=== PATIENT | female | born 1995 | race Caucasian/White ===

== ENCOUNTER → 2016-05-08 | Outpatient (CLI) | payer OTHER ==
[~2016-05-08] MED LIST: IBUP80TA PO; PNV-CAP5 PO; VITA100037 PO
[2016-05-08 20:06] LABS: ALBUMIN 3.9 GM/DL (3.2-5.2); ALBUMIN/GLOBULIN RATIO 1.08 (1.00-1.93); ALKALINE PHOSPHATASE 111 U/L (45-117); ALT/SGPT 24 U/L (12-78); ANION GAP 8 MEQ/L (8-16); AST/SGOT 15 U/L (15-37); BILIRUBIN,TOTAL 0.7 MG/DL (0.2-1.0); BLOOD UREA NITROGEN 15 MG/DL (7-18); CALCIUM LEVEL 9.3 MG/DL (8.5-10.1); CARBON DIOXIDE LEVEL 27 MEQ/L (21-32); CHLORIDE LEVEL 104 MEQ/L (98-107); CHOLESTEROL LEVEL 155 MG/DL (<200); CREATININE FOR GFR 1.16 MG/DL (0.55-1.02); GLOMERULAR FILTRATION RATE > 60.0 (>60); GLUCOSE, FASTING 84 MG/DL (70-105); MAGNESIUM LEVEL 1.9 MG/DL (1.8-2.4); POTASSIUM SERUM 4.5 MEQ/L (3.5-5.1); SODIUM LEVEL 139 MEQ/L (136-145); TOTAL PROTEIN 7.5 GM/DL (6.4-8.2); TRIGLYCERIDES LEVEL 288 MG/DL (<150)
== END | disposition home or self-care (01) ==
LOC: M LRY 10:06
PROVIDERS: ATTEND Nurse Practitioner Family
DX: F39 Unspecified mood [affective] disorder (principal); E78.5 Hyperlipidemia, unspecified; R51 Headache; K21.9 Gastro-esophageal reflux disease without esophagitis

== ENCOUNTER → 2016-06-02 | Outpatient (REF) | payer OTHER | LOC: M SFHCLERA 21:02 | PROVIDERS: ATTEND Nurse Practitioner Family | DX: J02.9 Acute pharyngitis, unspecified (principal) ==

== ENCOUNTER → 2016-07-02 | Outpatient (CLI) | payer OTHER ==
[2016-07-02 13:48] LABS: ANION GAP 10 MEQ/L (8-16); BLOOD UREA NITROGEN 17 MG/DL (7-18); CALCIUM LEVEL 9.7 MG/DL (8.5-10.1); CARBON DIOXIDE LEVEL 26 MEQ/L (21-32); CHLORIDE LEVEL 105 MEQ/L (98-107); CHOLESTEROL LEVEL 128 MG/DL (<200); CREATININE FOR GFR 1.18 MG/DL (0.55-1.02); GLOMERULAR FILTRATION RATE > 60.0 (>60); GLUCOSE, FASTING 99 MG/DL (70-105); POTASSIUM SERUM 4.4 MEQ/L (3.5-5.1); SODIUM LEVEL 141 MEQ/L (136-145); TRIGLYCERIDES LEVEL 276 MG/DL (<150)
== END ==
LOC: M LAB 11:51
PROVIDERS: ATTEND Nurse Practitioner Family
DX: E78.5 Hyperlipidemia, unspecified (principal)

== ENCOUNTER → 2017-03-26 | Outpatient (REF) | payer OTHER ==
[~2017-03-26] MED LIST changes: -VITA100037 PO; +VITA100067 PO
== END ==
LOC: M SFHCLERA 14:15
PROVIDERS: ATTEND Physician Assistant Medical
DX: J20.9 Acute bronchitis, unspecified (principal)

== ENCOUNTER → 2017-04-21 | Outpatient (CLI) | payer OTHER ==
[2017-04-21 12:50] LABS: ANION GAP 6 MEQ/L (8-16); BLOOD UREA NITROGEN 15 MG/DL (7-18); CALCIUM LEVEL 8.9 MG/DL (8.5-10.1); CARBON DIOXIDE LEVEL 28 MEQ/L (21-32); CHLORIDE LEVEL 105 MEQ/L (98-107); CHOLESTEROL LEVEL 142 MG/DL (<200); CREATININE FOR GFR 1.28 MG/DL (0.55-1.02); GLOMERULAR FILTRATION RATE 55.5 (>60); GLUCOSE, FASTING 76 MG/DL (70-105); HDL CHOLESTEROL 40 MG/DL (>40); LDL CHOLESTEROL 71.8 MG/DL (<100); NON-HDL-C 102 MG/DL; SODIUM LEVEL 139 MEQ/L (136-145); TRIGLYCERIDES LEVEL 151 MG/DL (<150)
[2017-04-21 13:38] LABS: ESTIMATED AVERAGE GLUCOSE 94 MG/DL (60-110); HEMOGLOBIN A1c 4.9 %
== END ==
LOC: M LRY 09:31
DX: E88.81 Metabolic syndrome and other insulin resistance (principal)
CPT/HCPCS: 83036

== ENCOUNTER → 2017-11-18 | Outpatient (REF) | payer OTHER | LOC: M SFHCLERA 20:55 | DX: J06.9 Acute upper respiratory infection, unspecified (principal) ==

== ENCOUNTER → 2017-11-21 | Outpatient (CLI) | payer OTHER | LOC: M LRY 20:12 | DX: R05 Cough (principal) | CPT/HCPCS: 71046 ==

== ENCOUNTER → 2018-04-27 | Outpatient (CLI) | payer OTHER ==
[2018-04-27 17:51] LABS: HEMATOCRIT 47.1 % (36.0-47.0); HEMOGLOBIN 15.3 g/dl (12.0-15.5); MEAN CORPUSCULAR HEMOGLOBIN 28.4 pg (27.0-33.0); MEAN CORPUSCULAR HGB CONC 32.5 g/dl (32.0-36.5); MEAN CORPUSCULAR VOLUME 87.4 fl (80.0-96.0); PLATELET COUNT, AUTOMATED 253 10^3/uL (150-450); RED BLOOD COUNT 5.39 10^6/uL (4.00-5.40); WHITE BLOOD COUNT 7.7 10^3/uL (4.0-10.0)
[2018-04-27 18:01] LABS: FREE T4 1.05 NG/DL (0.76-1.46); THYROID STIMULATING HORMONE 1.6 uIU/ML (0.358-3.740)
== END ==
LOC: M SMT 15:09
PROVIDERS: ATTEND Specialist
DX: N93.8 Other specified abnormal uterine and vaginal bleeding (principal)

== ENCOUNTER → 2018-05-04 | Outpatient (REF) | payer OTHER, MEDICAID ==
[2018-05-04 19:24] LABS: ALBUMIN 3.9 GM/DL (3.2-5.2); ALT/SGPT 26 U/L (12-78); BILIRUBIN,TOTAL 0.4 MG/DL (0.2-1.0); BLOOD UREA NITROGEN 18 MG/DL (7-18); CALCIUM LEVEL 8.8 MG/DL (8.5-10.1); CARBON DIOXIDE LEVEL 30 MEQ/L (21-32); CHLORIDE LEVEL 102 MEQ/L (98-107); CHOLESTEROL LEVEL 162 MG/DL (<200); CHOLESTEROL RISK RATIO 5.785 (<5); CREATININE FOR GFR 1.12 MG/DL (0.55-1.30); GLOMERULAR FILTRATION RATE > 60.0 (>60); GLUCOSE, FASTING 88 MG/DL (70-100); HDL CHOLESTEROL 28 MG/DL (>40); NON-HDL-C 134 MG/DL; POTASSIUM SERUM 4.4 MEQ/L (3.5-5.1); SODIUM LEVEL 137 MEQ/L (136-145); TOTAL PROTEIN 7.3 GM/DL (6.4-8.2); TRIGLYCERIDES LEVEL 462 MG/DL (<150)
[2018-05-04 19:31] LABS: TOTAL 25(OH) VITAMIN D 14.4 NG/ML (30.0-100.0); VITAMIN B12 LEVEL 761 PG/ML
[2018-05-04 19:32] LABS: FOLATE 13.7 NG/ML
== END ==
LOC: M LAB REF 18:41
PROVIDERS: ATTEND Nurse Practitioner Family
DX: Z13.9 Encounter for screening, unspecified (principal)

== ENCOUNTER → 2018-07-11 | Outpatient (REF) | payer OTHER ==
[2018-07-11 19:09] LABS: ALBUMIN 3.8 GM/DL (3.2-5.2); ALT/SGPT 29 U/L (12-78); BILIRUBIN,TOTAL 0.4 MG/DL (0.2-1.0); BLOOD UREA NITROGEN 16 MG/DL (7-18); CALCIUM LEVEL 9.5 MG/DL (8.5-10.1); CARBON DIOXIDE LEVEL 26 MEQ/L (21-32); CHLORIDE LEVEL 105 MEQ/L (98-107); CHOLESTEROL LEVEL 182 MG/DL (<200); CREATININE FOR GFR 1.09 MG/DL (0.55-1.30); GLOMERULAR FILTRATION RATE > 60.0 (>60); GLUCOSE, FASTING 97 MG/DL (70-100); HDL CHOLESTEROL 35 MG/DL (>40); LDL CHOLESTEROL 79 MG/DL (<100); NON-HDL-C 147 MG/DL; POTASSIUM SERUM 4.5 MEQ/L (3.5-5.1); SODIUM LEVEL 138 MEQ/L (136-145); TOTAL PROTEIN 7.1 GM/DL (6.4-8.2); TRIGLYCERIDES LEVEL 340 MG/DL (<150)
[2018-07-11 19:10] LABS: FOLATE > 24.0 NG/ML; VITAMIN B12 LEVEL 478 PG/ML
[2018-07-11 19:12] LABS: BASO # 0.1 10^3/uL (0.0-0.2); BASO % 0.7 % (0.0-1.0); EOS # 0.3 10^3/uL (0.0-0.50); EOS % 4.4 % (0.0-3.0); HEMATOCRIT 46.5 % (36.0-47.0); HEMOGLOBIN 15.4 g/dl (12.0-15.5); LYMPH # 1.9 10^3/uL (1.5-6.5); MEAN CORPUSCULAR HEMOGLOBIN 28.5 pg (27.0-33.0); MEAN CORPUSCULAR HGB CONC 33.1 g/dl (32.0-36.5); MEAN CORPUSCULAR VOLUME 86.1 fl (80.0-96.0); MONO # 0.5 10^3/uL (0.0-0.8); MONO % 6.8 % (0.0-5.0); NEUTROPHILS # 4.3 10^3/uL (1.8-7.7); NEUTROPHILS % 60.4 % (36.0-66.0); PLATELET COUNT, AUTOMATED 230 10^3/uL (150-450); WHITE BLOOD COUNT 7.1 10^3/uL (4.0-10.0)
[2018-07-11 19:15] LABS: HEMOGLOBIN A1c 5.3 %
== END ==
LOC: M LAB REF 17:21
PROVIDERS: ATTEND Nurse Practitioner Family
DX: Z13.9 Encounter for screening, unspecified (principal)

== ENCOUNTER → 2018-08-12 | Outpatient (REF) | payer OTHER | LOC: M SFHCLERA 17:11 | PROVIDERS: ATTEND Nurse Practitioner Family | DX: R53.81 Other malaise (principal) ==

== ENCOUNTER → 2018-10-27 | Outpatient (REF) | payer OTHER | LOC: M SFHCLERA 17:41 | PROVIDERS: ATTEND Nurse Practitioner Family | DX: J02.9 Acute pharyngitis, unspecified (principal) ==

== ENCOUNTER 2019-01-09 20:30 | Inpatient (IN) | payer OTHER ==
[~2019-01-09] VITALS: Ht 157.5 cm; Wt 99.6 kg
[~2019-01-09 20:30] MED LIST changes: -ACET1TAB55 PO; -BUSP15TA47; -BUSP15TA47 PO; -CELE40TA PO; -CITA40TA4; -LEVA1TAB2 PO; -NEXP1IMP SC; -OMEP-218; -OMEP-218 PO
[2019-01-09] MEDS ORDERED: BUSP15TA47 (20:35)
[2019-01-09] MEDS ORDERED: CITA40TA4 (20:35)
[2019-01-09] MEDS ORDERED: OMEP-218 (20:35)
[2019-01-09] MEDS ORDERED: ACETAMINOPHEN TAB 650MG DOSE (2X325MG) PO ONE (20:45)
[2019-01-09] MEDS ORDERED: NS 1,000 ML IV ONE ×2 (21:15→23:00)
[2019-01-09 21:31] LABS: BASO # 0.1 10^3/uL (0.0-0.2); BASO % 0.4 % (0.0-1.0); EOS % 0.1 % (0.0-3.0); HEMATOCRIT 41.1 % (36.0-47.0); HEMOGLOBIN 13.7 g/dl (12.0-15.5); LYMPH # 1.1 10^3/uL (1.5-5.0); LYMPH % 5.8 % (24.0-44.0); MEAN CORPUSCULAR HEMOGLOBIN 28.7 pg (27.0-33.0); MEAN CORPUSCULAR HGB CONC 33.3 g/dl (32.0-36.5); MEAN CORPUSCULAR VOLUME 86.2 fl (80.0-96.0); MONO # 1.9 10^3/uL (0.0-0.8); MONO % 10.2 % (0.0-5.0); NEUTROPHILS # 15.3 10^3/uL (1.5-8.5); NEUTROPHILS % 82.7 % (36.0-66.0); PLATELET COUNT, AUTOMATED 187 10^3/uL (150-450); RED BLOOD COUNT 4.77 10^6/uL (4.00-5.40); WHITE BLOOD COUNT 18.6 10^3/uL (4.0-10.0)
[2019-01-09 21:59] LABS: ALBUMIN 2.9 GM/DL (3.2-5.2); ALT/SGPT 20 U/L (12-78); BILIRUBIN,DIRECT 0.6 MG/DL (0.0-0.2); BILIRUBIN,TOTAL 1.3 MG/DL (0.2-1.0); BLOOD UREA NITROGEN 22 MG/DL (7-18); CALCIUM LEVEL 8.5 MG/DL (8.5-10.1); CARBON DIOXIDE LEVEL 23 MEQ/L (21-32); CHLORIDE LEVEL 104 MEQ/L (98-107); CREATININE FOR GFR 1.78 MG/DL (0.55-1.30); GLOMERULAR FILTRATION RATE 37.3 (>60); GLUCOSE, FASTING 108 MG/DL (70-100); LIPASE 52 U/L (73-393); POTASSIUM SERUM 3.2 MEQ/L (3.5-5.1); SODIUM LEVEL 137 MEQ/L (136-145); TOTAL PROTEIN 6.2 GM/DL (6.4-8.2)
[2019-01-09 22:01] LABS: HCG, SERUM QUALITATIVE NEGATIVE (NEGATIVE)
[2019-01-09] MEDS ORDERED: cefTRIAXone SOD 1 GM in D5W MINI-BAG PLUS 50 ML IV ONE (23:00)
[2019-01-10] VITALS (7 sets, daily range): BP systolic 109–125; BP diastolic 57–82
--- NOTE | 2019-01-10 00:34 | REPVR ---
PROCEDURE INFORMATION: Exam: CT Abdomen and Pelvis Without Contrast Exam date and time: 01/09/2019 10:39 PM Clinical history: 23 years old, female; Abdominal pain; Generalized; Additional info: Pyleonephritis, renal stone possible TECHNIQUE: Imaging protocol: Computed tomography of the abdomen and pelvis without contrast. Radiation optimization: All CT scans at this facility use at least one of these dose optimization techniques: automated exposure control; mA and/or kV adjustment per patient size (includes targeted exams where dose is matched to clinical indication); or iterative reconstruction. COMPARISON: No relevant prior studies available. FINDINGS: Liver: Liver is enlarged. Gallbladder and bile ducts: Normal. No calcified stones. No ductal dilation. Pancreas: Normal. No ductal dilation. Spleen: Spleen is enlarged measuring 14.6 cm. Adrenals: Normal. No mass. Kidneys and ureters: No evidence of stones or hydronephrosis. Mild haziness surrounding the bilateral kidneys, right greater than left, likely representing pyelonephritis. Stomach and bowel: No bowel dilatation or obstruction. Appendix: Normal appendix. Intraperitoneal space: Trace free fluid in the pelvis likely physiologic. Vasculature: Unremarkable. No abdominal aortic aneurysm. Lymph nodes: Unremarkable. No enlarged lymph nodes. Bladder: Unremarkable as visualized. Reproductive: Questionable cyst versus dominant follicle in the right ovary measuring up to 13 x 18 mm. Uterus and left ovary are unremarkable. Bones/joints: Unremarkable. No acute fracture. Soft tissues: Unremarkable. IMPRESSION: No evidence of stones or hydronephrosis. Mild haziness surrounding the bilateral kidneys, right greater than left, likely representing pyelonephritis. Hepatosplenomegaly. Normal appendix. Possible dominant follicle in the right ovary with trace free fluid in the pelvis likely physiologic. Electronically signed by: Alize Masters On 01/10/2019 00:33:28 AM
[2019-01-10] MEDS ORDERED: CELE40TA PO (03:49)
[2019-01-10] MEDS ORDERED: NEXP1IMP SC (03:49)
[2019-01-10] MEDS ORDERED: OMEP-218 PO (03:49)
[2019-01-10] MEDS ORDERED: BUSP15TA47 PO (03:49)
--- NOTE | 2019-01-10 04:19 | HPEPDOC ---
[facility] Medical History & Physical Date of Admission Jan 10, 2019 Date of Service: Jan 10, 2019 Primary Care Physician: A Other Provider Carmel TINEO Attending Physician: LUZ LEVIN MD History and Physical TIME OF SERVICE: 2:35 AM CHIEF COMPLAINT: "been sick since yesterday" HISTORY OF PRESENT ILLNESS: This is a 23-year-old female who presents with complaints of feeling sick since yesterday. She reports having 5-6 episodes of non bloody emesis, is complaining that my "head is killing me", and of 5/10 in severity right-sided, nonradiating back pain. She went to an urgent care center yesterday and was told that she has a virus. Per discussion with the ED provider the patient has been taking a lot of Ibuprofen which may be the cause of MIKE; she was diagnosed w pyelonephritis based on the UA and CT scan findings & received IV fluids and ceftriaxone. REVIEW OF SYSTEMS: 12 point review of systems negative except as listed in HPI PAST MEDICAL/ SURGICAL HISTORY: Patient denies having any medical problems or any surgeries in the past Per chart review, she has anxiety and depression SOCIAL HISTORY: She denies smoking FAMILY HISTORY: She reports that she does not know her family history because she's never asked ALLERGIES: Please see below. HOME MEDICATIONS: Please see below. PHYSICAL EXAMINATION: VITAL SIGNS: Please see below. GENERAL APPEARANCE: well-nourished, well-developed, does not appear toxic HEENT: Normocephalic, atraumatic, mucous members moist and pink CARDIOVASCULAR: regular rate and rhythm. No murmurs, rubs or gallops LUNGS: Clear to auscultation bilaterally on room air ABDOMEN: soft and nontender on palpation. Bowel sounds hypoactive MUSCULOSKELETAL: range of motion intact in all 4 extremities. There is no CVA angle tenderness INTEGUMENT:She is not flushed. NEUROLOGICAL:Cranial nerves II-12 intact. Speech is not dysarthric PSYCHIATRIC: Alert and oriented to person, place and time, able to understand and follow commands LABORATORY DATA: See below. IMAGING: Chest x-ray appears unremarkable. Final read is pending. CT abdomen and pelvis shows findings consistent with bilateral pyelonephritis MICROBIOLOGY: Please see below. ASSESSMENT: Ms. Bedolla is a 23 old female with a past medical history of anxiety and depression who will be admitted for management of sepsis secondary to pyelonephritis & MIKE. PLAN: 1. Sepsis secondary to pyelonephritis SIRS criteria include temperature of 101, HR of 142, WBC # of 18.6 + Non diabetic hyperglycemia (Glucose is 108 the patient denied a history of diabetes) UA & report from CT of the abdomen reviewed News 2 score = 5 points = medium risk Plan: admit to PCU / telemetry / Sepsis protocol w lactic acid / c/w Zosyn & IVF /f/u blood cx, UCx 2. MIKE Possibly 2/2 Ibuprofen use vs prerenal azotemia (dehydration) Baseline Cr 1.09 Current Cr 1.78 UA reviewed Plan: f/u ulytes for FENa or FEUrea, renal US, IVF / avoid nephrotoxins 3. Obesity BMI 37.7 kg/m2 Complicates care Plan: can f/u w PCP for manager testing consult / recommend cardiovascular exercise for 40 min 4-5 days a week 4. Hyperglycemia Plan: f/u A1C 5. Anxiety /Depression Plan: c/w home meds DVT prophylaxis with Lovenox. Disposition pending clinical course Vital Signs Vital Signs Date Time Temp Pulse Resp B/P (MAP) Pulse Ox O2 Delivery O2 Flow Rate FiO2 01/10/19 03:55 82 14 100/55 (70) 100 01/10/19 00:54 97.8 01/09/19 20:31 Room Air Laboratory Data Labs 24H Laboratory Tests 2 01/09/19 21:16: Immature Granulocyte % (Auto) 0.8, White Blood Count 18.6H, Red Blood Count 4.77, Hemoglobin 13.7, Hematocrit 41.1, Mean Corpuscular Volume 86.2, Mean Corpuscular Hemoglobin 28.7, Mean Corpuscular Hemoglobin Concent 33.3, Red Cell Distribution Width 13.4, Platelet Count 187, Neutrophils (%) (Auto) 82.7H, Lymphocytes (%) (Auto) 5.8L, Monocytes (%) (Auto) 10.2H, Eosinophils (%) (Auto) 0.1, Basophils (%) (Auto) 0.4, Neutrophils # (Auto) 15.3H, Lymphocytes # (Auto) 1.1L, Monocytes # (Auto) 1.9H, Eosinophils # (Auto) 0.0, Basophils # (Auto) 0.1, Nucleated Red Blood Cells % (auto) 0.0, Urine Color SHERRIE, Urine Appearance CLOUDYH, Urine pH 5.0, Urine Specific Og[place]by 1.015, Urine Protein 2+H, Urine Glucose (UA) NEGATIVE, Urine Ketones NEGATIVE, Urine Blood 3+H, Urine Nitrite NEGATIVE, Urine Bilirubin NEGATIVE, Urine Urobilinogen 4.0H, Urine Leukocyte Esterase 3+H, Urine WBC (Auto) TNTCH, Urine RBC (Auto) 81H, Urine Hyaline Casts (Auto) 0, Urine Bacteria (Auto) 3+H, Urine Squamous Epithelial Cells 2, Urine Mucus (Auto) SMALL, Urine Sperm (Auto) , Anion Gap 10, Glomerular Filtration Rate 37.3L, Calcium Level 8.5, Aspartate Amino Transf (AST/SGOT) 16, Alanine Aminotransferase (ALT/SGPT) 20, Alkaline Phosphatase 101, Total Bilirubin 1.3H, Direct Bilirubin 0.6H, Total Protein 6.2L, Albumin 2.9L, Albumin/Globulin Ratio 0.88L, Lipase 52L, Human Chorionic Gonadotropin, Qual NEGATIVE CBC/BMP Laboratory Tests 01/09/19 21:16 Red Blood Count 4.77, Mean Corpuscular Volume 86.2, Mean Corpuscular Hemoglobin 28.7, Mean Corpuscular Hemoglobin Concent 33.3, Red Cell Distribution Width 13.4, Neutrophils (%) (Auto) 82.7 H, Lymphocytes (%) (Auto) 5.8 L, Monocytes (%) (Auto) 10.2 H, Eosinophils (%) (Auto) 0.1, Basophils (%) (Auto) 0.4, Neutrophils # (Auto) 15.3 H, Lymphocytes # (Auto) 1.1 L, Monocytes # (Auto) 1.9 H, Eosinophils # (Auto) 0.0, Basophils # (Auto) 0.1 Microbiology Microbiology 01/09/19 Urine Culture, Received Pending Home Medications Scheduled Buspirone HCl (Buspirone HCl) 15 Mg Tablet, 15 MG PO BID Citalopram Hydrobromide (Celexa) 40 Mg Tablet, 40 MG PO DAILY Etonogestrel (Nexplanon) 68 Mg Implant, 68 MG SC ASDIRECTED IMPLANTED IN AUGUST 2017 Omeprazole (Omeprazole) 20 Mg Capsule.dr, 20 MG PO DAILY Allergies Coded Allergies: No Known Allergies (Unverified , 06/08/14) A-FIB/CHADSVASC A-FIB History Current/History of A-Fib/PAF?: No Current PO Anticoag Therapy: No LUZ LEVIN MD Jan 10, 2019 04:19
--- NOTE | 2019-01-10 04:22 | REP ---
Clinical: Fever . Comparison: 11/21/2017 . Technique: PA and lateral. Findings: The mediastinum and cardiac silhouette are normal. The lung reardon are clear and without acute consolidation, effusion, or pneumothorax. The skeletal structures are intact and normal. Impression: 1. No acute cardiopulmonary process. Electronically Signed by Je Soriano MD 01/10/2019 04:14 A
[2019-01-10 05:31] LABS: HEMATOCRIT 43.2 % (36.0-47.0); MEAN CORPUSCULAR HEMOGLOBIN 28.5 pg (27.0-33.0); MEAN CORPUSCULAR HGB CONC 32.4 g/dl (32.0-36.5); MEAN CORPUSCULAR VOLUME 87.8 fl (80.0-96.0); PLATELET COUNT, AUTOMATED 180 10^3/uL (150-450); RED BLOOD COUNT 4.92 10^6/uL (4.00-5.40); WHITE BLOOD COUNT 15.2 10^3/uL (4.0-10.0)
[2019-01-10 05:58] LABS: ALBUMIN 2.6 GM/DL (3.2-5.2); CALCIUM LEVEL 8.4 MG/DL (8.5-10.1); CREATININE FOR GFR 1.76 MG/DL (0.55-1.30); GLOMERULAR FILTRATION RATE 37.8 (>60); POTASSIUM SERUM 3.2 MEQ/L (3.5-5.1); TOTAL PROTEIN 6.4 GM/DL (6.4-8.2)
[2019-01-10] MEDS ORDERED: PIPERACILLIN/TAZOBACTAM SOD 3.375 GM in D5W MINI-BAG PLUS 50 ML IV SCH (06:00)
[2019-01-10] MEDS ORDERED: NS 1,000 ML IV SCH (06:00)
[2019-01-10] MEDS ORDERED: PIPERACILLIN/TAZOBACTAM SOD 2.25 GM in D5W MINI-BAG PLUS 50 ML IV SCH (06:00)
[2019-01-10] MEDS ORDERED: busPIRone 5 MG TAB As Ordered ONE (08:35)
[2019-01-10] MEDS ORDERED: OMEPRAZOLE 20 MG CAP As Ordered ONE (08:35)
[2019-01-10] MEDS ORDERED: CitaloPRAM (CeleXA) 20 MG TAB As Ordered ONE (08:35)
[2019-01-10] MEDS ORDERED: ENOXAPARIN 40 MG/0.4 ML SYRINGE (J1650) As Ordered ONE (08:35)
[2019-01-10] MEDS ORDERED: cefTRIAXone SOD 2 GM VIAL (J0696) As Ordered ONE (08:37)
[2019-01-10] MEDS: cefTRIAXone SOD 2 GM in D5W MINI-BAG PLUS 50 ML IV SCH (08:40)
[2019-01-10] MEDS: busPIRone 5 MG TAB PO SCH ×2 (08:40→21:09)
[2019-01-10] MEDS: ENOXAPARIN 40 MG/0.4 ML SYRINGE (J1650) SC SCH (08:41)
[2019-01-10] MEDS: OMEPRAZOLE 20 MG CAP PO SCH (08:41)
[2019-01-10] MEDS: CitaloPRAM (CeleXA) 20 MG TAB PO SCH (08:41)
[2019-01-10] MEDS: ACETAMINOPHEN 650MG ER TAB (TYLENOL ARTHRITIS) PO PRN (09:44)
[2019-01-10] MEDS ORDERED: KCL 40MEQ in NS 1000ML 1,000 ML IV SCH (11:00)
[2019-01-10] MEDS ORDERED: traMADol 50 MG TAB PO PRN (12:00)
--- NOTE | 2019-01-10 13:45 | REP ---
RENAL ULTRASOUND: Real-time sonographic evaluation of the kidneys performed and demonstrates both kidneys to be normal in size. Right kidney measures 11.3 x 4.8 x 4.0 cm and left kidney 10.4 x 4.1 x 3.8 cm. Echotexture of the right kidney is hyperechoic suggesting medical renal disease. There is no hydronephrosis bilaterally. No renal mass is seen. With Doppler color evaluation left ureteral jet is visualized in the urinary bladder while a right ureteral jet is not visualized. IMPRESSION: Hyperechoic echotexture of the right kidney suggests medical renal disease and possibly pyelonephritis. No hydronephrosis. No right ureteral jet identified, while a left ureteral jet is seen in the urinary bladder with Doppler evaluation. Electronically Signed by Francis Magana MD 01/10/2019 03:22 P
[2019-01-10] MEDS: NS 1,000 ML IV SCH (17:56)
[2019-01-10] MEDS ORDERED: SUMAtriptan SUCCINATE 6 MG/0.5 ML VIAL SC ONE (19:00)
[2019-01-10] MEDS: MORPHINE 4 MG/ML 1ML VIAL/SYRINGE (J2270) IV PRN ×2 (19:05→22:58)
[2019-01-10] MEDS: ONDANSETRON 4MG/2ML VIAL (J2405) IV PRN ×2 (19:05→22:58)
--- NOTE | 2019-01-10 19:38 | REPVR ---
PROCEDURE INFORMATION: Exam: CT Head Without Contrast Exam date and time: 01/10/2019 7:11 PM Clinical history: 23 years old, female; Pain; Headache not specified; Additional info: Intracranial bleed TECHNIQUE: Imaging protocol: Computed tomography of the head without contrast. Radiation optimization: All CT scans at this facility use at least one of these dose optimization techniques: automated exposure control; mA and/or kV adjustment per patient size (includes targeted exams where dose is matched to clinical indication); or iterative reconstruction. COMPARISON: No relevant prior studies available. FINDINGS: Brain: Normal. No hemorrhage. Unremarkable white matter. No mass effect. Ventricles: Normal. No ventriculomegaly. Bones/joints: Unremarkable. No acute fracture. Sinuses: Visualized sinuses are unremarkable. No fluid levels. Mastoid air cells: Visualized mastoid air cells are well aerated. Soft tissues: Unremarkable. IMPRESSION: No acute intracranial abnormality. Electronically signed by: Nilay Kulkarni On 01/10/2019 19:38:23 PM
[2019-01-10 22:44] LABS: INFLUENZA A AMPLIFICATION NEGATIVE (NEGATIVE); INFLUENZA B AMPLIFICATION NEGATIVE (NEGATIVE)
[2019-01-10] MEDS ORDERED: ACETAMINOPHEN TAB 650MG DOSE (2X325MG) PO PRN (23:45)
[2019-01-11] VITALS (10 sets, daily range): BP systolic 92–134; BP diastolic 53–79; O2SAT 97–100
--- NOTE | 2019-01-11 00:05 | REPVR ---
PROCEDURE INFORMATION: Exam: XR Chest, 1 View Exam date and time: 01/10/2019 11:59 PM Clinical history: 23 years old, female; Other: "; Additional info: O2 sat 85% TECHNIQUE: Imaging protocol: XR of the chest Views: 1 view. COMPARISON: CR Chest, 2 view PA, Lat 01/09/2019 10:55 PM FINDINGS: Lungs: Unremarkable. No consolidation. Pleural space: Unremarkable. No pleural effusion. No pneumothorax. Heart/Mediastinum: Unremarkable. No cardiomegaly. Bones/joints: Unremarkable. IMPRESSION: No acute findings. Electronically signed by: Nilay Kulkarni On 01/11/2019 00:04:19 AM
[2019-01-11] MEDS: NS 1,000 ML IV SCH ×4 (00:26→21:45)
[2019-01-11] MEDS: ONDANSETRON 4MG/2ML VIAL (J2405) IV PRN (05:33)
[2019-01-11] MEDS: MORPHINE 4 MG/ML 1ML VIAL/SYRINGE (J2270) IV PRN ×2 (05:34→18:57)
[2019-01-11 06:12] LABS: HEMATOCRIT 36.3 % (36.0-47.0); MEAN CORPUSCULAR HEMOGLOBIN 28.4 pg (27.0-33.0); MEAN CORPUSCULAR HGB CONC 32.5 g/dl (32.0-36.5); MEAN CORPUSCULAR VOLUME 87.3 fl (80.0-96.0); PLATELET COUNT, AUTOMATED 197 10^3/uL (150-450); RED BLOOD COUNT 4.16 10^6/uL (4.00-5.40); WHITE BLOOD COUNT 13.9 10^3/uL (4.0-10.0)
[2019-01-11 06:20] LABS: HEMOGLOBIN 11.8 g/dl (12.0-15.5)
[2019-01-11 06:44] LABS: CALCIUM LEVEL 8.1 MG/DL (8.5-10.1); CREATININE FOR GFR 1.64 MG/DL (0.55-1.30); POTASSIUM SERUM 3.9 MEQ/L (3.5-5.1)
[2019-01-11] MEDS: ACETAMINOPHEN 650MG ER TAB (TYLENOL ARTHRITIS) PO PRN (06:57)
[2019-01-11] MEDS: busPIRone 5 MG TAB PO SCH ×2 (10:03→21:44)
[2019-01-11] MEDS: OMEPRAZOLE 20 MG CAP PO SCH (10:03)
[2019-01-11] MEDS: CitaloPRAM (CeleXA) 20 MG TAB PO SCH (10:03)
[2019-01-11] MEDS: ENOXAPARIN 40 MG/0.4 ML SYRINGE (J1650) SC SCH (10:04)
[2019-01-11] MEDS: cefTRIAXone SOD 2 GM in D5W MINI-BAG PLUS 50 ML IV SCH (10:04)
--- NOTE | 2019-01-11 10:37 | IPNPDOC ---
Text Note Date of Service The patient was seen on 01/11/19. NOTE Subjective: patient developed episodes of desaturation overnight to mid 80s, she continues to have severe headache 9 out of 10 in frontal area, pain medication mildly alleviates her pain. Also patient complains of consistent nausea. Patient denies any focal neurological deficit, double vision, tinnitus or problems with balance VITAL SIGNS: Please see below. GENERAL APPEARANCE: Obese female in severe distress HEENT: Normocephalic, atraumatic, mucous members moist and pink CARDIOVASCULAR: regular rate and rhythm. No murmurs, rubs or gallops LUNGS: Clear to auscultation bilaterally on room air ABDOMEN: soft and nontender on palpation. Bowel sounds hypoactive MUSCULOSKELETAL: range of motion intact in all 4 extremities. There is no CVA angle tenderness INTEGUMENT:She is not flushed. NEUROLOGICAL:Cranial nerves II-12 intact. Speech is not dysarthric PSYCHIATRIC: Alert and oriented to person, place and time, able to understand and follow commands PROCEDURE INFORMATION: Exam: CT Head Without Contrast Exam date and time: 01/10/2019 7:11 PM Clinical history: 23 years old, female; Pain; Headache not specified; Additional info: Intracranial bleed TECHNIQUE: Imaging protocol: Computed tomography of the head without contrast. Radiation optimization: All CT scans at this facility use at least one of these dose optimization techniques: automated exposure control; mA and/or kV adjustment per patient size (includes targeted exams where dose is matched to clinical indication); or iterative reconstruction. COMPARISON: No relevant prior studies available. FINDINGS: Brain: Normal. No hemorrhage. Unremarkable white matter. No mass effect. Ventricles: Normal. No ventriculomegaly. Bones/joints: Unremarkable. No acute fracture. Sinuses: Visualized sinuses are unremarkable. No fluid levels. Mastoid air cells: Visualized mastoid air cells are well aerated. Soft tissues: Unremarkable. IMPRESSION: No acute intracranial abnormality. Electronically signed by: Nilay Kulkarni On 01/10/2019 19:38:23 PM RENAL ULTRASOUND: Real-time sonographic evaluation of the kidneys performed and demonstrates both kidneys to be normal in size. Right kidney measures 11.3 x 4.8 x 4.0 cm and left kidney 10.4 x 4.1 x 3.8 cm. Echotexture of the right kidney is hyperechoic suggesting medical renal disease. There is no hydronephrosis bilaterally. No renal mass is seen. With Doppler color evaluation left ureteral jet is visualized in the urinary bladder while a right ureteral jet is not visualized. IMPRESSION: Hyperechoic echotexture of the right kidney suggests medical renal disease and possibly pyelonephritis. No hydronephrosis. No right ureteral jet identified, while a left ureteral jet is seen in the urinary bladder with Doppler ev aluation. Assessment and plan Patient is 23 years old female with past history of anxiety, depression presented hospital with severe headache, sepsis most likely secondary to UTI. 1. Sepsis secondary to pyelonephritis Patient had leukocytosis on admission 18.6, elevated creatinine level 1.7, urine shows pyuria She developed dyspnea and tachycardia Continue antibiotic IV fluid Urine culture pending, blood culture negative for 24 hours Shortness of breath Patient developed one episode of desaturation overnight with oxygen saturation around mid 80s, she received 2 L via nasal cannula. D-dimer was ordered by night team and return 1255. Patient has tachycardia. We will proceed with CTA to rule out PE Headache Patient continued to have severe headache, frontal. CT scan of head was negative for intracranial bleed Patient stated that her headache severity is unusual for her. Headache is resistant to pain management with morphine. Sumatriptan did not break headache. She stated that she has never had history of migraine. Patient does not have any neurological deficits. There is possibility for encephalitis, however patient does not have nuchal rigidity, or meningeal signs If headache does not improve I will proceed with LP. I'll check Lyme titer, pro-calcitonin MIKE Combined prerenal and renal acute kidney failure secondary to ibuprofen and dehydration Baseline Cr 1.09 Improving today Continue to monitor, IV hydration Obesity Nurses Supervisor consult in the outpatient settings Hyperglycemia Glucose level is under control for now Plan: f/u A1C 5. Anxiety /Depression Plan: c/w home meds DVT prophylaxis with Lovenox. Disposition pending clinical course VS,Fishbone, I+O VS, Fishbone, I+O Laboratory Tests 01/11/19 05:39 Red Blood Count 4.16, Mean Corpuscular Volume 87.3, Mean Corpuscular Hemoglobin 28.4, Mean Corpuscular Hemoglobin Concent 32.5, Red Cell Distribution Width 14.0, Calcium Level 8.1 L Vital Signs Date Time Temp Pulse Resp B/P (MAP) Pulse Ox O2 Delivery O2 Flow Rate FiO2 01/11/19 08:00 98.5 105 18 97/63 (57) 94 1.0 01/09/19 20:31 Room Air I&O- Last 24 Hours up to 6 AM 01/11/19 05:59 Intake Total 2640 ml Output Total 1700 ml Balance 940 ml ANDREZ BELLA DO Jan 11, 2019 10:37
[2019-01-11] MEDS ORDERED: ISOVUE-370 76% 100ML VIAL (Q9967) As Ordered ONE (10:49)
--- NOTE | 2019-01-11 11:58 | REP ---
CT of the chest with IV contrast, CT pulmonary angiography: There are no comparison chest CT studies. There are no emboli in the pulmonary trunk or central pulmonary arteries. There are no emboli in the pulmonary lobe or segment branches. There is a patchy right lower lobe infiltrate and a small right pleural effusion. There is a small infiltrate in the deep posterior sulcus of the left lower lobe and a small left pleural effusion. There is no mediastinal, hilar or axillary lymphadenopathy. The thoracic aorta is unremarkable. Cardiac size is normal. There is no pericardial effusion. In the upper abdomen the spleen is partially excluded at the inferior film margin, however, I suspect that there is splenomegaly. Consider splenic ultrasound for confirmation. Impression: There are no pulmonary emboli. There are bilateral lower lobe infiltrates and small bilateral pleural effusions. Question of splenomegaly. This can be confirmed by ultrasound. Electronically Signed by Francis Huerta MD 01/11/2019 11:50 A
[2019-01-12] VITALS (15 sets, daily range): BP systolic 117–146; BP diastolic 58–84; O2SAT 86–100
[2019-01-12] MEDS: MORPHINE 4 MG/ML 1ML VIAL/SYRINGE (J2270) IV PRN ×2 (00:26→08:09)
[2019-01-12] MEDS: ONDANSETRON 4MG/2ML VIAL (J2405) IV PRN (00:26)
[2019-01-12] MEDS: NS 1,000 ML IV SCH ×2 (04:47→14:31)
[2019-01-12 05:47] LABS: BASO % 0.3 % (0.0-1.0); EOS # 0.2 10^3/uL (0.0-0.5); EOS % 2.1 % (0.0-3.0); HEMATOCRIT 35.4 % (36.0-47.0); HEMOGLOBIN 11.3 g/dl (12.0-15.5); LYMPH # 1.7 10^3/uL (1.5-5.0); LYMPH % 16.9 % (24.0-44.0); MEAN CORPUSCULAR HEMOGLOBIN 28.8 pg (27.0-33.0); MEAN CORPUSCULAR HGB CONC 31.9 g/dl (32.0-36.5); MEAN CORPUSCULAR VOLUME 90.1 fl (80.0-96.0); MONO % 9.6 % (0.0-5.0); NEUTROPHILS % 70.4 % (36.0-66.0); PLATELET COUNT, AUTOMATED 181 10^3/uL (150-450); RED BLOOD COUNT 3.93 10^6/uL (4.00-5.40); WHITE BLOOD COUNT 9.9 10^3/uL (4.0-10.0)
[2019-01-12 06:15] LABS: BILIRUBIN,TOTAL 0.7 MG/DL (0.2-1.0); CALCIUM LEVEL 8.3 MG/DL (8.5-10.1); CREATININE FOR GFR 1.44 MG/DL (0.55-1.30); GLOMERULAR FILTRATION RATE 47.6 (>60); MAGNESIUM LEVEL 1.8 MG/DL (1.8-2.4); TOTAL PROTEIN 5.5 GM/DL (6.4-8.2)
[2019-01-12] MEDS: ENOXAPARIN 40 MG/0.4 ML SYRINGE (J1650) SC SCH (08:09)
[2019-01-12] MEDS: busPIRone 5 MG TAB PO SCH ×2 (08:09→20:11)
[2019-01-12] MEDS: DOXYCYCLINE HYCLATE 100 MG in D5W MINI-BAG PLUS 100 ML IV SCH ×2 (08:10→20:11)
[2019-01-12] MEDS: CitaloPRAM (CeleXA) 20 MG TAB PO SCH (08:10)
[2019-01-12] MEDS: OMEPRAZOLE 20 MG CAP PO SCH (08:10)
[2019-01-12] MEDS: cefTRIAXone SOD 2 GM in D5W MINI-BAG PLUS 50 ML IV SCH (10:16)
--- NOTE | 2019-01-12 14:16 | IPNPDOC ---
Text Note Date of Service The patient was seen on 01/12/19. NOTE Objective: Patient continues to have headache 4 out of 10, but that much impr derek. She continues to have shortness of breath on exertion. Patient stated that she had hematuria intermittently. Also she started having dry cough. VITAL SIGNS: Please see below. GENERAL APPEARANCE: Obese female in moderate distress HEENT: Normocephalic, atraumatic, mucous members moist and pink CARDIOVASCULAR: regular rate and rhythm. No murmurs, rubs or gallops LUNGS: Clear to auscultation bilaterally on room air ABDOMEN: soft and nontender on palpation. Bowel sounds hypoactive MUSCULOSKELETAL: range of motion intact in all 4 extremities. There is no CVA angle tenderness INTEGUMENT:She is not flushed. NEUROLOGICAL:Cranial nerves II-12 intact. Speech is not dysarthric PSYCHIATRIC: Alert and oriented to person, place and time, able to understand and follow commands CT of the chest with IV contrast, CT pulmonary angiography: There are no comparison chest CT studies. There are no emboli in the pulmonary trunk or central pulmonary arteries. There are no emboli in the pulmonary lobe or segment branches. There is a patchy right lower lobe infiltrate and a small right pleural effusion. There is a small infiltrate in the deep posterior sulcus of the left lower lobe and a small left pleural effusion. There is no mediastinal, hilar or axillary lymphadenopathy. The thoracic aorta is unremarkable. Cardiac size is normal. There is no pericardial effusion. In the upper abdomen the spleen is partially excluded at the inferior film margin, however, I suspect that there is splenomegaly. Consider splenic ultrasound for confirmation. Impression: There are no pulmonary emboli. There are bilateral lower lobe infiltrates and small bilateral pleural effusions. Question of splenomegaly. This can be confirmed by ultrasound. Assessment and plan Patient is 23 years old female with past history of anxiety, depression presented hospital with severe headache, sepsis most likely secondary to UTI. 1. Sepsis secondary to acute pyelonephritis Patient had leukocytosis on admission 18.6, elevated creatinine level 1.7, urine shows pyuria She developed dyspnea and tachycardia Continue antibiotic, urine culture positive for Escherichia coli blood culture negative Acute pyelonephritis See above Shortness of breath Patient developed one episode of desaturation overnight on 01/11/19 with oxygen saturation around mid 80s, she received 2 L via nasal cannula. D-dimer was orde red by night team and return 1255. Patient has tachycardia. CTA was done and showed patchy right lower lobe infiltrate and a small right pleural effusion. There is a small infiltrate in the deep posterior sulcus of the left lower lobe and a small left pleural effusion. There are bilateral lower lobe infiltrates and small bilateral pleural effusions. Most likely patient developed community acquired pneumonia. Differential diagnosis also includes vasculitis. Continue oxygen treatment I added doxycycline IV Headache Improved CT scan of head was negative for intracranial bleed She stated that she has never had history of migraine. Patient does not have any neurological deficits. There is possibility for encephalitis, however patient does not have nuchal rigidity, or meningeal signs. Lyme titer pending Community-acquired pneumonia CT shows bilateral lung infiltrates, right lung patchy infiltrate. Patient started to cough. There is also concern for vasculitis see below I added doxycycline IV Incentive spirometry Encourage to ambulate Prednisone 40 mg MIKE Combined prerenal and renal acute kidney failure secondary to ibuprofen and dehydration Baseline Cr 1.09 There is concern for vasculitis and glomerulonephritis. Patient could have developed glomerulonephritis secondary to ibuprofen. Also patient complains of hematuria for past few months. I will check ENRRIQUE, c-ANCA, p-anca, anti-GBM, C3. Patient was found to have lungs bilateral infiltrates, which is also raise concern for vasculitis. Differential diagnosis could include granulomatosis with polyangiitis, eosinophilic polyangiitis, Goodpasture glomerulonephritis, anti-GBM diseases Appreciate/agree with shoe cleaner consult Obesity Associate Theatre Professor consult in the outpatient settings Hyperglycemia Glucose level is under control for now Plan: f/u A1C 5. Anxiety /Depression Plan: c/w home meds DVT prophylaxis with Lovenox. Disposition pending clinical course VS,Katelyn, I+O VS, Katelyn, I+O Laboratory Tests 01/12/19 05:11 Red Blood Count 3.93 L, Mean Corpuscular Volume 90.1, Mean Corpuscular Hemoglobin 28.8, Mean Corpuscular Hemoglobin Concent 31.9 L, Red Cell Distribu tion Width 14.3, Neutrophils (%) (Auto) 70.4 H, Lymphocytes (%) (Auto) 16.9 L, Monocytes (%) (Auto) 9.6 H, Eosinophils (%) (Auto) 2.1, Basophils (%) (Auto) 0.3, Neutrophils # (Auto) 7.0, Lymphocytes # (Auto) 1.7, Monocytes # (Auto) 1.0 H, Eosinophils # (Auto) 0.2, Basophils # (Auto) 0.0, Calcium Level 8.3 L, Aspartate Amino Transf (AST/SGOT) 8, Alanine Aminotransferase (ALT/SGPT) 13, Alkaline Phosphatase 78, Total Bilirubin 0.7, Total Protein 5.5 L, Albumin 2.0 #L Vital Signs Date Time Temp Pulse Resp B/P (MAP) Pulse Ox O2 Delivery O2 Flow Rate FiO2 01/12/19 12:00 98.0 90 18 122/67 (85) 97 2.0 01/09/19 20:31 Room Air I&O- Last 24 Hours up to 6 AM 01/12/19 05:59 Intake Total 4745 ml Output Total 925 ml Balance 3820 ml ANDREZ BELLA DO Jan 12, 2019 14:16
[2019-01-12] MEDS: ACETAMINOPHEN 650MG ER TAB (TYLENOL ARTHRITIS) PO PRN ×2 (14:31→14:32)
--- NOTE | 2019-01-12 16:59 | REP ---
Bladder ultrasound for hematuria: The distended bladder volume is 542.4 ml. The postvoid bladder volume is 14.7 ml. The postvoid residual is 2.7%. With color Doppler assessment there are bilateral ureteral jets. The bladder wall measures 2.2 mm thickness. No bladder wall masses or nodules are identified. On the post void images there is a mucosal fold along the inferior bladder wall. This is not present on the distended bladder images. Impression: No bladder wall polyps or mass. There is a mucosal fold along the inferior bladder wall on the postvoid images. There are bilateral ureteral jets. Electronically Signed by Francis Huerta MD 01/12/2019 04:51 P
[2019-01-12 19:32] LABS: APPEARANCE, URINE CLEAR (CLEAR); BACTERIA, URINE AUTO NEGATIVE (NEGATIVE); BILIRUBIN, URINE AUTO NEGATIVE (NEGATIVE); BLOOD, URINE BLOOD 3+ (NEGATIVE); COLOR, URINE YELLOW (YELLOW); GLUCOSE, URINE (UA) AUTO NEGATIVE (NEGATIVE); KETONE, URINE AUTO NEGATIVE (NEGATIVE); LEUKOCYTE ESTERASE, URINE AUTO NEGATIVE (NEGATIVE); MUCUS, URINE SMALL (NEGATIVE); NITRITE, URINE AUTO NEGATIVE (NEGATIVE); PROTEIN, URINE AUTO NEGATIVE (NEGATIVE); RBC, URINE AUTO TNTC /HPF (0-3); SQUAMOUS EPITHELIAL CELL UR AU 0 /HPF (0-6); WBC, URINE AUTO 7 /HPF (0-3)
[2019-01-12] MEDS ORDERED: FUROSEMIDE 40 MG/4 ML VIAL (J1940) IV ONE (21:00)
--- NOTE | 2019-01-12 22:04 | CR ---
DATE OF CONSULTATION: 01/12/2019 REQUESTING PHYSICIAN: Dr. Jeffy Felder CONSULTING PHYSICIAN: Dr. Pisano REASON FOR CONSULTATION: Management of acute kidney injury and rule out pulmonary-renal syndrome. CHIEF COMPLAINT: The patient presented on January 10, 2019, feeling sick and tired. HISTORY OF PRESENT ILLNESS: Cadence Bedolla is a 23-year-old female with past medical history of depression and anxiety. She has a baseline of chronic kidney disease stage III with a creatinine of around 1.2, etiology of chronic kidney disease is not known. She presented on January 10, 2019, not feeling well with having fevers and chills, nausea, vomiting, inability to keep anything down. Initial evaluation in the emergency room showed that the patient had cloudy urine, too numerous to count WBCs. She was diagnosed with possible acute pyelonephritis. She was started on intravenous (IV) antibiotics and IV fluids, and she was admitted under the medical service. Over the course of the next 3 days, she was continued on IV fluid hydration. Her creatinine on arrival was 1.7, which has improved to 1.4 today. However, the patient started having shortness of breath today. Nephrology service was called for further help in the management of this patient with acute kidney injury and rule out pulmonary-renal syndrome. The patient needed my immediate attention. I saw and evaluated the patient in the evening at the bedside. The patient was sitting on the sofa. She had just come back after getting some imaging done. She reports mild shortness of breath. She denies any fevers or chills at this time. PAST MEDICAL HISTORY: Past medical history of depression and anxiety. The patient also reports that she was born prematurely. She denies any history of recurrent urinary tract infection (UTIs) and apparently she has chronic kidney disease stage III at baseline with a creatinine of 1.2. PAST SURGICAL HISTORY: She denies any surgical history in the past. ALLERGIES: No known drug allergies. FAMILY HISTORY: No known family history of end-stage renal disease requiring hemodialysis. SOCIAL HISTORY: The patient lives at home. She is . She has two children. She denies any illicit drug abuse, alcohol abuse. REVIEW OF SYSTEMS: Constitutional: She denies any fevers or chills. Eyes: She denies any blurry vision or double vision. Ear, Nose and Throat (ENT): She denies any dysphagia, odynophagia, ear discharge. Cardiovascular: She denies any chest pain or palpitations. Respiratory: She denies any shortness of breath at this time, but she was short of breath at night. She denies any cough or phlegm. Gastrointestinal (GI): She denies any nausea, vomiting at this time. Genitourinary: She denies any dysuria or hematuria. Musculoskeletal: She denies any muscle aches or pains. Central nervous system (TOOL AND DIE INSPECTOR): She denies any strokes or seizures. Skin: She denies any rashes or ulcers. Hematology/Oncology: She denies any easy bleeding or bruising. All other review of systems is negative. PHYSICAL EXAMINATION: General: The patient is awake, alert, oriented times three. She is obese, sitting on the sofa, wearing nasal cannula. Vital signs: Temperature is 97.6 degrees Fahrenheit, blood pressure 139/69, pulse is 94, respiratory rate of 20, saturating 93% on one liter via nasal cannula. Head and Neck Exam: Extraocular muscles intact. Pupils equally round and reactive to light. Mucous membranes are moist. Neck is supple. I could not appreciate the jugular venous distention (JVD) because of her body habitus. Cardiovascular: S1, S2, regular rate. Trace edema of the bilateral lower extremities. Respiratory: Mildly decreased breath sounds at the bases, otherwise no active rales or rhonchi. Abdomen: Soft, obese, positive bowel sounds. Nontender. Musculoskeletal: No clubbing or cyanosis. Pulses are 2+. Central nervous system (TOOL AND DIE INSPECTOR): No focal deficit. Power is 5/5 in all extremities. Psychiatric: Normal mood and affect. LAB REVIEW: CBC showed a WBC of 18.6 on arrival; however, it is 9.9 today, hemoglobin is 11.3, platelets are 181. D-dimer done last night was 1255. Urinalysis done on arrival showed 2+ protein and 3+ blood; however, repeat urinalysis done in the evening today showed 3+ blood and some urobilinogen, however, there was no protein. There were too numerous to count RBCs. BMP done on arrival showed a creatinine of 1.7. BMP done today showed sodium 141, potassium 4, chloride 112, bicarbonate 23, BUN 15, creatinine is 1.4, calcium 8.3, magnesium 1.8, albumin is 2. Immunology is already ordered, after discussion with the on-call mortgage funder, ENRRIQUE, ANCA and anti-GBM antibody is pending. Lyme IgG and influenza is pending. Microbiology: Blood cultures are negative. Urine culture on arrival showed Escherichia coli (E-coli), which is pansensitive. IMAGING: A bladder ultrasound was done in the afternoon, which showed no bladder wall polyps or mass. CT angiogram of the chest was done yesterday, which showed no pulmonary emboli. Bilateral lower lobe infiltrates and small bilateral pleural effusion. Renal imaging done on arrival showed hyperechoic echotexture of the right kidney, suggesting medical renal disease and possible pyelonephritis. No hydronephrosis. CURRENT INPATIENT MEDICATIONS: The patient's medications were all reviewed by me. She is currently on Rocephin 2 grams IV every 24 hours, doxycycline 100 mg IV every 12 hours was started today. She is on normal saline at 100 mL an hour. She has been getting IV fluids ever since she was admitted to the hospital. She is on Tylenol as needed, buspirone 15 mg by mouth twice a day, Celexa 40 mg by mouth daily, Lovenox 40 mg subcu daily, morphine as needed, omeprazole 20 mg by mouth daily, and Zofran as needed. ASSESSMENT: 23-year-old female with acute pyelonephritis secondary to Escherichia coli (E-coli) urinary tract infection, acute kidney injury superimposed on chronic kidney disease stage III and shortness of breath. PLAN: 1. Sepsis secondary to acute pyelonephritis. The patient was given IV fluid hydration on arrival. The patient has a 6 kg positive fluid balance since the time she was admitted. She does not need any fluid hydration at this time. Leukocytosis is improving. E-coli is pansensitive. She is getting appropriate antibiotics. The patient is hemodynamically stable. He is tolerating the oral liquids. I am stopping the IV fluids, and I am actually giving the patient a dose of Lasix 40 mg IV times one dose today. 2. Acute kidney injury superimposed on chronic kidney disease stage III. Patient has a baseline creatinine of 1.2. She came in with a creatinine of 1.7. Renal function is improving; it is down to 1.4 today. She is tolerating the liquids. Encourage oral hydration only. Acute kidney injury (MIKE) was secondary to pyelonephritis and dehydration. 3. Shortness of breath and pulmonary infiltrate. Rule out pulmonary renal syndrome. I personally believe that the patient is in positive fluid balance. She has pleural effusions and infiltrates, which is likely secondary to fluids. I am checking the BNP level. I have also ordered a dose of Lasix. IV fluids are being stopped. Autoimmune serology to rule out ANCA vasculitis versus anti-GBM antibody to rule out rapidly progressive GN has already been ordered. However, I do not believe the patient has a glomerular disease since a repeat urinalysis done today has no proteinuria, and there is only hematuria. No urgent need of pulse steroids at this time. I will continue to monitor the patient's renal function and clinical status. The patient has been started on doxycycline. However, the patient's leukocytosis is improving. If patient symptomatically improves with the IV diuretics, then doxycycline can be stopped. Thank you for involving me in the care of this patient. I shall be happy to follow the patient along with you tomorrow morning. JOSEFINA
[2019-01-13] VITALS (12 sets, daily range): BP systolic 123–144; BP diastolic 73–81; O2SAT 90–95
[2019-01-13 00:06] LABS: IgG P18 AB Absent (.); IgG P23 AB Absent (.); IgG P28 AB Absent (.); IgG P30 AB Absent (.); IgG P39 AB Absent (.); IgG P41 AB Absent (.); IgG P45 AB Absent (.); IgG P66 AB Absent (.); IgG P93 AB Absent (.); IgM P23 AB Absent (.); IgM P39 AB Absent (.); IgM P41 AB Absent (.); LYME IgG WB INTERPRETATION Negative (.); LYME IgM WB INTERPRETATION Negative (.)
[2019-01-13] MEDS: ACETAMINOPHEN 650MG ER TAB (TYLENOL ARTHRITIS) PO PRN ×2 (00:51→11:33)
[2019-01-13 05:52] LABS: BASO # 0.1 10^3/uL (0.0-0.2); BASO % 0.7 % (0.0-1.0); EOS # 0.3 10^3/uL (0.0-0.5); EOS % 3.7 % (0.0-3.0); HEMATOCRIT 35.4 % (36.0-47.0); HEMOGLOBIN 11.5 g/dl (12.0-15.5); LYMPH # 1.8 10^3/uL (1.5-5.0); LYMPH % 21.1 % (24.0-44.0); MEAN CORPUSCULAR HEMOGLOBIN 28.3 pg (27.0-33.0); MEAN CORPUSCULAR HGB CONC 32.5 g/dl (32.0-36.5); MONO # 0.7 10^3/uL (0.0-0.8); NEUTROPHILS # 5.6 10^3/uL (1.5-8.5); NEUTROPHILS % 64.9 % (36.0-66.0); PLATELET COUNT, AUTOMATED 232 10^3/uL (150-450); RED BLOOD COUNT 4.07 10^6/uL (4.00-5.40); WHITE BLOOD COUNT 8.6 10^3/uL (4.0-10.0)
[2019-01-13 06:23] LABS: ALBUMIN 2.2 GM/DL (3.2-5.2); BILIRUBIN,TOTAL 0.4 MG/DL (0.2-1.0); CALCIUM LEVEL 8.6 MG/DL (8.5-10.1); CREATININE FOR GFR 1.35 MG/DL (0.55-1.30); GLOMERULAR FILTRATION RATE 51.3 (>60); MAGNESIUM LEVEL 1.7 MG/DL (1.8-2.4); POTASSIUM SERUM 3.6 MEQ/L (3.5-5.1); TOTAL PROTEIN 5.3 GM/DL (6.4-8.2)
[2019-01-13] MEDS: busPIRone 5 MG TAB PO SCH (08:39)
[2019-01-13] MEDS: ENOXAPARIN 40 MG/0.4 ML SYRINGE (J1650) SC SCH (08:39)
[2019-01-13] MEDS: cefTRIAXone SOD 2 GM in D5W MINI-BAG PLUS 50 ML IV SCH (08:39)
[2019-01-13] MEDS: CitaloPRAM (CeleXA) 20 MG TAB PO SCH (08:39)
[2019-01-13] MEDS: OMEPRAZOLE 20 MG CAP PO SCH (08:39)
[2019-01-13] MEDS ORDERED: FUROSEMIDE 20 MG/2 ML VIAL (J1940) IV ONE (09:30)
[2019-01-13] MEDS ORDERED: FUROSEMIDE 40 MG/4 ML VIAL (J1940) IV ONE (14:00)
--- NOTE | 2019-01-13 15:17 | IPN ---
DATE: 01/13/2019 SUBJECTIVE: Patient was seen and examined today morning. She was sitting in the sofa. She was given a dose of Lasix yesterday. She denies any more shortness of breath overnight. She had a significant urine output. Renal function continues to improve. Creatinine is down to 1.3 today. She denies any dysuria or hematuria at this time. OBJECTIVE: VITAL SIGNS: Temperature is 97.5 degrees Fahrenheit, blood pressure 125/73, pulse is 92, respiratory rate of 18, saturating 93% on room air. INTAKE AND OUTPUT: Urine output recorded is 2 liters yesterday, 2.6 liters so far today since overnight. Weight in the bed scale is 99.6 kg, which is down from yesterday. PHYSICAL EXAMINATION: GENERAL: Patient is awake, alert, oriented times three, obese, sitting up in the sofa in no apparent distress. HEAD AND NECK EXAM: Extraocular muscles intact. Pupils equally round and reactive to light. Mucous membranes are moist. Neck is supple. There is no jugular venous distention (JVD). CARDIOVASCULAR: S1, S2. Regular rate. 1+ edema of the bilateral lower extremities. RESPIRATORY: Decreased breath sounds at the bases, otherwise no active rales or rhonchi. ABDOMEN: Soft, obese. Positive bowel sounds. MUSCULOSKELETAL: No clubbing or cyanosis. Pulses are 2+. CENTRAL NERVOUS SYSTEM (WIRE RIGGER): No focal deficit. Power is 5/5 in all extremities. LABORATORY REVIEW: Complete blood count (CBC) showed a WBC 8.6, hemoglobin 11.5, platelets are 232. Basic metabolic panel (BMP) done today morning showed sodium 142, potassium 3.6, chloride 108, bicarbonate 25, BUN 14, creatinine was 1.35, it was 1.44 yesterday, magnesium 1.7 Pro-BNP was 6757. Albumin was 2.2. CURRENT INPATIENT MEDICATIONS: Patient's medications were all reviewed by me. She was given a dose of Lasix 20 mg intravenous (IV) today morning by the primary team. I have ordered another dose of Lasix 40 mg IV for the afternoon. No other change in the medications today as compared with yesterday. ASSESSMENT AND PLAN: 1. Acute kidney injury superimposed on chronic kidney disease, stage III. Patient's renal function continues to improve. Creatinine is down to 1.3. Her baseline creatinine is around 1.2. 2. Urinary tract infection. Patient has Escherichia (E) coli urinary tract infection (UTI), which is being treated with IV ceftriaxone. Leukocytosis is improved. 3. Shortness of breath and fluid overload. Patient has significantly elevated BNP. She was given a dose of Lasix yesterday. Her symptoms are improving. Another dose of Lasix will be given in the afternoon. Continue to monitor intake and output. 4. Rule out pulmonary renal syndrome. Patient's autoimmune serology was already sent yesterday and all of the lab results are still pending. Clinically, the patient is improving. I believe the patient's respiratory symptoms were secondary to fluid overload.
[2019-01-13] MEDS ORDERED: LEVA1TAB2 PO (15:23)
[2019-01-13] MEDS ORDERED: ACET1TAB55 PO (15:23)
--- NOTE | 2019-01-13 16:25 | DS.PDOC ---
Discharge Summary General Date of Admission Jan 11, 2019 at 11:06 Date of Discharge 01/13/19 Discharge Summary PROCEDURES PERFORMED DURING STAY: None ADMITTING DIAGNOSES: Sepsis secondary to acute pyelonephritis Acute pyelonephritis Shortness of breath Headache chronic kidney disease, stage III. Community-acquired pneumonia r/o Obesity MIKE Hyperglycemia Anxiety /Depression DISCHARGE DIAGNOSES: Sepsis secondary to acute pyelonephritis Acute pyelonephritis Shortness of breath chronic kidney disease, stage III. Headache Community-acquired pneumonia r/o Obesity MIKE Hyperglycemia Anxiety /Depression COMPLICATIONS/CHIEF COMPLAINT: Acute Kidney Injury, Sepsis, Uti. HISTORY OF PRESENT ILLNESS: This is a 23-year-old female who presents with complaints of feeling sick since yesterday. She reports having 5-6 episodes of non bloody emesis, is complaining that my "head is killing me", and of 5/10 in severity right-sided, nonradiating back pain. She went to an urgent care center yesterday and was told that she has a virus. Per discussion with the ED provider the patient has been taking a lot of Ibuprofen which may be the cause of MIKE; she was diagnosed w pyelonephritis based on the UA and CT scan findings & received IV fluids and ceftriaxone. HOSPITAL COURSE: During hospital stay following issue was addressed Acute kidney injury superimposed on chronic kidney disease, stage III. Patient's renal function continues to improve. Creatinine is down to 1.3. Her baseline creatinine is around 1.2 Sepsis secondary to acute pyelonephritis Patient had leukocytosis on admission 18.6, elevated creatinine level 1.7, urine shows pyuria urine culture positive for Escherichia coli blood culture negative Urinary tract infection. Patient has Escherichia (E) coli urinary tract infection (UTI), which is being treated with IV ceftriaxone. Leukocytosis is improved. Discharged home on the levofloxacin for next 7 days Shortness of breath and fluid overload. Patient has significantly elevated BNP. She received treatment with Lasix. Her symptoms are improving. Rule out pulmonary renal syndrome. Patient's autoimmune serology was already sent yesterday and all of the lab results are still pending. Clinically, the patient is improving. I believe the patient's respiratory symptoms were secondary to fluid overload. Headache Improved CT scan of head was negative for intracranial bleed She stated that she has never had history of migraine. Patient does not have any neurological deficits. There is possibility for encephalitis, however patient does not have nuchal rigidity, or meningeal signs. Lyme titer pending Obesity Supervisor [employer] consult in the outpatient settings Hyperglycemia Glucose level is under control for now Plan: f/u A1C Anxiety /Depression Plan: c/w home meds DISCHARGE MEDICATIONS: Please see below. ALLERGIES: Please see below. VITAL SIGNS: Please see below. GENERAL APPEARANCE: Obese female in moderate distress HEENT: Normocephalic, atraumatic, mucous members moist and pink CARDIOVASCULAR: regular rate and rhythm. No murmurs, rubs or gallops LUNGS: Clear to auscultation bilaterally on room air ABDOMEN: soft and nontender on palpation. Bowel sounds hypoactive MUSCULOSKELETAL: range of motion intact in all 4 extremities. There is no CVA angle tenderness INTEGUMENT:She is not flushed. NEUROLOGICAL:Cranial nerves II-12 intact. Speech is not dysarthric PSYCHIATRIC: Alert and oriented to person, place and time, able to understand and follow commands LABORATORY DATA: Please see below. IMAGING: CT of the chest with IV contrast, CT pulmonary angiography: There are no comparison chest CT studies. There are no emboli in the pulmonary trunk or central pulmonary arteries. There are no emboli in the pulmonary lobe or segment branches. There is a patchy right lower lobe infiltrate and a small right pleural effusion. There is a small infiltrate in the deep posterior sulcus of the left lower lobe and a small left pleural effusion. There is no mediastinal, hilar or axillary lymphadenopathy. The thoracic aorta is unremarkable. Cardiac size is normal. There is no pericardial effusion. In the upper abdomen the spleen is partially excluded at the inferior film margin, however, I suspect that there is splenomegaly. Consider splenic ultrasound for confirmation. Impression: There are no pulmonary emboli. There are bilateral lower lobe infiltrates and small bilateral pleural effusions. Question of splenomegaly. This can be confirmed by ultrasound. PROGNOSIS: Favorable ACTIVITY: As tolerated DIET: Regular DISCHARGE PLAN: Home DISPOSITION: Home ITEMS TO FOLLOWUP ON ON OUTPATIENT: Follow-up with registered sales assistant, with PCP DISCHARGE CONDITION: Stable TIME SPENT ON DISCHARGE: Greater than 20minutes. Vital Signs/I&Os Vital Signs Date Time Temp Pulse Resp B/P (MAP) Pulse Ox O2 Delivery O2 Flow Rate FiO2 01/13/19 15:00 93 Room Air 01/13/19 11:44 97.5 92 18 125/73 (90) 01/13/19 08:00 1.0 I&O- Last 24 Hours up to 6 AM 01/13/19 05:59 Intake Total 2620 ml Output Total 3900 ml Balance -1280 ml Laboratory Data Labs 24H Laboratory Tests 2 01/12/19 18:30: Urine Appearance CLEAR, Urine Color YELLOW, Urine pH 6.0, Urine Specific [place] 1.010, Urine Protein NEGATIVE, Urine Glucose (UA) NEGATIVE, Urine Ketones NEGATIVE, Urine Urobilinogen 2.0H, Urine Bilirubin NEGATIVE, Urine Leukocyte Esterase NEGATIVE, Urine Blood 3+H, Urine Nitrite NEGATIVE, Urine WBC (Auto) 7H, Urine RBC (Auto) TNTCH, Urine Hyaline Casts (Auto) 0, Urine Bacteria (Auto) NEGATIVE, Urine Squamous Epithelial Cells 0, Urine Mucus (Auto) SMALL, Urine Sperm (Auto) 01/13/19 05:24: Immature Granulocyte % (Auto) 1.6, White Blood Count 8.6, Red Blood Count 4.07, Hemoglobin 11.5L, Hematocrit 35.4L, Mean Corpuscular Volume 87.0, Mean Corpuscular Hemoglobin 28.3, Mean Corpuscular Hemoglobin Concent 32.5, Red Cell Distribution Width 13.9, Platelet Count 232, Neutrophils (%) (Auto) 64.9, Lymphocytes (%) (Auto) 21.1L, Monocytes (%) (Auto) 8.0H, Eosinophils (%) (Auto) 3.7H, Basophils (%) (Auto) 0.7, Neutrophils # (Auto) 5.6, Lymphocytes # (Auto) 1.8, Monocytes # (Auto) 0.7, Eosinophils # (Auto) 0.3, Basophils # (Auto) 0.1, Nucleated Red Blood Cells % (auto) 0.0, Anion Gap 9, Glomerular Filtration Rate 51.3L, Blood Urea Nitrogen 14, Creatinine 1.35H, Sodium Level 142, Potassium Level 3.6, Chloride Level 108H, Carbon Dioxide Level 25, Calcium Level 8.6, Aspartate Amino Transf (AST/SGOT) 10, Alanine Aminotransferase (ALT/SGPT) 18, Alkaline Phosphatase 84, Total Bilirubin 0.4, Total Protein 5.3L, Albumin 2.2L, Magnesium Level 1.7L, IV-Xht-T-Type Natriuretic Peptide 6757H, Albumin/Globulin Ratio 0.71L CBC/BMP Laboratory Tests 01/13/19 05:24 Red Blood Count 4.07, Mean Corpuscular Volume 87.0, Mean Corpuscular Hemoglobin 28.3, Mean Corpuscular Hemoglobin Concent 32.5, Red Cell Distribution Width 13.9, Neutrophils (%) (Auto) 64.9, Lymphocytes (%) (Auto) 21.1 L, Monocytes (%) (Auto) 8.0 H, Eosinophils (%) (Auto) 3.7 H, Basophils (%) (Auto) 0.7, Neutrophils # (Auto) 5.6, Lymphocytes # (Auto) 1.8, Monocytes # (Auto) 0.7, Eosinophils # (Auto) 0.3, Basophils # (Auto) 0.1, Calcium Level 8.6, Aspartate Amino Transf (AST/SGOT) 10, Alanine Aminotransferase (ALT/SGPT) 18, Alkaline Phosphatase 84, Total Bilirubin 0.4, Total Protein 5.3 L, Albumin 2.2 L Microbiology Microbiology 01/10/19 Blood Culture - Preliminary, Resulted No Growth after 72 hours. All specime... 01/10/19 Blood Culture - Preliminary, Resulted No Growth after 72 hours. All specime... 01/09/19 Urine Culture - Final, Complete Escherichia Coli Discharge Medications Scheduled Buspirone HCl (Buspirone HCl) 15 Mg Tablet, 15 MG PO BID, (Reported) Citalopram Hydrobromide (Celexa) 40 Mg Tablet, 40 MG PO DAILY, (Reported) Etonogestrel (Nexplanon) 68 Mg Implant, 68 MG SC ASDIRECTED, (Reported) IMPLANTED IN AUGUST 2017 Levofloxacin (Levaquin) 500 Mg Tablet, 500 MG PO DAILY Omeprazole (Omeprazole) 20 Mg Capsule.dr, 20 MG PO DAILY, (Reported) Scheduled PRN Acetaminophen (Acetaminophen) 325 Mg Tablet, 650 MG PO Q6HP PRN for FEVER Allergies Coded Allergies: No Known Allergies (Unverified , 06/08/14) ANDREZ BELLA DO Jan 13, 2019 16:25
[2019-01-13 21:47] LABS: COMPLEMENT C3 119 MG/DL (90-180); COMPLEMENT C4 10 MG/DL (10-40)
[2019-01-15 10:39] LABS: HEPATITIS B SURFACE ANTIBODY NEGATIVE (POSITIVE)
[2019-01-15 10:50] LABS: HEPATITIS B SURFACE ANTIGEN NEGATIVE (NEGATIVE)
[2019-01-15 14:57] LABS: HEPATITIS C VIRUS ABY INDEX 0.2 INDEX (<0.8)
[2019-01-15 14:58] LABS: HEPATITIS B CORE ANTIBODY IGM NEGATIVE (NEGATIVE)
[2019-01-17 00:07] LABS: ANCA-ATYPICAL <1:20 titer (Neg:<1:20); ANTI-GLOMERULAR BASEMENT MEMB 4 units (0-20); ANTINUCLEAR ANTIBODIES DIRECT Negative (Negative); CYTOPLASMIC NEUTROP AB ANCA-C <1:20 titer (Neg:<1:20); PERINUCLEAR AB ANCA-P <1:20 titer (Neg:<1:20)
[2019-01-17 14:52] LABS: ANTI DS-DNA AB <1:10 titer (.); HEPATITIS B CORE ANTIBODY IGG Negative (Negative)
== END 2019-01-13 16:09 | disposition home or self-care (01) | DRG 720 ==
LOC: M ED 20:30 → M ED INP 01-10 02:26 → M PCU 01-10 13:36 → OBSVTOIN 01-11 11:06
PROVIDERS: ADMIT Internal Medicine; ATTEND Internal Medicine
DX: A41.9 Sepsis, unspecified organism (principal); N17.9 Acute kidney failure, unspecified; N18.3 Chronic kidney disease, stage 3 (moderate); E87.70 Fluid overload, unspecified; I12.9 Hypertensive chronic kidney disease with stage 1 through stage 4 chronic kidney disease, or unspecified chronic kidney disease; E66.9 Obesity, unspecified; Z68.37 Body mass index [BMI] 37.0-37.9, adult; N10 Acute pyelonephritis; R73.9 Hyperglycemia, unspecified; F41.9 Anxiety disorder, unspecified; F32.9 Major depressive disorder, single episode, unspecified; R06.02 Shortness of breath; R51 Headache; B96.20 Unspecified Escherichia coli [E. coli] as the cause of diseases classified elsewhere; Z79.899 Other long term (current) drug therapy

== ENCOUNTER → 2019-01-09 | Outpatient (REF) | payer OTHER ==
[~2019-01-09] MED LIST changes: +ACET1TAB55 PO; +BUSP15TA47; +BUSP15TA47 PO; +CELE40TA PO; +CITA40TA4; +LEVA1TAB2 PO; +NEXP1IMP SC; +OMEP-218; +OMEP-218 PO
== END ==
LOC: M SFHCLERA 11:02
PROVIDERS: ATTEND Physician Assistant
DX: R50.9 Fever, unspecified (principal)

== ENCOUNTER → 2019-01-24 | Outpatient (REF) | payer OTHER ==
[~2019-01-24] MED LIST changes: +ACET1TAB55 PO; +BUSP15TA47; +BUSP15TA47 PO; +CELE40TA PO; +CITA40TA4; +LEVA1TAB2 PO; +NEXP1IMP SC; +OMEP-218; +OMEP-218 PO
[2019-01-24 19:29] LABS: BASO # 0.1 10^3/uL (0.0-0.2); BASO % 1.3 % (0.0-1.0); EOS # 0.2 10^3/uL (0.0-0.5); EOS % 3.2 % (0.0-3.0); HEMATOCRIT 43.4 % (36.0-47.0); HEMOGLOBIN 14.1 g/dl (12.0-15.5); LYMPH # 2.4 10^3/uL (1.5-5.0); LYMPH % 35.4 % (24.0-44.0); MEAN CORPUSCULAR HEMOGLOBIN 28.6 pg (27.0-33.0); MEAN CORPUSCULAR HGB CONC 32.5 g/dl (32.0-36.5); MONO # 0.5 10^3/uL (0.0-0.8); NEUTROPHILS # 3.6 10^3/uL (1.5-8.5); NEUTROPHILS % 52.8 % (36.0-66.0); PLATELET COUNT, AUTOMATED 378 10^3/uL (150-450); RED BLOOD COUNT 4.93 10^6/uL (4.00-5.40); WHITE BLOOD COUNT 6.9 10^3/uL (4.0-10.0)
[2019-01-24 19:36] LABS: ALBUMIN 3.4 GM/DL (3.2-5.2); ALT/SGPT 26 U/L (12-78); BILIRUBIN,TOTAL 0.3 MG/DL (0.2-1.0); BLOOD UREA NITROGEN 16 MG/DL (7-18); CALCIUM LEVEL 8.9 MG/DL (8.5-10.1); CARBON DIOXIDE LEVEL 25 MEQ/L (21-32); CHLORIDE LEVEL 107 MEQ/L (98-107); CHOLESTEROL LEVEL 200 MG/DL (<200); CHOLESTEROL RISK RATIO 6.896 (<5); CREATININE FOR GFR 1.38 MG/DL (0.55-1.30); GLUCOSE, FASTING 106 MG/DL (70-100); HDL CHOLESTEROL 29 MG/DL (>40); NON-HDL-C 171 MG/DL; POTASSIUM SERUM 4.4 MEQ/L (3.5-5.1); SODIUM LEVEL 139 MEQ/L (136-145); TRIGLYCERIDES LEVEL 700 MG/DL (<150)
[2019-01-24 19:50] LABS: HEMOGLOBIN A1c 5.6 %
== END ==
LOC: M LAB REF 09:58
PROVIDERS: ATTEND Nurse Practitioner Family
DX: Z13.9 Encounter for screening, unspecified (principal); N17.9 Acute kidney failure, unspecified; E78.5 Hyperlipidemia, unspecified

== ENCOUNTER → 2019-02-12 | Outpatient (REF) | payer OTHER | LOC: M SFHCLERA 20:46 | PROVIDERS: ATTEND Physician Assistant | DX: J02.9 Acute pharyngitis, unspecified (principal) ==

== ENCOUNTER → 2019-02-21 | Outpatient (CLI) | payer OTHER ==
--- NOTE | 2019-02-21 20:04 | REP ---
Chest x-ray: Two views. History: Cough. Comparison chest x-ray: January 10, 2019. Findings: The lungs are symmetrically aerated and clear. Pleural angles are sharp. Heart size is normal. No significant bony abnormality is seen. Impression: No active disease. Electronically Signed by Rajendra Anthony MD 02/21/2019 07:55 P
== END ==
LOC: M LRY 19:28
PROVIDERS: ATTEND Physician Assistant
DX: R05 Cough (principal)

== ENCOUNTER → 2019-02-21 | Outpatient (REF) | payer OTHER | LOC: M SFHCLERA 19:56 | PROVIDERS: ATTEND Physician Assistant | DX: R05 Cough (principal) ==

== ENCOUNTER → 2019-03-20 | Outpatient (REF) | payer OTHER | LOC: M SFHCLERA 10:14 | PROVIDERS: ATTEND Nurse Practitioner Family | DX: J02.9 Acute pharyngitis, unspecified (principal) ==

== ENCOUNTER 2019-05-17 23:09 | Emergency (ER) | payer OTHER ==
[~2019-05-17] VITALS: Ht 157.5 cm; Wt 98.2 kg
[2019-05-18 00:57] VITALS: BP 130/75
--- NOTE | 2019-05-18 13:27 | ECGEPIP ---
[facility] - ED Test Date: 2019-05-17 Pat Name: MARVEL SANTORO Department: Room: - Gender: Female Relief Salesperson: : 1995 Requested By: Sammy Owens Order Number: [id number] Reading MD: Christine Anderson Measurements Intervals [place] Rate: 85 P: -3 AR: 140 QRS: 21 QRSD: 85 T: 21 QT: 360 QTc: 428 Interpretive Statements SINUS RHYTHM NSTTW abnormalities NO PRIOR Electronically Signed on 05-18-2019 13:26:43 EST by Christine Anderson
== END 2019-05-18 00:59 | disposition home or self-care (01) ==
LOC: M ED 23:09 → EDBD 23:09 → M ED 05-18 00:59
DX: F41.9 Anxiety disorder, unspecified (principal); F45.0 Somatization disorder; R94.31 Abnormal electrocardiogram [ECG] [EKG]; F43.10 Post-traumatic stress disorder, unspecified; Z79.3 Long term (current) use of hormonal contraceptives; Z79.899 Other long term (current) drug therapy

== ENCOUNTER 2019-06-30 19:43 | Emergency (ER) | payer OTHER ==
[2019-06-30 19:52] VITALS: BP 132/72
[2019-06-30 20:14] LABS: HEMATOCRIT 45.7 % (36.0-47.0); HEMOGLOBIN 15.1 g/dl (12.0-15.5); MEAN CORPUSCULAR HEMOGLOBIN 28.2 pg (27.0-33.0); MEAN CORPUSCULAR VOLUME 85.3 fl (80.0-96.0); PLATELET COUNT, AUTOMATED 334 10^3/uL (150-450); RED BLOOD COUNT 5.36 10^6/uL (4.00-5.40); WHITE BLOOD COUNT 9.9 10^3/uL (4.0-10.0)
[2019-06-30 20:39] LABS: AMPHETAMINES LEVEL URINE NEGATIVE (NEGATIVE); BARBITURATES URINE NEGATIVE (NEGATIVE); BENZODIAZEPINES URINE NEGATIVE (NEGATIVE); CANNABINOIDS URINE NEGATIVE (NEGATIVE); COCAINE METABOLITE URINE NEGATIVE (NEGATIVE); METHADONE URINE NEGATIVE (NEGATIVE); OPIATES URINE NEGATIVE (NEGATIVE); PHENCYCLIDINE URINE NEGATIVE (NEGATIVE)
[2019-06-30 20:49] LABS: ACETAMINOPHEN LEVEL < 2.0 UG/ML (10.0-30.0); ALBUMIN 3.8 GM/DL (3.2-5.2); ALT/SGPT 29 U/L (12-78); BILIRUBIN,DIRECT 0.1 MG/DL (0.0-0.2); BILIRUBIN,TOTAL 0.3 MG/DL (0.2-1.0); BLOOD UREA NITROGEN 20 MG/DL (7-18); CARBON DIOXIDE LEVEL 26 MEQ/L (21-32); CHLORIDE LEVEL 109 MEQ/L (98-107); CREATININE FOR GFR 1.44 MG/DL (0.55-1.30); ETHYL ALCOHOL (ETHANOL) < 0.003 % (0.000-0.010); GLOMERULAR FILTRATION RATE 47.6 (>60); GLUCOSE, FASTING 98 MG/DL (70-100); POTASSIUM SERUM 4.1 MEQ/L (3.5-5.1); SALICYLATE LEVEL < 1.7 MG/DL (5.0-30.0); SODIUM LEVEL 141 MEQ/L (136-145); TOTAL PROTEIN 7.6 GM/DL (6.4-8.2)
== END 2019-06-30 21:50 | disposition home or self-care (01) ==
LOC: M ED 19:43
DX: F32.9 Major depressive disorder, single episode, unspecified (principal); S60.812A Abrasion of left wrist, initial encounter; X78.8XXA Intentional self-harm by other sharp object, initial encounter; Y92.89 Other specified places as the place of occurrence of the external cause; F17.210 Nicotine dependence, cigarettes, uncomplicated; Z79.899 Other long term (current) drug therapy
CPT/HCPCS: 36415; 80048; 80076; 80307; 84443; 85027; 99284; G0480

== ENCOUNTER → 2019-07-18 | Outpatient (CLI) | payer OTHER ==
[2019-07-18 13:18] LABS: HCG, SERUM QUALITATIVE NEGATIVE (NEGATIVE)
[2019-07-18 13:41] LABS: HEPATITIS C VIRUS ABY INDEX 0.1 INDEX (<0.8); HIV 1&2 SCREEN CENTAUR NEGATIVE (NEGATIVE)
[2019-07-18 14:10] LABS: CHLAMYDIA DNA AMPLIFICATION NEGATIVE (NEGATIVE); GC DNA AMPLIFICATION NEGATIVE (NEGATIVE)
== END ==
LOC: M LAB 11:31
PROVIDERS: ATTEND Physician Assistant
DX: N91.2 Amenorrhea, unspecified (principal)

== ENCOUNTER → 2019-09-20 | Outpatient (REF) | payer OTHER | LOC: M SFHCLERA 15:23 | PROVIDERS: ATTEND Physician Assistant | DX: J02.9 Acute pharyngitis, unspecified (principal) ==

== ENCOUNTER 2020-03-28 18:30 | Emergency (ER) | payer OTHER ==
[~2020-03-28] VITALS: Ht 157.5 cm; Wt 112.3 kg
[2020-03-28] MEDS ORDERED: ESCI20TA (18:41)
[2020-03-28] MEDS ORDERED: NEXP1IMP SC (18:41)
[2020-03-28 19:44] VITALS: BP 131/65
== END 2020-03-28 19:46 | disposition home or self-care (01) ==
LOC: M ED 18:30
DX: N64.4 Mastodynia (principal); K21.9 Gastro-esophageal reflux disease without esophagitis; Z79.899 Other long term (current) drug therapy; Z79.3 Long term (current) use of hormonal contraceptives

== ENCOUNTER → 2020-04-03 | Outpatient (CLI) | payer OTHER ==
[~2020-04-03] MED LIST changes: +ESCI20TA
--- NOTE | 2020-04-03 14:49 | REP ---
INDICATION: RACHID BREAST MASTODYNIA/N64.4. Targeted bilateral breast sonography for pain in the superior aspect of each breast. COMPARISON: None. TECHNIQUE: Targeted bilateral breast sonography. FINDINGS: Scanning of both breasts is performed in the area of patient's symptoms. Heterogeneous fibroglandular background echotexture is seen bilaterally. No cyst, mass, or other suspicious finding. IMPRESSION: BI-RADS category 1-bilateral breast sonography. Clinical follow-up is advised. This patient's estimated Tyrer-Cuzick lifetime risk assessment for breast cancer is 12.2% <Electronically signed by Wnader Anthony > 04/03/20 [id number]
== END ==
LOC: M WHC 12:34
PROVIDERS: ATTEND Physician Assistant
DX: N64.4 Mastodynia (principal)

== ENCOUNTER → 2020-06-23 | Outpatient (REF) | payer OTHER ==
[~2020-06-23] MED LIST changes: -ESCI20TA; +ESCI20TA16
[2020-06-23 18:06] LABS: BASO # 0.1 10^3/uL (0.0-0.2); EOS # 0.4 10^3/uL (0.0-0.5); EOS % 4.6 % (0.0-3.0); HEMATOCRIT 46.3 % (36.0-47.0); HEMOGLOBIN 14.6 g/dl (12.0-15.5); LYMPH # 2.2 10^3/uL (1.5-5.0); LYMPH % 26.9 % (24.0-44.0); MEAN CORPUSCULAR HEMOGLOBIN 27.3 pg (27.0-33.0); MEAN CORPUSCULAR HGB CONC 31.5 g/dl (32.0-36.5); MEAN CORPUSCULAR VOLUME 86.5 fl (80.0-96.0); MONO # 0.6 10^3/uL (0.0-0.8); MONO % 7.5 % (2.0-8.0); NEUTROPHILS # 4.8 10^3/uL (1.5-8.5); NEUTROPHILS % 59.5 % (36.0-66.0); PLATELET COUNT, AUTOMATED 275 10^3/uL (150-450); RED BLOOD COUNT 5.35 10^6/uL (4.00-5.40); WHITE BLOOD COUNT 8.1 10^3/uL (4.0-10.0)
[2020-06-23 18:13] LABS: ALBUMIN 3.7 GM/DL (3.2-5.2); ALT/SGPT 30 U/L (12-78); BILIRUBIN,TOTAL 0.4 MG/DL (0.2-1.0); BLOOD UREA NITROGEN 17 MG/DL (7-18); CALCIUM LEVEL 9.4 MG/DL (8.5-10.1); CARBON DIOXIDE LEVEL 24 MEQ/L (21-32); CHLORIDE LEVEL 106 MEQ/L (98-107); CHOLESTEROL LEVEL 201 MG/DL (<200); CHOLESTEROL RISK RATIO 5.742 (<5); CREATININE FOR GFR 1.22 MG/DL (0.55-1.30); FERRITIN 45 NG/ML (8-252); GLOMERULAR FILTRATION RATE 57.2 (>60); GLUCOSE, FASTING 155 MG/DL (70-100); HDL CHOLESTEROL 35 MG/DL (>40); IRON (FE) 103 UG/DL (50-170); NON-HDL-C 166 MG/DL; PERCENT SATURATION 36.5 % (13.2-45.0); POTASSIUM SERUM 4.4 MEQ/L (3.5-5.1); SODIUM LEVEL 136 MEQ/L (136-145); TOTAL IRON BINDING CAPACITY 282 UG/DL (250-450); TOTAL PROTEIN 7.1 GM/DL (6.4-8.2); TRIGLYCERIDES LEVEL 516 MG/DL (<150)
[2020-06-23 18:17] LABS: TOTAL 25(OH) VITAMIN D 10.9 NG/ML (30.0-100.0)
[2020-06-23 18:22] LABS: HEMOGLOBIN A1c 6.9 %
== END ==
LOC: M LAB REF 17:11
PROVIDERS: ATTEND Pediatrics
DX: D64.9 Anemia, unspecified (principal); K21.9 Gastro-esophageal reflux disease without esophagitis; E78.5 Hyperlipidemia, unspecified; E55.9 Vitamin D deficiency, unspecified; Z68.42 Body mass index [BMI] 45.0-49.9, adult

== ENCOUNTER → 2020-09-20 | Outpatient (REF) | payer OTHER | LOC: M WUC 18:01 | PROVIDERS: ATTEND Physician Assistant | DX: J02.9 Acute pharyngitis, unspecified (principal) ==

== ENCOUNTER → 2020-11-05 | Outpatient (REF) | payer OTHER | LOC: M WUC 09:40 | PROVIDERS: ATTEND Physician Assistant | DX: R42 Dizziness and giddiness (principal) ==

== ENCOUNTER → 2021-01-07 | Outpatient (REF) | payer OTHER | LOC: M LAB REF 16:06 | PROVIDERS: ATTEND Physician Assistant | DX: J02.9 Acute pharyngitis, unspecified (principal) ==

== ENCOUNTER → 2021-01-13 | Outpatient (REF) | payer OTHER | LOC: M SFHCWAGY 12:58 | PROVIDERS: ATTEND Specialist | DX: Z01.419 Encounter for gynecological examination (general) (routine) without abnormal findings (principal) ==

== ENCOUNTER 2021-03-22 11:38 | Emergency (ER) | payer OTHER ==
[~2021-03-22] VITALS: Ht 160 cm; Wt 108.9 kg
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
--- OUTSIDE RECORDS SUMMARY | 2021-03-22 11:44 | CCD | Continuity of Care Document ---
Author Author Cadence [facility] [place] Organization Unknown Address [address] [place] [address] [place] [address] Phone [phone] Care Team Providers Care Narrative Writer Name Role Phone [facility] [phone] Problems Description No Information Available Social History Type Date Description Comments Sex Unknown ETOH Use Rarely consumes alcohol Tobacco Use Start: Unknown Patient Currently Vapes Tobacco Use Start: Unknown End: Unknown Patient is a former smoker Smoking Status Reviewed: 01/07/21 Patient is a former smoker Allergies, Adverse Reactions, Alerts Description No Known Drug Allergies Medications Active Medications SIG Qnty Indications Ordering Provide r Date Ondansetron 4mg Tablets Dispers dissolve 1 tablet in mouth every 8 hours as needed for nausea 14tabs R11.2 Kwesi Fraire JR., M.D. 10/07/2020 Omeprazole qd Unknown Buspirone HCL Unknown Escitalopram Oxalate Unknown 000 Vitamin D-3 Unknown Nexplanon 68mg Implant 17-2 1 placed Unknown Metformin HCL Unknown Immunizations Description No Information Available Vital Signs Date Vital Result Comment 01/07/2021 11:49am BP Systolic 132 mmHg BP Diastolic 98 mmHg Heart Rate 80 /min Respiratory Rate 19 /min O2 % BldC Oximetry 98 % Body Temperature 96.7 F Weight 251.00 lb Height 62 inches 5'2" BMI (Body Mass Index) 45.9 kg/m2 Pain Level 6 11/05/2020 6:10pm BP Systolic 120 mmHg BP Diastolic 92 mmHg Heart Rate 97 /min Respiratory Rate 18 /min O2 % BldC Oximetry 98 % Body Temperature 97.5 F Weight 251.00 lb Height 62 inches 5'2" BMI (Body Mass Index) 45.9 kg/m2 Pain Level 5 Results Test Acquired Date Facility Test Result H/L Range Note Laboratory test finding 01/07/[address] [id number] [phone] Throat Culture <pending> Laboratory test finding 11/05/[address] [address] [phone] Urine Culture FULL REPORT IN L <SEE NOTE> Normal 1, 2 Group A Stretp Culture 09/20/[address] [address] [phone] Group A Strep Culture FULL REPORT IN L <SEE NOTE> Nor mal 3 1 No Rx 2 FULL REPORT IN LAB NOTES ([facility]). SPECIMEN APPEARS CONTAMINATED 3 FULL REPORT IN LAB NOTES ([facility]). NEGATIVE FOR STREP PYOGENES (GROUP A) Procedures Date Code Description Status 01/07/2021 76755 Office/Outpatient Established Lo w MDM 20-29 Min Completed 11/05/2020 69868 Office/Outpatient Established Mo d MDM 30-39 Min Completed 10/14/2020 46303 Office/Outpatient Established Lo w MDM 20-29 Min Completed 10/07/2020 06605 Office/Outpatient Established Lo w MDM 20-29 Min Completed 09/20/2020 99389 Office/Outpatient New Low MDM 30 -44 Minutes Completed Medical Devices Description No Information Available Encounters Type Date Location Provider Dx Diagnosis Office Visit 01/07/2021 10:00a Main Office FARZANA Nieves J06 .9 Acute upper respiratory infection, unspecified J02.9 Acute pharyngitis, unspecifi ed Z20.828 Contact w and exposure to ot h viral communicable diseases Office Visit 11/05/2020 3:25p Main Office FARZANA Antony R42 Dizziness and giddiness E11.65 Type 2 diabetes mellitus wit h hyperglycemia Z20.828 Contact w and exposure to ot h viral communicable diseases Office Visit 10/14/2020 1:10p Main Office Aleta Uribe NP R11. 2 Nausea with vomiting, unspecified Office Visit 10/07/2020 3:05p Main Office FARZANA Nieves R11 .2 Nausea with vomiting, unspecified Z20.828 Contact w and exposure to ot h viral communicable diseases Office Visit 09/20/2020 3:15p Main Office Gay Campos J0 2.9 Acute pharyngitis, unspecified J06.9 Acute upper respiratory infe ction, unspecified Z20.828 Contact w and exposure to ot h viral communicable diseases Assessments Date Code Description Provider 01/07/2021 J06.9 Acute upper respiratory infectio n, unspecified Finesse Carmona, FARZANA 01/07/2021 J02.9 Acute pharyngitis, unspecified M FARZANA Weller 01/07/2021 Z20.828 Contact with and (stringer spected) exposure to other viral communicable diseases FARZANA Nieves 11/05/2020 R42 Dizziness and giddiness FARZANA Antony 11/05/2020 E11.65 Type 2 diabetes mellitus with hy perglycemia FARZANA Antony 11/05/2020 Z20.828 Contact with and (stringer spected) exposure to other viral communicable diseases FARZANA Antony 10/14/2020 R11.2 Nausea with vomiting, unspecifie d Aleta Uribe, PHUONG 10/07/2020 R11.2 Nausea with vomiting, unspecifie d FARZANA Nieves 10/07/2020 Z20.828 Contact with and (stringer spected) exposure to other viral communicable diseases FARZANA Nieves 09/20/2020 J02.9 Acute pharyngitis, unspecified Gay Pate 09/20/2020 J06.9 Acute upper respiratory infectio n, unspecified Gay Campos 09/20/2020 Z20.828 Contact with and (stringer spected) exposure to other viral communicable diseases Gay Campos Plan of Treatment No Information Available Functional Status Description No Information Available Mental Status Description No Information Available Referrals Description No Information Available
--- OUTSIDE RECORDS SUMMARY | 2021-03-22 11:44 | CCD | Continuity of Care Document ---
Author Author Cadence CARMONA [place] Organization Unknown Address [address] [place] [address] [place] [address] Phone [phone] Care Team Providers Care Chief Medical Technologist Name Role Phone Health Wellness [facility] [phone] Problems Description No Information Available Social History [...] H/L Range Note Laboratory test finding 01/07/[address] [id number] [phone] Throat Culture FULL REPORT IN L <SEE NOTE> Normal 1 Laboratory test finding 11/05/[address] [id number] [phone] Urine Culture FULL REPORT IN L <SEE NOTE> Normal 2, 3 Group A Stretp Culture 09/20/[address] [address] [phone] Group A Strep Culture FULL REPORT IN L <SEE NOTE> Nor mal 4 1 FULL REPORT IN LAB NOTES (eC W and [facility]). NORMAL FARAZ PRESENT 2 No Rx 3 FULL REPORT IN LAB NOTES ([facility]). SPECIMEN APPEARS CONTAMINATED 4 FULL REPORT IN LAB NOTES ([facility] and [facility]). NEGATIVE FOR STREP PYOGENES (GROUP A) Procedures Date Code Description Status 01/07/2021 66409 Office/Outpatient Established Lo w MDM 20-29 Min Completed 11/05/2020 90774 Office/Outpatient Established Mo d MDM 30-39 Min Completed 10/14/2020 87615 Office/Outpatient Established Lo w MDM 20-29 Min Completed 10/07/2020 36870 Office/Outpatient Established Lo w MDM 20-29 Min Completed 09/20/2020 95949 Office/Outpatient New Low MDM 30 -44 Minutes [...] diseases Office Visit 09/20/2020 3:15p Main Office Franky Pantoja, P.A. J0 2.9 Acute pharyngitis, unspecified J06.9 Acute [...] Nausea with vomiting, unspecifie d Aleta Uribe, CATALYTIC CONVERTER OPERATOR HELPER 10/07/2020 R11.2 Nausea with vomiting, unspecifie d Finesse Carmona, FARZANA 10/07/2020 Z20.828 Contact with and (stringer spected) exposure to other viral communicable diseases FARZANA Nieves 09/20/2020 J02.9 Acute pharyngitis, unspecified J onmary Pantoja, P.A. 09/20/2020 J06.9 Acute upper respiratory infectio n, unspecified Franky Pantoja, P.A. 09/20/2020 Z20.828 Contact with and (stringer spected) exposure to other viral communicable diseases Franky Pantoja, P.A. Plan of Treatment No Information Available Functional Status Description No Information Available Mental Status Description No Information Available Referrals Description No Information Available
--- OUTSIDE RECORDS SUMMARY | 2021-03-22 11:44 | CCD | Continuity of Care Document ---
Author Author Cadence CARMONA [place] Organization Unknown Address [address] [place] [address] [place] [address] Phone [phone] Care Team Providers Care Immunology Teacher Name Role Phone Health Wellness [facility] [phone] Problems Description No Information Available Social History [...] H/L Range Note Laboratory test finding 01/07/[address] [id number] [phone] Throat Culture <pending> Laboratory test finding 11/05/[address] [address] [phone] Urine Culture FULL REPORT IN L <SEE NOTE> Normal 1, 2 Group A Stretp Culture 09/20/[address] [address] [phone] Group A Strep Culture FULL REPORT IN L <SEE NOTE> Nor mal 3 1 No Rx 2 FULL REPORT IN LAB NOTES ([facility]C W [facility]). SPECIMEN APPEARS CONTAMINATED 3 FULL REPORT IN LAB NOTES (eC W and [facility]). NEGATIVE FOR STREP PYOGENES (GROUP A) Procedures Date Code Description Status 01/07/2021 57392 Office/Outpatient Established Lo w MDM 20-29 Min Completed 11/05/2020 35239 Office/Outpatient Established Mo d MDM 30-39 Min Completed 10/14/2020 47249 Office/Outpatient Established Lo w MDM 20-29 Min Completed 10/07/2020 75875 Office/Outpatient Established Lo w MDM 20-29 Min Completed 09/20/2020 72837 Office/Outpatient New Low MDM 30 -44 Minutes [...]
--- OUTSIDE RECORDS SUMMARY | 2021-03-22 11:44 | CCD | Continuity of Care Document ---
Author Author Cadence CARMONA [place] Organization Unknown Address [address] [place] [address] [place] [address] Phone [phone] Care Team Providers Care Fiction And Nonfiction Writer Prose Name Role Phone Health Wellness [facility] [phone] Problems Description No Information Available Social History [...] H/L Range Note Laboratory test finding 01/07/[address] [id number] [phone] Throat Culture <pending> Laboratory test finding 11/05/[address] [address] [phone] Urine Culture FULL REPORT IN L <SEE NOTE> Normal 1, 2 Group A Stretp Culture 09/20/[address] [address] [phone] Group A Strep Culture FULL REPORT IN L <SEE NOTE> Nor mal 3 1 No Rx 2 FULL REPORT IN LAB NOTES (eC W and [facility]). SPECIMEN APPEARS CONTAMINATED 3 FULL REPORT IN LAB NOTES (eC W and [facility]). NEGATIVE FOR STREP PYOGENES (GROUP A) Procedures Date Code Description Status 01/07/2021 01560 Office/Outpatient Established Lo w MDM 20-29 Min Completed 11/05/2020 18070 Office/Outpatient Established Mo d MDM 30-39 Min Completed 10/14/2020 56001 Office/Outpatient Established Lo w MDM 20-29 Min Completed 10/07/2020 65800 Office/Outpatient Established Lo w MDM 20-29 Min Completed 09/20/2020 65379 Office/Outpatient New Low MDM 30 -44 Minutes [...]
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
--- OUTSIDE RECORDS SUMMARY | 2021-03-22 11:44 | CCD | Continuity of Care Document ---
Author Author Cadence CARMONA [place] Organization Unknown Address [address] [place] [address] [place] [address] Phone [phone] Care Team Providers Care Straddle Buggy Operator Name Role Phone Health Wellness [facility]M [phone] Problems Description No Information Available Social History [...] H/L Range Note Laboratory test finding 01/07/[address] [id number] [phone] Throat Culture <pending> Laboratory test finding 11/05/[address] [address] [phone] Urine Culture FULL REPORT IN L <SEE NOTE> Normal 1, 2 Group A Stretp Culture 09/20/[address] [address] [phone] Group A Strep Culture FULL REPORT IN L <SEE NOTE> Nor mal 3 1 No Rx 2 FULL REPORT IN LAB NOTES (eC W and [facility]). SPECIMEN APPEARS CONTAMINATED 3 FULL REPORT IN LAB NOTES (eC W and [facility]). NEGATIVE FOR STREP PYOGENES (GROUP A) Procedures Date Code Description Status 01/07/2021 07195 Office/Outpatient Established Lo w MDM 20-29 Min Completed 11/05/2020 23709 Office/Outpatient Established Mo d MDM 30-39 Min Completed 10/14/2020 73568 Office/Outpatient Established Lo w MDM 20-29 Min Completed 10/07/2020 62597 Office/Outpatient Established Lo w MDM 20-29 Min Completed 09/20/2020 24979 Office/Outpatient New Low MDM 30 -44 Minutes [...]
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
--- OUTSIDE RECORDS SUMMARY | 2021-03-22 11:49 | CCD ---
Author Author [facility] Organization [facility] Address Unknown Phone Unavailable Care Team Providers Care Immigration Manager Name Role Phone Aleta Uribe APARTMENT LEASING AGENT Unavailable Unavailable Aleta Uribe NP Unavailable Unavailable Aleta Uribe NP Unavailable Unavailable Uribe, Aleta APARTMENT LEASING AGENT Unavailable Unavailable Uribe, Aleta APARTMENT LEASING AGENT Unavailable Unavailable Uribe, Aleta APARTMENT LEASING AGENT Unavailable Unavailable Uribe, Aleta APARTMENT LEASING AGENT Unavailable Unavailable Uribe, Aleta APARTMENT LEASING AGENT Unavailable Unavailable Uribe, Aleta APARTMENT LEASING AGENT Unavailable Unavailable Uribe, Aleta APARTMENT LEASING AGENT Unavailable Unavailable Uribe, Aleta APARTMENT LEASING AGENT Unavailable Unavailable Uribe, Aleta APARTMENT LEASING AGENT Unavailable Unavailable Uribe, Aleta APARTMENT LEASING AGENT Unavailable Unavailable Margarette Dill MD Unavailable Unavailable Margarette Dill MD Unavailable Unavailable Margarette Dill MD Unavailable Unavailable Margarette Dill MD Unavailable Unavailable Margarette Dill MD Unavailable Unavailable Margarette Dill MD Unavailable Unavailable Margarette Dill MD Unavailable Unavailable Margarette Dill MD Unavailable Unavailable Margarette Dill MD Unavailable Unavailable Margarette Dill MD Unavailable Unavailable Margarette Dill MD Unavailable Unavailable Margarette Dill MD Unavailable Unavailable Margarette Dill MD Unavailable Unavailable Margarette Dill MD Unavailable Unavailable Margarette Dill MD Unavailable Unavailable Margarette Dill MD Unavailable Unavailable Margarette Dill MD Unavailable Unavailable Margarette Dill MD Unavailable Unavailable Margarette Dill MD Unavailable Unavailable Margarette Dill MD Unavailable Unavailable Margarette Dill MD Unavailable Unavailable Margarette Dill MD Unavailable Unavailable Margarette Dill MD Unavailable Unavailable Margarette Dill MD Unavailable Unavailable Margarette Dill MD Unavailable Unavailable Margarette Dill MD Unavailable Unavailable Margarette Dill MD Unavailable Unavailable Margarette Dill MD Unavailable Unavailable Margarette Dill MD Unavailable Unavailable Margarette Dill MD Unavailable Unavailable Margarette Dill MD Unavailable Unavailable Margarette Dill MD Unavailable Unavailable Margarette Dill MD Unavailable Unavailable Margarette Dill MD Unavailable Unavailable Margarette Dill MD Unavailable Unavailable Margarette Dill MD Unavailable Unavailable Margarette Dill MD Unavailable Unavailable Margarette Dill MD Unavailable Unavailable Margarette Dill MD Unavailable Unavailable Margarette Dill MD Unavailable Unavailable Margarette Dill MD Unavailable Unavailable Margarette Dill MD Unavailable Unavailable Margarette Dill MD Unavailable Unavailable Margarette Dill MD Unavailable Unavailable Margarette Dill MD Unavailable Unavailable Margarette Dill MD Unavailable Unavailable Margarette Dill MD Unavailable Unavailable Margarette Dill MD Unavailable Unavailable Margarette Dill MD Unavailable Unavailable Margarette Dill MD Unavailable Unavailable Margarette Dill MD Unavailable Unavailable Margarette Dill MD Unavailable Unavailable Margarette Dill MD Unavailable Unavailable Margarette Dill MD Unavailable Unavailable Margarette Dill MD Unavailable Unavailable Margarette Dill MD Unavailable Unavailable Margarette Dill MD Unavailable Unavailable Margarette Dill MD Unavailable Unavailable Margarette Dill MD Unavailable Unavailable Dill, Margarette Monroe MD Unavailable Unavailable Dill, Margarette Monroe MD Unavailable Unavailable Dill, Margarette Monroe MD Unavailable Unavailable Dill, Margarette Monroe MD Unavailable Unavailable Dill, Margarette Monroe MD Unavailable Unavailable Dill, Margarette Monroe MD Unavailable Unavailable Dill, Margarette Monroe MD Unavailable Unavailable Dill, Margarette Monroe MD Unavailable Unavailable Dill, Margarette Monroe MD Unavailable Unavailable Dill, Margarette Monroe MD Unavailable Unavailable Dill, Margarette Monroe MD Unavailable Unavailable Dill, Margarette Monroe MD Unavailable Unavailable Dill, Margarette Monroe MD Unavailable Unavailable Dill, Margarette Monroe MD Unavailable Unavailable Dill, Margarette Monroe MD Unavailable Unavailable Dill, Margarette Monroe MD Unavailable Unavailable Dill, Margarette Monroe MD Unavailable Unavailable Dill, Margarette Monroe MD Unavailable Unavailable Dill, Margarette Monroe MD Unavailable Unavailable Dill, Margarette Monroe MD Unavailable Unavailable Dill, Margarette Monroe MD Unavailable Unavailable Dill, Margarette Monroe MD Unavailable Unavailable Dill, Margarette Monroe MD Unavailable Unavailable Dill, Margarette Monroe MD Unavailable Unavailable Dill, Margarette Monroe MD Unavailable Unavailable Dill, Margarette Monroe MD Unavailable Unavailable Fuentes, Margarette Monroe MD Unavailable Unavailable Fuentes, Margarette Monroe MD Unavailable Unavailable Dill, Margarette Monroe MD Unavailable Unavailable Dill, Margarette Monroe MD Unavailable Unavailable Dill, Margarette Monroe MD Unavailable Unavailable Dill, Margarette Monroe MD Unavailable Unavailable Dill, Margarette Monroe MD Unavailable Unavailable Dill, Margarette Monroe MD Unavailable Unavailable Dill, Margarette Monroe MD Unavailable Unavailable POE, HITESH LEONARDO RPA-C Unavailable Unavailable POE, HITESH LEONARDO RPA-C Unavailable Unavailable POE, HITESH LEONARDO RPA-C Unavailable Unavailable POE, HITESH LEONARDO RPA-C Unavailable Unavailable POE, HITESH LEONARDO RPA-C Unavailable Unavailable POE, HITESH LEONARDO RPA-C Unavailable Unavailable POE, HITESH LEONARDO RPA-C Unavailable Unavailable POE, HITESH LEONARDO RPA-C Unavailable Unavailable POE, HITESH LEONARDO RPA-C Unavailable Unavailable POE, HITESH LEONARDO RPA-C Unavailable Unavailable POE, HITESH LEONARDO RPA-C Unavailable Unavailable POE, HITESH LEONARDO RPA-C Unavailable Unavailable POE, HITESH LEONARDO RPA-C Unavailable Unavailable POE, HITESH LEONARDO RPA-C Unavailable Unavailable POE, HITESH LEONARDO RPA-C Unavailable Unavailable POE, HITESH LEONARDO RPA-C Unavailable Unavailable POE, HITESH LEONARDO RPA-C Unavailable Unavailable POE, HITESH LEONARDO RPA-C Unavailable Unavailable POE, HITESH LEONARDO RPA-C Unavailable Unavailable POE, HITESH LEONARDO RPA-C Unavailable Unavailable POE, HITESH LEONARDO RPA-C Unavailable Unavailable POE, HITESH LEONARDO RPA-C Unavailable Unavailable POE, HITESH LEONARDO RPA-C Unavailable Unavailable POE, HITESH LEONARDO RPA-C Unavailable Unavailable POE, HITESH LEONARDO RPA-C Unavailable Unavailable POE, HITESH LEONARDO RPA-C Unavailable Unavailable POE, HITESH LEONARDO RPA-C Unavailable Unavailable POE, HITESH LEONARDO RPA-C Unavailable Unavailable POE, HITESH LEONARDO RPA-C Unavailable Unavailable POE, HITESH LEONARDO RPA-C Unavailable Unavailable POE, HITESH LEONARDO RPA-C Unavailable Unavailable POE, HITESH LEONARDO RPA-C Unavailable Unavailable POE, HITESH LEONARDO RPA-C Unavailable Unavailable POE, HITESH LEONARDO RPA-C Unavailable Unavailable POE, HITESH LEONARDO RPA-C Unavailable Unavailable POE, HITESH LEONARDO RPA-C Unavailable Unavailable POE, HITESH LEONARDO RPA-C Unavailable Unavailable POE, HITESH LEONARDO RPA-C Unavailable Unavailable POE, HITESH LEONARDO RPA-C Unavailable Unavailable POE, HITESH LEONARDO RPA-C Unavailable Unavailable POE, HITESH LEONARDO RPA-C Unavailable Unavailable POE, HITESH LEONARDO RPA-C Unavailable Unavailable POE, HITESH LEONARDO RPA-C Unavailable Unavailable LETTIERE, A XAVIER PA Unavailable Unavailable LETTIERE, A XAVIER PA Unavailable Unavailable LETTIERE, A XAVIER PA Unavailable Unavailable LETTIERE, A XAVIER PA Unavailable Unavailable LETTIERE, A XAVIER PA Unavailable Unavailable LETTIERE, A XAVIER PA Unavailable Unavailable LETTIERE, A XAVIER PA Unavailable Unavailable LETTIERE, A XAVIER PA Unavailable Unavailable LETTIERE, A XAVIER PA Unavailable Unavailable LETTIERE, A XAVIER PA Unavailable Unavailable LETTIERE, A XAVIER PA Unavailable Unavailable LETTIERE, A XAVIER PA Unavailable Unavailable LETTIERE, A XAVIER PA Unavailable Unavailable LETTIERE, A XAVIER PA Unavailable Unavailable LETTIERE, A XAVIER PA Unavailable Unavailable LETTIERE, A XAVIER PA Unavailable Unavailable LETTIERE, A XAVIER PA Unavailable Unavailable LETTIERE, A XAVIER PA Unavailable Unavailable LETTIERE, A XAVIER PA Unavailable Unavailable LETTIERE, A XAVIER PA Unavailable Unavailable LETTIERE, A XAVIER PA Unavailable Unavailable LETTIERE, A XAVIER PA Unavailable Unavailable LETTIERE, A XAVIER PA Unavailable Unavailable LETTIERE, A XAVIER PA Unavailable Unavailable LETTIERE, A XAVIER PA Unavailable Unavailable LETTIERE, A XAVIER PA Unavailable Unavailable LETTIERE, A XAVIER PA Unavailable Unavailable LETTIERE, A XAVIER PA Unavailable Unavailable LETTIERE, A XAVIER PA Unavailable Unavailable LETTIERE, A XAVIER PA Unavailable Unavailable LETTIERE, A XAVIER PA Unavailable Unavailable Kathie Juan Unavailable [phone] Safia, Dori Unavailable Unavailable Safia, Dori Unavailable Unavailable Safia, Dori Unavailable Unavailable Safia, Dori Unavailable Unavailable Safia, Dori Unavailable Unavailable Safia, Dori Unavailable Unavailable Safia, Dori Unavailable Unavailable Safia, Dori Unavailable Unavailable Safia, Dori Unavailable Unavailable Safia, Dori Unavailable Unavailable Safia, Dori Unavailable Unavailable Safia, Dori Unavailable Unavailable Safia, Dori Unavailable Unavailable Safia, Dori Unavailable Unavailable Safia, Dori Unavailable Unavailable Safia, Dori Unavailable Unavailable Safia, Dori Unavailable Unavailable Safia, Dori Unavailable Unavailable Safia, Dori Unavailable Unavailable Safia, Dori Unavailable Unavailable Safia, Dori Unavailable Unavailable Safia, Dori Unavailable Unavailable Safia, Dori Unavailable Unavailable Safia, Dori Unavailable Unavailable Safia, Dori Unavailable Unavailable Safia, Dori Unavailable Unavailable Safia, Dori Unavailable Unavailable Safia, Dori Unavailable Unavailable Nataliia Putnam MD Unavailable Unavailable PutnamNataliia brown MD Unavailable Unavailable PutnamNataliia brown MD Unavailable Unavailable PutnamNataliia brown MD Unavailable Unavailable Nataliia Putnam MD Unavailable Unavailable Nataliia Putnam MD Unavailable Unavailable PutnamNataliia brown MD Unavailable Unavailable PutnamNataliia brown MD Unavailable Unavailable PutnamNataliia brown MD Unavailable Unavailable PutnamNataliia brown MD Unavailable Unavailable PutnamNataliia MD Unavailable Unavailable PutnamNataliia brown MD Unavailable Unavailable PutnamNataliia brown MD Unavailable Unavailable PutnamNataliia brown MD Unavailable Unavailable PutnamNataliia brown MD Unavailable Unavailable PutnamNataliia brown MD Unavailable Unavailable PutnamNataliia brown MD Unavailable Unavailable Nataliia Putnam MD Unavailable Unavailable Nataliia Putnam MD Unavailable Unavailable PutnamNataliia brown MD Unavailable Unavailable Nataliia Putnam MD Unavailable Unavailable Nataliia Putnam MD Unavailable Unavailable Nataliia Putnam MD Unavailable Unavailable Nataliia Putnam MD Unavailable Unavailable Nataliia Putnam MD Unavailable Unavailable PutnamNataliia brown MD Unavailable Unavailable PutnamNataliia brown MD Unavailable Unavailable Putnam, Nataliia Velasquez MD Unavailable Unavailable Putnam, Nataliia Velasquez MD Unavailable Unavailable Putnam, Nataliia Velasquez MD Unavailable Unavailable Putnam, Nataliia Velasquez MD Unavailable Unavailable Putnam, Nataliia Velasquez MD Unavailable Unavailable Putnam, Nataliia Velasquez MD Unavailable Unavailable Putnam, Nataliia Velasquez MD Unavailable Unavailable Putnam, Nataliia Velasquez MD Unavailable Unavailable Putnam, Nataliia Velasquez MD Unavailable Unavailable Putnam, Nataliia Velasquez MD Unavailable Unavailable Putnam, Nataliia Velasquez MD Unavailable Unavailable Putnam, Nataliia Velasquez MD Unavailable Unavailable Putnam, Nataliia Velasquez MD Unavailable Unavailable Putnam, L Ron DHILLON Unavailable Unavailable Putnam, L Ron DHILLON Unavailable Unavailable Putnam, Nataliia Velasquez MD Unavailable Unavailable Putnam, Nataliia Velasquez MD Unavailable Unavailable Putnam, Nataliia Velasquez MD Unavailable Unavailable Putnam, Nataliia Velasquez MD Unavailable Unavailable Putnam, L Ron DHILLON Unavailable Unavailable Putnam, Nataliia Velasquez MD Unavailable Unavailable Putnam, Nataliia Velasquez MD Unavailable Unavailable Putnam, Nataliia Velasquez MD Unavailable Unavailable Putnam, Nataliia Velasquez MD Unavailable Unavailable GARCÍA, SHAN PA Unavailable Unavailable GARCÍA, SHAN PA Unavailable Unavailable GARCÍA, SHAN PA Unavailable Unavailable GARCÍA, SHAN PA Unavailable Unavailable GARCÍA, SHAN PA Unavailable Unavailable GARCÍA, SHAN PA Unavailable Unavailable GARCÍA, SHAN PA Unavailable Unavailable GARCÍA, SHAN PA Unavailable Unavailable GARCÍA, SHAN PA Unavailable Unavailable GARCÍA, SHAN PA Unavailable Unavailable GARCÍA, SHAN PA Unavailable Unavailable GARCÍA, SHAN PA Unavailable Unavailable GARCÍA, SHAN PA Unavailable Unavailable GARCÍA, SHAN PA Unavailable Unavailable GARCÍA, SHAN PA Unavailable Unavailable GARCÍA, SHAN PA Unavailable Unavailable GARCÍA, SHAN PA Unavailable Unavailable GARCÍA, SHAN PA Unavailable Unavailable GARCÍA, SHAN PA Unavailable Unavailable GARCÍA, SHAN PA Unavailable Unavailable GARCÍA, SHAN PA Unavailable Unavailable GARÍCA, SHAN PA Unavailable Unavailable GARCÍA, SHAN PA Unavailable Unavailable GARCÍA, SHAN PA Unavailable Unavailable GARCÍA, SHAN PA Unavailable Unavailable GARCÍA, SHAN PA Unavailable Unavailable GARCÍA, SHAN PA Unavailable Unavailable GARCÍA, SHAN PA Unavailable Unavailable GARCÍA, SHAN PA Unavailable Unavailable GARCÍA, SHAN PA Unavailable Unavailable GARCÍA, SHAN PA Unavailable Unavailable GARCÍA, SHAN PA Unavailable Unavailable GARCÍA, SHAN PA Unavailable Unavailable GARCÍA, SHAN PA Unavailable Unavailable GARCÍA, SHAN PA Unavailable Unavailable GARCÍA, SHAN PA Unavailable Unavailable RING, K KEHINDE PA Unavailable Unavailable RING, K KEHINDE PA Unavailable Unavailable RING, K KEHINDE PA Unavailable Unavailable RING, K KEHINDE PA Unavailable Unavailable RING, K KEHINDE PA Unavailable Unavailable RING, K KEHINDE PA Unavailable Unavailable RING, K KEHINDE PA Unavailable Unavailable RING, K KEHINDE PA Unavailable Unavailable RING, K KEHINDE PA Unavailable Unavailable RING, K KEHINDE PA Unavailable Unavailable RING, K KEHINDE PA Unavailable Unavailable RING, K KEHINDE PA Unavailable Unavailable RING, K KEHINDE PA Unavailable Unavailable RING, K KEHINDE PA Unavailable Unavailable RING, K KEHINDE PA Unavailable Unavailable RING, K KEHINDE PA Unavailable Unavailable RING, K KEHINDE PA Unavailable Unavailable RING, K KEHINDE PA Unavailable Unavailable RING, K KEHINDE PA Unavailable Unavailable RING, K KEHINDE PA Unavailable Unavailable RING, K KEHINDE PA Unavailable Unavailable RING, K KEHINDE PA Unavailable Unavailable RING, K KEHINDE PA Unavailable Unavailable Jeremy Hudson MD Unavailable Unavailable Jeremy Hudson MD Unavailable Unavailable Jeremy Hudson MD Unavailable Unavailable Jeremy Hudson MD Unavailable Unavailable Jeremy Hudson MD Unavailable Unavailable Jeremy Hudson MD Unavailable Unavailable Jeremy Hudson MD Unavailable Unavailable Jeremy Hudson MD Unavailable Unavailable Jeremy Hudson MD Unavailable Unavailable Jeremy Hudson MD Unavailable Unavailable Jeremy Hudson MD Unavailable Unavailable Jeremy Hudson MD Unavailable Unavailable Jeremy Hudson MD Unavailable Unavailable Jeremy Hudson MD Unavailable Unavailable Jeremy Hudson MD Unavailable Unavailable Jeremy Hudson MD Unavailable Unavailable Jeremy Hudson MD Unavailable Unavailable Jeremy Hudson MD Unavailable Unavailable Jeremy Hudson MD Unavailable Unavailable Jeremy Hudson MD Unavailable Unavailable Jeremy Hudson MD Unavailable Unavailable Jeremy Hudson MD Unavailable Unavailable Jeremy Hudson MD Unavailable Unavailable Jeremy Hudson MD Unavailable Unavailable Jeremy Hudson MD Unavailable Unavailable Re-disclosure Warning The records that you are about to access may contain information from federally-assisted alcohol or drug abuse programs. If such information is present, then the following federally mandated warning applies: This information has been disclosed to you from records protected by federal confidentiality rules (42 CFR part 2). The federal rules prohibit you from making any further disclosure of this information unless further disclosure is expressly permitted by the written consent of the person to whom it pertains or as otherwise permitted by 42 CFR part 2. A general authorization for the release of medical or other information is NOT sufficient for this purpose. The Federal rules restrict any use of the information to criminally investigate or prosecute any alcohol or drug abuse patient.The records that you are about to access may contain highly sensitive health information, the redisclosure of which is protected by Article 27-F of the [facility] Public Health law. If you continue you may have access to information: Regarding HIV / AIDS; Provided by facilities licensed or operated by the [facility] Office of Mental Health; or Provided by the [facility] Office for People With Developmental Disabilities. If such information is present, then the following [facility] mandated warning applies: This information has been disclosed to you from confidential records which are protected by state law. State law prohibits you from making any further disclosure of this information without the specific written consent of the person to whom it pertains, or as otherwise permitted by law. Any unauthorized further disclosure in violation of state law may result in a fine or [place] [facility] sentence or both. A general authorization for the release of medical or other information is NOT sufficient authorization for further disc losure. Allergies and Adverse Reactions Type Description Substance Reaction Status Data Source(s ) Allergy to substance Allergy to substance Allergy to substance [facility] ([facility]) Allergy to substance Allergy to substance Allergy to substance [place] ([facility]) Allergy to substance Allergy to substance Allergy to substance [place] ([facility]) Family History Family Member Name Family Member Gender Family Member Status Date o f Status Description Data Source(s) Unknown Male Problem MEDENT ([facility]) Encounters Encounter Providers Location Date Indications Data Source(s ) Kathie Juan [facility] [address], [place] [address], Ph. Attender: Kathie Juan [place] - [facility] Medical 01/15/2021 12:00:00 AM EDT [place] ([facility]) Outpatient [id number] [facility] [facility] [address] 01/13/2021 12:00:00 AM EDT eCW1 ([facility]) Outpatient Attender: XAVIER robles 01/07/2021 10:00:00 AM EDT MEDENT ([facility]) Kahtie Juan, CRITICAL CARE UNIT MANAGER: [address], [place] [address], Ph. Attender: Kathie Juan [facility] Medical 01/06/2021 12:00:00 AM EDT [place] ([facility]) Kathie Juan, [facility]: [address], [place] [address], Ph. Attender: Kathie Juan [facility] Medical 01/06/2021 12:00:00 AM EDT [place] ([facility]) Leonardo Poe [facility]C: [address], [place] [address], Ph. Attender: LEONARDO POE RPA-C [facility] Medical 12/29/2020 12:00:00 AM EDT [place] ([facility]) Leonardo Poe RPA-C: [address], [place] [address], Ph. Attender: LEONARDO POE RPA-C [facility] Medical 12/29/2020 12:00:00 AM EDT [place] ([facility]) Leonardo Poe RPA-C: [address], [place] [address], Ph. Attender: LEONARDO POE RPA-C [facility] Medical 12/29/2020 12:00:00 AM EDT [place] ([facility]) Leonardo Poe, [facility]C: [address], [place] [address], Ph. Attender: LEONARDO POE RPA-C [facility] Medical 12/29/2020 12:00:00 AM EDT [place] ([facility]) Leonardo Poe RPA-C: [address], [place] [address], Ph. Attender: LEONARDO POE RPA-C [facility] Medical 12/24/2020 12:00:00 AM EDT [place] ([facility]) Leonardo Poe RPA-C: [address], [place] [address], Ph. Attender: LEONARDO POE RPA-C [facility] Medical 12/24/2020 12:00:00 AM EDT [place] ([facility]) Leonardo Poe RPA-C: [address], [place] [address], Ph. Attender: LEONARDO POE RPA-C [facility] Medical 12/24/2020 12:00:00 AM EDT [place] ([facility]) Leonardo Poe RPA-C: [address], [place] [address], Ph. Attender: LEONARDO POE RPA-C [facility] Medical 12/24/2020 12:00:00 AM EDT [place] ([facility]) Kathie Juan, CRITICAL CARE UNIT MANAGER: [address], [place] [address], Ph. Attender: Kathie Juan [facility] Medical 12/09/2020 12:00:00 AM EDT [place] ([facility]) Kathie Juan LMSW: [address], [place] [address], Ph. Attender: Kathie Juan [facility] Medical 12/09/2020 12:00:00 AM EDT [place] ([facility]) Kathie Juan, CRITICAL CARE UNIT MANAGER: [address], [place] [address], Ph. Attender: Kathie Juan [facility] Medical 12/09/2020 12:00:00 AM EDT [place] ([facility]) Kathie Juan [facility]: [address], [place] [address], Ph. Attender: Kathie Juan [facility] Medical 12/09/2020 12:00:00 AM EDT [place] ([facility]) Kathie Juan LMSW: [address], [place] [address], Ph. Attender: Kathie Juan [facility] Medical 12/09/2020 12:00:00 AM EDT [place] ([facility]) Kathie Juan [facility]: [address], [place] [address], Ph. Attender: Kathie Juan [facility] Medical 12/02/2020 12:00:00 AM EDT [place] ([facility]) Kathie Juan [facility]: [address], [place] [address], Ph. Attender: Kathie Juan [facility] Medical 12/02/2020 12:00:00 AM EDT [place] ([facility]) Kathie Juan LMSW: [address], [place] [address], Ph. Attender: Kathie Juan [facility] Medical 12/02/2020 12:00:00 AM EDT [place] ([facility]) Kathie Juan, CRITICAL CARE UNIT MANAGER: [address], [place] [address], Ph. Attender: Kathie Juan [facility] Medical 12/02/2020 12:00:00 AM EDT HAILEY ([facility]) Kathie Juan CRITICAL CARE UNIT MANAGER: [address], [place] [address], Ph. Attender: Kathie Juan [facility] Medical 12/02/2020 12:00:00 AM EDT [place] ([facility]) Kathie Juan LMSW: [address], [place] [address], Ph. Attender: Kathie Juan [facility] Medical 12/02/2020 12:00:00 AM EDT [place] ([facility]) Kathie Juan CRITICAL CARE UNIT MANAGER: [address], [place] [address], Ph. Attender: Kathie Juan [facility] Medical 11/11/2020 12:00:00 AM EDT [place] ([facility]) Kathie Juan, CRITICAL CARE UNIT MANAGER: [address], [place] [address], Ph. Attender: Kathie Juan [facility] Medical 11/11/2020 12:00:00 AM EDT [place] ([facility]) Kathie Juan [facility]: [address], [place] [address], Ph. Attender: Kathie Juan [facility] Medical 11/11/2020 12:00:00 AM EDT [place] ([facility]) Kathie Juan, CRITICAL CARE UNIT MANAGER: [address], [place] [address], Ph. Attender: Kathie Juan [facility] Medical 11/11/2020 12:00:00 AM EDT [place] ([facility]) Kathie Juan [facility]: [address], [place] [address], Ph. Attender: Kathie Juan [facility] Medical 11/11/2020 12:00:00 AM EDT [place] ([facility]) Kathie Juan CRITICAL CARE UNIT MANAGER: [address], [place] [address], Ph. Attender: Kathie Juan [facility] Medical 11/11/2020 12:00:00 AM EDT [place] ([facility]) Kathie Juan, [facility]: [address], [place] [address], Ph. Attender: Kathie Juan [facility] Medical 11/11/2020 12:00:00 AM EDT [place] ([facility]) Kathie Juan, [facility]: [address], [place] [address], Ph. Attender: Kathie Juan [facility] Medical 11/06/2020 12:00:00 AM EDT [place] ([facility]) Kathie Juan [facility]: [address], [place] [address], Ph. Attender: Kathie Juan [facility]TH [facility] Medical 11/06/2020 12:00:00 AM EDT [place] ([facility]) Kathie Juan, CRITICAL CARE UNIT MANAGER: [address], [place] [address], Ph. Attender: Kathie Juan [facility] Medical 11/06/2020 12:00:00 AM EDT [place] ([facility]) Kathie Juan [facility]: [address], [place] [address], Ph. Attender: Kathie Juan [facility] Medical 11/06/2020 12:00:00 AM EDT [place] ([facility]) Kathie Juan [facility]: [address], [place] [address], Ph. Attender: Kathie Juan [facility] Medical 11/06/2020 12:00:00 AM EDT [place] ([facility]) Kathie Juan, [facility]: [address], [place] [address], Ph. Attender: Kathie Juan [facility] Medical 11/06/2020 12:00:00 AM EDT [place] ([facility]) Kathie Juan, [facility]: [address], [place] [address], Ph. Attender: Kathie Juan [place] [facility] Medical 11/06/2020 12:00:00 AM EDT [place] ([facility]) Kathie Juan, CRITICAL CARE UNIT MANAGER: [address], [address], [place] [address], Ph. Attender: Kathie Juan [facility] Medical 11/06/2020 12:00:00 AM EDT [place] ([facility]) Outpatient Attender: KEHINDE Garcia Primary 11/05/2020 03:25:00 PM EDT MEDERIK ([facility]) Kathie Juan, CRITICAL CARE UNIT MANAGER: [address], [place] [address], Ph. Attender: Kathie Juan [facility] Medical 10/29/2020 12:00:00 AM EDT [place] ([facility]) Kathie Juan, CRITICAL CARE UNIT MANAGER: [address], [place] [address], Ph. Attender: Kathie Juan [facility] Medical 10/29/2020 12:00:00 AM EDT [place] ([facility]) Kathie JuanLORRIESW: [address], [address], [place] [address], Ph. Attender: Kathie Juan [facility] Medical 10/29/2020 12:00:00 AM EDT [place] ([facility]) Kathie Juan, CRITICAL CARE UNIT MANAGER: [address], [place] [address], Ph. Attender: Kathie Juan [facility] Medical 10/29/2020 12:00:00 AM EDT [place] ([facility]) Kathie Juan CRITICAL CARE UNIT MANAGER: [address], [address], [place] [address], Ph. Attender: Kathie Juan [facility] Medical 10/29/2020 12:00:00 AM EDT [place] ([facility]) Kathie Juan, CRITICAL CARE UNIT MANAGER: [address], [place] [address], Ph. Attender: Kathie Juan [facility] Medical 10/29/2020 12:00:00 AM EDT [place] ([facility]) Kathie Juan CRITICAL CARE UNIT MANAGER: [address], [place] [address], Ph. Attender: Kathie Juan [facility] Medical 10/29/2020 12:00:00 AM EDT [place] ([facility]) Kathie Juan, CRITICAL CARE UNIT MANAGER: [address], [place] [address], Ph. Attender: Kathie Juan [facility] Medical 10/29/2020 12:00:00 AM EDT [place] ([facility]) Kathie Juan, CRITICAL CARE UNIT MANAGER: [address], [place] [address], Ph. Attender: Kathie Juan [facility] Medical 10/29/2020 12:00:00 AM EDT [place] ([facility]) Outpatient Attender: Aleta haley 10/14/2020 01:10:00 PM EDT MEDERIK ([facility]) Kathie Juan, CRITICAL CARE UNIT MANAGER: [address], [address], [place] [address], Ph. Attender: Kathie Juan [facility] Medical 10/14/2020 12:00:00 AM EDT [place] ([facility]) Kathie Juan, CRITICAL CARE UNIT MANAGER: [address], [place] [address], Ph. Attender: Kathie Juan [facility] Medical 10/14/2020 12:00:00 AM EDT [place] ([facility]) Kathie Juan, CRITICAL CARE UNIT MANAGER: [address], [place] [address], Ph. Attender: Kathie Juan [facility] Medical 10/14/2020 12:00:00 AM EDT [place] ([facility]) Kathie Juan, CRITICAL CARE UNIT MANAGER: [address], [place] [address], Ph. Attender: Kathie Juan [facility] Medical 10/14/2020 12:00:00 AM EDT [place] ([facility]) Kathie Juan, CRITICAL CARE UNIT MANAGER: [address], [address], [place] [address], Ph. Attender: Kathie Juan [facility] Medical 10/14/2020 12:00:00 AM EDT [place] ([facility]) Kathie Juan, CRITICAL CARE UNIT MANAGER: [address], [place] [address], Ph. Attender: Kathie Juan [facility] Medical 10/14/2020 12:00:00 AM EDT [place] ([facility]) Kathie Juan, CRITICAL CARE UNIT MANAGER: [address], [address], [place] [address], Ph. Attender: Kathie Juan [facility] Medical 10/14/2020 12:00:00 AM EDT [place] ([facility]) Kathie Juan [facility]: [address], [address], [place] [address], Ph. Attender: Kathie Juan [facility] Medical 10/14/2020 12:00:00 AM EDT [place] ([facility]) Kathie Juan [facility]: [address], [address], [place] [address], Ph. Attender: Kathie Juan [facility] Medical 10/14/2020 12:00:00 AM EDT [place] ([facility]) Kathie Juan [facility]: [address], [address], [place] [address], Ph. 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 Attender: Kathie Juan [facility] Medical 09/30/2020 12:00:00 AM EDT [place] ([facility]) Kathie Juan, [facility]: [address], [address], [place] [address], Ph. Attender: Kathie Juan [facility] Medical 09/30/2020 12:00:00 AM EDT [place] ([facility]) Kathie Juan [facility]: [address], [place] [address], Ph. Attender: Kathie Juan [facility] Medical 09/30/2020 12:00:00 AM EDT [place] ([facility]) Kathie Juan, [facility]: [address], [place] [address], Ph. Attender: Kathie Juan [facility] Medical 09/30/2020 12:00:00 AM EDT [place] ([facility]) Kathie Juan [facility]: [address], [place] [address], Ph. Attender: Kathie Juan [facility] Medical 09/30/2020 12:00:00 AM EDT [place] ([facility]) Kathie Juan [facility]: [address], [place] [address], Ph. Attender: Kathie Juan [facility] Medical 09/30/2020 12:00:00 AM EDT [place] ([facility]) Kathie Juan, [facility]: [address], [place] [address], Ph. Attender: Kathie Juan [facility] Medical 09/30/2020 12:00:00 AM EDT [place] ([facility]) Kathie Juan, [facility]: [address], [place] [address], Ph. Attender: Kathie Juan [facility] Medical 09/30/2020 12:00:00 AM EDT [place] ([facility]) Kathie Juan LMSW: [address], [address], [place] [address], Ph. Attender: Kathie Juan [facility] Medical 09/30/2020 12:00:00 AM EDT [place] ([facility]) Kathie Juan [facility]: [address], [place] [address], Ph. Attender: Kathie Juan [facility] Medical 09/30/2020 12:00:00 AM EDT [place] ([facility]) Kathie Juan [facility]: [address], [place] [address], Ph. Attender: Kathie Juan [facility] Medical 09/30/2020 12:00:00 AM EDT [place] ([facility]) Outpatient Attender: SHAN wayne 09/20/2020 03:15:00 PM EDT JOE ([facility]) Kathie Juan [facility]: [address], [address], [place] [address], Ph. Attender: Kathie Juan [facility] Medical 09/16/2020 12:00:00 AM EDT [place] ([facility]) Kathie Juan [facility]: [address], [address], [place] [address], Ph. Attender: Kathie Juan [facility] Medical 09/16/2020 12:00:00 AM EDT [place] ([facility]) Kathie Juan, [facility]: [address], [address], [place] [address], Ph. Attender: Kathie Juan [facility] Medical 09/16/2020 12:00:00 AM EDT [place] ([facility]) Kathie Juan, [facility]: [address], [place] [address], Ph. Attender: Kathie Juan [facility] Medical 09/16/2020 12:00:00 AM EDT [place] ([facility]) Kathie Juan [facility]: [address], [place] [address], Ph. Attender: Kathie Juan [facility] Medical 09/16/2020 12:00:00 AM EDT [place] ([facility]) Kathie Juan, [facility]: [address], [place] [address], Ph. Attender: Kathie Juan [facility] Medical 09/16/2020 12:00:00 AM EDT [place] ([facility]) Kathie Juan [facility]: [address], [place] [address], Ph. Attender: Kathie Juan [facility] Medical 09/16/2020 12:00:00 AM EDT [place] ([facility]) Kathie Juan [facility]: [address], [place] [address], Ph. Attender: Kathie Juan [facility] Medical 09/16/2020 12:00:00 AM EDT [place] ([facility]) Kathie Juan, [facility]: [address], [place] [address], Ph. Attender: Kathie Juan [facility] Medical 09/16/2020 12:00:00 AM EDT [place] ([facility]) Kathie Juan, [facility]: [address], [place] [address], Ph. Attender: Kathie Juan [facility] Medical 09/16/2020 12:00:00 AM EDT [place] ([facility]) Kathie Juan [facility]: [address], [place] [address], Ph. Attender: Kathie Juan [facility] Medical 09/16/2020 12:00:00 AM EDT [place] ([facility]) Kathie Juan [facility]: [address], [place] [address], Ph. Attender: Kathie Juan [facility] Medical 09/16/2020 12:00:00 AM EDT [place] ([facility]) Kathie Juan [facility]: [address], [place] [address], Ph. Attender: Kathie Juan [facility] Medical 09/02/2020 12:00:00 AM EDT [place] ([facility]) Kathie Juan [facility]: [address], [place] [address], Ph. Attender: Kathie Juan [facility] Medical 09/02/2020 12:00:00 AM EDT [place] ([facility]) Kathie Juan CRITICAL CARE UNIT MANAGER: [address], [place] [address], Ph. Attender: Kathie Juan [facility] Medical 09/02/2020 12:00:00 AM EDT [place] ([facility]) Kathie Juan, CRITICAL CARE UNIT MANAGER: [address], [place] [address], Ph. Attender: Kathie Juan [facility] Medical 09/02/2020 12:00:00 AM EDT [place] ([facility]) Kathie Juan, [facility]: [address], [place] [address], Ph. Attender: Kathie Juan [facility] Medical 09/02/2020 12:00:00 AM EDT [place] ([facility]) Kathie Juan, [facility]: [address], [place] [address], Ph. Attender: Kathie Juan [facility] Medical 09/02/2020 12:00:00 AM EDT [place] ([facility]) Kathie Juan, [facility]: [address], [place] [address], Ph. Attender: Kathie Juan [facility] Medical 09/02/2020 12:00:00 AM EDT [place] ([facility]) Kathie Juan, CRITICAL CARE UNIT MANAGER: [address], [place] [address], Ph. Attender: Kathie Juan [facility] Medical 09/02/2020 12:00:00 AM EDT [place] ([facility]) Kathie Juan, [facility]: [address], [place] [address], Ph. Attender: Kathie Juan [facility] Medical 09/02/2020 12:00:00 AM EDT [place] ([facility]) Kathie Juan, CRITICAL CARE UNIT MANAGER: [address], [place] [address], Ph. Attender: Kathie Juan [facility] Medical 09/02/2020 12:00:00 AM EDT [place] ([facility]) Kathie Juan, CRITICAL CARE UNIT MANAGER: [address], [place] [address], Ph. Attender: Kathie Juan [facility] Medical 09/02/2020 12:00:00 AM EDT [place] ([facility]) Kathie Juan, [facility]: [address], [address], [place] [address], Ph. Attender: Kathie Juan [facility] Medical 09/02/2020 12:00:00 AM EDT [place] ([facility]) Kathie Juan, CRITICAL CARE UNIT MANAGER: [address], [place] [address], Ph. Attender: Kathie Juan [facility] Medical 09/02/2020 12:00:00 AM EDT [place] ([facility]) Kathie Juan, CRITICAL CARE UNIT MANAGER: [address], [place] [address], Ph. Attender: Kathie Juan [facility] Medical 08/26/2020 12:00:00 AM EDT [place] ([facility]) Kathie Juan, CRITICAL CARE UNIT MANAGER: [address], [address], [place] [address], Ph. Attender: Kathie Juan [facility] Medical 08/26/2020 12:00:00 AM EDT [place] ([facility]) Kathie Juan, CRITICAL CARE UNIT MANAGER: [address], [place] [address], Ph. Attender: Kathie Juan [facility] Medical 08/26/2020 12:00:00 AM EDT [place] ([facility]) Kathie Juan CRITICAL CARE UNIT MANAGER: [address], [place] [address], Ph. Attender: Kathie Juan [facility] Medical 08/26/2020 12:00:00 AM EDT [place] ([facility]) Kathie Juan, CRITICAL CARE UNIT MANAGER: [address], [place] [address], Ph. Attender: Kathie Juan [facility] Medical 08/26/2020 12:00:00 AM EDT [place] ([facility]) Kathie Juan, CRITICAL CARE UNIT MANAGER: [address], [place] [address], Ph. Attender: Kathie Juan [facility] Medical 08/26/2020 12:00:00 AM EDT [place] ([facility]) Kathie Juan, CRITICAL CARE UNIT MANAGER: [address], [place] [address], Ph. Attender: Kathie Juan [facility] Medical 08/26/2020 12:00:00 AM EDT [place] ([facility]) Kathie Juan, CRITICAL CARE UNIT MANAGER: [address], [place] [address], Ph. Attender: Kathie Juan [facility] Medical 08/26/2020 12:00:00 AM EDT [place]ILEY ([facility]) Kathie Juan, CRITICAL CARE UNIT MANAGER: [address], [place] [address], Ph. Attender: Kathie Juan [facility] 08/26/2020 12:00:00 AM EDT [place] ([facility]) Kathie Juan, CRITICAL CARE UNIT MANAGER: [address], [address], [place] [address], Ph. Attender: Kathie Juan [facility] Medical 08/26/2020 12:00:00 AM EDT [place] ([facility]) Kathie Juan, CRITICAL CARE UNIT MANAGER: [address], [address], [place] [address], Ph. Attender: Kathie Juan [facility] Medical 08/26/2020 12:00:00 AM EDT [place] ([facility]) Kathie Juan, CRITICAL CARE UNIT MANAGER: [address], [address], [place] [address], Ph. Attender: Kathie Juan [facility] Medical 08/26/2020 12:00:00 AM EDT [place] ([facility]) Kathie Juan, CRITICAL CARE UNIT MANAGER: [address], [address], [place] [address], Ph. Attender: Kathie Juan [facility] Medical 08/26/2020 12:00:00 AM EDT [place] ([facility]) Kathie Juan, CRITICAL CARE UNIT MANAGER: [address], [place] [address], Ph. Attender: Kathie Newmangraham [facility] Medical 08/26/2020 12:00:00 AM EDT [place] ([facility]) Outpatient Attender: Belen Hudson MD 0 08/12/2020 06:42:33 PM EDT - 08/12/2020 07:26:10 PM EDT [facility] ([facility]) Fer Dill MD: [address] [place] [address], Ph. Attender: Fer Dill MD [facility] Medical 08/12/2020 12:00:00 AM EDT [place] ([facility]) Fer Dill MD: [address] [place] [address], Ph. Attender: Fer Dill MD [facility] Medical 08/12/2020 12:00:00 AM EDT [place] ([facility]) Fer Dill MD: [address] [place] [address], Ph. Attender: Fer Dill MD [facility] Medical 08/12/2020 12:00:00 AM EDT [place] ([facility]) Fer Dill MD: [address] [place] [address], Ph. Attender: Fer Dill MD [facility] Medical 08/12/2020 12:00:00 AM EDT [place] ([facility]) Fer Dill MD: [address] [place] [address], Ph. Attender: Fer Dill MD [facility] Medical 08/12/2020 12:00:00 AM EDT [place] ([facility]) Fer Dill MD: [address] [place] [address], Ph. Attender: Fer Dill MD [facility] Medical 08/12/2020 12:00:00 AM EDT [place] ([facility]) Fer Dill MD: [address] [place] [address], Ph. Attender: Fer Dill MD [facility] Medical 08/12/2020 12:00:00 AM EDT [place] ([facility]) Fer Dill MD: [address] [place] [address], Ph. Attender: Fer Dill MD [facility] Medical 08/12/2020 12:00:00 AM EDT [place] ([facility]) Fer Dill MD: [address] [place] [address], Ph. Attender: Fer Dill MD [facility] Medical 08/12/2020 12:00:00 AM EDT [place] ([facility]) Fer Dill MD: [address] [place] [address], Ph. Attender: Fer Dill MD [facility] Medical 08/12/2020 12:00:00 AM EDT [place] ([facility]) Fer Dill MD: [address] [place] [address], Ph. Attender: Fer Dill MD [facility] Medical 08/12/2020 12:00:00 AM EDT [place] ([facility]) Fer Dill MD: [address] [place] [address], Ph. Attender: Fer Dill MD [facility] Medical 08/12/2020 12:00:00 AM EDT [place] ([facility]) Fer Dill MD: [address] [place] [address], Ph. Attender: Fer Dill MD [facility] Medical 08/12/2020 12:00:00 AM EDT [place] ([facility]) Fer Dill MD: [address] [place] [address], Ph. Attender: Fer Dill MD [facility] Medical 08/12/2020 12:00:00 AM EDT [place] ([facility]) Fer Dill MD: [address] [place] [address], Ph. Attender: Fer Dill MD [facility] Medical 08/12/2020 12:00:00 AM EDT [place] ([facility]) Luann Baig MD: [address], [place] [address], Ph. Attender: Luann Baig [facility] Medical 07/09/2020 12:00:00 AM EDT [place] ([facility]) Luann Baig MD: [address], [place] [address], Ph. Attender: Luann Baig [facility] Medical 07/09/2020 12:00:00 AM EDT [place] ([facility]) Luann Baig MD: [address], [place] [address], Ph. Attender: Luann Baig [facility] Medical 07/09/2020 12:00:00 AM EDT [place] ([facility]) Luann Baig MD: [address], [place] [address], Ph. Attender: Luann Baig [facility] Medical 07/09/2020 12:00:00 AM EDT [place] ([facility]) Luann Baig MD: [address], [place] [address], Ph. Attender: Luann Baig [facility] Medical 07/09/2020 12:00:00 AM EDT [place] ([facility]) Luann Baig MD: [address], [place] [address], Ph. Attender: Luann Baig [facility] Medical 07/09/2020 12:00:00 AM EDT [place] ([facility]) Luann Baig MD: [address], [place] [address], Ph. Attender: Luann Baig [facility] Medical 07/09/2020 12:00:00 AM EDT [place] ([facility]) Luann Baig MD: [address], [place] [address], Ph. Attender: Luann Baig [facility] Medical 07/09/2020 12:00:00 AM EDT [place] ([facility]) Luann Baig MD: [address], [place] [address], Ph. Attender: Luann Baig [facility] Medical 07/09/2020 12:00:00 AM EDT [place] ([facility]) Luann Baig MD: [address], [place] [address], Ph. Attender: Luann Baig [facility] Medical 07/09/2020 12:00:00 AM EDT [place] ([facility]) Luann Baig MD: [address], [place] [address], Ph. Attender: Luann Baig [facility] Medical 07/09/2020 12:00:00 AM EDT [place] ([facility]) Luann Baig MD: [address], [place] [address], Ph. Attender: Luann Baig [facility] Medical 07/09/2020 12:00:00 AM EDT [place] ([facility]) Luann Baig MD: [address], [place] [address], Ph. Attender: Luann Baig [facility] Medical 07/09/2020 12:00:00 AM EDT [place] ([facility]) Luann Baig MD: [address], [place] [address], Ph. Attender: Luann Baig [facility] Medical 07/09/2020 12:00:00 AM EDT [place] ([facility]) Luann Baig MD: [address], [place] [address], Ph. Attender: Luann Baig [facility] Medical 07/09/2020 12:00:00 AM EDT [place] ([facility]) Luann Baig MD: [address], [place] [address], Ph. Attender: Luann Baig [facility] Medical 07/09/2020 12:00:00 AM EDT [place] ([facility]) Luann Baig MD: [address], [place] [address], Ph. Attender: Luann Baig [facility] Medical 06/23/2020 12:00:00 AM EST [place] ([facility]) Luann Baig MD: [address], [place] [address], Ph. Attender: Luann Baig [facility] Medical 06/23/2020 12:00:00 AM EST [place] ([facility]) Luann Baig MD: [address], [place] [address], Ph. Attender: Luann Baig [facility] 06/23/2020 12:00:00 AM EST [place] ([facility]) Luann Baig MD: [address], [place] [address], Ph. Attender: Luann Baig [facility] Medical 06/23/2020 12:00:00 AM EST [place] ([facility]) Luann Baig MD: [address], [place] [address], Ph. Attender: Luann Baig [facility] Medical 06/23/2020 12:00:00 AM EST [place] ([facility]) Luann Baig MD: [address], [place] [address], Ph. Attender: Luann Baig [facility] Medical 06/23/2020 12:00:00 AM EST [place] ([facility]) Luann Baig MD: [address], [place] [address], Ph. Attender: Luann Baig [facility] Medical 06/23/2020 12:00:00 AM EST [place] ([facility]) Luann Baig MD: [address], [place] [address], Ph. Attender: Luann Baig [facility] Medical 06/23/2020 12:00:00 AM EST [place] ([facility]) Luann Baig MD: [address], [place] [address], Ph. Attender: Luann Baig [facility] Medical 06/23/2020 12:00:00 AM EST [place] ([facility]) Luann Baig MD: [address], [place] [address], Ph. Attender: Lunan Baig [facility] Medical 06/23/2020 12:00:00 AM EST [place] ([facility]) Luann Baig MD: [address], [place] [address], Ph. Attender: Luann Baig [facility] Medical 06/23/2020 12:00:00 AM EST [place] ([facility]) Luann Baig MD: [address], [place] [address], Ph. Attender: Luann Baig [facility] Medical 06/23/2020 12:00:00 AM EST [place] ([facility]) Luann Baig MD: [address], [place] [address], Ph. Attender: Luann Baig [facility] Medical 06/23/2020 12:00:00 AM EST [place] ([facility]) Luann Baig MD: [address], [place] [address], Ph. Attender: Luann Baig [facility] Medical 06/23/2020 12:00:00 AM EST [place] ([facility]) Luann Baig MD: [address], [place] [address], Ph. Attender: Luann Baig [facility] Medical 06/23/2020 12:00:00 AM EST [place] ([facility]) Luann Baig MD: [address], [place] [address], Ph. Attender: Luann Baig [facility] Medical 06/23/2020 12:00:00 AM EST [place] ([facility]) Luann Baig MD: [address], [place] [address], Ph. Attender: Luann Baig [facility] Medical 06/23/2020 12:00:00 AM EST [place] ([facility]) Office Visit Attender: Ron Putnam MD Physical Therapy 2020 02:30:00 PM EST [facility] ([facility]) Kathie Juan [facility]: [address], [place] [address], Ph. Attender: Kathie Juan [facility] Medical 05/27/2020 12:00:00 AM EST [place] ([facility]) Kathie Juan [facility]: [address], [address], [place] [address], Ph. Attender: Kathie Juan [facility] Medical 05/27/2020 12:00:00 AM EST [place] ([facility]) Kathie Juan CRITICAL CARE UNIT MANAGER: [address], [address], [place] [address], Ph. Attender: Kathie Juan [facility] Medical 05/27/2020 12:00:00 AM EST [place] ([facility]) Kathie Juan, CRITICAL CARE UNIT MANAGER: [address], [address], [place] [address], Ph. Attender: Kathie Juan [facility] Medical 05/27/2020 12:00:00 AM EST [place] ([facility]) Kathie Juan CRITICAL CARE UNIT MANAGER: [address], [address], [place] [address], Ph. Attender: Kathie Juan [facility] Medical 05/27/2020 12:00:00 AM EST [place] ([facility]) Kathie Juan, CRITICAL CARE UNIT MANAGER: [address], [address], [place] [address], Ph. Attender: Kathie Juan [facility] Medical 05/27/2020 12:00:00 AM EST [place] ([facility]) Kathie Juan, CRITICAL CARE UNIT MANAGER: [address], [address], [place] [address], Ph. Attender: Kathie Juan [facility] Medical 05/27/2020 12:00:00 AM EST [place] ([facility]) Kathie Juan, CRITICAL CARE UNIT MANAGER: [address], [address], [place] [address], Ph. Attender: Kathie Juan [facility] Medical 05/27/2020 12:00:00 AM EST [place] ([facility]) Kathie Juan, CRITICAL CARE UNIT MANAGER: [address], [address], [place] [address], Ph. Attender: Kathie Juan [facility] Medical 05/27/2020 12:00:00 AM EST [place] ([facility]) Kathie Juan, CRITICAL CARE UNIT MANAGER: [address], [address], [place] [address], Ph. Attender: Kathie Juan [facility] Medical 05/27/2020 12:00:00 AM EST [place] ([facility]) Kathie Juan CRITICAL CARE UNIT MANAGER: [address], [address], [place] [address], Ph. Attender: Kathie Juan [facility] Medical 05/27/2020 12:00:00 AM EST [place] ([facility]) Kathie Juan, CRITICAL CARE UNIT MANAGER: [address], [address], [place] [address], Ph. Attender: Kathie Juan [facility] Medical 05/27/2020 12:00:00 AM EST [place] ([facility]) Kathie Juan, CRITICAL CARE UNIT MANAGER: [address], [address], [place] [address], Ph. Attender: Kathie Juan [facility] Medical 05/27/2020 12:00:00 AM EST [place] ([facility]) Kathie Juan, CRITICAL CARE UNIT MANAGER: [address], [address], [place] [address], Ph. Attender: Kathie Juan [facility] Medical 05/27/2020 12:00:00 AM EST [place] ([facility]) Kathie Juan [facility]: [address], [address], [place] [address], Ph. Attender: Kathie Juan [facility] Medical 05/27/2020 12:00:00 AM EST [place] ([facility]) Kathie Juan CRITICAL CARE UNIT MANAGER: [address], [address], [place] [address], Ph. Attender: Kathie Juan [facility] Medical 05/27/2020 12:00:00 AM EST [place] ([facility]) Kathie Juan [facility]: [address], [address], [place] [address], Ph. Attender: Kathie Juan [facility] Medical 05/27/2020 12:00:00 AM EST [place] ([facility]) Kathie Juan, [facility]: [address], [address], [place] [address], Ph. Attender: Kathie Juan [facility] Medical 05/27/2020 12:00:00 AM EST [place] ([facility]) Kathie Juan [facility]: [address], [address], [place] [address], Ph. Attender: Kathie Juan [facility] Medical 05/13/2020 12:00:00 AM EST [place] ([facility]) Kathie Juan, [facility]: [address], [address], [place] [address], Ph. Attender: Kathie Juan [facility] Medical 05/13/2020 12:00:00 AM EST [place] ([facility]) Kathie Juan, CRITICAL CARE UNIT MANAGER: [address], [address], [place] [address], Ph. Attender: Kathie Juan [facility] Medical 05/13/2020 12:00:00 AM EST [place] ([facility]) Kathie Juan, CRITICAL CARE UNIT MANAGER: [address], [address], [place] [address], Ph. Attender: Kathie Juna [facility] Medical 05/13/2020 12:00:00 AM EST [place] ([facility]) Kathie Juan CRITICAL CARE UNIT MANAGER: [address], [address], [place] [address], Ph. Attender: Kathie Juan [facility] Medical 05/13/2020 12:00:00 AM EST [place] ([facility]) Kathie Juan, CRITICAL CARE UNIT MANAGER: [address], [address], [place] [address], Ph. Attender: Kathie Juan [facility] Medical 05/13/2020 12:00:00 AM EST [place] ([facility]) Kathie Juan [facility]: [address], [address], [place] [address], Ph. Attender: Kathie Juan [facility] Medical 05/13/2020 12:00:00 AM EST [place] ([facility]) Kathie Juan, CRITICAL CARE UNIT MANAGER: [address], [address], [place] [address], Ph. Attender: Kathie Juan [facility] Medical 05/13/2020 12:00:00 AM EST [place] ([facility]) Kathie Juan, [facility]: [address], [address], [place] [address], Ph. Attender: Kathie Juan [facility] Medical 05/13/2020 12:00:00 AM EST [place] ([facility]) Kathie Juan, CRITICAL CARE UNIT MANAGER: [address], [place] [address], Ph. Attender: Kathie Juan [facility] Medical 05/13/2020 12:00:00 AM EST [place] ([facility]) Kathie Juan [facility]: [address], [place] [address], Ph. Attender: Kathie Juan [facility] Medical 05/13/2020 12:00:00 AM EST [place] ([facility]) Kathie Juan, [facility]: [address], [address], [place] [address], Ph. Attender: Kathie Juan [facility] Medical 05/13/2020 12:00:00 AM EST [place] ([facility]) Kathie Juan [facility]: [address], [place] [address], Ph. Attender: Kathie Juan [facility] Medical 05/13/2020 12:00:00 AM EST [place] ([facility]) Kathie Juan, CRITICAL CARE UNIT MANAGER: [address], [address], [place] [address], Ph. Attender: Kathie Juan [facility] Medical 05/13/2020 12:00:00 AM EST [place] ([facility]) Kathie Juan, CRITICAL CARE UNIT MANAGER: [address], [place] [address], Ph. Attender: Kathie Juan [facility] Medical 05/13/2020 12:00:00 AM EST [place] ([facility]) Kathie Juan, CRITICAL CARE UNIT MANAGER: [address], [place] [address], Ph. Attender: Kathie Juan [facility] Medical 05/13/2020 12:00:00 AM EST [place] ([facility]) Kathie Juan, CRITICAL CARE UNIT MANAGER: [address], [address], [place] [address], Ph. Attender: Kathie Juan [facility] Medical 05/13/2020 12:00:00 AM EST [place] ([facility]) Kathie Juan, CRITICAL CARE UNIT MANAGER: [address], [address], [place] [address], Ph. Attender: Kathie Juan [facility] Medical 05/13/2020 12:00:00 AM EST [place] ([facility]) Kathie Juan, CRITICAL CARE UNIT MANAGER: [address], [address], [place] [address], Ph. Attender: Kathie Juan [facility] Medical 05/13/2020 12:00:00 AM EST [place] ([facility]) Kathie Juan, CRITICAL CARE UNIT MANAGER: [address], [address], [place] [address], Ph. Attender: Kathie Juan [facility] Medical 04/29/2020 12:00:00 AM EST [place] ([facility]) Kathie Juan, CRITICAL CARE UNIT MANAGER: [address], [address], [place] [address], Ph. Attender: Kathie Juan [facility] Medical 04/29/2020 12:00:00 AM EST [place] ([facility]) Kathie Juan, CRITICAL CARE UNIT MANAGER: [address], [address], [place] [address], Ph. Attender: Kathie Juan [facility] Medical 04/29/2020 12:00:00 AM EST [place] ([facility]) Kathie Juan, CRITICAL CARE UNIT MANAGER: [address], [place] [address], Ph. Attender: Kathie Juan [facility] Medical 04/29/2020 12:00:00 AM EST [place] ([facility]) Kathie Juan, CRITICAL CARE UNIT MANAGER: [address], [place] [address], Ph. Attender: Kathie Juan [facility] Medical 04/29/2020 12:00:00 AM EST [place] ([facility]) Kathie Juan, CRITICAL CARE UNIT MANAGER: [address], [place] [address], Ph. Attender: Kathie Juan [facility] Medical 04/29/2020 12:00:00 AM EST [place] ([facility]) Kathie Juan, CRITICAL CARE UNIT MANAGER: [address], [place] [address], Ph. Attender: Kathie Juan [facility] Medical 04/29/2020 12:00:00 AM EST [place] ([facility]) Kathie Juan, CRITICAL CARE UNIT MANAGER: [address], [place] [address], Ph. Attender: Kathie Juan [facility] Medical 04/29/2020 12:00:00 AM EST [place] ([facility]) Kathie Juan, CRITICAL CARE UNIT MANAGER: [address], [place] [address], Ph. Attender: Kathie Juan [facility] Medical 04/29/2020 12:00:00 AM EST [place] ([facility]) Kathie Juan, CRITICAL CARE UNIT MANAGER: [address], [address], [place] [address], Ph. Attender: Kathie Juan [facility] Medical 04/29/2020 12:00:00 AM EST [place] ([facility]) Kathie Juan, CRITICAL CARE UNIT MANAGER: [address], [address], [place] [address], Ph. Attender: Kathie Juan [facility] Medical 04/29/2020 12:00:00 AM EST [place] ([facility]) Kathie Juan, CRITICAL CARE UNIT MANAGER: [address], [address], [place] [address], Ph. Attender: Kathie Juan [facility] Medical 04/29/2020 12:00:00 AM EST [place] ([facility]) Kathie Juan, CRITICAL CARE UNIT MANAGER: [address], [place] [address], Ph. Attender: Kathie Juan [facility] Medical 04/29/2020 12:00:00 AM EST [place] ([facility]) Kathie Juan, CRITICAL CARE UNIT MANAGER: [address], [place] [address], Ph. Attender: Kathie Juan [facility] Medical 04/29/2020 12:00:00 AM EST [place] ([facility]) Kathie Juan, CRITICAL CARE UNIT MANAGER: [address], [place] [address], Ph. Attender: Kathie Juan [facility] Medical 04/29/2020 12:00:00 AM EST [place] ([facility]) Kathie Juan, CRITICAL CARE UNIT MANAGER: [address], [place] [address], Ph. Attender: Kathie Juan [facility] Medical 04/29/2020 12:00:00 AM EST [place] ([facility]) Kathie Juan, CRITICAL CARE UNIT MANAGER: [address], [place] [address], Ph. Attender: Kathie Juan [facility] Medical 04/29/2020 12:00:00 AM EST [place] ([facility]) Kathie Juan, CRITICAL CARE UNIT MANAGER: [address], [address], [place] [address], Ph. Attender: Kathie Juan [facility] Medical 04/29/2020 12:00:00 AM EST [place] ([facility]) Kathie Juan, CRITICAL CARE UNIT MANAGER: [address], [place] [address], Ph. Attender: Kathie Juan [facility] Medical 04/29/2020 12:00:00 AM EST [place] ([facility]) Kathie Juan, CRITICAL CARE UNIT MANAGER: [address], [place] [address], Ph. Attender: Kathie Juan [facility] Medical 04/29/2020 12:00:00 AM EST [place] ([facility]) Kathie Juan, CRITICAL CARE UNIT MANAGER: [address], [place] [address], Ph. Attender: Kathie Juan [facility] Medical 04/22/2020 12:00:00 AM EST [place] ([facility]) Kathie Juan, CRITICAL CARE UNIT MANAGER: [address], [place] [address], Ph. Attender: Kathie Juan [facility] Medical 04/22/2020 12:00:00 AM EST [place] ([facility]) Kathie Juan, [facility]: [address], [address], [place] [address], Ph. Attender: Kathie Juan [facility] Medical 04/22/2020 12:00:00 AM EST [place] ([facility]) Kathie Juan, CRITICAL CARE UNIT MANAGER: [address], [address], [place] [address], Ph. Attender: Kathie Juan [facility] Medical 04/22/2020 12:00:00 AM EST [place] ([facility]) Kathie Juan, CRITICAL CARE UNIT MANAGER: [address], [address], [place] [address], Ph. Attender: Kathie Juan [facility] Medical 04/22/2020 12:00:00 AM EST [place] ([facility]) Kathie Juan, CRITICAL CARE UNIT MANAGER: [address], [address], [place] [address], Ph. Attender: Kathie Juan [facility] Medical 04/22/2020 12:00:00 AM EST [place] ([facility]) Kathie Juan CRITICAL CARE UNIT MANAGER: [address], [address], [place] [address], Ph. Attender: Kathie Juan [facility] Medical 04/22/2020 12:00:00 AM EST [place] ([facility]) Kathie Juan, CRITICAL CARE UNIT MANAGER: [address], [address], [place] [address], Ph. Attender: Kathie Juan [facility] Medical 04/22/2020 12:00:00 AM EST [place] ([facility]) Kathie Juan, [facility]: [address], [address], [place] [address], Ph. Attender: Kathie Juan [facility] Medical 04/22/2020 12:00:00 AM EST [place] ([facility]) Kathie Juan, CRITICAL CARE UNIT MANAGER: [address], [address], [place] [address], Ph. Attender: Kathie Juan [facility] Medical 04/22/2020 12:00:00 AM EST [place] ([facility]) Kathie Juan, CRITICAL CARE UNIT MANAGER: [address], [address], [place] [address], Ph. Attender: Kathie Juan [facility] Medical 04/22/2020 12:00:00 AM EST [place] ([facility]) Kathie Juan, CRITICAL CARE UNIT MANAGER: [address], [address], [place] [address], Ph. Attender: Kathie Juan [facility] Medical 04/22/2020 12:00:00 AM EST [place] ([facility]) Kathie Juan, CRITICAL CARE UNIT MANAGER: [address], [place] [address], Ph. Attender: Kathie Juan [facility] Medical 04/22/2020 12:00:00 AM EST [place] ([facility]) Kathie Juan, CRITICAL CARE UNIT MANAGER: [address], [address], [place] [address], Ph. Attender: Kathie Juan [facility] Medical 04/22/2020 12:00:00 AM EST [place] ([facility]) Kathie Juan, CRITICAL CARE UNIT MANAGER: [address], [address], [place] [address], Ph. Attender: Kathie Juan [facility] Medical 04/22/2020 12:00:00 AM EST [place] ([facility]) Kathie Juan, CRITICAL CARE UNIT MANAGER: [address], [place] [address], Ph. Attender: Kathie Juan [facility] Medical 04/22/2020 12:00:00 AM EST [place] ([facility]) Kathie Juan, CRITICAL CARE UNIT MANAGER: [address], [address], [place] [address], Ph. Attender: Kathie Juan [facility] Medical 04/22/2020 12:00:00 AM EST [place] ([facility]) Kathie Juan, CRITICAL CARE UNIT MANAGER: [address], [address], [place] [address], Ph. Attender: Kathie Juan [facility] Medical 04/22/2020 12:00:00 AM EST [place] ([facility]) Kathie Juan [facility]: [address], [address], [place] [address], Ph. Attender: Kathie Juan [facility] Medical 04/22/2020 12:00:00 AM EST [place] ([facility]) Kathie Juan CRITICAL CARE UNIT MANAGER: [address], [address], [place] [address], Ph. Attender: Kathie Juan [facility] Medical 04/22/2020 12:00:00 AM EST [place] ([facility]) Kathie Juan, CRITICAL CARE UNIT MANAGER: [address], [address], [place] [address], Ph. Attender: Kathie Juan [facility] Medical 04/22/2020 12:00:00 AM EST [place] ([facility]) Kathie Juan, [facility]: [address], [place] [address], Ph. Attender: Kathie Juan [facility] Medical 04/08/2020 12:00:00 AM EST [place] ([facility]) Kathie Juan [facility]: [address], [address], [place] [address], Ph. Attender: Kathie Juan [facility] Medical 04/08/2020 12:00:00 AM EST [place] ([facility]) Kathie Juan, [facility]: [address], [address], [place] [address], Ph. Attender: Kathie Juan [facility] Medical 04/08/2020 12:00:00 AM EST [place] ([facility]) Kathie Juan, CRITICAL CARE UNIT MANAGER: [address], [address], [place] [address], Ph. Attender: Kathie Juan [facility] Medical 04/08/2020 12:00:00 AM EST [place] ([facility]) Kathie Juan, CRITICAL CARE UNIT MANAGER: [address], [address], [place] [address], Ph. Attender: Kathie Juan [facility] Medical 04/08/2020 12:00:00 AM EST [place] ([facility]) Kathie Juan, CRITICAL CARE UNIT MANAGER: [address], [address], [place] [address], Ph. Attender: Kathie Juan [facility] Medical 04/08/2020 12:00:00 AM EST [place] ([facility]) Kathie Juan, CRITICAL CARE UNIT MANAGER: [address], [address], [place] [address], Ph. Attender: Kathie Juan [facility] Medical 04/08/2020 12:00:00 AM EST [place] ([facility]) Kathie Juan, CRITICAL CARE UNIT MANAGER: [address], [address], [place] [address], Ph. Attender: Kathie Juan [facility] Medical 04/08/2020 12:00:00 AM EST [place] ([facility]) Kathie Juan, CRITICAL CARE UNIT MANAGER: [address], [address], [place] [address], Ph. Attender: Kathie Juan [facility] Medical 04/08/2020 12:00:00 AM EST [place] ([facility]) Kathie Juan, CRITICAL CARE UNIT MANAGER: [address], [address], [place] [address], Ph. Attender: Kathie Juan [facility] Medical 04/08/2020 12:00:00 AM EST [place] ([facility]) Kathie Juan, CRITICAL CARE UNIT MANAGER: [address], [address], [place] [address], Ph. Attender: Kathie Juan [facility] Medical 04/08/2020 12:00:00 AM EST [place] ([facility]) Kathie Juan CRITICAL CARE UNIT MANAGER: [address], [address], [place] [address], Ph. Attender: Kathie Juan [facility] Medical 04/08/2020 12:00:00 AM EST [place] ([facility]) Kathie Juan, CRITICAL CARE UNIT MANAGER: [address], [address], [place] [address], Ph. Attender: Kathie Juan [facility] Medical 04/08/2020 12:00:00 AM EST [place] ([facility]) Kathie Juan, CRITICAL CARE UNIT MANAGER: [address], [place] [address], Ph. Attender: Kathie Juan [facility] Medical 04/08/2020 12:00:00 AM EST [place] ([facility]) Kathie Juan, CRITICAL CARE UNIT MANAGER: [address], [address], [place] [address], Ph. Attender: Kathie Juan [facility] Medical 04/08/2020 12:00:00 AM EST [place] ([facility]) Kathie Juan, CRITICAL CARE UNIT MANAGER: [address], [address], [place] [address], Ph. Attender: Kathie Juan [facility] Medical 04/08/2020 12:00:00 AM EST [place] ([facility]) Kathie Juan, CRITICAL CARE UNIT MANAGER: [address], [address], [place] [address], Ph. Attender: Kathie Juan [facility] Medical 04/08/2020 12:00:00 AM EST [place] ([facility]) Kathie Juan, CRITICAL CARE UNIT MANAGER: [address], [address], [place] [address], Ph. Attender: Kathie Juan [facility] Medical 04/08/2020 12:00:00 AM EST [place] ([facility]) Kathie Juan, CRITICAL CARE UNIT MANAGER: [address], [address], [place] [address], Ph. Attender: Kathie Juan [facility] Medical 04/08/2020 12:00:00 AM EST [place] ([facility]) Kathie Juan, CRITICAL CARE UNIT MANAGER: [address], [address], [place] [address], Ph. Attender: Kathie Juan [facility] Medical 04/08/2020 12:00:00 AM EST [place] ([facility]) Kathie Juan, CRITICAL CARE UNIT MANAGER: [address], [address], [place] [address], Ph. Attender: Kathie Juan [facility] Medical 04/08/2020 12:00:00 AM EST [place] ([facility]) Kathie Juan, CRITICAL CARE UNIT MANAGER: [address], [address], [place] [address], Ph. Attender: Kathie Juan [facility] Medical 04/08/2020 12:00:00 AM EST [place] ([facility]) Kathie Juan, CRITICAL CARE UNIT MANAGER: [address], [address], [place] [address], Ph. Attender: Kathie Juan [facility] Medical 04/01/2020 12:00:00 AM EST [place] ([facility]) Leonardo Poe RPA-C: [address], [place] [address], Ph. Attender: LEONARDO POE RPA-C [facility] Medical 04/01/2020 12:00:00 AM EST [place] ([facility]) Kathie Juan, [facility]: [address], [address], [place] [address], Ph. Attender: Kathie Juan [facility] Medical 04/01/2020 12:00:00 AM EST [place] ([facility]) Leonardo Poe RPA-C: [address], [place] [address], Ph. Attender: LEONARDO POE RPA-C [facility] Medical 04/01/2020 12:00:00 AM EST [place] ([facility]) Kathie Juan, CRITICAL CARE UNIT MANAGER: [address], [address], [place] [address], Ph. Attender: Kathie Juan [facility] Medical 04/01/2020 12:00:00 AM EST [place] ([facility]) Leonardo Poe RPA-C: [address], [address], [place] [address], Ph. Attender: LEONARDO POE RPA-C [facility] Medical 04/01/2020 12:00:00 AM EST [place] ([facility]) Kathie Juan, CRITICAL CARE UNIT MANAGER: [address], [address], [place] [address], Ph. Attender: Kathie Juan [facility] Medical 04/01/2020 12:00:00 AM EST [place] ([facility]) Leonardo Poe RPA-C: [address], [address], [place] [address], Ph. Attender: LEONARDO POE RPA-C [facility] Medical 04/01/2020 12:00:00 AM EST [place] ([facility]) Kathie Juan [facility]: [address], [address], [place] [address], Ph. Attender: Kathie Juan [facility] Medical 04/01/2020 12:00:00 AM EST [place] ([facility]) Leonardo Poe RPA-C: [address], [address], [place] [address], Ph. Attender: LEONARDO POE RPA-C [facility] Medical 04/01/2020 12:00:00 AM EST [place] ([facility]) Kathie Juan, CRITICAL CARE UNIT MANAGER: [address], [address], [place] [address], Ph. Attender: Kathie Juan [facility] Medical 04/01/2020 12:00:00 AM EST [place] ([facility]) Leonardo Poe RPA-C: [address], [address], [place] [address], Ph. Attender: LEONARDO POE RPA-C [facility] Medical 04/01/2020 12:00:00 AM EST [place] ([facility]) Kathie Juan, CRITICAL CARE UNIT MANAGER: [address], [address], [place] [address], Ph. Attender: Kathie Juan [facility] Medical 04/01/2020 12:00:00 AM EST [place] ([facility]) Leonardo Poe RPA-C: [address], [address], [place] [address], Ph. Attender: LEONARDO POE RPA-C [facility] Medical 04/01/2020 12:00:00 AM EST [place] ([facility]) Kathie Juan, [facility]: [address], [place] [address], Ph. Attender: Kathie Juan [facility] Medical 04/01/2020 12:00:00 AM EST [place] ([facility]) Leonardo Poe RPA-C: [address], [address], [place] [address], Ph. Attender: LEONARDO POE RPA-C [facility] Medical 04/01/2020 12:00:00 AM EST [place] ([facility]) Kathie Juan, CRITICAL CARE UNIT MANAGER: [address], [address], [place] [address], Ph. Attender: Kathie Juan [facility] Medical 04/01/2020 12:00:00 AM EST [place] ([facility]) Leonardo Poe RPA-C: [address], [address], [place] [address], Ph. Attender: LEONARDO POE RPA-C [facility] Medical 04/01/2020 12:00:00 AM EST [place] ([facility]) Kathie Juan, CRITICAL CARE UNIT MANAGER: [address], [address], [place] [address], Ph. Attender: Kathie Juan [facility] Medical 04/01/2020 12:00:00 AM EST [place] ([facility]) Leonardo Poe RPA-C: [address], [address], [place] [address], Ph. Attender: LEONARDO POE RPA-C [facility] Medical 04/01/2020 12:00:00 AM EST [place] ([facility]) Kathie Juan [facility]: [address], [place] [address], Ph. Attender: Kathie Juan [facility] Medical 04/01/2020 12:00:00 AM EST [place] ([facility]) Leonardo Poe RPA-C: [address], [address], [place] [address], Ph. Attender: LEONARDO POE RPA-C [facility] Medical 04/01/2020 12:00:00 AM EST [place] ([facility]) Kathie Juan, CRITICAL CARE UNIT MANAGER: [address], [address], [place] [address], Ph. Attender: Kathie Juan [facility] Medical 04/01/2020 12:00:00 AM EST [place] ([facility]) Leonardo Poe RPA-C: [address], [address], [place] [address], Ph. Attender: LEONARDO POE RPA-C [facility] Medical 04/01/2020 12:00:00 AM EST [place] ([facility]) Kathie Juan, CRITICAL CARE UNIT MANAGER: [address], [address], [place] [address], Ph. Attender: Kathie Juan [facility] Medical 04/01/2020 12:00:00 AM EST [place] ([facility]) Leonardo Poe RPA-C: [address], [address], [place] [address], Ph. Attender: LEONARDO POE RPA-C [facility] Medical 04/01/2020 12:00:00 AM EST [place] ([facility]) Kathie Juan, CRITICAL CARE UNIT MANAGER: [address], [address], [place] [address], Ph. Attender: Kathie Juan [facility] Medical 04/01/2020 12:00:00 AM EST [place] ([facility]) Leonardo Poe RPA-C: [address], [address], [place] [address], Ph. Attender: LEONARDO POE RPA-C [facility] Medical 04/01/2020 12:00:00 AM EST [place] ([facility]) Kathie Juan, CRITICAL CARE UNIT MANAGER: [address], [place] [address], Ph. Attender: Kathie Juan [facility] Medical 04/01/2020 12:00:00 AM EST [place] ([facility]) Leonardo Poe RPA-C: [address], [address], [place] [address], Ph. Attender: LEONARDO POE RPA-C [facility] Medical 04/01/2020 12:00:00 AM EST [place] ([facility]) Kathie Juan, CRITICAL CARE UNIT MANAGER: [address], [place] [address], Ph. Attender: Kathie Juan [facility] Medical 04/01/2020 12:00:00 AM EST [place] ([facility]) Leonardo Poe RPA-C: [address], [address], [place] [address], Ph. Attender: LEONARDO POE RPA-C [facility] Medical 04/01/2020 12:00:00 AM EST [place] ([facility]) Kathie Juan, CRITICAL CARE UNIT MANAGER: [address], [place] [address], Ph. Attender: Kathie Juan [facility] Medical 04/01/2020 12:00:00 AM EST [place] ([facility]) Leonardo Poe RPA-C: [address], [place] [address], Ph. Attender: LEONARDO POE RPA-C [facility] Medical 04/01/2020 12:00:00 AM EST [place] ([facility]) Kathie Juan, CRITICAL CARE UNIT MANAGER: [address], [place] [address], Ph. Attender: Kathie Juan [facility] Medical 04/01/2020 12:00:00 AM EST [place] ([facility]) Leonardo Poe RPA-C: [address], [place] [address], Ph. Attender: LEONARDO POE RPA-C [facility] 04/01/2020 12:00:00 AM EST [place] ([facility]) Kathie Juan, CRITICAL CARE UNIT MANAGER: [address], [address], [place] [address], Ph. Attender: Kathie Juan [facility] 04/01/2020 12:00:00 AM EST [place] ([facility]) Leonardo Poe RPA-C: [address], [address], [place] [address], Ph. Attender: LEONARDO KELLYC [facility] 04/01/2020 12:00:00 AM EST [place] ([facility]) Kathie Juan, CRITICAL CARE UNIT MANAGER: [address], [place] [address], Ph. Attender: Kathie Juan [facility] [facility] 04/01/2020 12:00:00 AM EST [place] ([facility]) Leonardo Poe RPA-C: [address], [place] [address], Ph. Attender: LEONARDO POE RPA-C [facility] Medical 04/01/2020 12:00:00 AM EST [place] ([facility]) Kathie Juan, CRITICAL CARE UNIT MANAGER: [address], [place] [address], Ph. Attender: Kathie Juan [facility] 04/01/2020 12:00:00 AM EST [place] ([facility]) Leonardo Poe RPA-C: [address], [place] [address], Ph. Attender: LEONARDO POE RPA-C [facility] Medical 04/01/2020 12:00:00 AM EST [place] ([facility]) Kathie Newmangraham, CRITICAL CARE UNIT MANAGER: [address], [place] [address], Ph. Attender: Kathie Newmangraham [facility] 04/01/2020 12:00:00 AM EST [place] ([facility]) Leonardo Poe RPA-C: [address], [address], [place] [address], Ph. Attender: LEONARDO SALMON [facility] Medical 04/01/2020 12:00:00 AM EST [place] ([facility]) Leonardo Poe RPA-C: [address], [address], [place] [address], Ph. Attender: LEONARDO KELLYC [facility] Medical 04/01/2020 12:00:00 AM EST [place] ([facility]) Kathie Newmangraham, CRITICAL CARE UNIT MANAGER: [address], [address], [place] [address], Ph. Attender: Kathie Newmangraham [facility] 04/01/2020 12:00:00 AM EST [place] ([facility]) Leonardo Poe RPA-C: [address], [address], [place] [address], Ph. Attender: LEONARDO POE RPA-C [facility] Medical 04/01/2020 12:00:00 AM EST [place] ([facility]) Kathie Juan, CRITICAL CARE UNIT MANAGER: [address], [address], [place] [address], Ph. Attender: Kathie Juan [facility] Medical 04/01/2020 12:00:00 AM EST [place] ([facility]) Leonardo Poe, RPA-C: [address], [address], [place] [address], Ph. Attender: LEONARDO POE RPA-C [facility] Medical 04/01/2020 12:00:00 AM EST [place] ([facility]) Kathie Juan, [facility]: [address], [address], [place] [address], Ph. Attender: Kathie Juan [facility] 04/01/2020 12:00:00 AM EST [place] ([facility]) Kathie Juan, [facility]: [address], [place] [address], Ph. Attender: Kathie Juan [facility] 03/25/2020 12:00:00 AM EST [place] ([facility]) Kathie Juan, [facility]: [address], [address], [place] [address], Ph. Attender: Kathie Juan [facility] 03/25/2020 12:00:00 AM EST [place] ([facility]) Kathie Juan, [facility]: [address], [address], [place] [address], Ph. Attender: Kathie Juan [facility] Medical 03/25/2020 12:00:00 AM EST [place] ([facility]) Kathie Juan, [facility]: [address], [place] [address], Ph. Attender: Kathie Juan [facility] Medical 03/25/2020 12:00:00 AM EST [place] ([facility]) Kathie Juan, CRITICAL CARE UNIT MANAGER: [address], [address], [place] [address], Ph. Attender: Kathie Juan [facility] 03/25/2020 12:00:00 AM EST [place] ([facility]) Kathie Juan, CRITICAL CARE UNIT MANAGER: [address], [address], [place] [address], Ph. Attender: Kathie Juan [facility] 03/25/2020 12:00:00 AM EST [place] ([facility]) Kathie Juan, CRITICAL CARE UNIT MANAGER: [address], [address], [place] [address], Ph. Attender: Kathie Juan [facility] 03/25/2020 12:00:00 AM EST [place] ([facility]) Kathie Juan, CRITICAL CARE UNIT MANAGER: [address], [address], [place] [address], Ph. Attender: Kathie Juan [facility] 03/25/2020 12:00:00 AM EST [place] ([facility]) Kathie Juan, CRITICAL CARE UNIT MANAGER: [address], [address], [place] [address], Ph. Attender: Kathie Juan [facility] 03/25/2020 12:00:00 AM EST [place] ([facility]) Kathie Juan, CRITICAL CARE UNIT MANAGER: [address], [address], [place] [address], Ph. Attender: Kathie Juan [facility] Medical 03/25/2020 12:00:00 AM EST [place] ([facility]) Kathie Juan, CRITICAL CARE UNIT MANAGER: [address], [address], [place] [address], Ph. Attender: Kathie Juan [facility] Medical 03/25/2020 12:00:00 AM EST [place] ([facility]) Kathie Juan, CRITICAL CARE UNIT MANAGER: [address], [address], [place] [address], Ph. Attender: Kathie Juan [facility] Medical 03/25/2020 12:00:00 AM EST [place] ([facility]) Kathie Juan [facility]: [address], [address], [place] [address], Ph. Attender: Kathie Juan [facility] Medical 03/25/2020 12:00:00 AM EST [place] ([facility]) Kathie Juan, CRITICAL CARE UNIT MANAGER: [address], [place] [address], Ph. Attender: Kathie Juan [facility] Medical 03/25/2020 12:00:00 AM EST [place] ([facility]) Kathie Juan, CRITICAL CARE UNIT MANAGER: [address], [address], [place] [address], Ph. Attender: Kathie Juan [facility] Medical 03/25/2020 12:00:00 AM EST [place] ([facility]) Kathie Juan, CRITICAL CARE UNIT MANAGER: [address], [address], [place] [address], Ph. Attender: Kathie Juan [facility] Medical 03/25/2020 12:00:00 AM EST [place] ([facility]) Kathie Juan, [facility]: [address], [address], [place] [address], Ph. Attender: Kathie Juan [facility] Medical 03/25/2020 12:00:00 AM EST [place] ([facility]) Kathie Juan, [facility]: [address], [place] [address], Ph. Attender: Kathie Juan [facility] Medical 03/25/2020 12:00:00 AM EST [place] ([facility]) Kathie Juan, [facility]: [address], [place] [address], Ph. Attender: Kathie Juan [facility] Medical 03/25/2020 12:00:00 AM EST [place] ([facility]) Kathie Juan, [facility]: [address], [address], [place] [address], Ph. Attender: Kathie Juan [facility] Medical 03/25/2020 12:00:00 AM EST [place] ([facility]) Kathie Juan, [facility]: [address], [place] [address], Ph. Attender: Kathie Jaun [facility] Medical 03/25/2020 12:00:00 AM EST [place] ([facility]) Kathie Juan, [facility]: [address], [address], [place] [address], Ph. Attender: Kathie Juan [place] [facility] Medical 03/25/2020 12:00:00 AM EST [place] ([facility]) Kathie Juan, CRITICAL CARE UNIT MANAGER: [address], [address], [place] [address], Ph. Attender: Kathie Juan [facility] 03/25/2020 12:00:00 AM EST [place] ([facility]) Kathie Juan, CRITICAL CARE UNIT MANAGER: [address], [address], [place] [address], Ph. Attender: Kathie Juan [facility] 03/25/2020 12:00:00 AM EST [place] ([facility]) Kathie Juan, CRITICAL CARE UNIT MANAGER: [address], [address], [place] [address], Ph. Attender: Kathie Juan [facility] 03/25/2020 12:00:00 AM EST [place] ([facility]) Kathie Juan, CRITICAL CARE UNIT MANAGER: [address], [address], [place] [address], Ph. Attender: Kathie Juan [facility] 03/25/2020 12:00:00 AM EST [place] ([facility]) Leonardo Poe RPA-C: [address], [address], [place] [address], Ph. Attender: LEONARDO POE RPA-C [facility] Medical 03/20/2020 12:00:00 AM EST [place] ([facility]) Leonardo Poe RPA-C: [address], [address], [place] [address], Ph. Attender: LEONARDO POE RPA-C [facility] Medical 03/20/2020 12:00:00 AM EST [place] ([facility]) Leonardo Poe RPA-C: [address], [address], [place] [address], Ph. Attender: LEONARDO POE RPA-C [facility] Medical 03/20/2020 12:00:00 AM EST [place] ([facility]) Leonardo Poe RPA-C: [address], [address], [place] [address], Ph. Attender: LEONARDO POE RPA-C [facility] Medical 03/20/2020 12:00:00 AM EST [place] ([facility]) Leonardo Poe RPA-C: [address], [address], [place] [address], Ph. Attender: LEONARDO POE RPA-C [facility] Medical 03/20/2020 12:00:00 AM EST [place] ([facility]) Leonardo Poe RPA-C: [address], [address], [place] [address], Ph. Attender: LEONARDO POE RPA-C [facility] Medical 03/20/2020 12:00:00 AM EST [place] ([facility]) Leonardo Poe RPA-C: [address], [address], [place] [address], Ph. Attender: LEONARDO POE RPA-C [facility] Medical 03/20/2020 12:00:00 AM EST [place] ([facility]) Leonardo Poe, RPA-C: [address], [address], [place] [address], Ph. Attender: LEONARDO POE RPA-C [facility] Medical 03/20/2020 12:00:00 AM EST [place] ([facility]) Leonardo Poe, RPA-C: [address], [address], [place] [address], Ph. Attender: LEONARDO POE RPA-C [facility] Medical 03/20/2020 12:00:00 AM EST [place] ([facility]) Leonardo Poe, RPA-C: [address], [address], [place] [address], Ph. Attender: LEONARDO POE RPA-C [facility] Medical 03/20/2020 12:00:00 AM EST [place] ([facility]) Leonardo Poe, RPA-C: [address], [address], [place] [address], Ph. Attender: LEONARDO POE RPA-C [facility] Medical 03/20/2020 12:00:00 AM EST [place] ([facility]) Leonardo Poe, RPA-C: [address], [address], [place] [address], Ph. Attender: LEONARDO POE RPA-C [facility] Medical 03/20/2020 12:00:00 AM EST [place] ([facility]) Leonardo Poe, RPA-C: [address], [address], [place] [address], Ph. Attender: LEONARDO POE RPA-C [facility] Medical 03/20/2020 12:00:00 AM EST [place] ([facility]) Leonardo Poe, RPA-C: [address], [address], [place] [address], Ph. Attender: LEONARDO POE RPA-C [facility] Medical 03/20/2020 12:00:00 AM EST [place] ([facility]) Leonardo Poe RPA-C: [address], [address], [place] [address], Ph. Attender: LEONARDO POE RPA-C [facility] Medical 03/20/2020 12:00:00 AM EST [place] ([facility]) Leonardo Poe RPA-C: [address], [address], [place] [address], Ph. Attender: LEONARDO POE RPA-C [facility] Medical 03/20/2020 12:00:00 AM EST [place] ([facility]) Leonardo Poe RPA-C: [address], [address], [place] [address], Ph. Attender: LEONARDO POE RPA-C [facility] Medical 03/20/2020 12:00:00 AM EST [place] ([facility]) Leonardo Poe RPA-C: [address], [address], [place] [address], Ph. Attender: LEONARDO POE RPA-C [facility] Medical 03/20/2020 12:00:00 AM EST [place] ([facility]) Leonardo Poe RPA-C: [address], [address], [place] [address], Ph. Attender: LEONARDO POE RPA-C [facility] Medical 03/20/2020 12:00:00 AM EST [place] ([facility]) Leonardo Poe RPA-C: [address], [address], [place] [address], Ph. Attender: LEONARDO POE RPA-C [facility] Medical 03/20/2020 12:00:00 AM EST [place] ([facility]) Leonardo Poe RPA-C: [address], [address], [place] [address], Ph. Attender: LEONARDO POE RPA-C [facility] Medical 03/20/2020 12:00:00 AM EST [place] ([facility]) Leonardo Poe, RPA-C: [address], [address], [place] [address], Ph. Attender: LEONARDO POE RPA-C [facility] Medical 03/20/2020 12:00:00 AM EST [place] ([facility]) Leonardo Poe, RPA-C: [address], [address], [place] [address], Ph. Attender: LEONARDO POE RPA-C [facility] Medical 03/20/2020 12:00:00 AM EST [place] ([facility]) Leonardo Poe, RPA-C: [address], [address], [place] [address], Ph. Attender: LEONARDO POE RPA-C [facility] Medical 03/20/2020 12:00:00 AM EST [place] ([facility]) Leonardo Poe, RPA-C: [address], [address], [place] [address], Ph. Attender: LEONARDO POE RPA-C [facility] Medical 03/20/2020 12:00:00 AM EST [place] ([facility]) Leonardo Poe, DENISE-C: [address], [address], [place] [address], Ph. Attender: LEONARDO POE RPA-C [facility] Medical 03/20/2020 12:00:00 AM EST [place] ([facility]) Kathie Juan, CRITICAL CARE UNIT MANAGER: [address], [address], [place] [address], Ph. Attender: Kathie Juan [facility] 03/18/2020 12:00:00 AM EST [place] ([facility]) Kathie Juan, CRITICAL CARE UNIT MANAGER: [address], [address], [place] [address], Ph. Attender: Kathie Juan [facility] 03/18/2020 12:00:00 AM EST [place] ([facility]) Kathie Juan, CRITICAL CARE UNIT MANAGER: [address], [address], [place] [address], Ph. Attender: Kathie Juan [facility] 03/18/2020 12:00:00 AM EST [place] ([facility]) Kathie Juan, CRITICAL CARE UNIT MANAGER: [address], [address], [place] [address], Ph. Attender: Kathie Juan [facility] 03/18/2020 12:00:00 AM EST [place] ([facility]) Kathie Juan, CRITICAL CARE UNIT MANAGER: [address], [address], [place] [address], Ph. Attender: Kathie Juan [facility] 03/18/2020 12:00:00 AM EST [place] ([facility]) Kathie Juan, [facility]: [address], [address], [place] [address], Ph. Attender: Kathie Juan [facility] Medical 03/18/2020 12:00:00 AM EST [place] ([facility]) Kathie Juan, CRITICAL CARE UNIT MANAGER: [address], [address], [place] [address], Ph. Attender: Kathie Juan [facility] Medical 03/18/2020 12:00:00 AM EST [place] ([facility]) Kathie Juan, CRITICAL CARE UNIT MANAGER: [address], [place] [address], Ph. Attender: Kathie Juan [facility] Medical 03/18/2020 12:00:00 AM EST [place] ([facility]) Kathie Juan, CRITICAL CARE UNIT MANAGER: [address], [address], [place] [address], Ph. Attender: Kathie Juan [facility] Medical 03/18/2020 12:00:00 AM EST [place] ([facility]) Kathie Juan [facility]: [address], [address], [place] [address], Ph. Attender: Kathie Juan [facility] Medical 03/18/2020 12:00:00 AM EST [place] ([facility]) Kathie Juan, CRITICAL CARE UNIT MANAGER: [address], [place] [address], Ph. Attender: Kathie Juan [facility] Medical 03/18/2020 12:00:00 AM EST [place] ([facility]) Kathie Juan, [facility]: [address], [place] [address], Ph. Attender: Kathie Juan [facility] Medical 03/18/2020 12:00:00 AM EST [place] ([facility]) Kathie Juan, CRITICAL CARE UNIT MANAGER: [address], [place] [address], Ph. Attender: Kathie Juan [facility] Medical 03/18/2020 12:00:00 AM EST [place] ([facility]) Kathie Juan, CRITICAL CARE UNIT MANAGER: [address], [place] [address], Ph. Attender: Kathie Juan [facility] Medical 03/18/2020 12:00:00 AM EST [place] ([facility]) Kathie Juan, CRITICAL CARE UNIT MANAGER: [address], [place] [address], Ph. Attender: Kathie Juna [facility] Medical 03/18/2020 12:00:00 AM EST [place] ([facility]) Kathie Juan, CRITICAL CARE UNIT MANAGER: [address], [address], [place] [address], Ph. Attender: Kathie Juan [facility] Medical 03/18/2020 12:00:00 AM EST [place] ([facility]) Kathie Juan, CRITICAL CARE UNIT MANAGER: [address], [place] [address], Ph. Attender: Kathie Juan [facility] Medical 03/18/2020 12:00:00 AM EST [place] ([facility]) Kathie Juan, CRITICAL CARE UNIT MANAGER: [address], [place] [address], Ph. Attender: Kathie Juan [facility] Medical 03/18/2020 12:00:00 AM EST [place] ([facility]) Kathie Juan, CRITICAL CARE UNIT MANAGER: [address], [place] [address], Ph. Attender: Kathie Juan [facility] 03/18/2020 12:00:00 AM EST [place] ([facility]) Kathie Juan, CRITICAL CARE UNIT MANAGER: [address], [place] [address], Ph. Attender: Kathie Juan [facility] 03/18/2020 12:00:00 AM EST [place] ([facility]) Kathie Juan, CRITICAL CARE UNIT MANAGER: [address], [place] [address], Ph. Attender: Kathie Juan [facility] Medical 03/18/2020 12:00:00 AM EST [place] ([facility]) Kathie Juan, CRITICAL CARE UNIT MANAGER: [address], [place] [address], Ph. Attender: aKthie Juan [facility] 03/18/2020 12:00:00 AM EST [place] ([facility]) Kathie Juan, CRITICAL CARE UNIT MANAGER: [address], [place] [address], Ph. Attender: Kathie Juan [facility] 03/18/2020 12:00:00 AM EST [place] ([facility]) Kathie Juan, CRITICAL CARE UNIT MANAGER: [address], [place] [address], Ph. Attender: Kathie Juan [facility] Medical 03/18/2020 12:00:00 AM EST [place] ([facility]) Kathie Juan, CRITICAL CARE UNIT MANAGER: [address], [place] [address], Ph. Attender: Kathie Juan [facility] Medical 03/18/2020 12:00:00 AM EST [place] ([facility]) Kathie Juan, CRITICAL CARE UNIT MANAGER: [address], [place] [address], Ph. Attender: Kathie Juan [facility] Medical 03/18/2020 12:00:00 AM EST [place] ([facility]) Kathie Juan CRITICAL CARE UNIT MANAGER: [address], [place] [address], Ph. Attender: Kathie Juan [facility] Medical 03/18/2020 12:00:00 AM EST [place] ([facility]) Kathie Juan, CRITICAL CARE UNIT MANAGER: [address], [address], [place] [address], Ph. Attender: Kathie Juan [facility] Medical 03/05/2020 12:00:00 AM EST [place] ([facility]) Kathie Juan, CRITICAL CARE UNIT MANAGER: [address], [address], [place] [address], Ph. Attender: Kathie Juan [facility] Medical 03/05/2020 12:00:00 AM EST [place] ([facility]) Kathie Juan, CRITICAL CARE UNIT MANAGER: [address], [place] [address], Ph. Attender: Kathie Juan [facility] Medical 03/05/2020 12:00:00 AM EST [place] ([facility]) Kathie Juan, [facility]: [address], [place] [address], Ph. Attender: Kathie Juan [facility] [place] [facility] Medical 03/05/2020 12:00:00 AM EST HAILEY ([facility]) Kathie Juan, [facility]: [address], [place] [address], Ph. Attender: Kathie Juan [facility] Medical 03/05/2020 12:00:00 AM EST [place] ([facility]) Kathie Juan, [facility]: [address], [address], [place] [address], Ph. Attender: Kathie Juan [facility] Medical 03/05/2020 12:00:00 AM EST HIALEY ([facility]) Kathie Juan, [facility]: [address], [place] [address], Ph. Attender: Kathie Juan [facility] Medical 03/05/2020 12:00:00 AM EST HAILEY ([facility]) Kathie Juan, [facility]: [address], [place] [address], Ph. Attender: Kathie Juan [facility] Medical 03/05/2020 12:00:00 AM EST HAILEY ([facility]) Kathie Juan, [facility]: [address], [place] [address], Ph. Attender: Kathie Juan [facility] Medical 03/05/2020 12:00:00 AM EST HAILEY ([facility]) Kathie Juan, CRITICAL CARE UNIT MANAGER: [address], [place] [address], Ph. Attender: Kathie Juan [facility] Medical 03/05/2020 12:00:00 AM EST HAILEY ([facility]) Kathie Juan, CRITICAL CARE UNIT MANAGER: [address], [place] [address], Ph. Attender: Kathie Juan [facility] Medical 03/05/2020 12:00:00 AM EST [place] ([facility]) Kahtie Juan, CRITICAL CARE UNIT MANAGER: [address], [place] [address], Ph. Attender: Kathie Juan [facility] Medical 03/05/2020 12:00:00 AM EST HAI[place] ([facility]) Kathie Juan, CRITICAL CARE UNIT MANAGER: [address], [place] [address], Ph. Attender: Kathie Juan [facility] Medical 03/05/2020 12:00:00 AM EST [place] ([facility]) Kathie Juan, CRITICAL CARE UNIT MANAGER: [address], [address], [place] [address], Ph. Attender: Kathie Juan [facility] Medical 03/05/2020 12:00:00 AM EST [place] ([facility]) Kathie Juan, CRITICAL CARE UNIT MANAGER: [address], [place] [address], Ph. Attender: Kathie Juan [facility] Medical 03/05/2020 12:00:00 AM EST HAILEY ([facility]) Kathie Juan, [facility]: [address], [address], [place] [address], Ph. Attender: Kathie Juan [facility] Medical 03/05/2020 12:00:00 AM EST [place] ([facility]) Kathie Juan, CRITICAL CARE UNIT MANAGER: [address], [place] [address], Ph. Attender: Kathie Juan [facility] Medical 03/05/2020 12:00:00 AM EST [place] ([facility]) Kathie Juan, CRITICAL CARE UNIT MANAGER: [address], [place] [address], Ph. Attender: Kathie Juan [facility] Medical 03/05/2020 12:00:00 AM EST [place] ([facility]) Kathie Juan, [facility]: [address], [address], [place] [address], Ph. Attender: Kathie Juan [facility] Medical 03/05/2020 12:00:00 AM EST [place] ([facility]) Kathie Juan, [facility]: [address], [address], [place] [address], Ph. Attender: Kathie Juan [facility] Medical 03/05/2020 12:00:00 AM EST HALIEY ([facility]) Kathie Juan, [facility]: [address], [address], [place] [address], Ph. Attender: Kathie Juan [facility] Medical 03/05/2020 12:00:00 AM EST [place] ([facility]) Kathie Juan, [facility]: [address], [address], [place] [address], Ph. Attender: Kathie Juan [facility] Medical 03/05/2020 12:00:00 AM EST [place] ([facility]) Kathie Juan, [facility]: [address], [address], [place] [address], Ph. Attender: Kathie Juan [facility] Medical 03/05/2020 12:00:00 AM EST [place] ([facility]) Kathie Juan, [facility]: [address], [address], [place] [address], Ph. Attender: Kathie Juan [facility] Medical 03/05/2020 12:00:00 AM EST [place] ([facility]) Kathie Juan, [facility]: [address], [address], [place] [address], Ph. Attender: Kathie Juan [facility] Medical 03/05/2020 12:00:00 AM EST [place] ([facility]) Kathie Juan, [facility]: [address], [address], [place] [address], Ph. Attender: Kathie Juan [facility] Medical 03/05/2020 12:00:00 AM EST [place] ([facility]) Kathie Juan, [facility]: [address], [address], [place] [address], Ph. Attender: Kathie Juan [facility] Medical 03/05/2020 12:00:00 AM EST [place] ([facility]) Kathie Juan, [facility]: [address], [address], [place] [address], Ph. Attender: Kathie Juan [facility] Medical 03/05/2020 12:00:00 AM EST [place] ([facility]) Outpatient Attender: Ron Putnam MD Physical Therapy 03/04/2020 0 9:30:00 AM EST MEDENT ([facility]) Kathie Juan, CRITICAL CARE UNIT MANAGER: [address], [address], [place] [address], Ph. Attender: Kathie Juan [facility] Medical 02/26/2020 12:00:00 AM EST HAILEY ([facility]) Kathie Juan, CRITICAL CARE UNIT MANAGER: [address], [address], [place] [address], Ph. Attender: Kathie Juan [facility] Medical 02/26/2020 12:00:00 AM EST HAILEY ([facility]) Kathie Juan, [facility]: [address], [address], [place] [address], Ph. Attender: Kathie Juan [facility] Medical 02/26/2020 12:00:00 AM EST HAILEY ([facility]) Kathie Juan [facility]: [address], [address], [place] [address], Ph. Attender: Kathie Juan [facility] Medical 02/26/2020 12:00:00 AM EST HAILEY ([facility]) Kathie uJan [facility]: [address], [address], [place] [address], Ph. Attender: Kathie Juan [facility] Medical 02/26/2020 12:00:00 AM EST HAI[place] ([facility]) Kathie Juan, [facility]: [address], [address], [place] [address], Ph. Attender: Kathie Juan [facility] Medical 02/26/2020 12:00:00 AM EST HAILEY ([facility]) Kathie Juan, CRITICAL CARE UNIT MANAGER: [address], [address], [place] [address], Ph. Attender: Kathie Juan [facility] Medical 02/26/2020 12:00:00 AM EST [place] ([facility]) Kathie Juan, CRITICAL CARE UNIT MANAGER: [address], [address], [place] [address], Ph. Attender: Kathie Juan [facility] Medical 02/26/2020 12:00:00 AM EST [place] ([facility]) Kathie Juan, CRITICAL CARE UNIT MANAGER: [address], [address], [place] [address], Ph. Attender: Kathie Juan [facility] Medical 02/26/2020 12:00:00 AM EST HAI[place] ([facility]) Kathie Juan, CRITICAL CARE UNIT MANAGER: [address], [address], [place] [address], Ph. Attender: Kathie Juan [facility] Medical 02/26/2020 12:00:00 AM EST HAILEY ([facility]) Kathie Juan, CRITICAL CARE UNIT MANAGER: [address], [address], [place] [address], Ph. Attender: Kathie Juan [facility] Medical 02/26/2020 12:00:00 AM EST HAILEY ([facility]) Kathie Juan, CRITICAL CARE UNIT MANAGER: [address], [address], [place] [address], Ph. Attender: Kathie Juan [facility] Medical 02/26/2020 12:00:00 AM EST HAILEY ([facility]) Kathie Juan, CRITICAL CARE UNIT MANAGER: [address], [address], [place] [address], Ph. Attender: Kathie Juan [facility] Medical 02/26/2020 12:00:00 AM EST HAILEY ([facility]) Kathie Juan, CRITICAL CARE UNIT MANAGER: [address], [address], [place] [address], Ph. Attender: Kathie Juan [facility] Medical 02/26/2020 12:00:00 AM EST HAILEY ([facility]) Kathie Juan, CRITICAL CARE UNIT MANAGER: [address], [address], [place] [address], Ph. Attender: Kathie Juan [facility] Medical 02/26/2020 12:00:00 AM EST HAILEY ([facility]) Kathie Juan, CRITICAL CARE UNIT MANAGER: [address], [address], [place] [address], Ph. Attender: Kathie Juan [facility] Medical 02/26/2020 12:00:00 AM EST HAI[place] ([facility]) Kathie Juan, CRITICAL CARE UNIT MANAGER: [address], [address], [place] [address], Ph. Attender: Kathie Juan [facility] Medical 02/26/2020 12:00:00 AM EST Noncompliance with Treatment ATHE NA ([facility]) Noncompliance with Treatment Kathie Juan CRITICAL CARE UNIT MANAGER: [address], [place] [address], Ph. Attender: Kathie Juan [facility] Medical 02/26/2020 12:00:00 AM EST HAILEY ([facility]) Kathie Juan, CRITICAL CARE UNIT MANAGER: [address], [address], [place] [address], Ph. Attender: Kathie Juan [facility] Medical 02/26/2020 12:00:00 AM EST HAILEY ([facility]) Kathie Juan, CRITICAL CARE UNIT MANAGER: [address], [address], [place] [address], Ph. Attender: Kathie Juan [facility] Medical 02/26/2020 12:00:00 AM EST HAILEY ([facility]) Kathie Juan, CRITICAL CARE UNIT MANAGER: [address], [address], [place] [address], Ph. Attender: Kathie Juan [facility] Medical 02/26/2020 12:00:00 AM EST HAILEY ([facility]) Kathie Juan, CRITICAL CARE UNIT MANAGER: [address], [address], [place] [address], Ph. Attender: Kathie Juan [facility] Medical 02/26/2020 12:00:00 AM EST HAILEY ([facility]) Kathie Juan, CRITICAL CARE UNIT MANAGER: [address], [address], [place] [address], Ph. Attender: Kathie Juan [facility] Medical 02/26/2020 12:00:00 AM EST [place] ([facility]) Kathie Juan, CRITICAL CARE UNIT MANAGER: [address], [address], [place] [address], Ph. Attender: Kathie Juan [facility] Medical 02/26/2020 12:00:00 AM EST [place]ILEY ([facility]) Kathie Juan, CRITICAL CARE UNIT MANAGER: [address], [address], [place] [address], Ph. Attender: Kathie Juan [facility] Medical 02/26/2020 12:00:00 AM EST [place] ([facility]) Kathie Juan CRITICAL CARE UNIT MANAGER: [address], [address], [place] [address], Ph. Attender: Kathie Juan [facility] Medical 02/26/2020 12:00:00 AM EST [place] ([facility]) Kathie Juan CRITICAL CARE UNIT MANAGER: [address], [address], [place] [address], Ph. Attender: Kathie Juan [facility] Medical 02/26/2020 12:00:00 AM EST [place] ([facility]) Kathie Juan, CRITICAL CARE UNIT MANAGER: [address], [address], [place] [address], Ph. Attender: Kathie Juan [facility] Medical 02/26/2020 12:00:00 AM EST [place] ([facility]) Kathie Juan CRITICAL CARE UNIT MANAGER: [address], [address], [place] [address], Ph. Attender: Kathie Juan [facility] 02/26/2020 12:00:00 AM EST HAILEY ([facility]) Immunizations Vaccine Date Status Description Data Source(s) COVID-19, mRNA, LNP-S, PF, 100 mcg/0.5 mL dose 09/20/2020 12 :00:00 AM EDT completed 09/20/2020 [place] ([facility]) COVID-19, mRNA, LNP-S, PF, 100 mcg/0.5 mL dose 09/20/2020 12 :00:00 AM EDT completed 09/20/2020 [place] ([facility]) COVID-19, mRNA, LNP-S, PF, 100 mcg/0.5 mL dose 09/20/2020 12 :00:00 AM EDT completed 09/20/2020 [place] ([facility]) COVID-19, mRNA, LNP-S, PF, 100 mcg/0.5 mL dose 09/20/2020 12 :00:00 AM EDT completed 09/20/2020 [place] ([facility]) COVID-19 VACCINE Moderna 09/20/2020 12:00:00 AM EDT completed [place] Vaccine Series Complete: YESThis Data wa s Submitted to [facility] Via [employer]. COVID-19, mRNA, LNP-S, PF, 100 mcg/0.5 mL dose 08/23/2020 12 :00:00 AM EDT completed 08/23/2020 [place] ([facility]) COVID-19, mRNA, LNP-S, PF, 100 mcg/0.5 mL dose 08/23/2020 12 :00:00 AM EDT completed 08/23/2020 [place] ([facility]) COVID-19, mRNA, LNP-S, PF, 100 mcg/0.5 mL dose 08/23/2020 12 :00:00 AM EDT completed 08/23/2020 [place] ([facility]) COVID-19, mRNA, LNP-S, PF, 100 mcg/0.5 mL dose 08/23/2020 12 :00:00 AM EDT completed 08/23/2020 [place] ([facility]) COVID-19 VACCINE Moderna 08/23/2020 12:00:00 AM EDT completed [facility] Vaccine Series Complete: NOThis Data was Submitted to [facility] Via [employer]. HPV9 06/23/2020 01:25:00 PM EST completed 06/23/2020 0.5 mL [place]ILEY ([facility]) HPV9 06/23/2020 01:25:00 PM EST completed 06/23/2020 0.5 mL HAIELY ([facility]) HPV9 06/23/2020 01:25:00 PM EST completed 06/23/2020 0.5 mL [place] ([facility]) HPV9 06/23/2020 01:25:00 PM EST completed 06/23/2020 0.5 mL [place] ([facility]) HPV9 06/23/2020 01:25:00 PM EST completed 06/23/2020 0.5 mL [place] ([facility]) HPV9 06/23/2020 01:25:00 PM EST completed 06/23/2020 0.5 mL [place] ([facility]) HPV9 06/23/2020 01:25:00 PM EST completed 06/23/2020 0.5 mL [place] ([facility]) HPV9 06/23/2020 01:25:00 PM EST completed 06/23/2020 0.5 mL [place] ([facility]) HPV9 06/23/2020 01:25:00 PM EST completed 06/23/2020 0.5 mL [place] ([facility]) HPV9 06/23/2020 01:25:00 PM EST completed 06/23/2020 0.5 mL [place] ([facility]) HPV9 06/23/2020 01:25:00 PM EST completed 06/23/2020 0.5 mL [place] ([facility]) HPV9 06/23/2020 01:25:00 PM EST completed 06/23/2020 0.5 mL [place] ([facility]) HPV9 06/23/2020 01:25:00 PM EST completed 06/23/2020 0.5 mL [place] ([facility]) HPV9 06/23/2020 01:25:00 PM EST completed 06/23/2020 0.5 mL [place] ([facility]) HPV9 06/23/2020 01:25:00 PM EST completed 06/23/2020 0.5 mL [place] ([facility]) HPV9 06/23/2020 01:25:00 PM EST completed 06/23/2020 0.5 mL [place] ([facility]) Tdap 06/23/2020 01:24:00 PM EST completed 06/23/2020 0.5 mL [place] ([facility]) Tdap 06/23/2020 01:24:00 PM EST completed 06/23/2020 0.5 mL [place] ([facility]) Tdap 06/23/2020 01:24:00 PM EST completed 06/23/2020 0.5 mL [place] ([facility]) Tdap 06/23/2020 01:24:00 PM EST completed 06/23/2020 0.5 mL [place] ([facility]) Tdap 06/23/2020 01:24:00 PM EST completed 06/23/2020 0.5 mL [place] ([facility]) Tdap 06/23/2020 01:24:00 PM EST completed 06/23/2020 0.5 mL [place] ([facility]) Tdap 06/23/2020 01:24:00 PM EST completed 06/23/2020 0.5 mL [place] ([facility]) Tdap 06/23/2020 01:24:00 PM EST completed 06/23/2020 0.5 mL [place] ([facility]) Tdap 06/23/2020 01:24:00 PM EST completed 06/23/2020 0.5 mL [place] ([facility]) Tdap 06/23/2020 01:24:00 PM EST completed 06/23/2020 0.5 mL [place] ([facility]) Tdap 06/23/2020 01:24:00 PM EST completed 06/23/2020 0.5 mL [place] ([facility]) Tdap 06/23/2020 01:24:00 PM EST completed 06/23/2020 0.5 mL [place] ([facility]) Tdap 06/23/2020 01:24:00 PM EST completed 06/23/2020 0.5 mL [place] ([facility]) Tdap 06/23/2020 01:24:00 PM EST completed 06/23/2020 0.5 mL [place] ([facility]) Tdap 06/23/2020 01:24:00 PM EST completed 06/23/2020 0.5 mL [place] ([facility]) Tdap 06/23/2020 01:24:00 PM EST completed 06/23/2020 0.5 mL [place] ([facility]) New in 2011. IIV4 03/20/2020 12:17:21 PM EST completed 0.5 mL [place] ([facility]) New in 2011. IIV4 03/20/2020 12:17:21 PM EST completed 0.5 mL [place] ([facility]) New in 2011. IIV4 03/20/2020 12:17:21 PM EST completed .5 mL [place] ([facility]) New in 2011. IIV4 03/20/2020 12:17:21 PM EST completed .5 mL [place] ([facility]) New in 2011. IIV4 03/20/2020 12:17:21 PM EST completed .5 mL [place] ([facility]) New in 2011. IIV4 03/20/2020 12:17:21 PM EST completed .5 mL [place] ([facility]) New in 2011. IIV4 03/20/2020 12:17:21 PM EST completed .5 mL [place] ([facility]) New in 2011. IIV4 03/20/2020 12:17:21 PM EST completed .5 mL [place] ([facility]) New in 2011. IIV4 03/20/2020 12:17:21 PM EST completed .5 mL [place] ([facility]) New in 2011. IIV4 03/20/2020 12:17:21 PM EST completed 0.5 mL [place] ([facility]) New in 2011. IIV4 03/20/2020 12:17:21 PM EST completed .5 mL [place] ([facility]) New in 2011. IIV4 03/20/2020 12:17:21 PM EST completed .5 mL [place] ([facility]) New in 2011. IIV4 03/20/2020 12:17:21 PM EST completed 0.5 mL [place] ([facility]) New in 2011. IIV4 03/20/2020 12:17:21 PM EST completed 0.5 mL [place] ([facility]) New in 2011. IIV4 03/20/2020 12:17:21 PM EST completed .5 mL [place] ([facility]) New in 2011. IIV4 03/20/2020 12:17:21 PM EST completed .5 mL [place] ([facility]) New in 2011. IIV4 03/20/2020 12:17:21 PM EST completed 0.5 mL [place] ([facility]) New in 2011. IIV4 03/20/2020 12:17:21 PM EST completed .5 mL [place] ([facility]) New in 2011. IIV4 03/20/2020 12:17:21 PM EST completed .5 mL [place] ([facility]) New in 2011. IIV4 03/20/2020 12:17:21 PM EST completed .5 mL [place] ([facility]) New in 2011. IIV4 03/20/2020 12:17:21 PM EST completed .5 mL [place] ([facility]) New in 2011. IIV4 03/20/2020 12:17:21 PM EST completed 0.5 mL [place] ([facility]) New in 2011. IIV4 03/20/2020 12:17:21 PM EST completed .5 mL [place] ([facility]) New in 2011. IIV4 03/20/2020 12:17:21 PM EST completed .5 mL [place] ([facility]) New in 2011. IIV4 03/20/2020 12:17:21 PM EST completed .5 mL [place] ([facility]) New in 2011. IIV4 03/20/2020 12:17:21 PM EST completed .5 mL [place] ([facility]) Medications Medication Brand Name Start Date Product Form Dose Route Admi nistrative Instructions Pharmacy Instructions Status Indications Reaction Description Data Source(s) Ondansetron 4 MG Disintegrating Oral Tablet Ondansetron 10/07/2020 12:00:00 AM EDT active MEDENT ([facility], [facility]) Acetaminophen 325 MG / Hydrocodone Bitartrate 5 MG Ora l Tablet Hydrocodone-Acetaminophen 05/15/2020 12:00:00 AM EST ORAL active MEDENT ([facility]) benzonatate 100 MG Oral Capsule benzonat ate 100 mg capsule TAKE 1 CAPSULE BY MOUTH THREE TIMES DAILY NEEDED FOR 10 DAYS benzonatate 100 mg capsule TAKE 1 CAPSULE BY MOUTH THREE TIMES DAILY NEEDED FOR 10 DAYS completed benzonatate 100 MG Oral Capsule HAILEY ( [facility]) Citalopram 40 MG Oral Tablet citalopram 40 mg tablet TAKE 1 TABLET BY MOUTH ONCE DAILY citalopram 40 mg tablet TAKE 1 TABLET BY MOUTH ONCE DAILY completed citalopram 40 MG Oral Tablet ATH GREGORIO ([facility]) Citalopram 40 MG Oral Tablet citalopram 40 mg tablet TAKE 1 TABLET BY MOUTH ONCE DAILY citalopram 40 mg tablet TAKE 1 TABLET BY MOUTH ONCE DAILY completed citalopram 40 MG Oral Tablet ATH GREGORIO ([facility]) Amoxicillin 875 MG / Clavulanate 125 MG Oral Tablet amoxicillin 875 mg-potassium clavulanate 125 mg tablet amoxicillin 875 mg-potassium clavulanate 125 mg tablet completed amoxicillin 875 MG / clavulanate 125 MG Oral Tablet HAILEY ([facility]) Amoxicillin 875 MG / Clavulanate 125 MG Oral Tablet amoxicillin 875 mg-potassium clavulanate 125 mg tablet amoxicillin 875 mg-potassium clavulanate 125 mg tablet completed amoxicillin 875 MG / clavulanate 125 MG Oral Tablet HAILEY ([facility]) Amoxicillin 875 MG / Clavulanate 125 MG Oral Tablet amoxicillin 875 mg-potassium clavulanate 125 mg tablet amoxicillin 875 mg-potassium clavulanate 125 mg tablet completed amoxicillin 875 MG / clavulanate 125 MG Oral Tablet HAILEY ([facility]) Amoxicillin 875 MG / Clavulanate 125 MG Oral Tablet amoxicillin 875 mg-potassium clavulanate 125 mg tablet amoxicillin 875 mg-potassium clavulanate 125 mg tablet completed amoxicillin 875 MG / clavulanate 125 MG Oral Tablet HAILEY ([facility]) Acetaminophen 325 MG / Hydrocodone Melani trate 5 MG Oral Tablet hydrocodone 5 mg- acetaminophen 325 mg tablet hydrocodone 5 mg-acetaminophen 325 mg tablet completed acetaminophen 325 MG / hydrocodone bitartrate 5 MG Oral Tablet HAILEY ([facility]) Citalopram 40 MG Oral Tablet citalopram 40 mg tablet TAKE 1 TABLET BY MOUTH ONCE DAILY citalopram 40 mg tablet TAKE 1 TABLET BY MOUTH ONCE DAILY completed citalopram 40 MG Oral Tablet ATH GREGORIO ([facility]) Acetaminophen 325 MG / Hydrocodone Melani trate 5 MG Oral Tablet hydrocodone 5 mg- acetaminophen 325 mg tablet hydrocodone 5 mg-acetaminophen 325 mg tablet completed acetaminophen 325 MG / hydrocodone bitartrate 5 MG Oral Tablet HAILEY ([facility]) Acetaminophen 325 MG / Hydrocodone Melani trate 5 MG Oral Tablet hydrocodone 5 mg- acetaminophen 325 mg tablet hydrocodone 5 mg-acetaminophen 325 mg tablet completed acetaminophen 325 MG / hydrocodone bitartrate 5 MG Oral Tablet HAILEY ([facility]) benzonatate 100 MG Oral Capsule benzonat ate 100 mg capsule TAKE 1 CAPSULE BY MOUTH THREE TIMES DAILY NEEDED FOR 10 DAYS benzonatate 100 mg capsule TAKE 1 CAPSULE BY MOUTH THREE TIMES DAILY NEEDED FOR 10 DAYS completed benzonatate 100 MG Oral Capsule HAILEY ( [facility]) Trazodone Hydrochloride 50 MG Oral Tablet trazodone 50 mg tablet trazodone 50 mg tablet completed trazodone hydro chloride 50 MG Oral Tablet HAILEY ([facility]) Citalopram 40 MG Oral Tablet citalopram 40 mg tablet TAKE 1 TABLET BY MOUTH ONCE DAILY citalopram 40 mg tablet TAKE 1 TABLET BY MOUTH ONCE DAILY completed citalopram 40 MG Oral Tablet ATH GREGORIO ([facility]) Citalopram 40 MG Oral Tablet citalopram 40 mg tablet TAKE 1 TABLET BY MOUTH ONCE DAILY citalopram 40 mg tablet TAKE 1 TABLET BY MOUTH ONCE DAILY completed citalopram 40 MG Oral Tablet ATH GREGORIO ([facility]) Trazodone Hydrochloride 50 MG Oral Tablet trazodone 50 mg tablet trazodone 50 mg tablet completed trazodone hydro chloride 50 MG Oral Tablet HAILEY ([facility]) benzonatate 100 MG Oral Capsule benzonat ate 100 mg capsule TAKE 1 CAPSULE BY MOUTH THREE TIMES DAILY NEEDED FOR 10 DAYS benzonatate 100 mg capsule TAKE 1 CAPSULE BY MOUTH THREE TIMES DAILY NEEDED FOR 10 DAYS completed benzonatate 100 MG Oral Capsule HAILEY ( [facility]) benzonatate 100 MG Oral Capsule benzonat ate 100 mg capsule TAKE 1 CAPSULE BY MOUTH THREE TIMES DAILY NEEDED FOR 10 DAYS benzonatate 100 mg capsule TAKE 1 CAPSULE BY MOUTH THREE TIMES DAILY NEEDED FOR 10 DAYS completed benzonatate 100 MG Oral Capsule HAILEY ( [facility]) Pseudoephedrine Hydrochloride 30 MG Oral Tablet [Sudogest] Sudogest 30 mg tablet TAKE 1 TABLET BY MOUTH 4 TIMES DAILY NEEDED FOR 10 DAYS Sudogest 30 mg tablet TAKE 1 TABLET BY MOUTH 4 TIMES DAILY NEEDED FOR 10 DAYS completed pseudoephedrine hydrochloride 30 MG Oral Tablet [Sudogest] HAILEY ([facility]) benzonatate 100 MG Oral Capsule benzonat ate 100 mg capsule TAKE 1 CAPSULE BY MOUTH THREE TIMES DAILY NEEDED FOR 10 DAYS benzonatate 100 mg capsule TAKE 1 CAPSULE BY MOUTH THREE TIMES DAILY NEEDED FOR 10 DAYS completed benzonatate 100 MG Oral Capsule HAILEY ( [facility]) Citalopram 40 MG Oral Tablet citalopram 40 mg tablet TAKE 1 TABLET BY MOUTH ONCE DAILY citalopram 40 mg tablet TAKE 1 TABLET BY MOUTH ONCE DAILY completed citalopram 40 MG Oral Tablet ATH GREGORIO ([facility]) benzonatate 100 MG Oral Capsule benzonat ate 100 mg capsule TAKE 1 CAPSULE BY MOUTH THREE TIMES DAILY NEEDED FOR 10 DAYS benzonatate 100 mg capsule TAKE 1 CAPSULE BY MOUTH THREE TIMES DAILY NEEDED FOR 10 DAYS completed benzonatate 100 MG Oral Capsule HAILEY ( [facility]) benzonatate 100 MG Oral Capsule benzonat ate 100 mg capsule TAKE 1 CAPSULE BY MOUTH THREE TIMES DAILY NEEDED FOR 10 DAYS benzonatate 100 mg capsule TAKE 1 CAPSULE BY MOUTH THREE TIMES DAILY NEEDED FOR 10 DAYS completed benzonatate 100 MG Oral Capsule HAILEY ( [facility]) Amoxicillin 875 MG / Clavulanate 125 MG Oral Tablet amoxicillin 875 mg-potassium clavulanate 125 mg tablet amoxicillin 875 mg-potassium clavulanate 125 mg tablet completed amoxici llin 875 MG / clavulanate 125 MG Oral Tablet HAILEY ([facility]) Citalopram 40 MG Oral Tablet citalopram 40 mg tablet TAKE 1 TABLET BY MOUTH ONCE DAILY citalopram 40 mg tablet TAKE 1 TABLET BY MOUTH ONCE DAILY completed citalopram 40 MG Oral Tablet ATH GREGORIO ([facility]) Amoxicillin 875 MG / Clavulanate 125 MG Oral Tablet amoxicillin 875 mg-potassium clavulanate 125 mg tablet amoxicillin 875 mg-potassium clavulanate 125 mg tablet completed amoxici llin 875 MG / clavulanate 125 MG Oral Tablet HAILEY ([facility]) Amoxicillin 875 MG / Clavulanate 125 MG Oral Tablet amoxicillin 875 mg-potassium clavulanate 125 mg tablet amoxicillin 875 mg-potassium clavulanate 125 mg tablet completed amoxici llin 875 MG / clavulanate 125 MG Oral Tablet HAILEY ([facility]) Amoxicillin 875 MG / Clavulanate 125 MG Oral Tablet amoxicillin 875 mg-potassium clavulanate 125 mg tablet amoxicillin 875 mg-potassium clavulanate 125 mg tablet completed amoxici llin 875 MG / clavulanate 125 MG Oral Tablet HAILEY ([facility]) Citalopram 40 MG Oral Tablet citalopram 40 mg tablet TAKE 1 TABLET BY MOUTH ONCE DAILY citalopram 40 mg tablet TAKE 1 TABLET BY MOUTH ONCE DAILY completed citalopram 40 MG Oral Tablet ATH GREGORIO ([facility]) Citalopram 40 MG Oral Tablet citalopram 40 mg tablet TAKE 1 TABLET BY MOUTH ONCE DAILY citalopram 40 mg tablet TAKE 1 TABLET BY MOUTH ONCE DAILY completed citalopram 40 MG Oral Tablet ATH GREGORIO ([facility]) Amoxicillin 875 MG / Clavulanate 125 MG Oral Tablet amoxicillin 875 mg-potassium clavulanate 125 mg tablet amoxicillin 875 mg-potassium clavulanate 125 mg tablet completed amoxici llin 875 MG / clavulanate 125 MG Oral Tablet HAILEY ([facility]) Amoxicillin 875 MG / Clavulanate 125 MG Oral Tablet amoxicillin 875 mg-potassium clavulanate 125 mg tablet amoxicillin 875 mg-potassium clavulanate 125 mg tablet completed amoxici llin 875 MG / clavulanate 125 MG Oral Tablet HAILEY ([facility]) Citalopram 40 MG Oral Tablet citalopram 40 mg tablet TAKE 1 TABLET BY MOUTH ONCE DAILY citalopram 40 mg tablet TAKE 1 TABLET BY MOUTH ONCE DAILY completed citalopram 40 MG Oral Tablet ATH GREGORIO ([facility]) Amoxicillin 875 MG / Clavulanate 125 MG Oral Tablet amoxicillin 875 mg-potassium clavulanate 125 mg tablet amoxicillin 875 mg-potassium clavulanate 125 mg tablet completed amoxici llin 875 MG / clavulanate 125 MG Oral Tablet HAILEY ([facility]) Acetaminophen 325 MG / Hydrocodone Melani trate 5 MG Oral Tablet hydrocodone 5 mg- acetaminophen 325 mg tablet hydrocodone 5 mg-acetaminophen 325 mg tablet completed acetaminophen 325 MG / hydrocodone bitartrate 5 MG Oral Tablet HAILEY ([facility]) Amoxicillin 875 MG / Clavulanate 125 MG Oral Tablet amoxicillin 875 mg-potassium clavulanate 125 mg tablet amoxicillin 875 mg-potassium clavulanate 125 mg tablet completed amoxici llin 875 MG / clavulanate 125 MG Oral Tablet HAILEY ([facility]) Acetaminophen 325 MG / Hydrocodone Melani trate 5 MG Oral Tablet hydrocodone 5 mg- acetaminophen 325 mg tablet hydrocodone 5 mg-acetaminophen 325 mg tablet completed acetaminophen 325 MG / hydrocodone bitartrate 5 MG Oral Tablet HAILEY ([facility]) Trazodone Hydrochloride 50 MG Oral Tablet trazodone 50 mg tablet trazodone 50 mg tablet completed trazodone hydr ochloride 50 MG Oral Tablet OCILLA ([facility]) Pseudoephedrine Hydrochloride 30 MG Oral Tablet [Sudogest] Sudogest 30 mg tablet TAKE 1 TABLET BY MOUTH 4 TIMES DAILY NEEDED FOR 10 DAYS Sudogest 30 mg tablet TAKE 1 TABLET BY MOUTH 4 TIMES DAILY NEEDED FOR 10 DAYS completed pseudoephedrine hydrochloride 30 MG Oral Tablet [Sudogest] HAILEY ([facility]) benzonatate 100 MG Oral Capsule benzonat ate 100 mg capsule TAKE 1 CAPSULE BY MOUTH THREE TIMES DAILY NEEDED FOR 10 DAYS benzonatate 100 mg capsule TAKE 1 CAPSULE BY MOUTH THREE TIMES DAILY NEEDED FOR 10 DAYS completed benzonatate 100 MG Oral Capsule HAILEY ( [facility]) Citalopram 40 MG Oral Tablet citalopram 40 mg tablet TAKE 1 TABLET BY MOUTH ONCE DAILY citalopram 40 mg tablet TAKE 1 TABLET BY MOUTH ONCE DAILY completed citalopram 40 MG Oral Tablet ATH GREGORIO ([facility]) Amoxicillin 875 MG / Clavulanate 125 MG Oral Tablet amoxicillin 875 mg-potassium clavulanate 125 mg tablet amoxicillin 875 mg-potassium clavulanate 125 mg tablet completed amoxici llin 875 MG / clavulanate 125 MG Oral Tablet HAILEY ([facility]) Trazodone Hydrochloride 50 MG Oral Tablet trazodone 50 mg tablet trazodone 50 mg tablet completed trazodone hydr ochloride 50 MG Oral Tablet HAILEY ([facility]) benzonatate 100 MG Oral Capsule benzonat ate 100 mg capsule TAKE 1 CAPSULE BY MOUTH THREE TIMES DAILY NEEDED FOR 10 DAYS benzonatate 100 mg capsule TAKE 1 CAPSULE BY MOUTH THREE TIMES DAILY NEEDED FOR 10 DAYS completed benzonatate 100 MG Oral Capsule HAILEY ( [facility]) Amoxicillin 875 MG / Clavulanate 125 MG Oral Tablet amoxicillin 875 mg-potassium clavulanate 125 mg tablet amoxicillin 875 mg-potassium clavulanate 125 mg tablet completed amoxici llin 875 MG / clavulanate 125 MG Oral Tablet HAILEY ([facility]) Citalopram 40 MG Oral Tablet citalopram 40 mg tablet TAKE 1 TABLET BY MOUTH ONCE DAILY citalopram 40 mg tablet TAKE 1 TABLET BY MOUTH ONCE DAILY completed citalopram 40 MG Oral Tablet ATH GREGORIO ([facility]) benzonatate 100 MG Oral Capsule benzonat ate 100 mg capsule TAKE 1 CAPSULE BY MOUTH THREE TIMES DAILY NEEDED FOR 10 DAYS benzonatate 100 mg capsule TAKE 1 CAPSULE BY MOUTH THREE TIMES DAILY NEEDED FOR 10 DAYS completed benzonatate 100 MG Oral Capsule HAILEY ( [facility]) Amoxicillin 875 MG / Clavulanate 125 MG Oral Tablet amoxicillin 875 mg-potassium clavulanate 125 mg tablet amoxicillin 875 mg-potassium clavulanate 125 mg tablet completed amoxici llin 875 MG / clavulanate 125 MG Oral Tablet HAILEY ([facility]) Amoxicillin 875 MG / Clavulanate 125 MG Oral Tablet amoxicillin 875 mg-potassium clavulanate 125 mg tablet amoxicillin 875 mg-potassium clavulanate 125 mg tablet completed amoxici llin 875 MG / clavulanate 125 MG Oral Tablet HAILEY ([facility]) Amoxicillin 875 MG / Clavulanate 125 MG Oral Tablet amoxicillin 875 mg-potassium clavulanate 125 mg tablet amoxicillin 875 mg-potassium clavulanate 125 mg tablet completed amoxici llin 875 MG / clavulanate 125 MG Oral Tablet HAILEY ([facility]) Acetaminophen 325 MG / Hydrocodone Melani trate 5 MG Oral Tablet hydrocodone 5 mg- acetaminophen 325 mg tablet hydrocodone 5 mg-acetaminophen 325 mg tablet completed acetaminophen 325 MG / hydrocodone bitartrate 5 MG Oral Tablet HAILEY ([facility]) Trazodone Hydrochloride 50 MG Oral Tablet trazodone 50 mg tablet trazodone 50 mg tablet completed trazodone hydr ochloride 50 MG Oral Tablet HAILEY ([facility]) Trazodone Hydrochloride 50 MG Oral Tablet trazodone 50 mg tablet trazodone 50 mg tablet completed trazodone hydr ochloride 50 MG Oral Tablet HAILEY ([facility]) Citalopram 40 MG Oral Tablet citalopram 40 mg tablet TAKE 1 TABLET BY MOUTH ONCE DAILY citalopram 40 mg tablet TAKE 1 TABLET BY MOUTH ONCE DAILY completed citalopram 40 MG Oral Tablet ATH GREGORIO ([facility]) Amoxicillin 875 MG / Clavulanate 125 MG Oral Tablet amoxicillin 875 mg-potassium clavulanate 125 mg tablet amoxicillin 875 mg-potassium clavulanate 125 mg tablet completed amoxici llin 875 MG / clavulanate 125 MG Oral Tablet HAILEY ([facility]) Citalopram 40 MG Oral Tablet citalopram 40 mg tablet TAKE 1 TABLET BY MOUTH ONCE DAILY citalopram 40 mg tablet TAKE 1 TABLET BY MOUTH ONCE DAILY completed citalopram 40 MG Oral Tablet ATH GREGORIO ([facility]) benzonatate 100 MG Oral Capsule benzonat ate 100 mg capsule TAKE 1 CAPSULE BY MOUTH THREE TIMES DAILY NEEDED FOR 10 DAYS benzonatate 100 mg capsule TAKE 1 CAPSULE BY MOUTH THREE TIMES DAILY NEEDED FOR 10 DAYS completed benzonatate 100 MG Oral Capsule HAILEY ( [facility]) Acetaminophen 325 MG / Hydrocodone Melani trate 5 MG Oral Tablet hydrocodone 5 mg- acetaminophen 325 mg tablet hydrocodone 5 mg-acetaminophen 325 mg tablet completed acetaminophen 325 MG / hydrocodone bitartrate 5 MG Oral Tablet HAILEY ([facility]) Pseudoephedrine Hydrochloride 30 MG Oral Tablet [Sudogest] Sudogest 30 mg tablet TAKE 1 TABLET BY MOUTH 4 TIMES DAILY NEEDED FOR 10 DAYS Sudogest 30 mg tablet TAKE 1 TABLET BY MOUTH 4 TIMES DAILY NEEDED FOR 10 DAYS completed pseudoephedrine hydrochloride 30 MG Oral Tablet [Sudogest] HAILEY ([facility]) benzonatate 100 MG Oral Capsule benzonat ate 100 mg capsule TAKE 1 CAPSULE BY MOUTH THREE TIMES DAILY NEEDED FOR 10 DAYS benzonatate 100 mg capsule TAKE 1 CAPSULE BY MOUTH THREE TIMES DAILY NEEDED FOR 10 DAYS completed benzonatate 100 MG Oral Capsule HAILEY ( [facility]) benzonatate 100 MG Oral Capsule benzonat ate 100 mg capsule TAKE 1 CAPSULE BY MOUTH THREE TIMES DAILY NEEDED FOR 10 DAYS benzonatate 100 mg capsule TAKE 1 CAPSULE BY MOUTH THREE TIMES DAILY NEEDED FOR 10 DAYS completed benzonatate 100 MG Oral Capsule HAILEY ( [facility]) Acetaminophen 325 MG / Hydrocodone Melani trate 5 MG Oral Tablet hydrocodone 5 mg- acetaminophen 325 mg tablet hydrocodone 5 mg-acetaminophen 325 mg tablet completed acetaminophen 325 MG / hydrocodone bitartrate 5 MG Oral Tablet HAILEY ([facility]) benzonatate 100 MG Oral Capsule benzonat ate 100 mg capsule TAKE 1 CAPSULE BY MOUTH THREE TIMES DAILY NEEDED FOR 10 DAYS benzonatate 100 mg capsule TAKE 1 CAPSULE BY MOUTH THREE TIMES DAILY NEEDED FOR 10 DAYS completed benzonatate 100 MG Oral Capsule HAILEY ( [facility]) Amoxicillin 875 MG / Clavulanate 125 MG Oral Tablet amoxicillin 875 mg-potassium clavulanate 125 mg tablet amoxicillin 875 mg-potassium clavulanate 125 mg tablet completed amoxici llin 875 MG / clavulanate 125 MG Oral Tablet HAILEY ([facility]) Acetaminophen 325 MG / Hydrocodone Melani trate 5 MG Oral Tablet hydrocodone 5 mg- acetaminophen 325 mg tablet hydrocodone 5 mg-acetaminophen 325 mg tablet completed acetaminophen 325 MG / hydrocodone bitartrate 5 MG Oral Tablet HAILEY ([facility]) Citalopram 40 MG Oral Tablet citalopram 40 mg tablet TAKE 1 TABLET BY MOUTH ONCE DAILY citalopram 40 mg tablet TAKE 1 TABLET BY MOUTH ONCE DAILY completed citalopram 40 MG Oral Tablet ATH GREGORIO ([facility]) Citalopram 40 MG Oral Tablet citalopram 40 mg tablet TAKE 1 TABLET BY MOUTH ONCE DAILY citalopram 40 mg tablet TAKE 1 TABLET BY MOUTH ONCE DAILY completed citalopram 40 MG Oral Tablet ATH GREGORIO ([facility]) Acetaminophen 325 MG / Hydrocodone Melani trate 5 MG Oral Tablet hydrocodone 5 mg- acetaminophen 325 mg tablet hydrocodone 5 mg-acetaminophen 325 mg tablet completed acetaminophen 325 MG / hydrocodone bitartrate 5 MG Oral Tablet HAILEY ([facility]) Citalopram 40 MG Oral Tablet citalopram 40 mg tablet TAKE 1 TABLET BY MOUTH ONCE DAILY citalopram 40 mg tablet TAKE 1 TABLET BY MOUTH ONCE DAILY completed citalopram 40 MG Oral Tablet ATH GREGORIO ([facility]) Citalopram 40 MG Oral Tablet citalopram 40 mg tablet TAKE 1 TABLET BY MOUTH ONCE DAILY citalopram 40 mg tablet TAKE 1 TABLET BY MOUTH ONCE DAILY completed citalopram 40 MG Oral Tablet ATH GREGORIO ([facility]) benzonatate 100 MG Oral Capsule benzonat ate 100 mg capsule TAKE 1 CAPSULE BY MOUTH THREE TIMES DAILY NEEDED FOR 10 DAYS benzonatate 100 mg capsule TAKE 1 CAPSULE BY MOUTH THREE TIMES DAILY NEEDED FOR 10 DAYS completed benzonatate 100 MG Oral Capsule HAILEY ( [facility]) benzonatate 100 MG Oral Capsule benzonat ate 100 mg capsule TAKE 1 CAPSULE BY MOUTH THREE TIMES DAILY NEEDED FOR 10 DAYS benzonatate 100 mg capsule TAKE 1 CAPSULE BY MOUTH THREE TIMES DAILY NEEDED FOR 10 DAYS completed benzonatate 100 MG Oral Capsule HAILEY ( [facility]) benzonatate 100 MG Oral Capsule benzonat ate 100 mg capsule TAKE 1 CAPSULE BY MOUTH THREE TIMES DAILY NEEDED FOR 10 DAYS benzonatate 100 mg capsule TAKE 1 CAPSULE BY MOUTH THREE TIMES DAILY NEEDED FOR 10 DAYS completed benzonatate 100 MG Oral Capsule HAILEY ( [facility]) Citalopram 40 MG Oral Tablet citalopram 40 mg tablet TAKE 1 TABLET BY MOUTH ONCE DAILY citalopram 40 mg tablet TAKE 1 TABLET BY MOUTH ONCE DAILY completed citalopram 40 MG Oral Tablet ATH GREGORIO ([facility]) Amoxicillin 875 MG / Clavulanate 125 MG Oral Tablet amoxicillin 875 mg-potassium clavulanate 125 mg tablet amoxicillin 875 mg-potassium clavulanate 125 mg tablet completed amoxici llin 875 MG / clavulanate 125 MG Oral Tablet HAILEY ([facility]) benzonatate 100 MG Oral Capsule benzonat ate 100 mg capsule TAKE 1 CAPSULE BY MOUTH THREE TIMES DAILY NEEDED FOR 10 DAYS benzonatate 100 mg capsule TAKE 1 CAPSULE BY MOUTH THREE TIMES DAILY NEEDED FOR 10 DAYS completed benzonatate 100 MG Oral Capsule HAILEY ( [facility]) Trazodone Hydrochloride 50 MG Oral Tablet trazodone 50 mg tablet trazodone 50 mg tablet completed trazodone hydr ochloride 50 MG Oral Tablet HAILEY ([facility]) Trazodone Hydrochloride 50 MG Oral Tablet trazodone 50 mg tablet trazodone 50 mg tablet completed trazodone hydr ochloride 50 MG Oral Tablet HAILEY ([facility]) Amoxicillin 875 MG / Clavulanate 125 MG Oral Tablet amoxicillin 875 mg-potassium clavulanate 125 mg tablet amoxicillin 875 mg-potassium clavulanate 125 mg tablet completed amoxici llin 875 MG / clavulanate 125 MG Oral Tablet HAILEY ([facility]) Trazodone Hydrochloride 50 MG Oral Tablet trazodone 50 mg tablet trazodone 50 mg tablet completed trazodone hydr ochloride 50 MG Oral Tablet HAILEY ([facility]) Acetaminophen 325 MG / Hydrocodone Melani trate 5 MG Oral Tablet hydrocodone 5 mg- acetaminophen 325 mg tablet hydrocodone 5 mg-acetaminophen 325 mg tablet completed acetaminophen 325 MG / hydrocodone bitartrate 5 MG Oral Tablet HAILEY ([facility]) Citalopram 40 MG Oral Tablet citalopram 40 mg tablet TAKE 1 TABLET BY MOUTH ONCE DAILY citalopram 40 mg tablet TAKE 1 TABLET BY MOUTH ONCE DAILY completed citalopram 40 MG Oral Tablet ATH GREGORIO ([facility]) Amoxicillin 875 MG / Clavulanate 125 MG Oral Tablet amoxicillin 875 mg-potassium clavulanate 125 mg tablet amoxicillin 875 mg-potassium clavulanate 125 mg tablet completed amoxici llin 875 MG / clavulanate 125 MG Oral Tablet HAILEY ([facility]) Trazodone Hydrochloride 50 MG Oral Tablet trazodone 50 mg tablet trazodone 50 mg tablet completed trazodone hydr ochloride 50 MG Oral Tablet HAILEY ([facility]) Acetaminophen 325 MG / Hydrocodone Melani trate 5 MG Oral Tablet hydrocodone 5 mg- acetaminophen 325 mg tablet hydrocodone 5 mg-acetaminophen 325 mg tablet completed acetaminophen 325 MG / hydrocodone bitartrate 5 MG Oral Tablet HAILEY ([facility]) Citalopram 40 MG Oral Tablet citalopram 40 mg tablet TAKE 1 TABLET BY MOUTH ONCE DAILY citalopram 40 mg tablet TAKE 1 TABLET BY MOUTH ONCE DAILY completed citalopram 40 MG Oral Tablet ATH GREGORIO ([facility]) Trazodone Hydrochloride 50 MG Oral Tablet trazodone 50 mg tablet trazodone 50 mg tablet completed trazodone hydr ochloride 50 MG Oral Tablet HAILEY ([facility]) Acetaminophen 325 MG / Hydrocodone Melani trate 5 MG Oral Tablet hydrocodone 5 mg- acetaminophen 325 mg tablet hydrocodone 5 mg-acetaminophen 325 mg tablet completed acetaminophen 325 MG / hydrocodone bitartrate 5 MG Oral Tablet [facility] ([facility]) Citalopram 40 MG Oral Tablet citalopram 40 mg tablet TAKE 1 TABLET BY MOUTH ONCE DAILY citalopram 40 mg tablet TAKE 1 TABLET BY MOUTH ONCE DAILY completed citalopram 40 MG Oral Tablet ATH GREG[facility] ([facility]) Citalopram 40 MG Oral Tablet citalopram 40 mg tablet TAKE 1 TABLET BY MOUTH ONCE DAILY citalopram 40 mg tablet TAKE 1 TABLET BY MOUTH ONCE DAILY completed citalopram 40 MG Oral Tablet ATH GREGOR[facility] ([facility]) benzonatate 100 MG Oral Capsule benzonat ate 100 mg capsule TAKE 1 CAPSULE BY MOUTH THREE TIMES DAILY NEEDED FOR 10 DAYS benzonatate 100 mg capsule TAKE 1 CAPSULE BY MOUTH THREE TIMES DAILY NEEDED FOR 10 DAYS completed benzonatate 100 MG Oral Capsule [place] ( [facility]) Acetaminophen 325 MG / Hydrocodone Melani trate 5 MG Oral Tablet hydrocodone 5 mg- acetaminophen 325 mg tablet hydrocodone 5 mg-acetaminophen 325 mg tablet completed acetaminophen 325 MG / hydrocodone bitartrate 5 MG Oral Tablet [place] ([facility]) Amoxicillin 875 MG / Clavulanate 125 MG Oral Tablet amoxicillin 875 mg-potassium clavulanate 125 mg tablet amoxicillin 875 mg-potassium clavulanate 125 mg tablet completed amoxici llin 875 MG / clavulanate 125 MG Oral Tablet [place] ([facility]) Citalopram 40 MG Oral Tablet citalopram 40 mg tablet TAKE 1 TABLET BY MOUTH ONCE DAILY citalopram 40 mg tablet TAKE 1 TABLET BY MOUTH ONCE DAILY completed citalopram 40 MG Oral Tablet ATH GREGOR[facility] ([facility]) Citalopram 40 MG Oral Tablet citalopram 40 mg tablet TAKE 1 TABLET BY MOUTH ONCE DAILY citalopram 40 mg tablet TAKE 1 TABLET BY MOUTH ONCE DAILY completed citalopram 40 MG Oral Tablet ATH GREG[facility] ([facility]) Trazodone Hydrochloride 50 MG Oral Tablet trazodone 50 mg tablet trazodone 50 mg tablet completed trazodone hydr ochloride 50 MG Oral Tablet [place] ([facility]) Trazodone Hydrochloride 50 MG Oral Tablet trazodone 50 mg tablet trazodone 50 mg tablet completed trazodone hydr ochloride 50 MG Oral Tablet [place] ([facility]) Amoxicillin 875 MG / Clavulanate 125 MG Oral Tablet amoxicillin 875 mg-potassium clavulanate 125 mg tablet amoxicillin 875 mg-potassium clavulanate 125 mg tablet completed amoxici llin 875 MG / clavulanate 125 MG Oral Tablet [place] ([facility]) Acetaminophen 325 MG / Hydrocodone Melani trate 5 MG Oral Tablet hydrocodone 5 mg- acetaminophen 325 mg tablet hydrocodone 5 mg-acetaminophen 325 mg tablet completed acetaminophen 325 MG / hydrocodone bitartrate 5 MG Oral Tablet [place] ([facility]) Amoxicillin 875 MG / Clavulanate 125 MG Oral Tablet amoxicillin 875 mg-potassium clavulanate 125 mg tablet amoxicillin 875 mg-potassium clavulanate 125 mg tablet completed amoxici llin 875 MG / clavulanate 125 MG Oral Tablet [place] ([facility]) Pseudoephedrine Hydrochloride 30 MG Oral Tablet [Sudogest] Sudogest 30 mg tablet TAKE 1 TABLET BY MOUTH 4 TIMES DAILY NEEDED FOR 10 DAYS Sudogest 30 mg tablet TAKE 1 TABLET BY MOUTH 4 TIMES DAILY NEEDED FOR 10 DAYS completed pseudoephedrine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 [id number] Verruca vulgaris Verruca Vulgaris Problem 017 12:00:00 AM EST - 06/23/2020 12:00:00 AM EST [place] ([facility]) [id number] Verruca vulgaris Verruca Vulgaris Problem 017 12:00:00 AM EST - 06/23/2020 12:00:00 AM EST [place] ([facility]) [id number] Verruca vulgaris Verruca Vulgaris Problem 017 12:00:00 AM EST - 06/23/2020 12:00:00 AM EST [place] ([facility]) [id number] Verruca vulgaris Verruca Vulgaris Problem 017 12:00:00 AM EST - 06/23/2020 12:00:00 AM EST [place] ([facility]) [id number] Verruca vulgaris Verruca Vulgaris Problem 017 12:00:00 AM EST - 06/23/2020 12:00:00 AM EST [place] ([facility]) [id number] Emotional state finding Emotional State Finding Proble m 05/13/2016 12:00:00 AM EST - 06/23/2020 12:00:00 AM EST [place] ([facility]) [id number] Mixed anxiety and depressive disorder Mi xed Anxiety and Depressive Disorder Problem 05/13/2016 12:00:00 AM EST - 03/26/2020 12:00:00 AM EST [place] ([facility]) [id number] Emotional state finding Emotional State Finding Proble m 05/13/2016 12:00:00 AM EST - 06/23/2020 12:00:00 AM EST [place] ([facility]) [id number] Mixed anxiety and depressive disorder Mi xed Anxiety and Depressive Disorder Problem 05/13/2016 12:00:00 AM EST - 03/26/2020 12:00:00 AM EST [place] ([facility]) [id number] Emotional state finding Emotional State Finding Proble m 05/13/2016 12:00:00 AM EST - 06/23/2020 12:00:00 AM EST OCILLA ([facility]) [id number] Mixed anxiety and depressive disorder Mi xed Anxiety and Depressive Disorder Problem 05/13/2016 12:00:00 AM EST - 03/26/2020 12:00:00 AM EST [place] ([facility]) [id number] Emotional state finding Emotional State Finding Proble 05/13/2016 12:00:00 AM EST - 06/23/2020 12:00:00 AM EST [place] ([facility]) [id number] Mixed anxiety and depressive disorder Mi xed Anxiety and Depressive Disorder Problem 05/13/2016 12:00:00 AM EST - 03/26/2020 12:00:00 AM EST [place] ([facility]) [id number] Emotional state finding Emotional State Finding Proble m 05/13/2016 12:00:00 AM EST - 06/23/2020 12:00:00 AM EST [place] ([facility]) [id number] Mixed anxiety and depressive disorder Mi xed Anxiety and Depressive Disorder Problem 05/13/2016 12:00:00 AM EST - 03/26/2020 12:00:00 AM EST [place] ([facility]) [id number] Emotional state finding Emotional State Finding Proble m 05/13/2016 12:00:00 AM EST - 06/23/2020 12:00:00 AM EST [place] ([facility]) [id number] Mixed anxiety and depressive disorder Mi xed Anxiety and Depressive Disorder Problem 05/13/2016 12:00:00 AM EST - 03/26/2020 12:00:00 AM EST [place] ([facility]) [id number] Mixed anxiety and depressive disorder Mi xed Anxiety and Depressive Disorder Problem 05/13/2016 12:00:00 AM EST - 03/26/2020 12:00:00 AM EST [place] ([facility]) [id number] Emotional state finding Emotional State Finding Proble m 05/13/2016 12:00:00 AM EST - 06/23/2020 12:00:00 AM EST [place] ([facility]) [id number] Mixed anxiety and depressive disorder Mi xed Anxiety and Depressive Disorder Problem 05/13/2016 12:00:00 AM EST - 03/26/2020 12:00:00 AM EST OCILLA ([facility]) [id number] Emotional state finding Emotional State Finding Proble m 05/13/2016 12:00:00 AM EST - 06/23/2020 12:00:00 AM EST [place] ([facility]) [id number] Mixed anxiety and depressive disorder Mi xed Anxiety and Depressive Disorder Problem 05/13/2016 12:00:00 AM EST - 03/26/2020 12:00:00 AM EST [place] ([facility]) [id number] Emotional state finding Emotional State Finding Proble m 05/13/2016 12:00:00 AM EST - 06/23/2020 12:00:00 AM EST [place] ([facility]) [id number] Emotional state finding Emotional State Finding Proble m 05/13/2016 12:00:00 AM EST - 06/23/2020 12:00:00 AM EST [place] ([facility]) [id number] Mixed anxiety and depressive disorder Mi xed Anxiety and Depressive Disorder Problem 05/13/2016 12:00:00 AM EST - 03/26/2020 12:00:00 AM EST [place] ([facility]) [id number] Emotional state finding Emotional State Finding Proble m 05/13/2016 12:00:00 AM EST - 06/23/2020 12:00:00 AM EST [place] ([facility]) [id number] Mixed anxiety and depressive disorder Mi xed Anxiety and Depressive Disorder Problem 05/13/2016 12:00:00 AM EST - 03/26/2020 12:00:00 AM EST [place] ([facility]) [id number] Emotional state finding Emotional State Finding Proble m 05/13/2016 12:00:00 AM EST - 06/23/2020 12:00:00 AM EST [place] ([facility]) [id number] Mixed anxiety and depressive disorder Mi xed Anxiety and Depressive Disorder Problem 05/13/2016 12:00:00 AM EST - 03/26/2020 12:00:00 AM EST [place] ([facility]) [id number] Emotional state finding Emotional State Finding Proble m 05/13/2016 12:00:00 AM EST - 06/23/2020 12:00:00 AM EST [place] ([facility]) [id number] Mixed anxiety and depressive disorder Mi xed Anxiety and Depressive Disorder Problem 05/13/2016 12:00:00 AM EST - 03/26/2020 12:00:00 AM EST [place] ([facility]) [id number] Emotional state finding Emotional State Finding Proble 05/13/2016 12:00:00 AM EST - 06/23/2020 12:00:00 AM EST [place] ([facility]) [id number] Mixed anxiety and depressive disorder Mi xed Anxiety and Depressive Disorder Problem 05/13/2016 12:00:00 AM EST - 03/26/2020 12:00:00 AM EST [place] ([facility]) [id number] Emotional state finding Emotional State Finding Proble 05/13/2016 12:00:00 AM EST - 06/23/2020 12:00:00 AM EST [place] ([facility]) [id number] Mixed anxiety and depressive disorder Mi xed Anxiety and Depressive Disorder Problem 05/13/2016 12:00:00 AM EST - 03/26/2020 12:00:00 AM EST [place] ([facility]) [id number] Emotional state finding Emotional State Finding Proble m 05/13/2016 12:00:00 AM EST - 06/23/2020 12:00:00 AM EST [place] ([facility]) [id number] Mixed anxiety and depressive disorder Mi xed Anxiety and Depressive Disorder Problem 05/13/2016 12:00:00 AM EST - 03/26/2020 12:00:00 AM EST [place] ([facility]) [id number] Emotional state finding Emotional State Finding Proble m 05/13/2016 12:00:00 AM EST - 06/23/2020 12:00:00 AM EST [place] ([facility]) [id number] Mixed anxiety and depressive disorder Mi xed Anxiety and Depressive Disorder Problem 05/13/2016 12:00:00 AM EST - 03/26/2020 12:00:00 AM EST [place] ([facility]) [id number] Mixed anxiety and depressive disorder Mi xed Anxiety and Depressive Disorder Problem 05/13/2016 12:00:00 AM EST - 03/26/2020 12:00:00 AM EST [place] ([facility]) [id number] Mixed anxiety and depressive disorder Mi xed Anxiety and Depressive Disorder Problem 05/13/2016 12:00:00 AM EST - 03/26/2020 12:00:00 AM EST [place] ([facility]) [id number] Mixed anxiety and depressive disorder Mi xed Anxiety and Depressive Disorder Problem 05/13/2016 12:00:00 AM EST - 03/26/2020 12:00:00 AM EST [place] ([facility]) [id number] Mixed anxiety and depressive disorder Mi xed Anxiety and Depressive Disorder Problem 05/13/2016 12:00:00 AM EST - 03/26/2020 12:00:00 AM EST [place] ([facility]) [id number] Mixed anxiety and depressive disorder Mi xed Anxiety and Depressive Disorder Problem 05/13/2016 12:00:00 AM EST - 03/26/2020 12:00:00 AM EST [place] ([facility]) [id number] Mixed anxiety and depressive disorder Mi xed Anxiety and Depressive Disorder Problem 05/13/2016 12:00:00 AM EST - 03/26/2020 12:00:00 AM EST [place] ([facility]) [id number] Mixed anxiety and depressive disorder Mi xed Anxiety and Depressive Disorder Problem 05/13/2016 12:00:00 AM EST - 03/26/2020 12:00:00 AM EST HAILEY ([facility]) [id number] Mixed anxiety and depressive disorder Mi xed Anxiety and Depressive Disorder Problem 05/13/2016 12:00:00 AM EST - 03/26/2020 12:00:00 AM EST [place] ([facility]) [id number] Mixed anxiety and depressive disorder Mi xed Anxiety and Depressive Disorder Problem 05/13/2016 12:00:00 AM EST - 03/26/2020 12:00:00 AM EST [place] ([facility]) [id number] Mental disorder Mental Disorder Problem 6 12:00:00 AM EST - 06/23/2020 12:00:00 AM EST [place] ([facility]) [id number] Mental disorder Mental Disorder Problem 6 12:00:00 AM EST - 06/23/2020 12:00:00 AM EST [place] ([facility]) [id number] Mental disorder Mental Disorder Problem 6 12:00:00 AM EST - 06/23/2020 12:00:00 AM EST [place] ([facility]) [id number] Mental disorder Mental Disorder Problem 6 12:00:00 AM EST - 06/23/2020 12:00:00 AM EST [place] ([facility]) [id number] Mental disorder Mental Disorder Problem 6 12:00:00 AM EST - 06/23/2020 12:00:00 AM EST [place] ([facility]) [id number] Mental disorder Mental Disorder Problem 6 12:00:00 AM EST - 06/23/2020 12:00:00 AM EST [place] ([facility]) [id number] Mental disorder Mental Disorder Problem 6 12:00:00 AM EST - 06/23/2020 12:00:00 AM EST [place] ([facility]) [id number] Mental disorder Mental Disorder Problem 6 12:00:00 AM EST - 06/23/2020 12:00:00 AM EST [place] ([facility]) [id number] Mental disorder Mental Disorder Problem 6 12:00:00 AM EST - 06/23/2020 12:00:00 AM EST [place] ([facility]) [id number] Mental disorder Mental Disorder Problem 6 12:00:00 AM EST - 06/23/2020 12:00:00 AM EST [place] ([facility]) [id number] Mental disorder Mental Disorder Problem 6 12:00:00 AM EST - 06/23/2020 12:00:00 AM EST [place] ([facility]) [id number] Mental disorder Mental Disorder Problem 6 12:00:00 AM EST - 06/23/2020 12:00:00 AM EST [place] ([facility]) [id number] Mental disorder Mental Disorder Problem 6 12:00:00 AM EST - 06/23/2020 12:00:00 AM EST [place] ([facility]) [id number] Mental disorder Mental Disorder Problem 6 12:00:00 AM EST - 06/23/2020 12:00:00 AM EST [place] ([facility]) [id number] Mental disorder Mental Disorder Problem 6 12:00:00 AM EST - 06/23/2020 12:00:00 AM EST [place] ([facility]) [id number] Mental disorder Mental Disorder Problem 6 12:00:00 AM EST - 06/23/2020 12:00:00 AM EST [place] ([facility]) [id number] Mental disorder Mental Disorder Problem 6 12:00:00 AM EST - 06/23/2020 12:00:00 AM EST [place] ([facility]) [id number] Clinical finding Clinical Finding Problem 016 12:00:00 AM EDT - 06/23/2020 12:00:00 AM EST [place] ([facility]) [id number] Clinical finding Clinical Finding Problem 016 12:00:00 AM EDT - 06/23/2020 12:00:00 AM EST [place] ([facility]) [id number] Clinical finding Clinical Finding Problem 016 12:00:00 AM EDT - 06/23/2020 12:00:00 AM EST [place] ([facility]) [id number] Clinical finding Clinical Finding Problem 016 12:00:00 AM EDT - 06/23/2020 12:00:00 AM EST [place] ([facility]) [id number] Clinical finding Clinical Finding Problem 016 12:00:00 AM EDT - 06/23/2020 12:00:00 AM EST [place] ([facility]) [id number] Clinical finding Clinical Finding Problem 016 12:00:00 AM EDT - 06/23/2020 12:00:00 AM EST [place] ([facility]) [id number] Clinical finding Clinical Finding Problem 016 12:00:00 AM EDT - 06/23/2020 12:00:00 AM EST [place] ([facility]) [id number] Clinical finding Clinical Finding Problem 016 12:00:00 AM EDT - 06/23/2020 12:00:00 AM EST [place] ([facility]) [id number] Clinical finding Clinical Finding Problem 016 12:00:00 AM EDT - 06/23/2020 12:00:00 AM EST [place] ([facility]) [id number] Clinical finding Clinical Finding Problem 016 12:00:00 AM EDT - 06/23/2020 12:00:00 AM EST [place] ([facility]) [id number] Clinical finding Clinical Finding Problem 016 12:00:00 AM EDT - 06/23/2020 12:00:00 AM EST [place] ([facility]) [id number] Clinical finding Clinical Finding Problem 016 12:00:00 AM EDT - 06/23/2020 12:00:00 AM EST [place] ([facility]) [id number] Clinical finding Clinical Finding Problem 016 12:00:00 AM EDT - 06/23/2020 12:00:00 AM EST [place] ([facility]) [id number] Clinical finding Clinical Finding Problem 016 12:00:00 AM EDT - 06/23/2020 12:00:00 AM EST [place] ([facility]) [id number] Clinical finding Clinical Finding Problem 016 12:00:00 AM EDT - 06/23/2020 12:00:00 AM EST [place] ([facility]) [id number] Clinical finding Clinical Finding Problem 016 12:00:00 AM EDT - 06/23/2020 12:00:00 AM EST [place] ([facility]) [id number] Clinical finding Clinical Finding Problem 016 12:00:00 AM EDT - 06/23/2020 12:00:00 AM EST [place] ([facility]) [id number] Influenza vaccine needed Influenza Vaccine Needed Pro blem 01/27/2015 12:00:00 AM EDT - 06/23/2020 12:00:00 AM EST [place] ([facility]) [id number] Influenza vaccine needed Influenza Vaccine Needed Pro blem 01/27/2015 12:00:00 AM EDT - 06/23/2020 12:00:00 AM EST [place] ([facility]) [id number] Influenza vaccine needed Influenza Vaccine Needed Pro blem 01/27/2015 12:00:00 AM EDT - 06/23/2020 12:00:00 AM EST [place] ([facility]) [id number] Influenza vaccine needed Influenza Vaccine Needed Pro blem 01/27/2015 12:00:00 AM EDT - 06/23/2020 12:00:00 AM EST [place] ([facility]) [id number] Influenza vaccine needed Influenza Vaccine Needed Pro blem 01/27/2015 12:00:00 AM EDT - 06/23/2020 12:00:00 AM EST [place] ([facility]) [id number] Influenza vaccine needed Influenza Vaccine Needed Pro blem 01/27/2015 12:00:00 AM EDT - 06/23/2020 12:00:00 AM EST [place] ([facility]) [id number] Influenza vaccine needed Influenza Vaccine Needed Pro blem 01/27/2015 12:00:00 AM EDT - 06/23/2020 12:00:00 AM EST [place] ([facility]) [id number] Influenza vaccine needed Influenza Vaccine Needed Pro blem 01/27/2015 12:00:00 AM EDT - 06/23/2020 12:00:00 AM EST [place] ([facility]) [id number] Influenza vaccine needed Influenza Vaccine Needed Pro blem 01/27/2015 12:00:00 AM EDT - 06/23/2020 12:00:00 AM EST [place] ([facility]) [id number] Influenza vaccine needed Influenza Vaccine Needed Pro blem 01/27/2015 12:00:00 AM EDT - 06/23/2020 12:00:00 AM EST [place] ([facility]) [id number] Influenza vaccine needed Influenza Vaccine Needed Pro blem 01/27/2015 12:00:00 AM EDT - 06/23/2020 12:00:00 AM EST [place] ([facility]) [id number] Influenza vaccine needed Influenza Vaccine Needed Pro blem 01/27/2015 12:00:00 AM EDT - 06/23/2020 12:00:00 AM EST [place] ([facility]) [id number] Influenza vaccine needed Influenza Vaccine Needed Pro blem 01/27/2015 12:00:00 AM EDT - 06/23/2020 12:00:00 AM EST [place] ([facility]) [id number] Influenza vaccine needed Influenza Vaccine Needed Pro blem 01/27/2015 12:00:00 AM EDT - 06/23/2020 12:00:00 AM EST [place] ([facility]) [id number] Influenza vaccine needed Influenza Vaccine Needed Pro blem 01/27/2015 12:00:00 AM EDT - 06/23/2020 12:00:00 AM EST [place] ([facility]) [id number] Influenza vaccine needed Influenza Vaccine Needed Pro blem 01/27/2015 12:00:00 AM EDT - 06/23/2020 12:00:00 AM EST [place] ([facility]) [id number] Influenza vaccine needed Influenza Vaccine Needed Pro blem 01/27/2015 12:00:00 AM EDT - 06/23/2020 12:00:00 AM EST [place] ([facility]) Surgeries/Procedures Procedure Description Date Indications Data Source(s) OFFICE OUTPATIENT VISIT 15 MINUTES 01/07/2021 12:00:00 AM EDT MED[facility] ([facility]) OFFICE OUTPATIENT VISIT 25 MINUTES 11/05/2020 12:00:00 AM EDT MEDENT ([facility]) OFFICE OUTPATIENT VISIT 15 MINUTES 10/14/2020 12:00:00 AM EDT MED[facility] ([facility]) OFFICE OUTPATIENT VISIT 15 MINUTES 10/07/2020 12:00:00 AM EDT MEDENT ([facility]) Etonogestrel (contraceptive) implant system, including impla nt and supplies 10/02/2020 12:00:00 AM EDT eCW1 ([facility]) Medication: 2% Lidocaine intradermal 10/02/2020 12:00: 00 AM EDT eCW1 ([facility]) OFFICE OUTPATIENT NEW 30 MINUTES 09/20/2020 12:00:00 A M EDT MEDENT ([facility]) Endoscopy Wrist W/Release Transverse Carpal Ligament 05/15/2020 12:00:00 AM EST MEDENT ([facility]) Endoscopy Wrist W/Release Transverse Carpal Ligament 04/22/2020 12:00:00 AM EST MEDENT ([facility]) RADEX WRIST 2 VIEWS 03/04/2020 12:00:00 AM EST MED[facility] ([facility]) Results ID Date Data Source [id number] 01/07/2021 12:26:00 PM EDT MED[facility] ([facility]) Name Value Range Interpretation Code Description Data Munira rce(s) Supporting Document(s) Bacteria identified in Throat by Culture Laboratory test result MEDENT ([facility]) FULL REPORT IN LAB NOTES (eCW and [facility] ). NORMAL FARAZ PRESENT ID Date Data Source [id number] 01/07/2021 12:00:00 AM EDT [facility] Name Value Range Interpretation Code Description Data Munira rce(s) Supporting Document(s) SARS-CoV2 Rapid [facility]igen [facility] This lab was reported by [facility]. ID Date Data Source [id number] 11/05/2020 06:57:00 PM EDT MEDENT ([facility]) Name Value Range Interpretation Code Description Data Munira rce(s) Supporting Document(s) Bacteria identified in Urine by Culture Laboratory test result MEDENT ([facility]) No Rx ID Date Data Source [id number] 09/20/2020 03:59:00 PM EDT MED[facility] ([facility]) Name Value Range Interpretation Code Description Data Munira rce(s) Supporting Document(s) Group A Strep Culture Laboratory test result MEDENT ([facility]) FULL REPORT IN LAB NOTES (e[facility] and [facility] ). NEGATIVE FOR STREP PYOGENES (GROUP A) ID Date Data Source [id number] 09/20/2020 12:00:00 AM EDT [facility] Name Value Range Interpretation Code Description Data Munira rce(s) Supporting Document(s) SARS-CoV2 Rapid Antigen Negative [facility] This lab was ordered by [facility] and reported by [facility]. ID Date Data Source [id number] 08/14/2020 10:55:00 AM EDT [facility] Name Value Range Interpretation Code Description Data Munira rce(s) Supporting Document(s) COVID-19 RT-PCR NASAL SWAB Not Detected Not Detected [facility] A not detected (negative) test result fo r this test means that SARS-CoV-2 RNA was not present in the specimen above the limit ofdetection. Laboratory test results should always be considered in thecontext of clinical observations and epidemiological data in making afinal diagnosis and patient management decisions. Results will bereported to government agencies as required.This test has received Emergency Use Authorization (EUA). We will continue to follow federal and state requirements for COVID-19 reporting. This test has been authorized only for the detection of RNAfrom SARS-CoV-2 virus and diagnosis of SARS-CoV-2 virus infection, notfor any other viruses or pathogens. This test is only authorized for the duration of the declaration that circumstances exist justifying the authorization of the emergency use of in vitro diagnostic tests for detection of SARS-CoV-2 virus and/or diagnosis of SARS-CoV-2 virusinfection under section 564(b)(1) of the Act, 21 U.S.C. section 360bbb-3(b)(1), unless the authorization is terminated or revoked sooner. We will continue to follow federal and state requirements for both notification of results and any confirmatory testing that is required by another agency. This test was developed and its performance characteristics determined by [facility] and verified at [facility]. It has not been cleared or approved by the U.S. Food and Drug Administration for diagnostic use. This test has been authorized by FDA under an EUA for use by authorized laboratories. Results should be used in conjunction with clinical findings, and should not form the sole basis for a diagnosis or treatment decision. Methods: SARS-CoV-2 Multiplex RT-PCR Assay ID Date Data Source [id number] 08/12/2020 07:00:00 PM EDT [facility] Name Value Range Interpretation Code Description Data Munira rce(s) Supporting Document(s) SARS-CoV-2 (COVID-19) N gene [Presence] in Respiratory specimen by GREGORY with probe detection NEGATIVE [facility] This lab was ordered by Larisa Moraes and reported by [facility]. ID Date Data Source [id number] 08/12/2020 02:45:00 PM EDT [facility]) Name Value Range Interpretation Code Description Data Munira rce(s) Supporting Document(s) sars-cov-2 negative negative Sars-cov-2 [facility]) ID Date Data Source [id number] 08/12/2020 02:45:00 PM EDT [facility]) Name Value Range Interpretation Code Description Data Munira rce(s) Supporting Document(s) sars-cov-2 negative negative Sars-cov-2 [facility]) ID Date Data Source [id number] 08/12/2020 02:45:00 PM EDT [facility]) Name Value Range Interpretation Code Description Data Munira rce(s) Supporting Document(s) sars-cov-2 negative negative Sars-cov-2 [facility]) ID Date Data Source [id number] 08/12/2020 02:45:00 PM EDT [facility]) Name Value Range Interpretation Code Description Data Munira rce(s) Supporting Document(s) sars-cov-2 negative negative Sars-cov-2 [facility]) ID Date Data Source [id number] 08/12/2020 02:45:00 PM EDT [facility]) Name Value Range Interpretation Code Description Data Munira rce(s) Supporting Document(s) sars-cov-2 negative negative Sars-cov-2 [facility]) ID Date Data Source [id number] 08/12/2020 02:45:00 PM EDT [facility]) Name Value Range Interpretation Code Description Data Munira rce(s) Supporting Document(s) sars-cov-2 negative negative Sars-cov-2 [facility] ([facility]) ID Date Data Source [id number] 08/12/2020 02:45:00 PM EDT [facility]) Name Value Range Interpretation Code Description Data Munira rce(s) Supporting Document(s) sars-cov-2 negative negative Sars-cov-2 [facility]) ID Date Data Source [id number] 08/12/2020 02:45:00 PM EDT [facility]) Name Value Range Interpretation Code Description Data Munira rce(s) Supporting Document(s) sars-cov-2 negative negative Sars-cov-2 [facility]) ID Date Data Source [id number] 08/12/2020 02:45:00 PM EDT [facility]) Name Value Range Interpretation Code Description Data Munira rce(s) Supporting Document(s) sars-cov-2 negative negative Sars-cov-2 [facility] ([facility]) ID Date Data Source [id number] 08/12/2020 02:45:00 PM EDT [facility]) Name Value Range Interpretation Code Description Data Munira rce(s) Supporting Document(s) sars-cov-2 negative negative Sars-cov-2 [facility] ([facility]) ID Date Data Source [id number] 08/12/2020 02:45:00 PM EDT [facility]) Name Value Range Interpretation Code Description Data Munira rce(s) Supporting Document(s) sars-cov-2 negative negative Sars-cov-2 [facility]) ID Date Data Source [id number] 08/12/2020 02:45:00 PM EDT [facility]) Name Value Range Interpretation Code Description Data Munira rce(s) Supporting Document(s) sars-cov-2 negative negative Sars-cov-2 [facility] ([facility]) ID Date Data Source [id number] 08/12/2020 02:45:00 PM EDT [facility]) Name Value Range Interpretation Code Description Data Munira rce(s) Supporting Document(s) sars-cov-2 negative negative Sars-cov-2 [facility]) ID Date Data Source [id number] 08/12/2020 02:45:00 PM EDT [facility]) Name Value Range Interpretation Code Description Data Munira rce(s) Supporting Document(s) sars-cov-2 negative negative Sars-cov-2 [facility]) ID Date Data Source [id number] 08/12/2020 02:45:00 PM EDT [place] ([facility]) Name Value Range Interpretation Code Description Data Munira rce(s) Supporting Document(s) sars-cov-2 negative negative Sars-cov-2 [facility] ([facility]) ID Date Data Source [id number] 08/12/2020 02:40:00 PM EDT [facility] Name Value Range Interpretation Code Description Data Munira rce(s) Supporting Document(s) SARS coronavirus 2 RdRp gene [Presence] in Respiratory specimen by GREGORY with probe detection Not detected [facility] This lab was ordered by [facility] and reported by [facility]. ID Date Data Source [id number] 06/23/2020 12:00:00 PM EST [place] ([facility]) Name Value Range Interpretation Code Description Data Munira rce(s) Supporting Document(s) ID Date Data Source [id number] 06/23/2020 12:00:00 PM EST [place] ([facility]) Name Value Range Interpretation Code Description Data Munira rce(s) Supporting Document(s) ID Date Data Source [id number] 06/23/2020 12:00:00 PM EST [place] ([facility]) Name Value Range Interpretation Code Description Data Munira rce(s) Supporting Document(s) estimated average glucose 151 mg/dL 60-110 Above high norm al Estimated Average Glucose HAI[place] ([facility]) Hemoglobin A1c/Hemoglobin.total in Blood 6.9 % Hemoglobin a1C [facility] ([facility]) ID Date Data Source [id number] 06/23/2020 12:00:00 PM EST [place] ([facility]) Name Value Range Interpretation Code Description Data Munira rce(s) Supporting Document(s) ferritin 45 NG/mL 8-252 Ferritin [facility] ([facility]) ID Date Data Source [id number] 06/23/2020 12:00:00 PM EST [place] ([facility]) Name Value Range Interpretation Code Description Data Munira rce(s) Supporting Document(s) total 25(oh) vitamin D 10.9 NG/mL 30.0-100.0 Below low normal T otal 25(Oh) Vitamin D [place] ([facility]) ID Date Data Source [id number] 06/23/2020 12:00:00 PM EST [place] ([facility]) Name Value Range Interpretation Code Description Data Munira rce(s) Supporting Document(s) thyroid stimulating hormone 1.610 uIU/mL 0.358-3.740 Thyroid Stimulating Hormone [facility] ([facility]) ID Date Data Source [id number] 06/23/2020 12:00:00 PM EST [place] ([facility]) Name Value Range Interpretation Code Description Data Munira rce(s) Supporting Document(s) percent saturation 36.5 % 13.2-45.0 Percent Saturatio n [place] ([facility]) total iron binding capacity 282 ug/dL 250-450 Total Ir on Binding Capacity [facility] ([facility]) iron (fe) 103 ug/dL 50-170 Iron (Fe) [facility] ([facility]) ID Date Data Source [id number] 06/23/2020 12:00:00 PM EST [place] ([facility]) Name Value Range Interpretation Code Description Data Munira rce(s) Supporting Document(s) cholesterol level 201 mg/dL <200 Above high normal Cholesterol Level [facility] ([facility]) triglycerides level 516 mg/dL <150 Above high normal Triglycer ides Level [facility] ([facility]) cholesterol risk ratio <5 Above high normal Choles terol Risk Ratio [facility] ([facility]) HDL cholesterol 35 mg/dL >40 Below low normal HDL Cholestero l [facility] ([facility]) non-HDL-C 166 mg/dL Non-hdl-c [facility] ([facility]) ID Date Data Source [id number] 06/23/2020 12:00:00 PM EST [place] ([facility]) Name Value Range Interpretation Code Description Data Munira rce(s) Supporting Document(s) glucose, fasting 155 mg/dL 70-100 Above high normal Glucose, Fas ting [facility] ([facility]) sodium level 136 mEq/L 136-145 Sodium Level HAI[facility] (No [facility]) creatinine for GFR 1.22 mg/dL 0.55-1.30 Creatinine for GF R [place] ([facility]) blood urea nitrogen 17 mg/dL 7-18 Blood Urea Nitro gen [facility] ([facility]) glomerular filtration rate >60 Below low normal Lesly merular Filtration Rate HAILEY ([facility]) carbon dioxide level 24 mEq/L 21-32 Carbon Dioxide Level HA[facility] ([facility]) chloride level 106 mEq/L 98-107 Chloride Level [facility] ([facility]) potassium serum 4.4 mEq/L 3.5-5.1 Potassium Serum ATHE NA ([facility]) anion gap 6 mEq/L 8-16 Below low normal Anion Gap HAILEY ( [facility]) ALT/SGPT 30 U/L 12-78 ALT/SGPT [facility] ([facility]) alkaline phosphatase 130 U/L 45-117 Above high normal Alkaline Phosphatase [facility] ([facility]) AST/SGOT 11 U/L 7-37 AST/SGOT [facility] ([facility]) calcium level 9.4 mg/dL 8.5-10.1 Calcium Level HAI[facility] ( [facility]) total protein 7.1 gm/dL 6.4-8.2 Total Protein [facility] ( [facility]) albumin 3.7 gm/dL 3.2-5.2 Albumin [facility] ([facility]) bilirubin,total 0.4 mg/dL 0.2-1.0 Bilirubin,total [facility] [facility] albumin/globulin ratio 1.2-2.2 Below low normal Albumin /globulin Ratio HAILEY ([facility]) ID Date Data Source [id number] 06/23/2020 12:00:00 PM EST HAILEY ([facility]) Name Value Range Interpretation Code Description Data Munira rce(s) Supporting Document(s) red blood count 5.35 10 4.00-5.40 Red Blood Count ATHE NA ([facility]) white blood count 8.1 10 4.0-10.0 White Blood Count HAILEY ([facility]) hemoglobin 14.6 g/dL 12.0-15.5 Hemoglobin HAILEY ([facility]) hematocrit 46.3 % 36.0-47.0 Hematocrit HAILEY ([facility]) mean corpuscular volume 86.5 fL 80.0-96.0 Mean Corpusc ular Volume HAILEY ([facility]) mean corpuscular hemoglobin 27.3 pg 27.0-33.0 Mean Cor puscular Hemoglobin HAILEY ([facility]) platelet count, automated 275 10 150-450 Platelet C ount, Automated HAILEY ([facility]) red cell distribution width 13.6 % 11.5-14.5 Red Cell Distribution Width HAILEY ([facility]) mean corpuscular HGB conc 31.5 g/dL 32.0-36.5 Below low sidney l Mean Corpuscular HGB Conc HAILEY ([facility]) mono % 7.5 % 2.0-8.0 [place] % HAILEY ([facility]) lymph % 26.9 % 24.0-44.0 Lymph % HAILEY ([facility]) neutrophils % 59.5 % 36.0-66.0 Neutrophils % HAILEY ( [facility]) eos % 4.6 % 0.0-3.0 Above high normal Eos % HAILEY ([facility]) baso % 1.0 % 0.0-1.0 Baso % OCILLA ([facility]) immature granulocyte % 0.5 % 0-3.0 Immature Gran ulocyte % HAILEY ([facility]) neutrophils # 4.8 10 1.5-8.5 Neutrophils # OCILLA ( [facility]) mono # 0.6 10 0.0-0.8 [place] # HAILEY ([facility]) nucleated red blood cell % 0.0 % 0-0 Nucleated Red Blood Cell % HAILEY ([facility]) lymph # 2.2 10 1.5-5.0 Lymph # HAILEY ([facility]) eos # 0.4 10 0.0-0.5 Eos # HAILEY ([facility]) baso # 0.1 10 0.0-0.2 Baso # HAILEY ([facility]) ID Date Data Source [id number] 06/23/2020 12:00:00 PM EST HAILEY ([facility]) Name Value Range Interpretation Code Description Data Munira rce(s) Supporting Document(s) ID Date Data Source [id number] 06/23/2020 12:00:00 PM EST HAILEY ([facility]) Name Value Range Interpretation Code Description Data Munira rce(s) Supporting Document(s) ID Date Data Source [id number] 06/23/2020 12:00:00 PM EST HAILEY ([facility]) Name Value Range Interpretation Code Description Data Munira rce(s) Supporting Document(s) Hemoglobin A1c/Hemoglobin.total in Blood 6.9 % Hemoglobin a1C HAILEY ([facility]) estimated average glucose 151 mg/dL 60-110 Above high norm al Estimated Average Glucose OCILLA ([facility]) ID Date Data Source [id number] 06/23/2020 12:00:00 PM EST HAILEY ([facility]) Name Value Range Interpretation Code Description Data Munira rce(s) Supporting Document(s) ferritin 45 NG/mL 8-252 Ferritin OCILLA ([facility]) ID Date Data Source [id number] 06/23/2020 12:00:00 PM EST HAILEY ([facility]) Name Value Range Interpretation Code Description Data Munira rce(s) Supporting Document(s) total 25(oh) vitamin D 10.9 NG/mL 30.0-100.0 Below low normal T otal 25(Oh) Vitamin D HAILEY ([facility]) ID Date Data Source [id number] 06/23/2020 12:00:00 PM EST HAILEY ([facility]) Name Value Range Interpretation Code Description Data Munira rce(s) Supporting Document(s) thyroid stimulating hormone 1.610 uIU/mL 0.358-3.740 Thyroid Stimulating Hormone HAILEY ([facility]) ID Date Data Source [id number] 06/23/2020 12:00:00 PM EST HAILEY ([facility]) Name Value Range Interpretation Code Description Data Munira rce(s) Supporting Document(s) iron (fe) 103 ug/dL 50-170 Iron (Fe) HAILEY ([facility]) total iron binding capacity 282 ug/dL 250-450 Total Ir on Binding Capacity HIALEY ([facility]) percent saturation 36.5 % 13.2-45.0 Percent Saturatio n HAILEY ([facility]) ID Date Data Source [id number] 06/23/2020 12:00:00 PM EST HAILEY ([facility]) Name Value Range Interpretation Code Description Data Munira rce(s) Supporting Document(s) cholesterol level 201 mg/dL <200 Above high normal Cholesterol Level HAILEY ([facility]) HDL cholesterol 35 mg/dL >40 Below low normal HDL Cholestero l HAILEY ([facility]) triglycerides level 516 mg/dL <150 Above high normal Triglycer ides Level HAILEY ([facility]) non-HDL-C 166 mg/dL Non-hdl-c HAILEY ([facility]) cholesterol risk ratio <5 Above high normal Choles terol Risk Ratio HAILEY ([facility]) ID Date Data Source [id number] 06/23/2020 12:00:00 PM EST HAILEY ([facility]) Name Value Range Interpretation Code Description Data Munira rce(s) Supporting Document(s) creatinine for GFR 1.22 mg/dL 0.55-1.30 Creatinine for GF R HAILEY ([facility]) glucose, fasting 155 mg/dL 70-100 Above high normal Glucose, Fas ting HAILEY ([facility]) blood urea nitrogen 17 mg/dL 7-18 Blood Urea Nitro gen HAILEY ([facility]) chloride level 106 mEq/L 98-107 Chloride Level HAILEY ([facility]) sodium level 136 mEq/L 136-145 Sodium Level HAILEY ([facility]) potassium serum 4.4 mEq/L 3.5-5.1 Potassium Serum ATHE ([facility]) glomerular filtration rate >60 Below low normal Lesly merular Filtration Rate HAILEY ([facility]) anion gap 6 mEq/L 8-16 Below low normal Anion Gap HAIELY ( [facility]) calcium level 9.4 mg/dL 8.5-10.1 Calcium Level HAILEY ( [facility]) carbon dioxide level 24 mEq/L 21-32 Carbon Dioxide Level HAILEY ([facility]) AST/SGOT 11 U/L 7-37 AST/SGOT HAILEY ([facility]) alkaline phosphatase 130 U/L 45-117 Above high normal Alkaline Phosphatase HAILEY ([facility]) ALT/SGPT 30 U/L 12-78 ALT/SGPT [place] ([facility]) bilirubin,total 0.4 mg/dL 0.2-1.0 Bilirubin,total ATHE ([facility]) albumin/globulin ratio 1.2-2.2 Below low normal Albumin /globulin Ratio HAILEY ([facility]) total protein 7.1 gm/dL 6.4-8.2 Total Protein HAILEY ( [facility]) albumin 3.7 gm/dL 3.2-5.2 Albumin HAILEY ([facility]) ID Date Data Source [id number] 06/23/2020 12:00:00 PM EST HAILEY ([facility]) Name Value Range Interpretation Code Description Data Munira rce(s) Supporting Document(s) white blood count 8.1 10 4.0-10.0 White Blood Count HAILEY ([facility]) red blood count 5.35 10 4.00-5.40 Red Blood Count ATHE NA ([facility]) hemoglobin 14.6 g/dL 12.0-15.5 Hemoglobin HAILEY ([facility]) hematocrit 46.3 % 36.0-47.0 Hematocrit HAILEY ([facility]) mean corpuscular hemoglobin 27.3 pg 27.0-33.0 Mean Cor puscular Hemoglobin HAILEY ([facility]) mean corpuscular HGB conc 31.5 g/dL 32.0-36.5 Below low sidney l Mean Corpuscular HGB Conc HAILEY ([facility]) mean corpuscular volume 86.5 fL 80.0-96.0 Mean Corpusc ular Volume HAILEY ([facility]) neutrophils % 59.5 % 36.0-66.0 Neutrophils % HAILEY ( [facility]) red cell distribution width 13.6 % 11.5-14.5 Red Cell Distribution Width HAILEY ([facility]) platelet count, automated 275 10 150-450 Platelet C ount, Automated HAILEY ([facility]) lymph % 26.9 % 24.0-44.0 Lymph % HAILEY ([facility]) mono % 7.5 % 2.0-8.0 [place] % HAILEY ([facility]) immature granulocyte % 0.5 % 0-3.0 Immature Gran ulocyte % HAILEY ([facility]) eos % 4.6 % 0.0-3.0 Above high normal Eos % HAILEY ([facility]) baso % 1.0 % 0.0-1.0 Baso % HAILEY ([facility]) mono # 0.6 10 0.0-0.8 [place] # HAILEY ([facility]) nucleated red blood cell % 0.0 % 0-0 Nucleated Red Blood Cell % HAILEY ([facility]) lymph # 2.2 10 1.5-5.0 Lymph # HAILEY ([facility]) neutrophils # 4.8 10 1.5-8.5 Neutrophils # HAILEY ( [facility]) eos # 0.4 10 0.0-0.5 Eos # HAILEY ([facility]) baso # 0.1 10 0.0-0.2 Baso # HAILEY ([facility]) ID Date Data Source [id number] 06/23/2020 12:00:00 PM EST HAILEY ([facility]) Name Value Range Interpretation Code Description Data Munira rce(s) Supporting Document(s) ID Date Data Source [id number] 06/23/2020 12:00:00 PM EST HAILEY ([facility]) Name Value Range Interpretation Code Description Data Munira rce(s) Supporting Document(s) ID Date Data Source [id number] 06/23/2020 12:00:00 PM EST HAILEY ([facility]) Name Value Range Interpretation Code Description Data Munira rce(s) Supporting Document(s) estimated average glucose 151 mg/dL 60-110 Above high norm al Estimated Average Glucose HAILEY ([facility]) Hemoglobin A1c/Hemoglobin.total in Blood 6.9 % Hemoglobin a1C OCILLA ([facility]) ID Date Data Source [id number] 06/23/2020 12:00:00 PM EST HAILEY ([facility]) Name Value Range Interpretation Code Description Data Munira rce(s) Supporting Document(s) ferritin 45 NG/mL 8-252 Ferritin [facility]ILEY ([facility]) ID Date Data Source [id number] 06/23/2020 12:00:00 PM EST HAILEY ([facility]) Name Value Range Interpretation Code Description Data Munira rce(s) Supporting Document(s) total 25(oh) vitamin D 10.9 NG/mL 30.0-100.0 Below low normal T otal 25(Oh) Vitamin D HAILEY ([facility]) ID Date Data Source [id number] 06/23/2020 12:00:00 PM EST HAILEY ([facility]) Name Value Range Interpretation Code Description Data Munira rce(s) Supporting Document(s) thyroid stimulating hormone 1.610 uIU/mL 0.358-3.740 Thyroid Stimulating Hormone HAILEY ([facility]) ID Date Data Source [id number] 06/23/2020 12:00:00 PM EST HAILEY ([facility]) Name Value Range Interpretation Code Description Data Munira rce(s) Supporting Document(s) total iron binding capacity 282 ug/dL 250-450 Total Ir on Binding Capacity HAILEY ([facility]) iron (fe) 103 ug/dL 50-170 Iron (Fe) HAILEY ([facility]) percent saturation 36.5 % 13.2-45.0 Percent Saturatio n HAILEY ([facility]) ID Date Data Source [id number] 06/23/2020 12:00:00 PM EST HAILEY ([facility]) Name Value Range Interpretation Code Description Data Munira rce(s) Supporting Document(s) cholesterol level 201 mg/dL <200 Above high normal Cholesterol Level HAILEY ([facility]) triglycerides level 516 mg/dL <150 Above high normal Triglycer ides Level HAILEY ([facility]) HDL cholesterol 35 mg/dL >40 Below low normal HDL Cholestero l HAILEY ([facility]) non-HDL-C 166 mg/dL Non-hdl-c HAILEY ([facility]) cholesterol risk ratio <5 Above high normal Choles terol Risk Ratio HAILEY ([facility]) ID Date Data Source [id number] 06/23/2020 12:00:00 PM EST HAILEY ([facility]) Name Value Range Interpretation Code Description Data Munira rce(s) Supporting Document(s) glomerular filtration rate >60 Below low normal Lesly merular Filtration Rate HAILEY ([facility]) glucose, fasting 155 mg/dL 70-100 Above high normal Glucose, Fas ting HAILEY ([facility]) creatinine for GFR 1.22 mg/dL 0.55-1.30 Creatinine for GF R HAILEY ([facility]) blood urea nitrogen 17 mg/dL 7-18 Blood Urea Nitro gen HAILEY ([facility]) chloride level 106 mEq/L 98-107 Chloride Level HAILEY ([facility]) sodium level 136 mEq/L 136-145 Sodium Level HAILEY ([facility]) carbon dioxide level 24 mEq/L 21-32 Carbon Dioxide Level HAILEY ([facility]) potassium serum 4.4 mEq/L 3.5-5.1 Potassium Serum ATHE ([facility]) AST/SGOT 11 U/L 7-37 AST/SGOT [place] ([facility]) calcium level 9.4 mg/dL 8.5-10.1 Calcium Level HAILEY ( [facility]) anion gap 6 mEq/L 8-16 Below low normal Anion Gap HAILEY ( [facility]) ALT/SGPT 30 U/L 12-78 ALT/SGPT [place] ([facility]) albumin/globulin ratio 1.2-2.2 Below low normal Albumin /globulin Ratio HAILEY ([facility]) albumin 3.7 gm/dL 3.2-5.2 Albumin [place] ([facility]) bilirubin,total 0.4 mg/dL 0.2-1.0 Bilirubin,total ATHE NA ([facility]) total protein 7.1 gm/dL 6.4-8.2 Total Protein HAILEY ( [facility]) alkaline phosphatase 130 U/L 45-117 Above high normal Alkaline Phosphatase HAILEY ([facility]) ID Date Data Source [id number] 06/23/2020 12:00:00 PM EST HAILEY ([facility]) Name Value Range Interpretation Code Description Data Munira rce(s) Supporting Document(s) red blood count 5.35 10 4.00-5.40 Red Blood Count ATHE NA ([facility]) white blood count 8.1 10 4.0-10.0 White Blood Count HAILEY ([facility]) hematocrit 46.3 % 36.0-47.0 Hematocrit HAILEY ([facility]) hemoglobin 14.6 g/dL 12.0-15.5 Hemoglobin HAILEY ([facility]) mean corpuscular volume 86.5 fL 80.0-96.0 Mean Corpusc ular Volume HAILEY ([facility]) mean corpuscular hemoglobin 27.3 pg 27.0-33.0 Mean Cor puscular Hemoglobin HAILEY ([facility]) red cell distribution width 13.6 % 11.5-14.5 Red Cell Distribution Width HAILEY ([facility]) platelet count, automated 275 10 150-450 Platelet C ount, Automated HAILEY ([facility]) mean corpuscular HGB conc 31.5 g/dL 32.0-36.5 Below low sidney l Mean Corpuscular HGB Conc OCILLA ([facility]) eos % 4.6 % 0.0-3.0 Above high normal Eos % HAILEY ([facility]) lymph % 26.9 % 24.0-44.0 Lymph % HAILEY ([facility]) neutrophils % 59.5 % 36.0-66.0 Neutrophils % HAILEY ( [facility]) mono % 7.5 % 2.0-8.0 [place] % OCILLA ([facility]) immature granulocyte % 0.5 % 0-3.0 Immature Gran ulocyte % HAILEY ([facility]) nucleated red blood cell % 0.0 % 0-0 Nucleated Red Blood Cell % HAILEY ([facility]) baso % 1.0 % 0.0-1.0 Baso % HAILEY ([facility]) lymph # 2.2 10 1.5-5.0 Lymph # HAILEY ([facility]) neutrophils # 4.8 10 1.5-8.5 Neutrophils # HAILEY ( [facility]) baso # 0.1 10 0.0-0.2 Baso # HAILEY ([facility]) mono # 0.6 10 0.0-0.8 [place] # HAILEY ([facility]) eos # 0.4 10 0.0-0.5 Eos # HAILEY ([facility]) ID Date Data Source [id number] 06/23/2020 12:00:00 PM EST HAILEY ([facility]) Name Value Range Interpretation Code Description Data Munira rce(s) Supporting Document(s) ID Date Data Source [id number] 06/23/2020 12:00:00 PM EST HAILEY ([facility]) Name Value Range Interpretation Code Description Data Munira rce(s) Supporting Document(s) ID Date Data Source [id number] 06/23/2020 12:00:00 PM EST HAILEY ([facility]) Name Value Range Interpretation Code Description Data Munira rce(s) Supporting Document(s) Hemoglobin A1c/Hemoglobin.total in Blood 6.9 % Hemoglobin a1C OCILLA ([facility]) estimated average glucose 151 mg/dL 60-110 Above high norm al Estimated Average Glucose OCILLA ([facility]) ID Date Data Source [id number] 06/23/2020 12:00:00 PM EST HAILEY ([facility]) Name Value Range Interpretation Code Description Data Munira rce(s) Supporting Document(s) ferritin 45 NG/mL 8-252 Ferritin OCILLA ([facility]) ID Date Data Source [id number] 06/23/2020 12:00:00 PM EST HAILEY ([facility]) Name Value Range Interpretation Code Description Data Munira rce(s) Supporting Document(s) total 25(oh) vitamin D 10.9 NG/mL 30.0-100.0 Below low normal T otal 25(Oh) Vitamin D HAILEY ([facility]) ID Date Data Source [id number] 06/23/2020 12:00:00 PM EST HAILEY ([facility]) Name Value Range Interpretation Code Description Data Munira rce(s) Supporting Document(s) thyroid stimulating hormone 1.610 uIU/mL 0.358-3.740 Thyroid Stimulating Hormone HAILEY ([facility]) ID Date Data Source [id number] 06/23/2020 12:00:00 PM EST HAILEY ([facility]) Name Value Range Interpretation Code Description Data Munira rce(s) Supporting Document(s) iron (fe) 103 ug/dL 50-170 Iron (Fe) HAILEY ([facility]) percent saturation 36.5 % 13.2-45.0 Percent Saturatio n HAILEY ([facility]) total iron binding capacity 282 ug/dL 250-450 Total Ir on Binding Capacity HAILEY ([facility]) ID Date Data Source [id number] 06/23/2020 12:00:00 PM EST HAILEY ([facility]) Name Value Range Interpretation Code Description Data Munira rce(s) Supporting Document(s) cholesterol level 201 mg/dL <200 Above high normal Cholesterol Level HAILEY ([facility]) triglycerides level 516 mg/dL <150 Above high normal Triglycer ides Level HAILEY ([facility]) non-HDL-C 166 mg/dL Non-hdl-c [facility] ([facility]) HDL cholesterol 35 mg/dL >40 Below low normal HDL Cholestero l HAILEY ([facility]) cholesterol risk ratio <5 Above high normal Choles terol Risk Ratio HAILEY ([facility]) ID Date Data Source [id number] 06/23/2020 12:00:00 PM EST HAILEY ([facility]) Name Value Range Interpretation Code Description Data Munira rce(s) Supporting Document(s) glucose, fasting 155 mg/dL 70-100 Above high normal Glucose, Fas ting HAILEY ([facility]) glomerular filtration rate >60 Below low normal Lesly merular Filtration Rate HAILEY ([facility]) blood urea nitrogen 17 mg/dL 7-18 Blood Urea Nitro gen HAILEY ([facility]) sodium level 136 mEq/L 136-145 Sodium Level HAILEY ([facility]) creatinine for GFR 1.22 mg/dL 0.55-1.30 Creatinine for GF R [place]ILEY ([facility]) potassium serum 4.4 mEq/L 3.5-5.1 Potassium Serum ATHE ([facility]) carbon dioxide level 24 mEq/L 21-32 Carbon Dioxide Level HAILEY ([facility]) anion gap 6 mEq/L 8-16 Below low normal Anion Gap HAILEY ( [facility]) chloride level 106 mEq/L 98-107 Chloride Level HAILEY ([facility]) calcium level 9.4 mg/dL 8.5-10.1 Calcium Level HAILEY ( [facility]) alkaline phosphatase 130 U/L 45-117 Above high normal Alkaline Phosphatase HAILEY ([facility]) AST/SGOT 11 U/L 7-37 AST/SGOT [place] ([facility]) bilirubin,total 0.4 mg/dL 0.2-1.0 Bilirubin,total ATHE ([facility]) total protein 7.1 gm/dL 6.4-8.2 Total Protein HAILEY ( [facility]) ALT/SGPT 30 U/L 12-78 ALT/SGPT [place] ([facility]) albumin 3.7 gm/dL 3.2-5.2 Albumin [facility]I[place] ([facility]) albumin/globulin ratio 1.2-2.2 Below low normal Albumin /globulin Ratio [facility]ILEY ([facility]) ID Date Data Source [id number] 06/23/2020 12:00:00 PM EST [place] ([facility]) Name Value Range Interpretation Code Description Data Munira rce(s) Supporting Document(s) white blood count 8.1 10 4.0-10.0 White Blood Count [place] ([facility]) red blood count 5.35 10 4.00-5.40 Red Blood Count ATHE NA ([facility]) mean corpuscular volume 86.5 fL 80.0-96.0 Mean Corpusc ular Volume [place] ([facility]) hemoglobin 14.6 g/dL 12.0-15.5 Hemoglobin [place] ([facility]) hematocrit 46.3 % 36.0-47.0 Hematocrit [place] ([facility]) mean corpuscular hemoglobin 27.3 pg 27.0-33.0 Mean Cor puscular Hemoglobin [place] ([facility]) neutrophils % 59.5 % 36.0-66.0 Neutrophils % HAILEY ( [facility]) mean corpuscular HGB conc 31.5 g/dL 32.0-36.5 Below low sidney l Mean Corpuscular HGB Conc [place]ILEY ([facility]) platelet count, automated 275 10 150-450 Platelet C ount, Automated [place] ([facility]) red cell distribution width 13.6 % 11.5-14.5 Red Cell Distribution Width [place] ([facility]) mono % 7.5 % 2.0-8.0 [place] % [place]ILEY ([facility]) eos % 4.6 % 0.0-3.0 Above high normal Eos % [place] ([facility]) lymph % 26.9 % 24.0-44.0 Lymph % [place] ([facility]) baso % 1.0 % 0.0-1.0 Baso % [place] ([facility]) nucleated red blood cell % 0.0 % 0-0 Nucleated Red Blood Cell % [place] ([facility]) immature granulocyte % 0.5 % 0-3.0 Immature Gran ulocyte % [place] ([facility]) lymph # 2.2 10 1.5-5.0 Lymph # [place] ([facility]) neutrophils # 4.8 10 1.5-8.5 Neutrophils # [place] ( [facility]) baso # 0.1 10 0.0-0.2 Baso # [place] ([facility]) mono # 0.6 10 0.0-0.8 [place] # [place]ILEY ([facility]) eos # 0.4 10 0.0-0.5 Eos # [place] ([facility]) ID Date Data Source [id number] 06/23/2020 12:00:00 PM EST [place] ([facility]) Name Value Range Interpretation Code Description Data Munira rce(s) Supporting Document(s) ID Date Data Source [id number] 06/23/2020 12:00:00 PM EST [place] ([facility]) Name Value Range Interpretation Code Description Data Munira rce(s) Supporting Document(s) ID Date Data Source [id number] 06/23/2020 12:00:00 PM EST [place] ([facility]) Name Value Range Interpretation Code Description Data Munira rce(s) Supporting Document(s) Hemoglobin A1c/Hemoglobin.total in Blood 6.9 % Hemoglobin a1C OCILLA ([facility]) estimated average glucose 151 mg/dL 60-110 Above high norm al Estimated Average Glucose OCILLA ([facility]) ID Date Data Source [id number] 06/23/2020 12:00:00 PM EST HAI[place] ([facility]) Name Value Range Interpretation Code Description Data Munira rce(s) Supporting Document(s) ferritin 45 NG/mL 8-252 Ferritin OCILLA ([facility]) ID Date Data Source [id number] 06/23/2020 12:00:00 PM EST [place] ([facility]) Name Value Range Interpretation Code Description Data Munira rce(s) Supporting Document(s) total 25(oh) vitamin D 10.9 NG/mL 30.0-100.0 Below low normal T otal 25(Oh) Vitamin D [place] ([facility]) ID Date Data Source [id number] 06/23/2020 12:00:00 PM EST [place] ([facility]) Name Value Range Interpretation Code Description Data Munira rce(s) Supporting Document(s) thyroid stimulating hormone 1.610 uIU/mL 0.358-3.740 Thyroid Stimulating Hormone [place] ([facility]) ID Date Data Source [id number] 06/23/2020 12:00:00 PM EST [place] ([facility]) Name Value Range Interpretation Code Description Data Munira rce(s) Supporting Document(s) iron (fe) 103 ug/dL 50-170 Iron (Fe) [place] ([facility]) total iron binding capacity 282 ug/dL 250-450 Total Ir on Binding Capacity [place] ([facility]) percent saturation 36.5 % 13.2-45.0 Percent Saturatio n [place] ([facility]) ID Date Data Source [id number] 06/23/2020 12:00:00 PM EST [place] ([facility]) Name Value Range Interpretation Code Description Data Munira rce(s) Supporting Document(s) triglycerides level 516 mg/dL <150 Above high normal Triglycer ides Level [place] ([facility]) cholesterol level 201 mg/dL <200 Above high normal Cholesterol Level [place] ([facility]) non-HDL-C 166 mg/dL Non-hdl-c [place] ([facility]) HDL cholesterol 35 mg/dL >40 Below low normal HDL Cholestero l [place] ([facility]) cholesterol risk ratio <5 Above high normal Choles terol Risk Ratio [place] ([facility]) ID Date Data Source [id number] 06/23/2020 12:00:00 PM EST [place] ([facility]) Name Value Range Interpretation Code Description Data Munira rce(s) Supporting Document(s) glucose, fasting 155 mg/dL 70-100 Above high normal Glucose, Fas ting [place] ([facility]) creatinine for GFR 1.22 mg/dL 0.55-1.30 Creatinine for GF R HIALEY ([facility]) blood urea nitrogen 17 mg/dL 7-18 Blood Urea Nitro gen HAILEY ([facility]) glomerular filtration rate >60 Below low normal Lesly merular Filtration Rate HAILEY ([facility]) potassium serum 4.4 mEq/L 3.5-5.1 Potassium Serum ATHE NA ([facility]) sodium level 136 mEq/L 136-145 Sodium Level [place] ([facility]) carbon dioxide level 24 mEq/L 21-32 Carbon Dioxide Level [place] ([facility]) chloride level 106 mEq/L 98-107 Chloride Level [place] ([facility]) calcium level 9.4 mg/dL 8.5-10.1 Calcium Level [place] ( [facility]) anion gap 6 mEq/L 8-16 Below low normal Anion Gap [place] ( [facility]) bilirubin,total 0.4 mg/dL 0.2-1.0 Bilirubin,total ATHE ([facility]) AST/SGOT 11 U/L 7-37 AST/SGOT [place] ([facility]) ALT/SGPT 30 U/L 12-78 ALT/SGPT [place] ([facility]) alkaline phosphatase 130 U/L 45-117 Above high normal Alkaline Phosphatase [place] ([facility]) albumin 3.7 gm/dL 3.2-5.2 Albumin [place] ([facility]) albumin/globulin ratio 1.2-2.2 Below low normal Albumin /globulin Ratio [place] ([facility]) total protein 7.1 gm/dL 6.4-8.2 Total Protein [place] ( [facility]) ID Date Data Source [id number] 06/23/2020 12:00:00 PM EST [place] ([facility]) Name Value Range Interpretation Code Description Data Munira rce(s) Supporting Document(s) white blood count 8.1 10 4.0-10.0 White Blood Count [place] ([facility]) red blood count 5.35 10 4.00-5.40 Red Blood Count ATHE NA ([facility]) hemoglobin 14.6 g/dL 12.0-15.5 Hemoglobin [place] ([facility]) hematocrit 46.3 % 36.0-47.0 Hematocrit [place] ([facility]) mean corpuscular volume 86.5 fL 80.0-96.0 Mean Corpusc ular Volume [place] ([facility]) red cell distribution width 13.6 % 11.5-14.5 Red Cell Distribution Width [place] ([facility]) mean corpuscular HGB conc 31.5 g/dL 32.0-36.5 Below low sidney l Mean Corpuscular HGB Conc [place] ([facility]) mean corpuscular hemoglobin 27.3 pg 27.0-33.0 Mean Cor puscular Hemoglobin [place] ([facility]) platelet count, automated 275 10 150-450 Platelet C ount, Automated [place] ([facility]) lymph % 26.9 % 24.0-44.0 Lymph % [place] ([facility]) neutrophils % 59.5 % 36.0-66.0 Neutrophils % HAILEY ( [facility]) mono % 7.5 % 2.0-8.0 [place] % OCILLA ([facility]) eos % 4.6 % 0.0-3.0 Above high normal Eos % [place] ([facility]) baso % 1.0 % 0.0-1.0 Baso % [place] ([facility]) immature granulocyte % 0.5 % 0-3.0 Immature Gran ulocyte % [place] ([facility]) nucleated red blood cell % 0.0 % 0-0 Nucleated Red Blood Cell % [place] ([facility]) neutrophils # 4.8 10 1.5-8.5 Neutrophils # [place] ( [facility]) mono # 0.6 10 0.0-0.8 [place] # [place]ILEY ([facility]) lymph # 2.2 10 1.5-5.0 Lymph # [place] ([facility]) eos # 0.4 10 0.0-0.5 Eos # [place] ([facility]) baso # 0.1 10 0.0-0.2 Baso # [place] ([facility]) ID Date Data Source [id number] 06/23/2020 12:00:00 PM EST [place] ([facility]) Name Value Range Interpretation Code Description Data Munira rce(s) Supporting Document(s) ID Date Data Source [id number] 06/23/2020 12:00:00 PM EST [place] ([facility]) Name Value Range Interpretation Code Description Data Munira rce(s) Supporting Document(s) ID Date Data Source [id number] 06/23/2020 12:00:00 PM EST [place] ([facility]) Name Value Range Interpretation Code Description Data Munira rce(s) Supporting Document(s) estimated average glucose 151 mg/dL 60-110 Above high norm al Estimated Average Glucose OCILLA ([facility]) Hemoglobin A1c/Hemoglobin.total in Blood 6.9 % Hemoglobin a1C O[place]A ([facility]) ID Date Data Source [id number] 06/23/2020 12:00:00 PM EST [place] ([facility]) Name Value Range Interpretation Code Description Data Munira rce(s) Supporting Document(s) ferritin 45 NG/mL 8-252 Ferritin [place] ([facility]) ID Date Data Source [id number] 06/23/2020 12:00:00 PM EST [place] ([facility]) Name Value Range Interpretation Code Description Data Munira rce(s) Supporting Document(s) total 25(oh) vitamin D 10.9 NG/mL 30.0-100.0 Below low normal T otal 25(Oh) Vitamin D [facility]) ID Date Data Source [id number] 06/23/2020 12:00:00 PM EST HAILEY ([facility]) Name Value Range Interpretation Code Description Data Munira rce(s) Supporting Document(s) thyroid stimulating hormone 1.610 uIU/mL 0.358-3.740 Thyroid Stimulating Hormone [place] ([facility]) ID Date Data Source [id number] 06/23/2020 12:00:00 PM EST [place] ([facility]) Name Value Range Interpretation Code Description Data Munira rce(s) Supporting Document(s) percent saturation 36.5 % 13.2-45.0 Percent Saturatio n [place]LEY ([facility]) total iron binding capacity 282 ug/dL 250-450 Total Ir on Binding Capacity [place] ([facility]) iron (fe) 103 ug/dL 50-170 Iron (Fe) OCILLA ([facility]) ID Date Data Source [id number] 06/23/2020 12:00:00 PM EST [place] ([facility]) Name Value Range Interpretation Code Description Data Munira rce(s) Supporting Document(s) triglycerides level 516 mg/dL <150 Above high normal Triglycer ides Level [place] ([facility]) cholesterol risk ratio <5 Above high normal Choles terol Risk Ratio [place] ([facility]) HDL cholesterol 35 mg/dL >40 Below low normal HDL Cholestero l [place] ([facility]) cholesterol level 201 mg/dL <200 Above high normal Cholesterol Level [place] ([facility]) non-HDL-C 166 mg/dL Non-hdl-c [place] ([facility]) ID Date Data Source [id number] 06/23/2020 12:00:00 PM EST [place] ([facility]) Name Value Range Interpretation Code Description Data Munira rce(s) Supporting Document(s) glucose, fasting 155 mg/dL 70-100 Above high normal Glucose, Fas ting [place] ([facility]) blood urea nitrogen 17 mg/dL 7-18 Blood Urea Nitro gen [place] ([facility]) creatinine for GFR 1.22 mg/dL 0.55-1.30 Creatinine for GF R [place] ([facility]) sodium level 136 mEq/L 136-145 Sodium Level [place] ([facility]) potassium serum 4.4 mEq/L 3.5-5.1 Potassium Serum ATHE NA ([facility]) glomerular filtration rate >60 Below low normal Lesly merular Filtration Rate [place] ([facility]) anion gap 6 mEq/L 8-16 Below low normal Anion Gap [place] ( [facility]) carbon dioxide level 24 mEq/L 21-32 Carbon Dioxide Level [place] ([facility]) chloride level 106 mEq/L 98-107 Chloride Level [place] ([facility]) AST/SGOT 11 U/L 7-37 AST/SGOT [place] ([facility]) calcium level 9.4 mg/dL 8.5-10.1 Calcium Level [place] ( [facility]) ALT/SGPT 30 U/L 12-78 ALT/SGPT [place] ([facility]) alkaline phosphatase 130 U/L 45-117 Above high normal Alkaline Phosphatase [place] ([facility]) bilirubin,total 0.4 mg/dL 0.2-1.0 Bilirubin,total ATHE ([facility]) albumin 3.7 gm/dL 3.2-5.2 Albumin [place] ([facility]) total protein 7.1 gm/dL 6.4-8.2 Total Protein [place] ( [facility]) albumin/globulin ratio 1.2-2.2 Below low normal Albumin /globulin Ratio [place] ([facility]) ID Date Data Source [id number] 06/23/2020 12:00:00 PM EST [place] ([facility]) Name Value Range Interpretation Code Description Data Munira rce(s) Supporting Document(s) white blood count 8.1 10 4.0-10.0 White Blood Count [place] ([facility]) red blood count 5.35 10 4.00-5.40 Red Blood Count ATHE NA ([facility]) hemoglobin 14.6 g/dL 12.0-15.5 Hemoglobin [place] ([facility]) hematocrit 46.3 % 36.0-47.0 Hematocrit [place] ([facility]) mean corpuscular hemoglobin 27.3 pg 27.0-33.0 Mean Cor puscular Hemoglobin [place] ([facility]) mean corpuscular volume 86.5 fL 80.0-96.0 Mean Corpusc ular Volume [place] ([facility]) mean corpuscular HGB conc 31.5 g/dL 32.0-36.5 Below low sidney l Mean Corpuscular HGB Conc [place] ([facility]) neutrophils % 59.5 % 36.0-66.0 Neutrophils % [place] ( [facility]) red cell distribution width 13.6 % 11.5-14.5 Red Cell Distribution Width [place] ([facility]) platelet count, automated 275 10 150-450 Platelet C ount, Automated [place] ([facility]) lymph % 26.9 % 24.0-44.0 Lymph % [place] ([facility]) eos % 4.6 % 0.0-3.0 Above high normal Eos % [place] ([facility]) mono % 7.5 % 2.0-8.0 [place] % [place] ([facility]) nucleated red blood cell % 0.0 % 0-0 Nucleated Red Blood Cell % [place] ([facility]) baso % 1.0 % 0.0-1.0 Baso % [place] ([facility]) immature granulocyte % 0.5 % 0-3.0 Immature Gran ulocyte % [place] ([facility]) lymph # 2.2 10 1.5-5.0 Lymph # [place] ([facility]) neutrophils # 4.8 10 1.5-8.5 Neutrophils # [place] ( [facility]) mono # 0.6 10 0.0-0.8 [place] # [place]ILEY ([facility]) baso # 0.1 10 0.0-0.2 Baso # [place] ([facility]) eos # 0.4 10 0.0-0.5 Eos # [place] ([facility]) ID Date Data Source [id number] 06/23/2020 12:00:00 PM EST [place] ([facility]) Name Value Range Interpretation Code Description Data Munira rce(s) Supporting Document(s) ID Date Data Source [id number] 06/23/2020 12:00:00 PM EST [place] ([facility]) Name Value Range Interpretation Code Description Data Munira rce(s) Supporting Document(s) ID Date Data Source [id number] 06/23/2020 12:00:00 PM EST [place] ([facility]) Name Value Range Interpretation Code Description Data Mnuira rce(s) Supporting Document(s) Hemoglobin A1c/Hemoglobin.total in Blood 6.9 % Hemoglobin a1C [place] ([facility]) estimated average glucose 151 mg/dL 60-110 Above high norm al Estimated Average Glucose [place] ([facility]) ID Date Data Source [id number] 06/23/2020 12:00:00 PM EST [place] ([facility]) Name Value Range Interpretation Code Description Data Munira rce(s) Supporting Document(s) ferritin 45 NG/mL 8-252 Ferritin [place] ([facility]) ID Date Data Source [id number] 06/23/2020 12:00:00 PM EST [place] ([facility]) Name Value Range Interpretation Code Description Data Munira rce(s) Supporting Document(s) total 25(oh) vitamin D 10.9 NG/mL 30.0-100.0 Below low normal T otal 25(Oh) Vitamin D [place] ([facility]) ID Date Data Source [id number] 06/23/2020 12:00:00 PM EST [place]ILEY ([facility]) Name Value Range Interpretation Code Description Data Munira rce(s) Supporting Document(s) thyroid stimulating hormone 1.610 uIU/mL 0.358-3.740 Thyroid Stimulating Hormone [place] ([facility]) ID Date Data Source [id number] 06/23/2020 12:00:00 PM EST [place] ([facility]) Name Value Range Interpretation Code Description Data Munira rce(s) Supporting Document(s) iron (fe) 103 ug/dL 50-170 Iron (Fe) [place] ([facility]) percent saturation 36.5 % 13.2-45.0 Percent Saturatio n [place]LEY ([facility]) total iron binding capacity 282 ug/dL 250-450 Total Ir on Binding Capacity OCILLA ([facility]) ID Date Data Source [id number] 06/23/2020 12:00:00 PM EST [place] ([facility]) Name Value Range Interpretation Code Description Data Munira rce(s) Supporting Document(s) cholesterol risk ratio <5 Above high normal Choles terol Risk Ratio [place] ([facility]) non-HDL-C 166 mg/dL Non-hdl-c [place] ([facility]) HDL cholesterol 35 mg/dL >40 Below low normal HDL Cholestero l [place] ([facility]) cholesterol level 201 mg/dL <200 Above high normal Cholesterol Level [place] ([facility]) triglycerides level 516 mg/dL <150 Above high normal Triglycer ides Level [place] ([facility]) ID Date Data Source [id number] 06/23/2020 12:00:00 PM EST [place] ([facility]) Name Value Range Interpretation Code Description Data Munira rce(s) Supporting Document(s) blood urea nitrogen 17 mg/dL 7-18 Blood Urea Nitro gen [place] ([facility]) glucose, fasting 155 mg/dL 70-100 Above high normal Glucose, Fas ting [place] ([facility]) glomerular filtration rate >60 Below low normal Lesly merular Filtration Rate [place] ([facility]) creatinine for GFR 1.22 mg/dL 0.55-1.30 Creatinine for GF R [place] ([facility]) chloride level 106 mEq/L 98-107 Chloride Level [place] ([facility]) potassium serum 4.4 mEq/L 3.5-5.1 Potassium Serum ATHE NA ([facility]) sodium level 136 mEq/L 136-145 Sodium Level [place] ([facility]) carbon dioxide level 24 mEq/L 21-32 Carbon Dioxide Level [place] ([facility]) calcium level 9.4 mg/dL 8.5-10.1 Calcium Level [place] ( [facility]) anion gap 6 mEq/L 8-16 Below low normal Anion Gap [place] ( [facility]) AST/SGOT 11 U/L 7-37 AST/SGOT [place] ([facility]) ALT/SGPT 30 U/L 12-78 ALT/SGPT [place] ([facility]) alkaline phosphatase 130 U/L 45-117 Above high normal Alkaline Phosphatase [place] ([facility]) bilirubin,total 0.4 mg/dL 0.2-1.0 Bilirubin,total ATHE ([facility]) total protein 7.1 gm/dL 6.4-8.2 Total Protein [place] ( [facility]) albumin 3.7 gm/dL 3.2-5.2 Albumin [place] ([facility]) albumin/globulin ratio 1.2-2.2 Below low normal Albumin /globulin Ratio [place] ([facility]) ID Date Data Source [id number] 06/23/2020 12:00:00 PM EST [place] ([facility]) Name Value Range Interpretation Code Description Data Munira rce(s) Supporting Document(s) white blood count 8.1 10 4.0-10.0 White Blood Count HAILEY ([facility]) red blood count 5.35 10 4.00-5.40 Red Blood Count ATHE NA ([facility]) hemoglobin 14.6 g/dL 12.0-15.5 Hemoglobin HAILEY ([facility]) hematocrit 46.3 % 36.0-47.0 Hematocrit HAILEY ([facility]) mean corpuscular volume 86.5 fL 80.0-96.0 Mean Corpusc ular Volume HAILEY ([facility]) red cell distribution width 13.6 % 11.5-14.5 Red Cell Distribution Width HAILEY ([facility]) mean corpuscular HGB conc 31.5 g/dL 32.0-36.5 Below low sidney l Mean Corpuscular HGB Conc HAILEY ([facility]) mean corpuscular hemoglobin 27.3 pg 27.0-33.0 Mean Cor puscular Hemoglobin HAILEY ([facility]) neutrophils % 59.5 % 36.0-66.0 Neutrophils % HAILEY ( [facility]) platelet count, automated 275 10 150-450 Platelet C ount, Automated HAILEY ([facility]) lymph % 26.9 % 24.0-44.0 Lymph % HAILEY ([facility]) eos % 4.6 % 0.0-3.0 Above high normal Eos % HAILEY ([facility]) baso % 1.0 % 0.0-1.0 Baso % HAILEY ([facility]) mono % 7.5 % 2.0-8.0 [place] % HAILEY ([facility]) immature granulocyte % 0.5 % 0-3.0 Immature Gran ulocyte % HAILEY ([facility]) mono # 0.6 10 0.0-0.8 [place] # HAILEY ([facility]) lymph # 2.2 10 1.5-5.0 Lymph # HAILEY ([facility]) nucleated red blood cell % 0.0 % 0-0 Nucleated Red Blood Cell % HAILEY ([facility]) neutrophils # 4.8 10 1.5-8.5 Neutrophils # HAILEY ( [facility]) baso # 0.1 10 0.0-0.2 Baso # HAILEY ([facility]) eos # 0.4 10 0.0-0.5 Eos # HAILEY ([facility]) ID Date Data Source [id number] 06/23/2020 12:00:00 PM EST HAILEY ([facility]) Name Value Range Interpretation Code Description Data Munira rce(s) Supporting Document(s) ID Date Data Source [id number] 06/23/2020 12:00:00 PM EST HAILEY ([facility]) Name Value Range Interpretation Code Description Data Munira rce(s) Supporting Document(s) ID Date Data Source [id number] 06/23/2020 12:00:00 PM EST HAILEY ([facility]) Name Value Range Interpretation Code Description Data Munira rce(s) Supporting Document(s) estimated average glucose 151 mg/dL 60-110 Above high norm al Estimated Average Glucose HAILEY ([facility]) Hemoglobin A1c/Hemoglobin.total in Blood 6.9 % Hemoglobin a1C OCILLA ([facility]) ID Date Data Source [id number] 06/23/2020 12:00:00 PM EST HAILEY ([facility]) Name Value Range Interpretation Code Description Data Munira rce(s) Supporting Document(s) ferritin 45 NG/mL 8-252 Ferritin [place]ILEY ([facility]) ID Date Data Source [id number] 06/23/2020 12:00:00 PM EST HAILEY ([facility]) Name Value Range Interpretation Code Description Data Munira rce(s) Supporting Document(s) total 25(oh) vitamin D 10.9 NG/mL 30.0-100.0 Below low normal T otal 25(Oh) Vitamin D HAILEY ([facility]) ID Date Data Source [id number] 06/23/2020 12:00:00 PM EST HAILEY ([facility]) Name Value Range Interpretation Code Description Data Munira rce(s) Supporting Document(s) thyroid stimulating hormone 1.610 uIU/mL 0.358-3.740 Thyroid Stimulating Hormone HAILEY ([facility]) ID Date Data Source [id number] 06/23/2020 12:00:00 PM EST HAILEY ([facility]) Name Value Range Interpretation Code Description Data Munira rce(s) Supporting Document(s) iron (fe) 103 ug/dL 50-170 Iron (Fe) HAILEY ([facility]) percent saturation 36.5 % 13.2-45.0 Percent Saturatio n OCILLA ([facility]) total iron binding capacity 282 ug/dL 250-450 Total Ir on Binding Capacity OCILLA ([facility]) ID Date Data Source [id number] 06/23/2020 12:00:00 PM EST HAIELY ([facility]) Name Value Range Interpretation Code Description Data Munira rce(s) Supporting Document(s) triglycerides level 516 mg/dL <150 Above high normal Triglycer ides Level HAILEY ([facility]) cholesterol risk ratio <5 Above high normal Choles terol Risk Ratio OCILLA ([facility]) cholesterol level 201 mg/dL <200 Above high normal Cholesterol Level OCILLA ([facility]) non-HDL-C 166 mg/dL Non-hdl-c HAILEY ([facility]) HDL cholesterol 35 mg/dL >40 Below low normal HDL Cholestero l HAILEY ([facility]) ID Date Data Source [id number] 06/23/2020 12:00:00 PM EST HAILEY ([facility]) Name Value Range Interpretation Code Description Data Munira rce(s) Supporting Document(s) blood urea nitrogen 17 mg/dL 7-18 Blood Urea Nitro gen OCILLA ([facility]) creatinine for GFR 1.22 mg/dL 0.55-1.30 Creatinine for GF R OCILLA ([facility]) glucose, fasting 155 mg/dL 70-100 Above high normal Glucose, Fas ting HAILEY ([facility]) sodium level 136 mEq/L 136-145 Sodium Level HAILEY ([facility]) glomerular filtration rate >60 Below low normal Lesly merular Filtration Rate HAILEY ([facility]) chloride level 106 mEq/L 98-107 Chloride Level HAILEY ([facility]) potassium serum 4.4 mEq/L 3.5-5.1 Potassium Serum ATHE NA ([facility]) carbon dioxide level 24 mEq/L 21-32 Carbon Dioxide Level HAILEY ([facility]) anion gap 6 mEq/L 8-16 Below low normal Anion Gap HAILEY ( [facility]) AST/SGOT 11 U/L 7-37 AST/SGOT [place] ([facility]) calcium level 9.4 mg/dL 8.5-10.1 Calcium Level HAILEY ( [facility]) ALT/SGPT 30 U/L 12-78 ALT/SGPT [place] ([facility]) bilirubin,total 0.4 mg/dL 0.2-1.0 Bilirubin,total ATHE ([facility]) alkaline phosphatase 130 U/L 45-117 Above high normal Alkaline Phosphatase HAILEY ([facility]) albumin 3.7 gm/dL 3.2-5.2 Albumin HAI[place] ([facility]) albumin/globulin ratio 1.2-2.2 Below low normal Albumin /globulin Ratio HAILEY ([facility]) total protein 7.1 gm/dL 6.4-8.2 Total Protein HAILEY ( [facility]) ID Date Data Source [id number] 06/23/2020 12:00:00 PM EST HAILEY ([facility]) Name Value Range Interpretation Code Description Data Munira rce(s) Supporting Document(s) white blood count 8.1 10 4.0-10.0 White Blood Count HAILEY ([facility]) red blood count 5.35 10 4.00-5.40 Red Blood Count ATHE ([facility]) hemoglobin 14.6 g/dL 12.0-15.5 Hemoglobin HAILEY ([facility]) hematocrit 46.3 % 36.0-47.0 Hematocrit HAILEY ([facility]) mean corpuscular volume 86.5 fL 80.0-96.0 Mean Corpusc ular Volume HAILEY ([facility]) mean corpuscular hemoglobin 27.3 pg 27.0-33.0 Mean Cor puscular Hemoglobin HAILEY ([facility]) mean corpuscular HGB conc 31.5 g/dL 32.0-36.5 Below low sidney l Mean Corpuscular HGB Conc HAILEY ([facility]) platelet count, automated 275 10 150-450 Platelet C ount, Automated HAILEY ([facility]) neutrophils % 59.5 % 36.0-66.0 Neutrophils % OCILLA ( [facility]) red cell distribution width 13.6 % 11.5-14.5 Red Cell Distribution Width HAILEY ([facility]) mono % 7.5 % 2.0-8.0 [place] % HAILEY ([facility]) lymph % 26.9 % 24.0-44.0 Lymph % HAILEY ([facility]) eos % 4.6 % 0.0-3.0 Above high normal Eos % HAILEY ([facility]) immature granulocyte % 0.5 % 0-3.0 Immature Gran ulocyte % HAILEY ([facility]) baso % 1.0 % 0.0-1.0 Baso % HAILEY ([facility]) nucleated red blood cell % 0.0 % 0-0 Nucleated Red Blood Cell % HAILEY ([facility]) mono # 0.6 10 0.0-0.8 [place] # HAILEY ([facility]) lymph # 2.2 10 1.5-5.0 Lymph # HAILEY ([facility]) neutrophils # 4.8 10 1.5-8.5 Neutrophils # HAILEY ( [facility]) eos # 0.4 10 0.0-0.5 Eos # HAILEY ([facility]) baso # 0.1 10 0.0-0.2 Baso # HAILEY ([facility]) ID Date Data Source [id number] 06/23/2020 12:00:00 PM EST HAILEY ([facility]) Name Value Range Interpretation Code Description Data Munira rce(s) Supporting Document(s) iron (fe) 103 ug/dL 50-170 Iron (Fe) HAILEY ([facility]) total iron binding capacity 282 ug/dL 250-450 Total Ir on Binding Capacity OCILLA ([facility]) percent saturation 36.5 % 13.2-45.0 Percent Saturatio n OCILLA ([facility]) ID Date Data Source [id number] 06/23/2020 12:00:00 PM EST HAILEY ([facility]) Name Value Range Interpretation Code Description Data Munira rce(s) Supporting Document(s) triglycerides level 516 mg/dL <150 Above high normal Triglycer ides Level HAILEY ([facility]) cholesterol level 201 mg/dL <200 Above high normal Cholesterol Level HAILEY ([facility]) non-HDL-C 166 mg/dL Non-hdl-c HAILEY ([facility]) cholesterol risk ratio <5 Above high normal Choles terol Risk Ratio HAILEY ([facility]) HDL cholesterol 35 mg/dL >40 Below low normal HDL Cholestero l OCILLA ([facility]) ID Date Data Source [id number] 06/23/2020 12:00:00 PM EST HAILEY ([facility]) Name Value Range Interpretation Code Description Data Munira rce(s) Supporting Document(s) creatinine for GFR 1.22 mg/dL 0.55-1.30 Creatinine for GF R HAILEY ([facility]) blood urea nitrogen 17 mg/dL 7-18 Blood Urea Nitro gen HAILEY ([facility]) glucose, fasting 155 mg/dL 70-100 Above high normal Glucose, Fas ting HAILEY ([facility]) glomerular filtration rate >60 Below low normal Lesly merular Filtration Rate OCILLA ([facility]) potassium serum 4.4 mEq/L 3.5-5.1 Potassium Serum ATHE NA ([facility]) sodium level 136 mEq/L 136-145 Sodium Level HAILEY ([facility]) anion gap 6 mEq/L 8-16 Below low normal Anion Gap HAILEY ( [facility]) chloride level 106 mEq/L 98-107 Chloride Level HAILEY ([facility]) calcium level 9.4 mg/dL 8.5-10.1 Calcium Level HAILEY ( [facility]) carbon dioxide level 24 mEq/L 21-32 Carbon Dioxide Level HAILEY ([facility]) AST/SGOT 11 U/L 7-37 AST/SGOT [place] ([facility]) ALT/SGPT 30 U/L 12-78 ALT/SGPT [place]ILEY ([facility]) alkaline phosphatase 130 U/L 45-117 Above high normal Alkaline Phosphatase HAILEY ([facility]) total protein 7.1 gm/dL 6.4-8.2 Total Protein HAILEY ( [facility]) bilirubin,total 0.4 mg/dL 0.2-1.0 Bilirubin,total ATHE ([facility]) albumin 3.7 gm/dL 3.2-5.2 Albumin HAILEY ([facility]) albumin/globulin ratio 1.2-2.2 Below low normal Albumin /globulin Ratio HAILEY ([facility]) ID Date Data Source [id number] 06/23/2020 12:00:00 PM EST HAILEY ([facility]) Name Value Range Interpretation Code Description Data Munira rce(s) Supporting Document(s) white blood count 8.1 10 4.0-10.0 White Blood Count HAILEY ([facility]) red blood count 5.35 10 4.00-5.40 Red Blood Count ATHE ([facility]) hemoglobin 14.6 g/dL 12.0-15.5 Hemoglobin HAILEY ([facility]) hematocrit 46.3 % 36.0-47.0 Hematocrit [place]ILEY ([facility]) mean corpuscular hemoglobin 27.3 pg 27.0-33.0 Mean Cor puscular Hemoglobin HAILEY ([facility]) mean corpuscular volume 86.5 fL 80.0-96.0 Mean Corpusc ular Volume HAILEY ([facility]) mean corpuscular HGB conc 31.5 g/dL 32.0-36.5 Below low sidney l Mean Corpuscular HGB Conc HAILEY ([facility]) red cell distribution width 13.6 % 11.5-14.5 Red Cell Distribution Width HAILEY ([facility]) platelet count, automated 275 10 150-450 Platelet C ount, Automated [place] ([facility]) neutrophils % 59.5 % 36.0-66.0 Neutrophils % HAILEY ( [facility]) lymph % 26.9 % 24.0-44.0 Lymph % OCILLA ([facility]) mono % 7.5 % 2.0-8.0 [place] % OCILLA ([facility]) eos % 4.6 % 0.0-3.0 Above high normal Eos % OCILLA ([facility]) immature granulocyte % 0.5 % 0-3.0 Immature Gran ulocyte % HAILEY ([facility]) baso % 1.0 % 0.0-1.0 Baso % HAILEY ([facility]) neutrophils # 4.8 10 1.5-8.5 Neutrophils # HAILEY ( [facility]) lymph # 2.2 10 1.5-5.0 Lymph # OCILLA ([facility]) nucleated red blood cell % 0.0 % 0-0 Nucleated Red Blood Cell % HAILEY ([facility]) mono # 0.6 10 0.0-0.8 [place] # HAILEY ([facility]) eos # 0.4 10 0.0-0.5 Eos # OCILLA ([facility]) baso # 0.1 10 0.0-0.2 Baso # [place]LEY ([facility]) ID Date Data Source [id number] 06/23/2020 12:00:00 PM EST HAILEY ([facility]) Name Value Range Interpretation Code Description Data Munira rce(s) Supporting Document(s) ID Date Data Source [id number] 06/23/2020 12:00:00 PM EST HAILEY ([facility]) Name Value Range Interpretation Code Description Data Munira rce(s) Supporting Document(s) ID Date Data Source [id number] 06/23/2020 12:00:00 PM EST HAILEY ([facility]) Name Value Range Interpretation Code Description Data Munira rce(s) Supporting Document(s) Hemoglobin A1c/Hemoglobin.total in Blood 6.9 % Hemoglobin a1C [place] ([facility]) estimated average glucose 151 mg/dL 60-110 Above high norm al Estimated Average Glucose [place]ILEY ([facility]) ID Date Data Source [id number] 06/23/2020 12:00:00 PM EST HAILEY ([facility]) Name Value Range Interpretation Code Description Data Munira rce(s) Supporting Document(s) ferritin 45 NG/mL 8-252 Ferritin [place] ([facility]) ID Date Data Source [id number] 06/23/2020 12:00:00 PM EST HAILEY ([facility]) Name Value Range Interpretation Code Description Data Munira rce(s) Supporting Document(s) total 25(oh) vitamin D 10.9 NG/mL 30.0-100.0 Below low normal T otal 25(Oh) Vitamin D [place]ILEY ([facility]) ID Date Data Source [id number] 06/23/2020 12:00:00 PM EST HAILEY ([facility]) Name Value Range Interpretation Code Description Data Munira rce(s) Supporting Document(s) thyroid stimulating hormone 1.610 uIU/mL 0.358-3.740 Thyroid Stimulating Hormone [place]ILEY ([facility]) ID Date Data Source [id number] 06/23/2020 12:00:00 PM EST HAILEY ([facility]) Name Value Range Interpretation Code Description Data Munira rce(s) Supporting Document(s) percent saturation 36.5 % 13.2-45.0 Percent Saturatio n HAILEY ([facility]) total iron binding capacity 282 ug/dL 250-450 Total Ir on Binding Capacity HAILEY ([facility]) iron (fe) 103 ug/dL 50-170 Iron (Fe) [place]ILEY ([facility]) ID Date Data Source [id number] 06/23/2020 12:00:00 PM EST [place]ILEY ([facility]) Name Value Range Interpretation Code Description Data Munira rce(s) Supporting Document(s) triglycerides level 516 mg/dL <150 Above high normal Triglycer ides Level HAILEY ([facility]) cholesterol level 201 mg/dL <200 Above high normal Cholesterol Level [place] ([facility]) non-HDL-C 166 mg/dL Non-hdl-c [place] ([facility]) HDL cholesterol 35 mg/dL >40 Below low normal HDL Cholestero l HAILEY ([facility]) cholesterol risk ratio <5 Above high normal Choles terol Risk Ratio HAILEY ([facility]) ID Date Data Source [id number] 06/23/2020 12:00:00 PM EST HAILEY ([facility]) Name Value Range Interpretation Code Description Data Munira rce(s) Supporting Document(s) glucose, fasting 155 mg/dL 70-100 Above high normal Glucose, Fas ting HAILEY ([facility]) blood urea nitrogen 17 mg/dL 7-18 Blood Urea Nitro gen HAILEY ([facility]) sodium level 136 mEq/L 136-145 Sodium Level [place]ILEY ([facility]) glomerular filtration rate >60 Below low normal Lesly merular Filtration Rate HAILEY ([facility]) creatinine for GFR 1.22 mg/dL 0.55-1.30 Creatinine for GF R [place] ([facility]) potassium serum 4.4 mEq/L 3.5-5.1 Potassium Serum ATHE ([facility]) carbon dioxide level 24 mEq/L 21-32 Carbon Dioxide Level HAILEY ([facility]) chloride level 106 mEq/L 98-107 Chloride Level HA[place]LEY ([facility]) AST/SGOT 11 U/L 7-37 AST/SGOT [place] ([facility]) anion gap 6 mEq/L 8-16 Below low normal Anion Gap HAILEY ( [facility]) calcium level 9.4 mg/dL 8.5-10.1 Calcium Level HAILEY ( [facility]) ALT/SGPT 30 U/L 12-78 ALT/SGPT [place] ([facility]) alkaline phosphatase 130 U/L 45-117 Above high normal Alkaline Phosphatase HAILEY ([facility]) bilirubin,total 0.4 mg/dL 0.2-1.0 Bilirubin,total ATHE ([facility]) albumin 3.7 gm/dL 3.2-5.2 Albumin [place] ([facility]) total protein 7.1 gm/dL 6.4-8.2 Total Protein [place]ILEY ( [facility]) albumin/globulin ratio 1.2-2.2 Below low normal Albumin /globulin Ratio [place]ILEY ([facility]) ID Date Data Source [id number] 06/23/2020 12:00:00 PM EST [place]ILEY ([facility]) Name Value Range Interpretation Code Description Data Munira rce(s) Supporting Document(s) white blood count 8.1 10 4.0-10.0 White Blood Count [place] ([facility]) hemoglobin 14.6 g/dL 12.0-15.5 Hemoglobin [place] ([facility]) red blood count 5.35 10 4.00-5.40 Red Blood Count ATHE ([facility]) hematocrit 46.3 % 36.0-47.0 Hematocrit [place] ([facility]) mean corpuscular volume 86.5 fL 80.0-96.0 Mean Corpusc ular Volume [place]ILEY ([facility]) mean corpuscular hemoglobin 27.3 pg 27.0-33.0 Mean Cor puscular Hemoglobin [place]ILEY ([facility]) mean corpuscular HGB conc 31.5 g/dL 32.0-36.5 Below low sidney l Mean Corpuscular HGB Conc [place] ([facility]) red cell distribution width 13.6 % 11.5-14.5 Red Cell Distribution Width [place] ([facility]) platelet count, automated 275 10 150-450 Platelet C ount, Automated [place] ([facility]) neutrophils % 59.5 % 36.0-66.0 Neutrophils % HAILEY ( [facility]) lymph % 26.9 % 24.0-44.0 Lymph % OCILLA ([facility]) mono % 7.5 % 2.0-8.0 [place] % OCILLA ([facility]) baso % 1.0 % 0.0-1.0 Baso % OCILLA ([facility]) eos % 4.6 % 0.0-3.0 Above high normal Eos % OCILLA ([facility]) immature granulocyte % 0.5 % 0-3.0 Immature Gran ulocyte % OCILLA ([facility]) nucleated red blood cell % 0.0 % 0-0 Nucleated Red Blood Cell % OCILLA ([facility]) lymph # 2.2 10 1.5-5.0 Lymph # OCILLA ([facility]) neutrophils # 4.8 10 1.5-8.5 Neutrophils # HAILEY ( [facility]) mono # 0.6 10 0.0-0.8 [place] # HAILEY ([facility]) eos # 0.4 10 0.0-0.5 Eos # [place]ILEY ([facility]) baso # 0.1 10 0.0-0.2 Baso # HAILEY ([facility]) ID Date Data Source [id number] 06/23/2020 12:00:00 PM EST OCILLA ([facility]) Name Value Range Interpretation Code Description Data Munira rce(s) Supporting Document(s) ID Date Data Source [id number] 06/23/2020 12:00:00 PM EST HAILEY ([facility]) Name Value Range Interpretation Code Description Data Munira rce(s) Supporting Document(s) ID Date Data Source [id number] 06/23/2020 12:00:00 PM EST HAILEY ([facility]) Name Value Range Interpretation Code Description Data Munira rce(s) Supporting Document(s) Hemoglobin A1c/Hemoglobin.total in Blood 6.9 % Hemoglobin a1C OCILLA ([facility]) estimated average glucose 151 mg/dL 60-110 Above high norm al Estimated Average Glucose OCILLA ([facility]) ID Date Data Source [id number] 06/23/2020 12:00:00 PM EST HAILEY ([facility]) Name Value Range Interpretation Code Description Data Munira rce(s) Supporting Document(s) ferritin 45 NG/mL 8-252 Ferritin HAILEY ([facility]) ID Date Data Source [id number] 06/23/2020 12:00:00 PM EST HAILEY ([facility]) Name Value Range Interpretation Code Description Data Munira rce(s) Supporting Document(s) total 25(oh) vitamin D 10.9 NG/mL 30.0-100.0 Below low normal T otal 25(Oh) Vitamin D HAILEY ([facility]) ID Date Data Source [id number] 06/23/2020 12:00:00 PM EST HAILEY ([facility]) Name Value Range Interpretation Code Description Data Munira rce(s) Supporting Document(s) thyroid stimulating hormone 1.610 uIU/mL 0.358-3.740 Thyroid Stimulating Hormone HAILEY ([facility]) ID Date Data Source [id number] 06/23/2020 12:00:00 PM EST HAILEY ([facility]) Name Value Range Interpretation Code Description Data Munira rce(s) Supporting Document(s) total iron binding capacity 282 ug/dL 250-450 Total Ir on Binding Capacity HAILEY ([facility]) iron (fe) 103 ug/dL 50-170 Iron (Fe) HAILEY ([facility]) percent saturation 36.5 % 13.2-45.0 Percent Saturatio n HAILEY ([facility]) ID Date Data Source [id number] 06/23/2020 12:00:00 PM EST HAILEY ([facility]) Name Value Range Interpretation Code Description Data Munira rce(s) Supporting Document(s) cholesterol level 201 mg/dL <200 Above high normal Cholesterol Level HAILEY ([facility]) triglycerides level 516 mg/dL <150 Above high normal Triglycer ides Level HAILEY ([facility]) HDL cholesterol 35 mg/dL >40 Below low normal HDL Cholestero l OCILLA ([facility]) non-HDL-C 166 mg/dL Non-hdl-c HAILEY ([facility]) cholesterol risk ratio <5 Above high normal Choles terol Risk Ratio HAILEY ([facility]) ID Date Data Source [id number] 06/23/2020 12:00:00 PM EST HAILEY ([facility]) Name Value Range Interpretation Code Description Data Munira rce(s) Supporting Document(s) glucose, fasting 155 mg/dL 70-100 Above high normal Glucose, Fas ting HAILEY ([facility]) blood urea nitrogen 17 mg/dL 7-18 Blood Urea Nitro gen HAILEY ([facility]) creatinine for GFR 1.22 mg/dL 0.55-1.30 Creatinine for GF R HAILEY ([facility]) sodium level 136 mEq/L 136-145 Sodium Level HAILEY ([facility]) potassium serum 4.4 mEq/L 3.5-5.1 Potassium Serum ATHE NA ([facility]) glomerular filtration rate >60 Below low normal Lesly merular Filtration Rate HAILEY ([facility]) carbon dioxide level 24 mEq/L 21-32 Carbon Dioxide Level HAILEY ([facility]) chloride level 106 mEq/L 98-107 Chloride Level HAILEY ([facility]) anion gap 6 mEq/L 8-16 Below low normal Anion Gap HAILEY ( [facility]) calcium level 9.4 mg/dL 8.5-10.1 Calcium Level HAILEY ( [facility]) ALT/SGPT 30 U/L 12-78 ALT/SGPT HAILEY ([facility]) AST/SGOT 11 U/L 7-37 AST/SGOT HAILEY ([facility]) bilirubin,total 0.4 mg/dL 0.2-1.0 Bilirubin,total ATHE ([facility]) alkaline phosphatase 130 U/L 45-117 Above high normal Alkaline Phosphatase HAILEY ([facility]) albumin 3.7 gm/dL 3.2-5.2 Albumin HAILEY ([facility]) albumin/globulin ratio 1.2-2.2 Below low normal Albumin /globulin Ratio HAILEY ([facility]) total protein 7.1 gm/dL 6.4-8.2 Total Protein HAILEY ( [facility]) ID Date Data Source [id number] 06/23/2020 12:00:00 PM EST HAILEY ([facility]) Name Value Range Interpretation Code Description Data Munira rce(s) Supporting Document(s) red blood count 5.35 10 4.00-5.40 Red Blood Count ATHE ([facility]) white blood count 8.1 10 4.0-10.0 White Blood Count HAILEY ([facility]) hemoglobin 14.6 g/dL 12.0-15.5 Hemoglobin HAILEY ([facility]) hematocrit 46.3 % 36.0-47.0 Hematocrit HAILEY ([facility]) mean corpuscular HGB conc 31.5 g/dL 32.0-36.5 Below low sidney l Mean Corpuscular HGB Conc HAILEY ([facility]) mean corpuscular volume 86.5 fL 80.0-96.0 Mean Corpusc ular Volume HAILEY ([facility]) mean corpuscular hemoglobin 27.3 pg 27.0-33.0 Mean Cor puscular Hemoglobin HAILEY ([facility]) neutrophils % 59.5 % 36.0-66.0 Neutrophils % HAILEY ( [facility]) platelet count, automated 275 10 150-450 Platelet C ount, Automated HAILEY ([facility]) red cell distribution width 13.6 % 11.5-14.5 Red Cell Distribution Width HAILEY ([facility]) mono % 7.5 % 2.0-8.0 [place] % OCILLA ([facility]) eos % 4.6 % 0.0-3.0 Above high normal Eos % OCILLA ([facility]) lymph % 26.9 % 24.0-44.0 Lymph % OCILLA ([facility]) baso % 1.0 % 0.0-1.0 Baso % OCILLA ([facility]) nucleated red blood cell % 0.0 % 0-0 Nucleated Red Blood Cell % HAILEY ([facility]) immature granulocyte % 0.5 % 0-3.0 Immature Gran ulocyte % OCILLA ([facility]) lymph # 2.2 10 1.5-5.0 Lymph # HAILEY ([facility]) mono # 0.6 10 0.0-0.8 [place] # HAILEY ([facility]) neutrophils # 4.8 10 1.5-8.5 Neutrophils # HAILEY ( [facility]) eos # 0.4 10 0.0-0.5 Eos # HAILEY ([facility]) baso # 0.1 10 0.0-0.2 Baso # HAILEY ([facility]) ID Date Data Source [id number] 06/23/2020 12:00:00 PM EST HAILEY ([facility]) Name Value Range Interpretation Code Description Data Munira rce(s) Supporting Document(s) ID Date Data Source [id number] 06/23/2020 12:00:00 PM EST HAILEY ([facility]) Name Value Range Interpretation Code Description Data Munira rce(s) Supporting Document(s) ID Date Data Source [id number] 06/23/2020 12:00:00 PM EST HAILEY ([facility]) Name Value Range Interpretation Code Description Data Munira rce(s) Supporting Document(s) Hemoglobin A1c/Hemoglobin.total in Blood 6.9 % Hemoglobin a1C OCILLA ([facility]) estimated average glucose 151 mg/dL 60-110 Above high norm al Estimated Average Glucose OCILLA ([facility]) ID Date Data Source [id number] 06/23/2020 12:00:00 PM EST HAILEY ([facility]) Name Value Range Interpretation Code Description Data Munira rce(s) Supporting Document(s) ferritin 45 NG/mL 8-252 Ferritin HAILEY ([facility]) ID Date Data Source [id number] 06/23/2020 12:00:00 PM EST HAILEY ([facility]) Name Value Range Interpretation Code Description Data Munira rce(s) Supporting Document(s) total 25(oh) vitamin D 10.9 NG/mL 30.0-100.0 Below low normal T otal 25(Oh) Vitamin D [facility]) ID Date Data Source [id number] 06/23/2020 12:00:00 PM EST HAILEY ([facility]) Name Value Range Interpretation Code Description Data Munira rce(s) Supporting Document(s) thyroid stimulating hormone 1.610 uIU/mL 0.358-3.740 Thyroid Stimulating Hormone OCILLA ([facility]) ID Date Data Source [id number] 06/23/2020 12:00:00 PM EST HAILEY ([facility]) Name Value Range Interpretation Code Description Data Munira rce(s) Supporting Document(s) iron (fe) 103 ug/dL 50-170 Iron (Fe) HAILEY ([facility]) total iron binding capacity 282 ug/dL 250-450 Total Ir on Binding Capacity HAILEY ([facility]) percent saturation 36.5 % 13.2-45.0 Percent Saturatio n HAILEY ([facility]) ID Date Data Source [id number] 06/23/2020 12:00:00 PM EST HAILEY ([facility]) Name Value Range Interpretation Code Description Data Munira rce(s) Supporting Document(s) triglycerides level 516 mg/dL <150 Above high normal Triglycer ides Level OCILLA ([facility]) cholesterol level 201 mg/dL <200 Above high normal Cholesterol Level OCILLA ([facility]) HDL cholesterol 35 mg/dL >40 Below low normal HDL Cholestero l OCILLA ([facility]) non-HDL-C 166 mg/dL Non-hdl-c HAILEY ([facility]) cholesterol risk ratio <5 Above high normal Choles terol Risk Ratio OCILLA ([facility]) ID Date Data Source [id number] 06/23/2020 12:00:00 PM EST HAILEY ([facility]) Name Value Range Interpretation Code Description Data Munira rce(s) Supporting Document(s) creatinine for GFR 1.22 mg/dL 0.55-1.30 Creatinine for GF R HAILEY ([facility]) blood urea nitrogen 17 mg/dL 7-18 Blood Urea Nitro gen HAILEY ([facility]) glucose, fasting 155 mg/dL 70-100 Above high normal Glucose, Fas ting HAILEY ([facility]) potassium serum 4.4 mEq/L 3.5-5.1 Potassium Serum ATHE NA ([facility]) glomerular filtration rate >60 Below low normal Lesly merular Filtration Rate HAILEY ([facility]) sodium level 136 mEq/L 136-145 Sodium Level HAILEY ([facility]) anion gap 6 mEq/L 8-16 Below low normal Anion Gap HAILEY ( [facility]) carbon dioxide level 24 mEq/L 21-32 Carbon Dioxide Level HAILEY ([facility]) chloride level 106 mEq/L 98-107 Chloride Level HAILEY ([facility]) AST/SGOT 11 U/L 7-37 AST/SGOT HAILEY ([facility]) calcium level 9.4 mg/dL 8.5-10.1 Calcium Level HAILEY ( [facility]) alkaline phosphatase 130 U/L 45-117 Above high normal Alkaline Phosphatase HAILEY ([facility]) ALT/SGPT 30 U/L 12-78 ALT/SGPT HAILEY ([facility]) albumin/globulin ratio 1.2-2.2 Below low normal Albumin /globulin Ratio HAILEY ([facility]) total protein 7.1 gm/dL 6.4-8.2 Total Protein HAILEY ( [facility]) bilirubin,total 0.4 mg/dL 0.2-1.0 Bilirubin,total ATHE NA ([facility]) albumin 3.7 gm/dL 3.2-5.2 Albumin HAILEY ([facility]) ID Date Data Source [id number] 06/23/2020 12:00:00 PM EST HAILEY ([facility]) Name Value Range Interpretation Code Description Data Munira rce(s) Supporting Document(s) white blood count 8.1 10 4.0-10.0 White Blood Count HAILEY ([facility]) red blood count 5.35 10 4.00-5.40 Red Blood Count ATHE NA ([facility]) hemoglobin 14.6 g/dL 12.0-15.5 Hemoglobin HAILEY ([facility]) hematocrit 46.3 % 36.0-47.0 Hematocrit HAILEY ([facility]) mean corpuscular hemoglobin 27.3 pg 27.0-33.0 Mean Cor puscular Hemoglobin HAILEY ([facility]) mean corpuscular volume 86.5 fL 80.0-96.0 Mean Corpusc ular Volume HAILEY ([facility]) platelet count, automated 275 10 150-450 Platelet C ount, Automated HAILEY ([facility]) mean corpuscular HGB conc 31.5 g/dL 32.0-36.5 Below low sidney l Mean Corpuscular HGB Conc HAILEY ([facility]) red cell distribution width 13.6 % 11.5-14.5 Red Cell Distribution Width HAILEY ([facility]) mono % 7.5 % 2.0-8.0 [place] % OCILLA ([facility]) neutrophils % 59.5 % 36.0-66.0 Neutrophils % HAILEY ( [facility]) lymph % 26.9 % 24.0-44.0 Lymph % OCILLA ([facility]) baso % 1.0 % 0.0-1.0 Baso % OCILLA ([facility]) immature granulocyte % 0.5 % 0-3.0 Immature Gran ulocyte % OCILLA ([facility]) eos % 4.6 % 0.0-3.0 Above high normal Eos % OCILLA ([facility]) nucleated red blood cell % 0.0 % 0-0 Nucleated Red Blood Cell % HAILEY ([facility]) neutrophils # 4.8 10 1.5-8.5 Neutrophils # HAILEY ( [facility]) lymph # 2.2 10 1.5-5.0 Lymph # OCILLA ([facility]) mono # 0.6 10 0.0-0.8 [place] # HAILEY ([facility]) baso # 0.1 10 0.0-0.2 Baso # HAILEY ([facility]) eos # 0.4 10 0.0-0.5 Eos # OCILLA ([facility]) ID Date Data Source [id number] 06/23/2020 12:00:00 PM EST HAILEY ([facility]) Name Value Range Interpretation Code Description Data Munira rce(s) Supporting Document(s) ID Date Data Source [id number] 06/23/2020 12:00:00 PM EST HAILEY ([facility]) Name Value Range Interpretation Code Description Data Munira rce(s) Supporting Document(s) ID Date Data Source [id number] 06/23/2020 12:00:00 PM EST HAILEY ([facility]) Name Value Range Interpretation Code Description Data Munira rce(s) Supporting Document(s) estimated average glucose 151 mg/dL 60-110 Above high norm al Estimated Average Glucose HAILEY ([facility]) Hemoglobin A1c/Hemoglobin.total in Blood 6.9 % Hemoglobin a1C HAILEY ([facility]) ID Date Data Source [id number] 06/23/2020 12:00:00 PM EST HAILEY ([facility]) Name Value Range Interpretation Code Description Data Munira rce(s) Supporting Document(s) ferritin 45 NG/mL 8-252 Ferritin HAILEY ([facility]) ID Date Data Source [id number] 06/23/2020 12:00:00 PM EST HAILEY ([facility]) Name Value Range Interpretation Code Description Data Munira rce(s) Supporting Document(s) total 25(oh) vitamin D 10.9 NG/mL 30.0-100.0 Below low normal T otal 25(Oh) Vitamin D HAILEY ([facility]) ID Date Data Source [id number] 06/23/2020 12:00:00 PM EST HAILEY ([facility]) Name Value Range Interpretation Code Description Data Munira rce(s) Supporting Document(s) thyroid stimulating hormone 1.610 uIU/mL 0.358-3.740 Thyroid Stimulating Hormone HAILEY ([facility]) ID Date Data Source [id number] 06/23/2020 12:00:00 PM EST HAILEY ([facility]) Name Value Range Interpretation Code Description Data Munira rce(s) Supporting Document(s) total iron binding capacity 282 ug/dL 250-450 Total Ir on Binding Capacity HAILEY ([facility]) iron (fe) 103 ug/dL 50-170 Iron (Fe) HAILEY ([facility]) percent saturation 36.5 % 13.2-45.0 Percent Saturatio n HAILEY ([facility]) ID Date Data Source [id number] 06/23/2020 12:00:00 PM EST HAILEY ([facility]) Name Value Range Interpretation Code Description Data Munira rce(s) Supporting Document(s) HDL cholesterol 35 mg/dL >40 Below low normal HDL Cholestero l HAILEY ([facility]) triglycerides level 516 mg/dL <150 Above high normal Triglycer ides Level HAILEY ([facility]) cholesterol level 201 mg/dL <200 Above high normal Cholesterol Level OCILLA ([facility]) non-HDL-C 166 mg/dL Non-hdl-c HAILEY ([facility]) cholesterol risk ratio <5 Above high normal Choles terol Risk Ratio HAILEY ([facility]) ID Date Data Source [id number] 06/23/2020 12:00:00 PM EST HAILEY ([facility]) Name Value Range Interpretation Code Description Data Munira rce(s) Supporting Document(s) glucose, fasting 155 mg/dL 70-100 Above high normal Glucose, Fas ting HAILEY ([facility]) blood urea nitrogen 17 mg/dL 7-18 Blood Urea Nitro gen HAILEY ([facility]) glomerular filtration rate >60 Below low normal Lesly merular Filtration Rate HAILEY ([facility]) creatinine for GFR 1.22 mg/dL 0.55-1.30 Creatinine for GF R HAILEY ([facility]) sodium level 136 mEq/L 136-145 Sodium Level HAILEY (No [facility]) potassium serum 4.4 mEq/L 3.5-5.1 Potassium Serum ATH NA ([facility]) anion gap 6 mEq/L 8-16 Below low normal Anion Gap OCILLA ( [facility]) carbon dioxide level 24 mEq/L 21-32 Carbon Dioxide Level HAILEY ([facility]) chloride level 106 mEq/L 98-107 Chloride Level HAILEY ([facility]) ALT/SGPT 30 U/L 12-78 ALT/SGPT HAILEY ([facility]) AST/SGOT 11 U/L 7-37 AST/SGOT HAILEY ([facility]) calcium level 9.4 mg/dL 8.5-10.1 Calcium Level HAILEY ( [facility]) total protein 7.1 gm/dL 6.4-8.2 Total Protein HAILEY ( [facility]) bilirubin,total 0.4 mg/dL 0.2-1.0 Bilirubin,total ATHE ([facility]) alkaline phosphatase 130 U/L 45-117 Above high normal Alkaline Phosphatase HAILEY ([facility]) albumin 3.7 gm/dL 3.2-5.2 Albumin HAILEY ([facility]) albumin/globulin ratio 1.2-2.2 Below low normal Albumin /globulin Ratio HAILEY ([facility]) ID Date Data Source [id number] 06/23/2020 12:00:00 PM EST HAILEY ([facility]) Name Value Range Interpretation Code Description Data Munira rce(s) Supporting Document(s) white blood count 8.1 10 4.0-10.0 White Blood Count HAILEY ([facility]) hematocrit 46.3 % 36.0-47.0 Hematocrit HAILEY ([facility]) red blood count 5.35 10 4.00-5.40 Red Blood Count ATHE NA ([facility]) hemoglobin 14.6 g/dL 12.0-15.5 Hemoglobin HAILEY ([facility]) mean corpuscular HGB conc 31.5 g/dL 32.0-36.5 Below low sidney l Mean Corpuscular HGB Conc HAILEY ([facility]) red cell distribution width 13.6 % 11.5-14.5 Red Cell Distribution Width HAILEY ([facility]) mean corpuscular hemoglobin 27.3 pg 27.0-33.0 Mean Cor puscular Hemoglobin HAILEY ([facility]) mean corpuscular volume 86.5 fL 80.0-96.0 Mean Corpusc ular Volume HAILEY ([facility]) platelet count, automated 275 10 150-450 Platelet C ount, Automated HAILEY ([facility]) lymph % 26.9 % 24.0-44.0 Lymph % HAILEY ([facility]) neutrophils % 59.5 % 36.0-66.0 Neutrophils % HAILEY ( [facility]) eos % 4.6 % 0.0-3.0 Above high normal Eos % HAILEY ([facility]) mono % 7.5 % 2.0-8.0 [place] % OCILLA ([facility]) baso % 1.0 % 0.0-1.0 Baso % OCILLA ([facility]) nucleated red blood cell % 0.0 % 0-0 Nucleated Red Blood Cell % OCILLA ([facility]) immature granulocyte % 0.5 % 0-3.0 Immature Gran ulocyte % OCILLA ([facility]) neutrophils # 4.8 10 1.5-8.5 Neutrophils # HAILEY ( [facility]) eos # 0.4 10 0.0-0.5 Eos # HAILEY ([facility]) lymph # 2.2 10 1.5-5.0 Lymph # HAILEY ([facility]) mono # 0.6 10 0.0-0.8 [place] # OCILLA ([facility]) baso # 0.1 10 0.0-0.2 Baso # HAILEY ([facility]) ID Date Data Source [id number] 06/23/2020 12:00:00 PM EST [place] ([facility] [facility] Name Value Range Interpretation Code Description Data Munira rce(s) Supporting Document(s) ID Date Data Source [id number] 06/23/2020 12:00:00 PM EST HAI[place] ([facility]) Name Value Range Interpretation Code Description Data Munira rce(s) Supporting Document(s) ID Date Data Source [id number] 06/23/2020 12:00:00 PM EST [place] ([facility]) Name Value Range Interpretation Code Description Data Munira rce(s) Supporting Document(s) Hemoglobin A1c/Hemoglobin.total in Blood 6.9 % Hemoglobin a1C OCILLA ([facility]) estimated average glucose 151 mg/dL 60-110 Above high norm al Estimated Average Glucose OCILLA ([facility]) ID Date Data Source [id number] 06/23/2020 12:00:00 PM EST HAILEY ([facility]) Name Value Range Interpretation Code Description Data Munira rce(s) Supporting Document(s) ferritin 45 NG/mL 8-252 Ferritin [place] ([facility]) ID Date Data Source [id number] 06/23/2020 12:00:00 PM EST [place] ([facility]) Name Value Range Interpretation Code Description Data Munira rce(s) Supporting Document(s) total 25(oh) vitamin D 10.9 NG/mL 30.0-100.0 Below low normal T otal 25(Oh) Vitamin D OCILLA ([facility]) ID Date Data Source [id number] 06/23/2020 12:00:00 PM EST [place]ILEY ([facility]) Name Value Range Interpretation Code Description Data Munira rce(s) Supporting Document(s) thyroid stimulating hormone 1.610 uIU/mL 0.358-3.740 Thyroid Stimulating Hormone OCILLA ([facility]) ID Date Data Source [id number] 06/23/2020 12:00:00 PM EST [place] ([facility]) Name Value Range Interpretation Code Description Data Munira rce(s) Supporting Document(s) percent saturation 36.5 % 13.2-45.0 Percent Saturatio n HAILEY ([facility]) total iron binding capacity 282 ug/dL 250-450 Total Ir on Binding Capacity HAI[place] ([facility]) iron (fe) 103 ug/dL 50-170 Iron (Fe) [place] ([facility]) ID Date Data Source [id number] 06/23/2020 12:00:00 PM EST [place] ([facility]) Name Value Range Interpretation Code Description Data Munira rce(s) Supporting Document(s) triglycerides level 516 mg/dL <150 Above high normal Triglycer ides Level [place]ILEY ([facility]) non-HDL-C 166 mg/dL Non-hdl-c [place] ([facility]) cholesterol level 201 mg/dL <200 Above high normal Cholesterol Level HA[place] ([facility]) cholesterol risk ratio <5 Above high normal Choles terol Risk Ratio HAILEY ([facility]) HDL cholesterol 35 mg/dL >40 Below low normal HDL Cholestero l OCILLA ([facility]) ID Date Data Source [id number] 06/23/2020 12:00:00 PM EST [place] ([facility]) Name Value Range Interpretation Code Description Data Munira rce(s) Supporting Document(s) glucose, fasting 155 mg/dL 70-100 Above high normal Glucose, Fas ting [place] ([facility]) creatinine for GFR 1.22 mg/dL 0.55-1.30 Creatinine for GF R [place] ([facility]) blood urea nitrogen 17 mg/dL 7-18 Blood Urea Nitro gen [place] ([facility]) glomerular filtration rate >60 Below low normal Lesly merular Filtration Rate HAILEY ([facility]) chloride level 106 mEq/L 98-107 Chloride Level [place] ([facility]) sodium level 136 mEq/L 136-145 Sodium Level [place] ([facility]) carbon dioxide level 24 mEq/L 21-32 Carbon Dioxide Level [place] ([facility]) potassium serum 4.4 mEq/L 3.5-5.1 Potassium Serum ATHE NA ([facility]) calcium level 9.4 mg/dL 8.5-10.1 Calcium Level [place]ILEY ( [facility]) anion gap 6 mEq/L 8-16 Below low normal Anion Gap HA[place] ( [facility]) AST/SGOT 11 U/L 7-37 AST/SGOT [place] ([facility]) ALT/SGPT 30 U/L 12-78 ALT/SGPT [place] ([facility]) alkaline phosphatase 130 U/L 45-117 Above high normal Alkaline Phosphatase [place] ([facility]) total protein 7.1 gm/dL 6.4-8.2 Total Protein [place] ( [facility]) bilirubin,total 0.4 mg/dL 0.2-1.0 Bilirubin,total ATHE ([facility]) albumin 3.7 gm/dL 3.2-5.2 Albumin [place] ([facility]) albumin/globulin ratio 1.2-2.2 Below low normal Albumin /globulin Ratio [place] ([facility]) ID Date Data Source [id number] 06/23/2020 12:00:00 PM EST [place] ([facility]) Name Value Range Interpretation Code Description Data Munira rce(s) Supporting Document(s) red blood count 5.35 10 4.00-5.40 Red Blood Count ATHE NA ([facility]) hemoglobin 14.6 g/dL 12.0-15.5 Hemoglobin [place] ([facility]) white blood count 8.1 10 4.0-10.0 White Blood Count [place] ([facility]) mean corpuscular hemoglobin 27.3 pg 27.0-33.0 Mean Cor puscular Hemoglobin [place] ([facility]) hematocrit 46.3 % 36.0-47.0 Hematocrit [place] ([facility]) mean corpuscular volume 86.5 fL 80.0-96.0 Mean Corpusc ular Volume [place] ([facility]) mean corpuscular HGB conc 31.5 g/dL 32.0-36.5 Below low sidney l Mean Corpuscular HGB Conc [place] ([facility]) platelet count, automated 275 10 150-450 Platelet C ount, Automated [place] ([facility]) red cell distribution width 13.6 % 11.5-14.5 Red Cell Distribution Width [place] ([facility]) mono % 7.5 % 2.0-8.0 [place] % [place] ([facility]) lymph % 26.9 % 24.0-44.0 Lymph % OCILLA ([facility]) neutrophils % 59.5 % 36.0-66.0 Neutrophils % HAILEY ( [facility]) baso % 1.0 % 0.0-1.0 Baso % OCILLA ([facility]) eos % 4.6 % 0.0-3.0 Above high normal Eos % OCILLA ([facility]) immature granulocyte % 0.5 % 0-3.0 Immature Gran ulocyte % OCILLA ([facility]) nucleated red blood cell % 0.0 % 0-0 Nucleated Red Blood Cell % OCILLA ([facility]) neutrophils # 4.8 10 1.5-8.5 Neutrophils # HAILEY ( [facility]) mono # 0.6 10 0.0-0.8 [place] # [place]ILEY ([facility]) lymph # 2.2 10 1.5-5.0 Lymph # [place] ([facility]) baso # 0.1 10 0.0-0.2 Baso # [place] ([facility]) eos # 0.4 10 0.0-0.5 Eos # [place] ([facility]) ID Date Data Source [id number] 06/23/2020 12:00:00 PM EST [place] ([facility]) Name Value Range Interpretation Code Description Data Munira rce(s) Supporting Document(s) ID Date Data Source [id number] 06/23/2020 12:00:00 PM EST [place] ([facility]) Name Value Range Interpretation Code Description Data Munira rce(s) Supporting Document(s) ID Date Data Source [id number] 06/23/2020 12:00:00 PM EST [place] ([facility]) Name Value Range Interpretation Code Description Data Munira rce(s) Supporting Document(s) Hemoglobin A1c/Hemoglobin.total in Blood 6.9 % Hemoglobin a1C [place] ([facility]) estimated average glucose 151 mg/dL 60-110 Above high norm al Estimated Average Glucose [place] ([facility]) ID Date Data Source [id number] 06/23/2020 12:00:00 PM EST [place] ([facility]) Name Value Range Interpretation Code Description Data Munira rce(s) Supporting Document(s) ferritin 45 NG/mL 8-252 Ferritin [place] ([facility]) ID Date Data Source [id number] 06/23/2020 12:00:00 PM EST [place] ([facility]) Name Value Range Interpretation Code Description Data Munira rce(s) Supporting Document(s) total 25(oh) vitamin D 10.9 NG/mL 30.0-100.0 Below low normal T otal 25(Oh) Vitamin D OCILLA ([facility]) ID Date Data Source [id number] 06/23/2020 12:00:00 PM EST [place] ([facility]) Name Value Range Interpretation Code Description Data Munira rce(s) Supporting Document(s) thyroid stimulating hormone 1.610 uIU/mL 0.358-3.740 Thyroid Stimulating Hormone [place] ([facility]) ID Date Data Source [id number] 06/23/2020 12:00:00 PM EST [place]ILEY ([facility]) Name Value Range Interpretation Code Description Data Munira rce(s) Supporting Document(s) total iron binding capacity 282 ug/dL 250-450 Total Ir on Binding Capacity [place] ([facility]) iron (fe) 103 ug/dL 50-170 Iron (Fe) [place] ([facility]) percent saturation 36.5 % 13.2-45.0 Percent Saturatio n [place]LEY ([facility]) ID Date Data Source [id number] 06/23/2020 12:00:00 PM EST [place] ([facility]) Name Value Range Interpretation Code Description Data Munira rce(s) Supporting Document(s) cholesterol level 201 mg/dL <200 Above high normal Cholesterol Level [place] ([facility]) HDL cholesterol 35 mg/dL >40 Below low normal HDL Cholestero l [place] ([facility]) triglycerides level 516 mg/dL <150 Above high normal Triglycer ides Level [place] ([facility]) non-HDL-C 166 mg/dL Non-hdl-c [place] ([facility]) cholesterol risk ratio <5 Above high normal Choles terol Risk Ratio OCILLA ([facility]) ID Date Data Source [id number] 06/23/2020 12:00:00 PM EST HAI[place] ([facility]) Name Value Range Interpretation Code Description Data Munira rce(s) Supporting Document(s) creatinine for GFR 1.22 mg/dL 0.55-1.30 Creatinine for GF R OCILLA ([facility]) blood urea nitrogen 17 mg/dL 7-18 Blood Urea Nitro gen [place] ([facility]) glucose, fasting 155 mg/dL 70-100 Above high normal Glucose, Fas ting [place] ([facility]) chloride level 106 mEq/L 98-107 Chloride Level OCILLA ([facility]) sodium level 136 mEq/L 136-145 Sodium Level [place] ([facility]) glomerular filtration rate >60 Below low normal Lesly merular Filtration Rate [place] ([facility]) potassium serum 4.4 mEq/L 3.5-5.1 Potassium Serum ATHE NA ([facility]) calcium level 9.4 mg/dL 8.5-10.1 Calcium Level OCILLA ( [facility]) anion gap 6 mEq/L 8-16 Below low normal Anion Gap HAILEY ( [facility]) carbon dioxide level 24 mEq/L 21-32 Carbon Dioxide Level [place] ([facility]) alkaline phosphatase 130 U/L 45-117 Above high normal Alkaline Phosphatase [place] ([facility]) bilirubin,total 0.4 mg/dL 0.2-1.0 Bilirubin,total ATHE NA ([facility]) AST/SGOT 11 U/L 7-37 AST/SGOT [place] ([facility]) ALT/SGPT 30 U/L 12-78 ALT/SGPT [place] ([facility]) total protein 7.1 gm/dL 6.4-8.2 Total Protein [place] ( [facility]) albumin 3.7 gm/dL 3.2-5.2 Albumin [place] ([facility]) albumin/globulin ratio 1.2-2.2 Below low normal Albumin /globulin Ratio [place] ([facility]) ID Date Data Source [id number] 06/23/2020 12:00:00 PM EST [place]ILEY ([facility]) Name Value Range Interpretation Code Description Data Munira rce(s) Supporting Document(s) red blood count 5.35 10 4.00-5.40 Red Blood Count ATHE ([facility]) white blood count 8.1 10 4.0-10.0 White Blood Count [place] ([facility]) mean corpuscular volume 86.5 fL 80.0-96.0 Mean Corpusc ular Volume [place] ([facility]) hematocrit 46.3 % 36.0-47.0 Hematocrit [place] ([facility]) hemoglobin 14.6 g/dL 12.0-15.5 Hemoglobin [place] ([facility]) mean corpuscular HGB conc 31.5 g/dL 32.0-36.5 Below low sidney l Mean Corpuscular HGB Conc [place] ([facility]) red cell distribution width 13.6 % 11.5-14.5 Red Cell Distribution Width [place] ([facility]) mean corpuscular hemoglobin 27.3 pg 27.0-33.0 Mean Cor puscular Hemoglobin [place] ([facility]) lymph % 26.9 % 24.0-44.0 Lymph % [place] ([facility]) neutrophils % 59.5 % 36.0-66.0 Neutrophils % HA[place]LEY ( [facility]) mono % 7.5 % 2.0-8.0 [place] % [place] ([facility]) platelet count, automated 275 10 150-450 Platelet C ount, Automated [place] ([facility]) baso % 1.0 % 0.0-1.0 Baso % [place] ([facility]) eos % 4.6 % 0.0-3.0 Above high normal Eos % [place] ([facility]) immature granulocyte % 0.5 % 0-3.0 Immature Gran ulocyte % [place] ([facility]) nucleated red blood cell % 0.0 % 0-0 Nucleated Red Blood Cell % [place] ([facility]) lymph # 2.2 10 1.5-5.0 Lymph # [place] ([facility]) neutrophils # 4.8 10 1.5-8.5 Neutrophils # [place] ( [facility]) mono # 0.6 10 0.0-0.8 [place] # [place] ([facility]) baso # 0.1 10 0.0-0.2 Baso # [place] ([facility]) eos # 0.4 10 0.0-0.5 Eos # [place] ([facility]) ID Date Data Source [id number] 06/23/2020 12:00:00 PM EST [place] ([facility]) Name Value Range Interpretation Code Description Data Munira rce(s) Supporting Document(s) ID Date Data Source [id number] 06/23/2020 12:00:00 PM EST [place] ([facility]) Name Value Range Interpretation Code Description Data Munira rce(s) Supporting Document(s) ID Date Data Source [id number] 06/23/2020 12:00:00 PM EST [place] ([facility]) Name Value Range Interpretation Code Description Data Munira rce(s) Supporting Document(s) Hemoglobin A1c/Hemoglobin.total in Blood 6.9 % Hemoglobin a1C [place] ([facility]) estimated average glucose 151 mg/dL 60-110 Above high norm al Estimated Average Glucose [place] ([facility]) ID Date Data Source [id number] 06/23/2020 12:00:00 PM EST [place] ([facility]) Name Value Range Interpretation Code Description Data Munira rce(s) Supporting Document(s) ferritin 45 NG/mL 8-252 Ferritin [place] ([facility]) ID Date Data Source [id number] 06/23/2020 12:00:00 PM EST [place] ([facility]) Name Value Range Interpretation Code Description Data Munira rce(s) Supporting Document(s) total 25(oh) vitamin D 10.9 NG/mL 30.0-100.0 Below low normal T otal 25(Oh) Vitamin D [place] ([facility]) ID Date Data Source [id number] 06/23/2020 12:00:00 PM EST [place] ([facility]) Name Value Range Interpretation Code Description Data Munira rce(s) Supporting Document(s) thyroid stimulating hormone 1.610 uIU/mL 0.358-3.740 Thyroid Stimulating Hormone [place] ([facility]) ID Date Data Source [id number] 06/23/2020 12:00:00 PM EST [place] ([facility]) Name Value Range Interpretation Code Description Data Munira rce(s) Supporting Document(s) iron (fe) 103 ug/dL 50-170 Iron (Fe) [place] ([facility]) total iron binding capacity 282 ug/dL 250-450 Total Ir on Binding Capacity [place] ([facility]) percent saturation 36.5 % 13.2-45.0 Percent Saturatio n [place] ([facility]) ID Date Data Source [id number] 06/23/2020 12:00:00 PM EST [place] ([facility]) Name Value Range Interpretation Code Description Data Munira rce(s) Supporting Document(s) triglycerides level 516 mg/dL <150 Above high normal Triglycer ides Level [place] ([facility]) non-HDL-C 166 mg/dL Non-hdl-c [place] ([facility]) cholesterol risk ratio <5 Above high normal Choles terol Risk Ratio [place] ([facility]) HDL cholesterol 35 mg/dL >40 Below low normal HDL Cholestero l [place] ([facility]) cholesterol level 201 mg/dL <200 Above high normal Cholesterol Level OCILLA ([facility]) ID Date Data Source [id number] 06/23/2020 12:00:00 PM EST [place] ([facility]) Name Value Range Interpretation Code Description Data Munira rce(s) Supporting Document(s) glucose, fasting 155 mg/dL 70-100 Above high normal Glucose, Fas ting [place] ([facility]) blood urea nitrogen 17 mg/dL 7-18 Blood Urea Nitro gen [place] ([facility]) creatinine for GFR 1.22 mg/dL 0.55-1.30 Creatinine for GF R [place] ([facility]) glomerular filtration rate >60 Below low normal Lesly merular Filtration Rate [place] ([facility]) sodium level 136 mEq/L 136-145 Sodium Level [place] ([facility]) chloride level 106 mEq/L 98-107 Chloride Level [place] ([facility]) potassium serum 4.4 mEq/L 3.5-5.1 Potassium Serum ATHE NA ([facility]) calcium level 9.4 mg/dL 8.5-10.1 Calcium Level [place] ( [facility]) carbon dioxide level 24 mEq/L 21-32 Carbon Dioxide Level [place] ([facility]) anion gap 6 mEq/L 8-16 Below low normal Anion Gap [place] ( [facility]) bilirubin,total 0.4 mg/dL 0.2-1.0 Bilirubin,total ATHE NA ([facility]) AST/SGOT 11 U/L 7-37 AST/SGOT [place] ([facility]) ALT/SGPT 30 U/L 12-78 ALT/SGPT [place] ([facility]) alkaline phosphatase 130 U/L 45-117 Above high normal Alkaline Phosphatase [place] ([facility]) total protein 7.1 gm/dL 6.4-8.2 Total Protein [place] ( [facility]) albumin 3.7 gm/dL 3.2-5.2 Albumin [place] ([facility]) albumin/globulin ratio 1.2-2.2 Below low normal Albumin /globulin Ratio [place] ([facility]) ID Date Data Source [id number] 06/23/2020 12:00:00 PM EST [place] ([facility]) Name Value Range Interpretation Code Description Data Munira rce(s) Supporting Document(s) white blood count 8.1 10 4.0-10.0 White Blood Count [place] ([facility]) hematocrit 46.3 % 36.0-47.0 Hematocrit [place] ([facility]) red blood count 5.35 10 4.00-5.40 Red Blood Count ATHE NA ([facility]) hemoglobin 14.6 g/dL 12.0-15.5 Hemoglobin [place] ([facility]) mean corpuscular hemoglobin 27.3 pg 27.0-33.0 Mean Cor puscular Hemoglobin [place] ([facility]) mean corpuscular volume 86.5 fL 80.0-96.0 Mean Corpusc ular Volume [place] ([facility]) mean corpuscular HGB conc 31.5 g/dL 32.0-36.5 Below low sidney l Mean Corpuscular HGB Conc [place] ([facility]) platelet count, automated 275 10 150-450 Platelet C ount, Automated [place] ([facility]) red cell distribution width 13.6 % 11.5-14.5 Red Cell Distribution Width [place] ([facility]) neutrophils % 59.5 % 36.0-66.0 Neutrophils % [place] ( [facility]) eos % 4.6 % 0.0-3.0 Above high normal Eos % [place] ([facility]) mono % 7.5 % 2.0-8.0 [place] % [place] ([facility]) lymph % 26.9 % 24.0-44.0 Lymph % [place] ([facility]) neutrophils # 4.8 10 1.5-8.5 Neutrophils # [place] ( [facility]) immature granulocyte % 0.5 % 0-3.0 Immature Gran ulocyte % [place] ([facility]) nucleated red blood cell % 0.0 % 0-0 Nucleated Red Blood Cell % [place] ([facility]) baso % 1.0 % 0.0-1.0 Baso % OCILLA ([facility]) lymph # 2.2 10 1.5-5.0 Lymph # [place] ([facility]) mono # 0.6 10 0.0-0.8 [place] # [place] ([facility]) eos # 0.4 10 0.0-0.5 Eos # [place] ([facility]) baso # 0.1 10 0.0-0.2 Baso # [place] ([facility]) ID Date Data Source [id number] 06/23/2020 12:00:00 PM EST [place] ([facility]) Name Value Range Interpretation Code Description Data Munira rce(s) Supporting Document(s) ID Date Data Source [id number] 06/23/2020 12:00:00 PM EST HAILEY ([facility]) Name Value Range Interpretation Code Description Data Munira rce(s) Supporting Document(s) ID Date Data Source [id number] 06/23/2020 12:00:00 PM EST HAILEY ([facility]) Name Value Range Interpretation Code Description Data Munira rce(s) Supporting Document(s) estimated average glucose 151 mg/dL 60-110 Above high norm al Estimated Average Glucose HAILEY ([facility]) Hemoglobin A1c/Hemoglobin.total in Blood 6.9 % Hemoglobin a1C HAILEY ([facility]) ID Date Data Source [id number] 06/23/2020 12:00:00 PM EST HAILEY ([facility]) Name Value Range Interpretation Code Description Data Munira rce(s) Supporting Document(s) ferritin 45 NG/mL 8-252 Ferritin HAILEY ([facility]) ID Date Data Source [id number] 06/23/2020 12:00:00 PM EST HAILEY ([facility]) Name Value Range Interpretation Code Description Data Munira rce(s) Supporting Document(s) total 25(oh) vitamin D 10.9 NG/mL 30.0-100.0 Below low normal T otal 25(Oh) Vitamin D OCILLA ([facility]) ID Date Data Source [id number] 06/23/2020 12:00:00 PM EST HAILEY ([facility]) Name Value Range Interpretation Code Description Data Munira rce(s) Supporting Document(s) thyroid stimulating hormone 1.610 uIU/mL 0.358-3.740 Thyroid Stimulating Hormone HAILEY ([facility]) ID Date Data Source [id number] 05/06/2020 03:14:00 PM EST MEDENT ([facility]) Name Value Range Interpretation Code Description Data Munira rce(s) Supporting Document(s) Covid Rapid Testing Laboratory test result MEDENT ([facility]) ID Date Data Source [id number] 05/06/2020 12:00:00 AM EST [facility] Name Value Range Interpretation Code Description Data Munira rce(s) Supporting Document(s) Covid Rapid Testing Negative [facility] This lab was ordered by [place] and re ported by [facility]. ID Date Data Source [id number] 04/17/2020 01:18:00 PM EST MEDENT ([facility]) Name Value Range Interpretation Code Description Data Munira rce(s) Supporting Document(s) Covid Rapid Testing [facility]) ID Date Data Source [id number] 04/17/2020 12:00:00 AM EST [facility] Name Value Range Interpretation Code Description Data Munira rce(s) Supporting Document(s) Covid Rapid Testing [facility] This lab was ordered by [place] and re ported by [facility]. Procedure Social History Code Duration Value Status Description Data Source(s ) Smoking 01/13/2021 12:00:00 AM EDT Never Smoker completed Never S okker [facility] ([facility]) Smoking 01/07/2021 12:00:00 AM EDT Patient is a former smoker completed Patient is a former smoker [facility] ([facility]) Smoking 10/02/2020 12:00:00 AM EDT Never Smoker completed Never S moker [facility] ([facility]) Vital Signs ID Date Data Source [id number] Name Value Range Interpretation Code Description Data Source(s) Body weight 250 [lb_av] 250 [lb_av] W1 ([facility]) Body height 62 [in_i] 62 [in_i] [facility] ([facility]) Body mass index (BMI) [Ratio] 45.72 kg/m2 45.72 kg/m2 W1 ([facility]) Systolic blood pressure 124 mm[Hg] 124 mm[Hg] e CW1 ([facility]) Diastolic blood pressure 72 mm[Hg] 72 mm[Hg] eCW1 ([facility]) Systolic blood pressure 132 mm[Hg] 132 mm[Hg] M EDENT ([facility], [facility]) Diastolic blood pressure 98 mm[Hg] 98 mm[Hg] [facility] Heart rate 80 /min 80 /min [facility] ([facility], [facility]) Respiratory rate 19 /min 19 /min [facility] ( [facility]) Oxygen saturation in Arterial blood by Pulse oximetry 98 % 98 % [facility] ([facility]) Body temperature 96.7 [degF] 96.7 [degF] JOE ([facility], [facility]) Body weight 251.00 [lb_av] 251.00 [lb_av] DARIEN Herbert ([facility], [facility]) Body height 62 [in_i] 62 [in_i] JOE ([facility], [facility]) 5'2" Body mass index (BMI) [Ratio] 45.9 kg/m2 45.9 k g/m2 JOE ([facility], [facility]) Diastolic blood pressure 81 mm[Hg] 81 mm[Hg] HAILEY ([facility]) Body height 62 [in_i] 62 [in_i] HAILEY ([facility]) Body mass index (BMI) [Ratio] 46 kg/m2 46 kg/ m2 HAILEY ([facility]) Body weight 4022 [oz_av] 4022 [oz_av] HAILEY ([facility]) Systolic blood pressure 123 mm[Hg] 123 mm[Hg] A [facility] ([facility]) Diastolic blood pressure 81 mm[Hg] 81 mm[Hg] HAILEY ([facility]) Body height 62 [in_i] 62 [in_i] HAILEY ([facility]) Body mass index (BMI) [Ratio] 46 kg/m2 46 kg/ m2 HAILEY ([facility]) Systolic blood pressure 123 mm[Hg] 123 mm[Hg] [facility] Body weight 4022 [oz_av] 4022 [oz_av] HAILEY ([facility]) Diastolic blood pressure 81 mm[Hg] 81 mm[Hg] HAILEY ([facility]) Body height 62 [in_i] 62 [in_i] HAILEY ([facility]) Body mass index (BMI) [Ratio] 46 kg/m2 46 kg/ m2 HAILEY ([facility]) Systolic blood pressure 123 mm[Hg] 123 mm[Hg] A [facility] ([facility]) Body weight 4022 [oz_av] 4022 [oz_av] HAILEY ([facility]) Diastolic blood pressure 81 mm[Hg] 81 mm[Hg] HAILEY ([facility]) Body height 62 [in_i] 62 [in_i] HAILEY ([facility]) Body mass index (BMI) [Ratio] 46 kg/m2 46 kg/ m2 HAILEY ([facility]) Systolic blood pressure 123 mm[Hg] 123 mm[Hg] Jose THENA ([facility]) Body weight 4022 [oz_av] 4022 [oz_av] HAILEY ([facility]) Oxygen saturation in Arterial blood by Pulse oximetry 98 % 98 % MEDENT ([facility], [facility]) Respiratory rate 18 /min 18 /min MEDENT ( [facility], [facility]) Body mass index (BMI) [Ratio] 45.9 kg/m2 45.9 k g/m2 MEDENT ([facility], [facility]) Body temperature 97.5 [degF] 97.5 [degF] MEDENT ([facility], [facility]) Body weight 251.00 [lb_av] 251.00 [lb_av] MEDEN T ([facility], [facility]) Body height 62 [in_i] 62 [in_i] MEDENT ([facility], [facility]) 5'2" Heart rate 97 /min 97 /min MEDENT ([facility], [facility]) Systolic blood pressure 120 mm[Hg] 120 mm[Hg] EDENT ([facility], [facility]) Diastolic blood pressure 92 mm[Hg] 92 mm[Hg] MEDENT ([facility], [facility]) Body weight 260.00 [lb_av] 260.00 [lb_av] MEDEN T ([facility], [facility]) Respiratory rate 16 /min 16 /min MEDENT ( [facility], [facility]) Body temperature 98.8 [degF] 98.8 [degF] MEDENT ([facility], [facility]) Oxygen saturation in Arterial blood by Pulse oximetry 98 % 98 % MEDENT ([facility], [facility]) Body height 63 [in_i] 63 [in_i] MEDENT ([facility], [facility]) 5'3" Body mass index (BMI) [Ratio] 46.1 kg/m2 46.1 k g/m2 MEDENT ([facility], [facility]) Systolic blood pressure 123 mm[Hg] 123 mm[Hg] M EDENT ([facility], [facility]) Diastolic blood pressure 84 mm[Hg] 84 mm[Hg] MEDENT ([facility], [facility]) Heart rate 98 /min 98 /min MEDENT ([facility], [facility]) Heart rate 80 /min 80 /min MEDENT ([facility], [facility]) Systolic blood pressure 138 mm[Hg] 138 mm[Hg] M EDENT ([facility], [facility]) Oxygen saturation in Arterial blood by Pulse oximetry 99 % 99 % MEDENT ([facility], [facility]) Respiratory rate 16 /min 16 /min MEDENT ( [facility], [facility]) Body temperature 97.5 [degF] 97.5 [degF] MEDENT ([facility], [facility]) Body weight 260.00 [lb_av] 260.00 [lb_av] MEDEN T ([facility], [facility]) Body height 63 [in_i] 63 [in_i] MEDENT ([facility], [facility]) 5'3" Body mass index (BMI) [Ratio] 46.1 kg/m2 46.1 k g/m2 MEDENT ([facility], [facility]) Diastolic blood pressure 88 mm[Hg] 88 mm[Hg] MEDENT ([facility], [facility]) Body weight 256 [lb_av] 256 [lb_av] eCW1 ([facility]) Body height 62 [in_i] 62 [in_i] W1 ([facility]) Body mass index (BMI) [Ratio] 46.82 kg/m2 46.82 kg/m2 eCW1 ([facility]) Systolic blood pressure 122 mm[Hg] 122 mm[Hg] e CW1 ([facility]) Diastolic blood pressure 74 mm[Hg] 74 mm[Hg] eCW1 ([facility]) Diastolic blood pressure 92 mm[Hg] 92 mm[Hg] MEDENT ([facility], [facility]) Respiratory rate 18 /min 18 /min MEDENT ( [facility], [facility]) Heart rate 102 /min 102 /min MEDENT ([facility], [facility]) Oxygen saturation in Arterial blood by Pulse oximetry 97 % 97 % MEDENT ([facility], [facility]) Systolic blood pressure 129 mm[Hg] 129 mm[Hg] M EDENT ([facility], [facility]) Body temperature 98.3 [degF] 98.3 [degF] MEDENT ([facility], [facility]) Body weight 260.00 [lb_av] 260.00 [lb_av] MEDEN T ([facility], [facility]) Body height 63 [in_i] 63 [in_i] MEDENT ([facility], [facility]) 5'3" Body mass index (BMI) [Ratio] 46.1 kg/m2 46.1 k g/m2 MEDENT ([facility], [facility]) Body height 62 [in_i] 62 [in_i] HAILEY ([facility]) Body height 62 [in_i] 62 [in_i] HAILEY ([facility]) Body height 62 [in_i] 62 [in_i] HAILEY ([facility]) Body height 62 [in_i] 62 [in_i] HAILEY ([facility]) Body height 62 [in_i] 62 [in_i] HAILEY ([facility]) Body height 62 [in_i] 62 [in_i] HAILEY ([facility]) Body height 62 [in_i] 62 [in_i] HAILEY ([facility]) Body height 62 [in_i] 62 [in_i] HAILEY ([facility]) Body height 62 [in_i] 62 [in_i] HAILEY ([facility]) Body height 62 [in_i] 62 [in_i] HAILEY ([facility]) Body height 62 [in_i] 62 [in_i] HAILEY ([facility]) Body height 62 [in_i] 62 [in_i] HAILEY ([facility]) Body height 62 [in_i] 62 [in_i] HAILEY ([facility]) Body height 62 [in_i] 62 [in_i] HAILEY ([facility]) Body height 62 [in_i] 62 [in_i] HAILEY ([facility]) Body height 62 [in_i] 62 [in_i] HAILEY ([facility]) Body mass index (BMI) [Ratio] 47.2 kg/m2 47.2 k g/m2 HAILEY ([facility]) Body height 62 [in_i] 62 [in_i] HAILEY ([facility]) Diastolic blood pressure 81 mm[Hg] 81 mm[Hg] HAILEY ([facility]) Systolic blood pressure 119 mm[Hg] 119 mm[Hg] [facility] Body weight 4128 [oz_av] 4128 [oz_av] HAILEY ([facility]) Diastolic blood pressure 81 mm[Hg] 81 mm[Hg] HAILEY ([facility]) Body mass index (BMI) [Ratio] 47.2 kg/m2 47.2 k g/m2 HAILEY ([facility]) Body height 62 [in_i] 62 [in_i] HAILEY ([facility]) Systolic blood pressure 119 mm[Hg] 119 mm[Hg] A THENA ([facility]) Body weight 4128 [oz_av] 4128 [oz_av] HAILEY ([facility]) Diastolic blood pressure 81 mm[Hg] 81 mm[Hg] HAILEY ([facility]) Body height 62 [in_i] 62 [in_i] HAILEY ([facility]) Body mass index (BMI) [Ratio] 47.2 kg/m2 47.2 k g/m2 HAILEY ([facility]) Systolic blood pressure 119 mm[Hg] 119 mm[Hg] A THENA ([facility]) Body weight 4128 [oz_av] 4128 [oz_av] HAILEY ([facility]) Body mass index (BMI) [Ratio] 47.2 kg/m2 47.2 k g/m2 HAILEY ([facility]) Diastolic blood pressure 81 mm[Hg] 81 mm[Hg] HAILEY ([facility]) Body height 62 [in_i] 62 [in_i] HAILEY ([facility]) Systolic blood pressure 119 mm[Hg] 119 mm[Hg] [facility] Body weight 4128 [oz_av] 4128 [oz_av] HAILEY ([facility]) Systolic blood pressure 119 mm[Hg] 119 mm[Hg] A THENA ([facility]) Body weight 4128 [oz_av] 4128 [oz_av] HAILEY ([facility]) Diastolic blood pressure 81 mm[Hg] 81 mm[Hg] HAILEY ([facility]) Body height 62 [in_i] 62 [in_i] HAILEY ([facility]) Body mass index (BMI) [Ratio] 47.2 kg/m2 47.2 k g/m2 HAILEY ([facility]) Diastolic blood pressure 81 mm[Hg] 81 mm[Hg] HAILEY ([facility]) Body height 62 [in_i] 62 [in_i] HAILEY ([facility]) Body mass index (BMI) [Ratio] 47.2 kg/m2 47.2 k g/m2 HAILEY ([facility]) Systolic blood pressure 119 mm[Hg] 119 mm[Hg] [facility]) Body weight 4128 [oz_av] 4128 [oz_av] HAILEY ([facility]) Diastolic blood pressure 81 mm[Hg] 81 mm[Hg] HAILEY ([facility]) Body height 62 [in_i] 62 [in_i] HAILEY ([facility]) Body mass index (BMI) [Ratio] 47.2 kg/m2 47.2 k g/m2 HAILEY ([facility]) Systolic blood pressure 119 mm[Hg] 119 mm[Hg] [facility]) Body weight 4128 [oz_av] 4128 [oz_av] HAILEY ([facility]) Diastolic blood pressure 81 mm[Hg] 81 mm[Hg] HAILEY ([facility]) Body height 62 [in_i] 62 [in_i] HAILEY ([facility]) Body mass index (BMI) [Ratio] 47.2 kg/m2 47.2 k g/m2 HAILEY ([facility]) Systolic blood pressure 119 mm[Hg] 119 mm[Hg] A THENA ([facility]) Body weight 4128 [oz_av] 4128 [oz_av] HAILEY ([facility]) Diastolic blood pressure 81 mm[Hg] 81 mm[Hg] HAILEY ([facility]) Body weight 4128 [oz_av] 4128 [oz_av] HAILEY ([facility]) Body height 62 [in_i] 62 [in_i] HAILEY ([facility]) Body mass index (BMI) [Ratio] 47.2 kg/m2 47.2 k g/m2 HAILEY ([facility]) Systolic blood pressure 119 mm[Hg] 119 mm[Hg] [facility]) Diastolic blood pressure 81 mm[Hg] 81 mm[Hg] HAILEY ([facility]) Body height 62 [in_i] 62 [in_i] HAILEY ([facility]) Body mass index (BMI) [Ratio] 47.2 kg/m2 47.2 k g/m2 HAILEY ([facility]) Systolic blood pressure 119 mm[Hg] 119 mm[Hg] A THENA ([facility]) Body weight 4128 [oz_av] 4128 [oz_av] HAILEY ([facility]) Diastolic blood pressure 81 mm[Hg] 81 mm[Hg] HAILEY ([facility]) Body height 62 [in_i] 62 [in_i] HAILEY ([facility]) Body mass index (BMI) [Ratio] 47.2 kg/m2 47.2 k g/m2 HAILEY ([facility]) Systolic blood pressure 119 mm[Hg] 119 mm[Hg] A THENA ([facility]) Body weight 4128 [oz_av] 4128 [oz_av] HAILEY ([facility]) Diastolic blood pressure 81 mm[Hg] 81 mm[Hg] HAILEY ([facility]) Body height 62 [in_i] 62 [in_i] HAILEY ([facility]) Body mass index (BMI) [Ratio] 47.2 kg/m2 47.2 k g/m2 HAILEY ([facility]) Systolic blood pressure 119 mm[Hg] 119 mm[Hg] A THENA ([facility]) Body weight 4128 [oz_av] 4128 [oz_av] HAILEY ([facility]) Diastolic blood pressure 81 mm[Hg] 81 mm[Hg] HAILEY ([facility]) Body height 62 [in_i] 62 [in_i] HAILEY ([facility]) Body mass index (BMI) [Ratio] 47.2 kg/m2 47.2 k g/m2 HAILEY ([facility]) Systolic blood pressure 119 mm[Hg] 119 mm[Hg] [facility] Body weight 4128 [oz_av] 4128 [oz_av] HAILEY ([facility]) Diastolic blood pressure 81 mm[Hg] 81 mm[Hg] HAILEY ([facility]) Body height 62 [in_i] 62 [in_i] HAILEY ([facility]) Body mass index (BMI) [Ratio] 47.2 kg/m2 47.2 k g/m2 HAILEY ([facility]) Systolic blood pressure 119 mm[Hg] 119 mm[Hg] A THENA ([facility]) Body weight 4128 [oz_av] 4128 [oz_av] HAILEY ([facility]) Diastolic blood pressure 81 mm[Hg] 81 mm[Hg] HAILEY ([facility]) Body height 62 [in_i] 62 [in_i] HAILEY ([facility]) Body mass index (BMI) [Ratio] 47.2 kg/m2 47.2 k g/m2 HAILEY ([facility]) Systolic blood pressure 119 mm[Hg] 119 mm[Hg] A THENA ([facility]) Body weight 4128 [oz_av] 4128 [oz_av] HAILEY ([facility]) Diastolic blood pressure 81 mm[Hg] 81 mm[Hg] HAILEY ([facility]) Body height 62 [in_i] 62 [in_i] HAILEY ([facility]) Body mass index (BMI) [Ratio] 47.2 kg/m2 47.2 k g/m2 [place] ([facility]) Systolic blood pressure 119 mm[Hg] 119 mm[Hg] A THENA ([facility]) Body weight 4128 [oz_av] 4128 [oz_av] HAILEY ([facility]) Diastolic blood pressure 81 mm[Hg] 81 mm[Hg] HAILEY ([facility]) Body height 62 [in_i] 62 [in_i] HAILEY ([facility]) Body mass index (BMI) [Ratio] 47.2 kg/m2 47.2 k g/m2 HAILEY ([facility]) Systolic blood pressure 119 mm[Hg] 119 mm[Hg] A THENA ([facility]) Body weight 4128 [oz_av] 4128 [oz_av] [place]ILEY ([facility]) Body mass index (BMI) [Ratio] 45.4 kg/m2 45.4 k g/m2 MEDENT ([facility]) Body height 62 [in_i] 62 [in_i] MEDENT ([facility]) 5'2" Body weight 248.00 [lb_av] 248.00 [lb_av] MEDEN T ([facility]) Body temperature 96.2 [degF] 96.2 [degF] MEDENT ([facility]) Diastolic blood pressure 83 mm[Hg] 83 mm[Hg] HAILEY ([facility]) Body height 62 [in_i] 62 [in_i] HAILEY ([facility]) Systolic blood pressure 119 mm[Hg] 119 mm[Hg] A THENA ([facility]) Body weight 3990.4 [oz_av] 3990.4 [oz_av] ATHEN A ([facility]) Body mass index (BMI) [Ratio] 45.6 kg/m2 45.6 k g/m2 HAILEY ([facility]) Diastolic blood pressure 83 mm[Hg] 83 mm[Hg] HAILEY ([facility]) Body mass index (BMI) [Ratio] 45.6 kg/m2 45.6 k g/m2 [place]ILEY ([facility]) Body height 62 [in_i] 62 [in_i] [place] ([facility]) Systolic blood pressure 119 mm[Hg] 119 mm[Hg] [facility] Body weight 3990.4 [oz_av] 3990.4 [oz_av] ATHEN A ([facility]) Body weight 3990.4 [oz_av] 3990.4 [oz_av] ATHEN A ([facility]) Body height 62 [in_i] 62 [in_i] HAILEY ([facility]) Systolic blood pressure 119 mm[Hg] 119 mm[Hg] A [facility] ([facility]) Body mass index (BMI) [Ratio] 45.6 kg/m2 45.6 k g/m2 HAILEY ([facility]) Diastolic blood pressure 83 mm[Hg] 83 mm[Hg] [place]ILEY ([facility]) Diastolic blood pressure 83 mm[Hg] 83 mm[Hg] HAILEY ([facility]) Body height 62 [in_i] 62 [in_i] HAILEY ([facility]) Body mass index (BMI) [Ratio] 45.6 kg/m2 45.6 k g/m2 [place] ([facility]) Body weight 3990.4 [oz_av] 3990.4 [oz_av] ATHEN A ([facility]) Systolic blood pressure 119 mm[Hg] 119 mm[Hg] [facility] [facility] Body weight 3990.4 [oz_av] 3990.4 [oz_av] ATHEN A ([facility]) Systolic blood pressure 119 mm[Hg] 119 mm[Hg] A [facility] ([facility]) Diastolic blood pressure 83 mm[Hg] 83 mm[Hg] HAILEY ([facility]) Body height 62 [in_i] 62 [in_i] HAILEY ([facility]) Body mass index (BMI) [Ratio] 45.6 kg/m2 45.6 k g/m2 [place] ([facility]) Systolic blood pressure 119 mm[Hg] 119 mm[Hg] [facility] Body weight 3990.4 [oz_av] 3990.4 [oz_av] ATHEN A ([facility]) Diastolic blood pressure 83 mm[Hg] 83 mm[Hg] HAILEY ([facility]) Body height 62 [in_i] 62 [in_i] HAILEY ([facility]) Body mass index (BMI) [Ratio] 45.6 kg/m2 45.6 k g/m2 [place] ([facility]) Diastolic blood pressure 83 mm[Hg] 83 mm[Hg] [place]LEY ([facility]) Body height 62 [in_i] 62 [in_i] [place] ([facility]) Body mass index (BMI) [Ratio] 45.6 kg/m2 45.6 k g/m2 [place] ([facility]) Systolic blood pressure 119 mm[Hg] 119 mm[Hg] A JACQUELINE ([facility]) Body weight 3990.4 [oz_av] 3990.4 [oz_av] ATHEN A ([facility]) Diastolic blood pressure 83 mm[Hg] 83 mm[Hg] [place]ILEY ([facility]) Body height 62 [in_i] 62 [in_i] [place] ([facility]) Body mass index (BMI) [Ratio] 45.6 kg/m2 45.6 k g/m2 [place] ([facility]) Systolic blood pressure 119 mm[Hg] 119 mm[Hg] A JACQUELINE ([facility]) Body weight 3990.4 [oz_av] 3990.4 [oz_av] ATHEN A ([facility]) Diastolic blood pressure 83 mm[Hg] 83 mm[Hg] HAILEY ([facility]) Body height 62 [in_i] 62 [in_i] [place] ([facility]) Body mass index (BMI) [Ratio] 45.6 kg/m2 45.6 k g/m2 [place] ([facility]) Systolic blood pressure 119 mm[Hg] 119 mm[Hg] A MIRIANA ([facility]) Body weight 3990.4 [oz_av] 3990.4 [oz_av] ATHEN A ([facility]) Diastolic blood pressure 83 mm[Hg] 83 mm[Hg] HAILEY ([facility]) Body height 62 [in_i] 62 [in_i] [place] ([facility]) Body mass index (BMI) [Ratio] 45.6 kg/m2 45.6 k g/m2 [place] ([facility]) Systolic blood pressure 119 mm[Hg] 119 mm[Hg] [facility] Body weight 3990.4 [oz_av] 3990.4 [oz_av] ATHEN A ([facility]) Diastolic blood pressure 83 mm[Hg] 83 mm[Hg] [place]ILEY ([facility]) Body height 62 [in_i] 62 [in_i] [place] ([facility]) Body mass index (BMI) [Ratio] 45.6 kg/m2 45.6 k g/m2 [place] ([facility]) Systolic blood pressure 119 mm[Hg] 119 mm[Hg] A [facility] ([facility]) Body weight 3990.4 [oz_av] 3990.4 [oz_av] ATHEN A ([facility]) Diastolic blood pressure 83 mm[Hg] 83 mm[Hg] HAILEY ([facility]) Body height 62 [in_i] 62 [in_i] [place] ([facility]) Body mass index (BMI) [Ratio] 45.6 kg/m2 45.6 k g/m2 [place] ([facility]) Systolic blood pressure 119 mm[Hg] 119 mm[Hg] [facility] Body weight 3990.4 [oz_av] 3990.4 [oz_av] ATHEN A ([facility]) Diastolic blood pressure 83 mm[Hg] 83 mm[Hg] [place]ILEY ([facility]) Body height 62 [in_i] 62 [in_i] [place] ([facility]) Body mass index (BMI) [Ratio] 45.6 kg/m2 45.6 k g/m2 [place] ([facility]) Systolic blood pressure 119 mm[Hg] 119 mm[Hg] [facility] Body weight 3990.4 [oz_av] 3990.4 [oz_av] ATHEN A ([facility]) Diastolic blood pressure 83 mm[Hg] 83 mm[Hg] [place]ILEY ([facility]) Body height 62 [in_i] 62 [in_i] [place] ([facility]) Body mass index (BMI) [Ratio] 45.6 kg/m2 45.6 k g/m2 [place] ([facility]) Systolic blood pressure 119 mm[Hg] 119 mm[Hg] [facility] Body weight 3990.4 [oz_av] 3990.4 [oz_av] ATHEN A ([facility]) Diastolic blood pressure 83 mm[Hg] 83 mm[Hg] HAILEY ([facility]) Body height 62 [in_i] 62 [in_i] [place] ([facility]) Body mass index (BMI) [Ratio] 45.6 kg/m2 45.6 k g/m2 [place] ([facility]) Systolic blood pressure 119 mm[Hg] 119 mm[Hg] A [facility] ([facility]) Body weight 3990.4 [oz_av] 3990.4 [oz_av] ATHEN A ([facility]) Diastolic blood pressure 83 mm[Hg] 83 mm[Hg] [place]ILEY ([facility]) Body height 62 [in_i] 62 [in_i] [place] ([facility]) Body mass index (BMI) [Ratio] 45.6 kg/m2 45.6 k g/m2 [place] ([facility]) Systolic blood pressure 119 mm[Hg] 119 mm[Hg] A THENA ([facility]) Body weight 3990.4 [oz_av] 3990.4 [oz_av] ATHEN A ([facility]) Diastolic blood pressure 83 mm[Hg] 83 mm[Hg] [place] ([facility]) Body height 62 [in_i] 62 [in_i] [place] ([facility]) Body mass index (BMI) [Ratio] 45.6 kg/m2 45.6 k g/m2 [place] ([facility]) Systolic blood pressure 119 mm[Hg] 119 mm[Hg] [facility] Body weight 3990.4 [oz_av] 3990.4 [oz_av] ATHEN A ([facility]) Diastolic blood pressure 83 mm[Hg] 83 mm[Hg] [place]ILEY ([facility]) Body height 62 [in_i] 62 [in_i] [place] ([facility]) Body mass index (BMI) [Ratio] 45.6 kg/m2 45.6 k g/m2 [place] ([facility]) Systolic blood pressure 119 mm[Hg] 119 mm[Hg] [facility] Body weight 3990.4 [oz_av] 3990.4 [oz_av] ATHEN A ([facility]) Diastolic blood pressure 83 mm[Hg] 83 mm[Hg] HAILEY ([facility]) Body height 62 [in_i] 62 [in_i] [place] ([facility]) Body mass index (BMI) [Ratio] 45.6 kg/m2 45.6 k g/m2 [place] ([facility]) Systolic blood pressure 119 mm[Hg] 119 mm[Hg] [facility] Body weight 3990.4 [oz_av] 3990.4 [oz_av] ATHEN A ([facility]) Diastolic blood pressure 83 mm[Hg] 83 mm[Hg] HAILEY ([facility]) Body height 62 [in_i] 62 [in_i] [place] ([facility]) Body mass index (BMI) [Ratio] 45.6 kg/m2 45.6 k g/m2 [place] ([facility]) Systolic blood pressure 119 mm[Hg] 119 mm[Hg] A THENA ([facility]) Body weight 3990.4 [oz_av] 3990.4 [oz_av] ATHEN A ([facility]) Diastolic blood pressure 83 mm[Hg] 83 mm[Hg] [place]ILEY ([facility]) Body height 62 [in_i] 62 [in_i] [place] ([facility]) Body mass index (BMI) [Ratio] 45.6 kg/m2 45.6 k g/m2 [place] ([facility]) Systolic blood pressure 119 mm[Hg] 119 mm[Hg] A [facility] ([facility]) Body weight 3990.4 [oz_av] 3990.4 [oz_av] ATHEN A ([facility]) Diastolic blood pressure 83 mm[Hg] 83 mm[Hg] [place]ILEY ([facility]) Body height 62 [in_i] 62 [in_i] [place] ([facility]) Body mass index (BMI) [Ratio] 45.6 kg/m2 45.6 k g/m2 [place] ([facility]) Systolic blood pressure 119 mm[Hg] 119 mm[Hg] A [facility] ([facility]) Body weight 3990.4 [oz_av] 3990.4 [oz_av] ATHEN A ([facility]) Diastolic blood pressure 83 mm[Hg] 83 mm[Hg] HAILEY ([facility]) Body height 62 [in_i] 62 [in_i] [place] ([facility]) Body mass index (BMI) [Ratio] 45.6 kg/m2 45.6 k g/m2 [place] ([facility]) Systolic blood pressure 119 mm[Hg] 119 mm[Hg] A [facility] ([facility]) Body weight 3990.4 [oz_av] 3990.4 [oz_av] ATHEN A ([facility]) Diastolic blood pressure 83 mm[Hg] 83 mm[Hg] HAILEY ([facility]) Body height 62 [in_i] 62 [in_i] [place] ([facility]) Body mass index (BMI) [Ratio] 45.6 kg/m2 45.6 k g/m2 [place] ([facility]) Systolic blood pressure 119 mm[Hg] 119 mm[Hg] [facility] Body weight 3990.4 [oz_av] 3990.4 [oz_av] ATHEN A ([facility]) Diastolic blood pressure 83 mm[Hg] 83 mm[Hg] HAILEY ([facility]) Body height 62 [in_i] 62 [in_i] [place] ([facility]) Body mass index (BMI) [Ratio] 45.6 kg/m2 45.6 k g/m2 [place] ([facility]) Systolic blood pressure 119 mm[Hg] 119 mm[Hg] A [facility] ([facility]) Body weight 3990.4 [oz_av] 3990.4 [oz_av] ATHEN A ([facility]) Systolic blood pressure 117 mm[Hg] 117 mm[Hg] A THENA ([facility]) Diastolic blood pressure 77 mm[Hg] 77 mm[Hg] HAILEY ([facility]) Body height 62 [in_i] 62 [in_i] [place] ([facility]) Body weight 4019.2 [oz_av] 4019.2 [oz_av] ATHEN A ([facility]) Body mass index (BMI) [Ratio] 45.9 kg/m2 45.9 k g/m2 [place] ([facility]) Body weight 4019.2 [oz_av] 4019.2 [oz_av] ATHEN A ([facility]) Body mass index (BMI) [Ratio] 45.9 kg/m2 45.9 k g/m2 [place] ([facility]) Systolic blood pressure 117 mm[Hg] 117 mm[Hg] A THENA ([facility]) Diastolic blood pressure 77 mm[Hg] 77 mm[Hg] HAILEY ([facility]) Body height 62 [in_i] 62 [in_i] [place] ([facility]) Body mass index (BMI) [Ratio] 45.9 kg/m2 45.9 k g/m2 [place] ([facility]) Diastolic blood pressure 77 mm[Hg] 77 mm[Hg] [place]LEY ([facility]) Systolic blood pressure 117 mm[Hg] 117 mm[Hg] A THENA ([facility]) Body weight 4019.2 [oz_av] 4019.2 [oz_av] ATHEN A ([facility]) Body height 62 [in_i] 62 [in_i] HAILEY ([facility]) Diastolic blood pressure 77 mm[Hg] 77 mm[Hg] HA[place]LEY ([facility]) Body height 62 [in_i] 62 [in_i] [place] ([facility]) Body mass index (BMI) [Ratio] 45.9 kg/m2 45.9 k g/m2 [place] ([facility]) Systolic blood pressure 117 mm[Hg] 117 mm[Hg] A THENA ([facility]) Body weight 4019.2 [oz_av] 4019.2 [oz_av] ATHEN A ([facility]) Diastolic blood pressure 77 mm[Hg] 77 mm[Hg] HAILEY ([facility]) Body height 62 [in_i] 62 [in_i] [place] ([facility]) Body mass index (BMI) [Ratio] 45.9 kg/m2 45.9 k g/m2 [place] ([facility]) Systolic blood pressure 117 mm[Hg] 117 mm[Hg] A THENA ([facility]) Body weight 4019.2 [oz_av] 4019.2 [oz_av] ATHEN A ([facility]) Diastolic blood pressure 77 mm[Hg] 77 mm[Hg] HAILEY ([facility]) Body height 62 [in_i] 62 [in_i] [place]ILEY ([facility]) Body mass index (BMI) [Ratio] 45.9 kg/m2 45.9 k g/m2 [place] ([facility]) Systolic blood pressure 117 mm[Hg] 117 mm[Hg] A THENA ([facility]) Body weight 4019.2 [oz_av] 4019.2 [oz_av] ATHEN A ([facility]) Diastolic blood pressure 77 mm[Hg] 77 mm[Hg] HAILEY ([facility]) Body height 62 [in_i] 62 [in_i] HAILEY ([facility]) Body mass index (BMI) [Ratio] 45.9 kg/m2 45.9 k g/m2 [place] ([facility]) Systolic blood pressure 117 mm[Hg] 117 mm[Hg] A THENA ([facility]) Body weight 4019.2 [oz_av] 4019.2 [oz_av] ATHEN A ([facility]) Diastolic blood pressure 77 mm[Hg] 77 mm[Hg] HAILEY ([facility]) Body height 62 [in_i] 62 [in_i] HAILEY ([facility]) Body mass index (BMI) [Ratio] 45.9 kg/m2 45.9 k g/m2 [place] ([facility]) Systolic blood pressure 117 mm[Hg] 117 mm[Hg] A THENA ([facility]) Body weight 4019.2 [oz_av] 4019.2 [oz_av] ATHEN A ([facility]) Diastolic blood pressure 77 mm[Hg] 77 mm[Hg] HAILEY ([facility]) Body height 62 [in_i] 62 [in_i] [place]LEY ([facility]) Body mass index (BMI) [Ratio] 45.9 kg/m2 45.9 k g/m2 [place] ([facility]) Systolic blood pressure 117 mm[Hg] 117 mm[Hg] [facility] Body weight 4019.2 [oz_av] 4019.2 [oz_av] ATHEN A ([facility]) Body weight 4019.2 [oz_av] 4019.2 [oz_av] ATHEN A ([facility]) Diastolic blood pressure 77 mm[Hg] 77 mm[Hg] HAILEY ([facility]) Body height 62 [in_i] 62 [in_i] [place] ([facility]) Body mass index (BMI) [Ratio] 45.9 kg/m2 45.9 k g/m2 [place] ([facility]) Systolic blood pressure 117 mm[Hg] 117 mm[Hg] [facility] Diastolic blood pressure 77 mm[Hg] 77 mm[Hg] HAILEY ([facility]) Body height 62 [in_i] 62 [in_i] [place] ([facility]) Body mass index (BMI) [Ratio] 45.9 kg/m2 45.9 k g/m2 [place] ([facility]) Systolic blood pressure 117 mm[Hg] 117 mm[Hg] [facility] Body weight 4019.2 [oz_av] 4019.2 [oz_av] ATHEN A ([facility]) Diastolic blood pressure 77 mm[Hg] 77 mm[Hg] HAILEY ([facility]) Body height 62 [in_i] 62 [in_i] [place] ([facility]) Body mass index (BMI) [Ratio] 45.9 kg/m2 45.9 k g/m2 [place] ([facility]) Systolic blood pressure 117 mm[Hg] 117 mm[Hg] [facility] Body weight 4019.2 [oz_av] 4019.2 [oz_av] ATHEN A ([facility]) Diastolic blood pressure 77 mm[Hg] 77 mm[Hg] [place]ILEY ([facility]) Body height 62 [in_i] 62 [in_i] [place] ([facility]) Body mass index (BMI) [Ratio] 45.9 kg/m2 45.9 k g/m2 [place] ([facility]) Systolic blood pressure 117 mm[Hg] 117 mm[Hg] [facility] Body weight 4019.2 [oz_av] 4019.2 [oz_av] ATHEN A ([facility]) Diastolic blood pressure 77 mm[Hg] 77 mm[Hg] [place]LEY ([facility]) Body height 62 [in_i] 62 [in_i] [place] ([facility]) Body mass index (BMI) [Ratio] 45.9 kg/m2 45.9 k g/m2 [place] ([facility]) Systolic blood pressure 117 mm[Hg] 117 mm[Hg] [facility] Body weight 4019.2 [oz_av] 4019.2 [oz_av] ATHEN A ([facility]) Body weight 4019.2 [oz_av] 4019.2 [oz_av] ATHEN A ([facility]) Diastolic blood pressure 77 mm[Hg] 77 mm[Hg] [place]ILEY ([facility]) Body height 62 [in_i] 62 [in_i] [place] ([facility]) Body mass index (BMI) [Ratio] 45.9 kg/m2 45.9 k g/m2 [place] ([facility]) Systolic blood pressure 117 mm[Hg] 117 mm[Hg] [facility] Diastolic blood pressure 77 mm[Hg] 77 mm[Hg] [place] ([facility]) Body height 62 [in_i] 62 [in_i] [place] ([facility]) Body mass index (BMI) [Ratio] 45.9 kg/m2 45.9 k g/m2 [place] ([facility]) Systolic blood pressure 117 mm[Hg] 117 mm[Hg] [facility] Body weight 4019.2 [oz_av] 4019.2 [oz_av] ATHEN A ([facility]) Diastolic blood pressure 77 mm[Hg] 77 mm[Hg] [place]LEY ([facility]) Body height 62 [in_i] 62 [in_i] [place] ([facility]) Body mass index (BMI) [Ratio] 45.9 kg/m2 45.9 k g/m2 [place] ([facility]) Systolic blood pressure 117 mm[Hg] 117 mm[Hg] A [facility] ([facility]) Body weight 4019.2 [oz_av] 4019.2 [oz_av] ATHEN A ([facility]) Diastolic blood pressure 77 mm[Hg] 77 mm[Hg] [place]LEY ([facility]) Body height 62 [in_i] 62 [in_i] [place] ([facility]) Body mass index (BMI) [Ratio] 45.9 kg/m2 45.9 k g/m2 [place] ([facility]) Systolic blood pressure 117 mm[Hg] 117 mm[Hg] [facility] Body weight 4019.2 [oz_av] 4019.2 [oz_av] ATHEN A ([facility]) Diastolic blood pressure 77 mm[Hg] 77 mm[Hg] [place]ILEY ([facility]) Body height 62 [in_i] 62 [in_i] [place] ([facility]) Body mass index (BMI) [Ratio] 45.9 kg/m2 45.9 k g/m2 [place] ([facility]) Systolic blood pressure 117 mm[Hg] 117 mm[Hg] [facility] Body weight 4019.2 [oz_av] 4019.2 [oz_av] ATHEN A ([facility]) Diastolic blood pressure 77 mm[Hg] 77 mm[Hg] [place]LEY ([facility]) Body height 62 [in_i] 62 [in_i] [place] ([facility]) Body mass index (BMI) [Ratio] 45.9 kg/m2 45.9 k g/m2 [place] ([facility]) Systolic blood pressure 117 mm[Hg] 117 mm[Hg] [facility] Body weight 4019.2 [oz_av] 4019.2 [oz_av] ATHEN A ([facility]) Diastolic blood pressure 77 mm[Hg] 77 mm[Hg] [place] ([facility]) Body height 62 [in_i] 62 [in_i] [place] ([facility]) Body mass index (BMI) [Ratio] 45.9 kg/m2 45.9 k g/m2 [place] ([facility]) Systolic blood pressure 117 mm[Hg] 117 mm[Hg] A [facility] ([facility]) Body weight 4019.2 [oz_av] 4019.2 [oz_av] ATHEN A ([facility]) Diastolic blood pressure 77 mm[Hg] 77 mm[Hg] [place] ([facility]) Body height 62 [in_i] 62 [in_i] [place] ([facility]) Body mass index (BMI) [Ratio] 45.9 kg/m2 45.9 k g/m2 [place] ([facility]) Systolic blood pressure 117 mm[Hg] 117 mm[Hg] A [facility] ([facility]) Body weight 4019.2 [oz_av] 4019.2 [oz_av] ATHEN A ([facility]) Diastolic blood pressure 77 mm[Hg] 77 mm[Hg] [place] ([facility]) Body height 62 [in_i] 62 [in_i] [place] ([facility]) Body mass index (BMI) [Ratio] 45.9 kg/m2 45.9 k g/m2 [place] ([facility]) Systolic blood pressure 117 mm[Hg] 117 mm[Hg] [facility] Body weight 4019.2 [oz_av] 4019.2 [oz_av] ATHEN A ([facility]) Diastolic blood pressure 77 mm[Hg] 77 mm[Hg] [place] ([facility]) Body height 62 [in_i] 62 [in_i] [place] ([facility]) Body mass index (BMI) [Ratio] 45.9 kg/m2 45.9 k g/m2 [place] ([facility]) Systolic blood pressure 117 mm[Hg] 117 mm[Hg] A [facility] ([facility]) Body weight 4019.2 [oz_av] 4019.2 [oz_av] ATHEN A ([facility]) Body weight 4019.2 [oz_av] 4019.2 [oz_av] ATHEN A ([facility]) Diastolic blood pressure 77 mm[Hg] 77 mm[Hg] [facility] [facility] Body height 62 [in_i] 62 [in_i] HAILEY ([facility]) Body mass index (BMI) [Ratio] 45.9 kg/m2 45.9 k g/m2 HAILEY ([facility]) Systolic blood pressure 117 mm[Hg] 117 mm[Hg] [facility] Diastolic blood pressure 77 mm[Hg] 77 mm[Hg] HAILEY ([facility]) Body height 62 [in_i] 62 [in_i] HAILEY ([facility]) Body mass index (BMI) [Ratio] 45.9 kg/m2 45.9 k g/m2 HAILEY ([facility]) Systolic blood pressure 117 mm[Hg] 117 mm[Hg] A THENA ([facility]) Body weight 4019.2 [oz_av] 4019.2 [oz_av] ATHEN A ([facility]) Body height 62 [in_i] 62 [in_i] MEDENT ([facility]) 5'2" Body weight 248.00 [lb_av] 248.00 [lb_av] MEDEN T ([facility]) Body temperature 97.1 [degF] 97.1 [degF] MEDENT ([facility]) Body mass index (BMI) [Ratio] 45.4 kg/m2 45.4 k g/m2 MEDENT ([facility]) Patient Treatment Plan of Care Planned Activity Planned Date Details Description Data Source (s) Trazodone Hydrochloride 50 MG Oral Tablet HAILEY ([facility]) Pseudoephedrine Hydrochloride 30 MG Oral Tablet [Sudogest] HAILEY ([facility]) Acetaminophen 325 MG / Hydrocodone Bitartrate 5 MG Oral Tablet HAILEY ([facility]) Citalopram 40 MG Oral Tablet HAILEY ([facility]) benzonatate 100 MG Oral Capsule HAILEY ([facility]) Amoxicillin 875 MG / Clavulanate 125 MG Oral Tablet HAILEY ([facility]) Trazodone Hydrochloride 50 MG Oral Tablet HAILEY ([facility]) Pseudoephedrine Hydrochloride 30 MG Oral Tablet [Sudogest] HAILEY ([facility]) Acetaminophen 325 MG / Hydrocodone Bitartrate 5 MG Oral Tablet HAILEY ([facility]) Citalopram 40 MG Oral Tablet HAILEY ([facility]) benzonatate 100 MG Oral Capsule HAILEY ([facility]) Amoxicillin 875 MG / Clavulanate 125 MG Oral Tablet HAILEY ([facility]) Trazodone Hydrochloride 50 MG Oral Tablet HAILEY ([facility]) Pseudoephedrine Hydrochloride 30 MG Oral Tablet [Sudogest] HAILEY ([facility]) Acetaminophen 325 MG / Hydrocodone Bitartrate 5 MG Oral Tablet HAILEY ([facility]) Citalopram 40 MG Oral Tablet HAILEY ([facility]) benzonatate 100 MG Oral Capsule HAILEY ([facility]) Amoxicillin 875 MG / Clavulanate 125 MG Oral Tablet HAILEY ([facility]) Trazodone Hydrochloride 50 MG Oral Tablet HAILEY ([facility]) Pseudoephedrine Hydrochloride 30 MG Oral Tablet [Sudogest] HAILEY ([facility]) Acetaminophen 325 MG / Hydrocodone Bitartrate 5 MG Oral Tablet HAILEY ([facility]) Citalopram 40 MG Oral Tablet HAILEY ([facility]) benzonatate 100 MG Oral Capsule HAILEY ([facility]) Amoxicillin 875 MG / Clavulanate 125 MG Oral Tablet HAILEY ([facility]) Trazodone Hydrochloride 50 MG Oral Tablet HAILEY ([facility]) Acetaminophen 325 MG / Hydrocodone Bitartrate 5 MG Oral Tablet HAILEY ([facility]) Citalopram 40 MG Oral Tablet HAILEY ([facility]) benzonatate 100 MG Oral Capsule HAILEY ([facility]) Amoxicillin 875 MG / Clavulanate 125 MG Oral Tablet HAILEY ([facility]) benzonatate 100 MG Oral Capsule HAILEY ([facility]) Amoxicillin 875 MG / Clavulanate 125 MG Oral Tablet HAILEY ([facility]) Acetaminophen 325 MG / Hydrocodone Bitartrate 5 MG Oral Tablet HAILEY ([facility]) Citalopram 40 MG Oral Tablet HAILEY ([facility]) benzonatate 100 MG Oral Capsule HAILEY ([facility]) Amoxicillin 875 MG / Clavulanate 125 MG Oral Tablet HAILEY ([facility]) Trazodone Hydrochloride 50 MG Oral Tablet HAILEY ([facility]) Acetaminophen 325 MG / Hydrocodone Bitartrate 5 MG Oral Tablet HAILEY ([facility]) Citalopram 40 MG Oral Tablet HAILEY ([facility]) benzonatate 100 MG Oral Capsule HAILEY ([facility]) Amoxicillin 875 MG / Clavulanate 125 MG Oral Tablet HAILEY ([facility]) Trazodone Hydrochloride 50 MG Oral Tablet HAILEY ([facility]) Acetaminophen 325 MG / Hydrocodone Bitartrate 5 MG Oral Tablet HAILEY ([facility]) Citalopram 40 MG Oral Tablet HAILEY ([facility]) benzonatate 100 MG Oral Capsule HAILEY ([facility]) Amoxicillin 875 MG / Clavulanate 125 MG Oral Tablet HAILEY ([facility]) Trazodone Hydrochloride 50 MG Oral Tablet HAILEY ([facility]) Acetaminophen 325 MG / Hydrocodone Bitartrate 5 MG Oral Tablet HAILEY ([facility]) Citalopram 40 MG Oral Tablet HAILEY ([facility]) benzonatate 100 MG Oral Capsule HAILEY ([facility]) Amoxicillin 875 MG / Clavulanate 125 MG Oral Tablet HAILEY ([facility]) Trazodone Hydrochloride 50 MG Oral Tablet HAILEY ([facility]) Acetaminophen 325 MG / Hydrocodone Bitartrate 5 MG Oral Tablet HAILEY ([facility]) Citalopram 40 MG Oral Tablet HAILEY ([facility]) benzonatate 100 MG Oral Capsule HAILEY ([facility]) Amoxicillin 875 MG / Clavulanate 125 MG Oral Tablet HAILEY ([facility]) Trazodone Hydrochloride 50 MG Oral Tablet HAILEY ([facility]) Acetaminophen 325 MG / Hydrocodone Bitartrate 5 MG Oral Tablet HAILEY ([facility]) Citalopram 40 MG Oral Tablet HAILEY ([facility]) benzonatate 100 MG Oral Capsule HAILEY ([facility]) Amoxicillin 875 MG / Clavulanate 125 MG Oral Tablet AHILEY ([facility]) Trazodone Hydrochloride 50 MG Oral Tablet HAILEY ([facility]) Acetaminophen 325 MG / Hydrocodone Bitartrate 5 MG Oral Tablet HAILEY ([facility]) Citalopram 40 MG Oral Tablet HAILEY ([facility]) benzonatate 100 MG Oral Capsule HAILEY ([facility]) Amoxicillin 875 MG / Clavulanate 125 MG Oral Tablet HAILEY ([facility]) Citalopram 40 MG Oral Tablet HAILEY ([facility]) benzonatate 100 MG Oral Capsule HAILEY ([facility]) Amoxicillin 875 MG / Clavulanate 125 MG Oral Tablet HAILEY ([facility]) Citalopram 40 MG Oral Tablet HAILEY ([facility]) benzonatate 100 MG Oral Capsule HAILEY ([facility]) Amoxicillin 875 MG / Clavulanate 125 MG Oral Tablet HAILEY ([facility]) Citalopram 40 MG Oral Tablet HAILEY ([facility]) benzonatate 100 MG Oral Capsule HAILEY ([facility]) Amoxicillin 875 MG / Clavulanate 125 MG Oral Tablet HAILEY ([facility]) Citalopram 40 MG Oral Tablet HAILEY ([facility]) benzonatate 100 MG Oral Capsule HAILEY ([facility]) Amoxicillin 875 MG / Clavulanate 125 MG Oral Tablet HAILEY ([facility]) Citalopram 40 MG Oral Tablet HAILEY ([facility]) benzonatate 100 MG Oral Capsule HAILEY ([facility]) Amoxicillin 875 MG / Clavulanate 125 MG Oral Tablet HAILEY ([facility]) Citalopram 40 MG Oral Tablet HAILEY ([facility]) benzonatate 100 MG Oral Capsule HAILEY ([facility]) Amoxicillin 875 MG / Clavulanate 125 MG Oral Tablet HAILEY ([facility]) Citalopram 40 MG Oral Tablet HAILEY ([facility]) benzonatate 100 MG Oral Capsule HAILEY ([facility]) Amoxicillin 875 MG / Clavulanate 125 MG Oral Tablet HAILEY ([facility]) Citalopram 40 MG Oral Tablet HAILEY ([facility]) benzonatate 100 MG Oral Capsule HAILEY ([facility]) Amoxicillin 875 MG / Clavulanate 125 MG Oral Tablet HAILEY ([facility]) Citalopram 40 MG Oral Tablet HAILEY ([facility]) benzonatate 100 MG Oral Capsule HAILYE ([facility]) Amoxicillin 875 MG / Clavulanate 125 MG Oral Tablet HAILEY ([facility]) Citalopram 40 MG Oral Tablet HAILEY ([facility]) benzonatate 100 MG Oral Capsule HAILEY ([facility]) Amoxicillin 875 MG / Clavulanate 125 MG Oral Tablet HAILEY ([facility]) Citalopram 40 MG Oral Tablet HAILEY ([facility]) benzonatate 100 MG Oral Capsule HAILEY ([facility]) Amoxicillin 875 MG / Clavulanate 125 MG Oral Tablet HAILEY ([facility]) Trazodone Hydrochloride 50 MG Oral Tablet HAILEY ([facility]) Acetaminophen 325 MG / Hydrocodone Bitartrate 5 MG Oral Tablet HAILEY ([facility]) Citalopram 40 MG Oral Tablet HAILEY ([facility]) benzonatate 100 MG Oral Capsule HAILEY ([facility]) Amoxicillin 875 MG / Clavulanate 125 MG Oral Tablet HAILEY ([facility]) Trazodone Hydrochloride 50 MG Oral Tablet HAILEY ([facility]) Acetaminophen 325 MG / Hydrocodone Bitartrate 5 MG Oral Tablet HAILEY ([facility]) Citalopram 40 MG Oral Tablet HAILEY ([facility]) benzonatate 100 MG Oral Capsule HAILEY ([facility]) Amoxicillin 875 MG / Clavulanate 125 MG Oral Tablet HAILEY ([facility]) Trazodone Hydrochloride 50 MG Oral Tablet HAILEY ([facility]) Acetaminophen 325 MG / Hydrocodone Bitartrate 5 MG Oral Tablet HAILEY ([facility]) Citalopram 40 MG Oral Tablet HAILEY ([facility]) Trazodone Hydrochloride 50 MG Oral Tablet HAILEY ([facility]) Acetaminophen 325 MG / Hydrocodone Bitartrate 5 MG Oral Tablet HAILEY ([facility]) Citalopram 40 MG Oral Tablet HAILEY ([facility]) benzonatate 100 MG Oral Capsule HAILEY ([facility]) Amoxicillin 875 MG / Clavulanate 125 MG Oral Tablet HAILEY ([facility]) Trazodone Hydrochloride 50 MG Oral Tablet HAILEY ([facility]) Acetaminophen 325 MG / Hydrocodone Bitartrate 5 MG Oral Tablet HAILEY ([facility]) Citalopram 40 MG Oral Tablet HAILEY ([facility]) benzonatate 100 MG Oral Capsule HAILEY ([facility]) Amoxicillin 875 MG / Clavulanate 125 MG Oral Tablet HAILEY ([facility]) Trazodone Hydrochloride 50 MG Oral Tablet HAILEY ([facility])
[2021-03-22] MEDS ORDERED: ACETAMINOPHEN 325 MG TAB PO ONE (12:35)
[2021-03-22] MEDS ORDERED: NS 1,000 ML IV ONE (12:35)
[2021-03-22] MEDS ORDERED: diphenhydrAMINE 50MG/ML VIAL (J1200) IV ONE (12:35)
--- OUTSIDE RECORDS SUMMARY | 2021-03-22 12:52 | CCD ---
Author Author [facility] Organization [facility] Address Unknown Phone Unavailable Care Team Providers [facility] [employer] Leader Name Role Phone Aleta Uribe YARN CARRIER Unavailable Unavailable Aleta Uribe NP Unavailable Unavailable Aleta Uribe NP Unavailable Unavailable Uribe, Aleta YARN CARRIER Unavailable Unavailable Uribe, Aleta YARN CARRIER Unavailable Unavailable Uribe, Aleta YARN CARRIER Unavailable Unavailable Uribe, Aleta YARN CARRIER Unavailable Unavailable Uribe, Aleta YARN CARRIER Unavailable Unavailable Uribe, Aleta YARN CARRIER Unavailable Unavailable Uribe, Aleta YARN CARRIER Unavailable Unavailable Uribe, Aleta YARN CARRIER Unavailable Unavailable Uribe, Aleta YARN CARRIER Unavailable Unavailable Uribe, Aleta YARN CARRIER Unavailable Unavailable Margarette Dill MD Unavailable Unavailable [...] XAVIER PA Unavailable Unavailable Kathie Juan Unavailable [phone] Safia, Dori Unavailable Unavailable Safia, Dori Unavailable [...] is protected by Article 27-F of the [facility] Public Health law. If you continue you may have access to information: Regarding HIV / AIDS; Provided by facilities licensed or operated by the [facility] Office of Mental Health; or Provided by the [facility] Office for People With Developmental Disabilities. If such information is present, then the following [facility] mandated warning applies: This information has [...] law may result in a fine or correction sentence or both. A general authorization for the release of medical or other information is NOT sufficient authorization for further disc losure. Allergies and Adverse Reactions Type Description Substance Reaction Status Data Source(s ) Allergy to substance Allergy to substance Allergy to substance [place] ([facility]) Allergy to substance Allergy to substance Allergy to substance [place] ([facility]) Allergy to substance Allergy to substance Allergy to substance [place] ([facility]) Family History Family Member Name Family Member Gender Family Member Status Date o f Status Description Data Source(s) Unknown Male Problem [facility] ([facility]) Encounters Encounter Providers Location Date Indications Data Source(s ) Kathie Juan [facility] [address], [place] [address], Ph. Attender: Kathie Juan [place] - [facility] Medical 01/15/2021 12:00:00 AM EDT [place] ([facility]) Outpatient [address] [facility] [address] 01/13/2021 12:00:00 AM EDT eCW1 ([facility]) Outpatient Attender: XAVIER robles 01/07/2021 10:00:00 AM EDT [facility] ([facility]) Kathie Juan, [employer]AD[employer]: [address], [place] [address], Ph. Attender: Kathie Juan [facility] Medical 01/06/2021 12:00:00 AM EDT [place] ([facility]) Kathie Juan, [facility]: [address], [place] [address], Ph. Attender: Kathie Juan [facility] Medical 01/06/2021 12:00:00 AM EDT [place] ([facility]) Leonardo Poe RPA-C: [address], [place] [address], Ph. Attender: LEONARDO POE RPA-C [facility] Medical 12/29/2020 12:00:00 AM EDT [place] ([facility]) Leonardo Poe RPA-C: [address], [place] [address], Ph. Attender: LEONARDO POE RPA-C [facility] Medical 12/29/2020 12:00:00 AM EDT [place] ([facility]) Leonardo Poe RPA-C: [address], [place] [address], Ph. Attender: LEONARDO POE RPA-C [facility] Medical 12/29/2020 12:00:00 AM EDT [place] ([facility]) Leonardo Poe, RPA-C: [address], [place] [address], Ph. Attender: LEONARDO POE RPA-C [facility] Medical 12/29/2020 12:00:00 AM EDT [place] ([facility]) Leonardo Poe RPA-C: [address], [place] [address], Ph. Attender: LEONARDO POE RPA-C [facility] Medical 12/24/2020 12:00:00 AM EDT [place] ([facility]) Leonardo Peo RPA-C: [address], [place] [address], Ph. Attender: LEONARDO POE RPA-C [facility] Medical 12/24/2020 12:00:00 AM EDT [place] ([facility]) Leonardo Poe RPA-C: [address], [place] [address], Ph. Attender: LEONARDO POE RPA-C [facility] Medical 12/24/2020 12:00:00 AM EDT [place] ([facility]) Leonardo Poe RPA-C: [address], [place] [address], Ph. Attender: LEONARDO POE RPA-C [facility] Medical 12/24/2020 12:00:00 AM EDT [place] ([facility]) Kathie Juan, [employer]ADER: [address], [place] [address], Ph. Attender: Kathie Juan [facility] Medical 12/09/2020 12:00:00 AM EDT [place] ([facility]) Kathie Juan LMSW: [address], [place] [address], Ph. Attender: Kathie Juan [facility] Medical 12/09/2020 12:00:00 AM EDT [place] ([facility]) Kathie Juan, [employer]ADER: [address], [place] [address], Ph. Attender: Kathie Juan [facility] Medical 12/09/2020 12:00:00 AM EDT [place] ([facility]) Kathie Juan [facility]: [address], [place] [address], Ph. Attender: Kathie Juan [facility] Medical 12/09/2020 12:00:00 AM EDT [place] ([facility]) Kathie Juan LMSW: [address], [place] [address], Ph. Attender: Kathie Juan [facility] Medical 12/09/2020 12:00:00 AM EDT [place] ([facility]) Kathie Juan [facility]: [address], [place] [address], Ph. Attender: Kathie Juan [facility] Medical 12/02/2020 12:00:00 AM EDT [place] ([facility]) Kathie Juan [facility]: [address], [place] [address], Ph. Attender: Kathie Juan [facility] Medical 12/02/2020 12:00:00 AM EDT [place] ([facility]) aKthie Juan LMSW: [address], [place] [address], Ph. Attender: Kathie Juan [facility] Medical 12/02/2020 12:00:00 AM EDT [place] ([facility]) Kathie Juan, [employer]ADER: [address], [place] [address], Ph. Attender: Kathie Juan [facility] Medical 12/02/2020 12:00:00 AM EDT [place] ([facility]) Kathie Juan [employer]AD[employer]: [address], [place] [address], Ph. Attender: Kathie Juan [facility] Medical 12/02/2020 12:00:00 AM EDT [place] ([facility]) Kathie Juan LMSW: [address], [place] [address], Ph. Attender: Kathie Juan [facility] Medical 12/02/2020 12:00:00 AM EDT [place] ([facility]) Kathie Juan [employer]AD[employer]: [address], [place] [address], Ph. Attender: Kathie Juan [facility] Medical 11/11/2020 12:00:00 AM EDT [place] ([facility]) Kathie Juan, [employer]AD[employer]: [address], [place] [address], Ph. Attender: Kathie Juan [facility] Medical 11/11/2020 12:00:00 AM EDT [place] ([facility]) Kathie Juan [facility]: [address], [place] [address], Ph. Attender: Kathie Juan [facility] Medical 11/11/2020 12:00:00 AM EDT [place] ([facility]) Kathie Juan, [employer]ADER: [address], [place] [address], Ph. Attender: Kathie Juan [facility] Medical 11/11/2020 12:00:00 AM EDT [place] ([facility]) Kathie Juan [facility]: [address], [place] [address], Ph. Attender: Kathie Juan [facility] Medical 11/11/2020 12:00:00 AM EDT [place] ([facility]) Kathie Juan [employer]AD[employer]: [address], [place] [address], Ph. Attender: Kathie Juan [facility] Medical 11/11/2020 12:00:00 AM EDT [place] ([facility]) Kathie Juan, [facility]: [address], [place] [address], Ph. Attender: Kathie Juan [facility] Medical 11/11/2020 12:00:00 AM EDT [place] ([facility]) Kathie Juan, [facility]: [address], [place] [address], Ph. Attender: Kathie Juan [facility] Medical 11/06/2020 12:00:00 AM EDT [place] ([facility]) Kathie Juan [facility]: [address], [place] [address], Ph. Attender: Kathie Juan [facility] Medical 11/06/2020 12:00:00 AM EDT [place] ([facility]) Kathie Juan, [employer]ADER: [address], [place] [address], Ph. Attender: Kathie Juan [facility] Medical 11/06/2020 12:00:00 AM EDT [place] ([facility]) Kathie Juan [facility]: [address], [place] [address], Ph. Attender: Kathie Juan [facility] Medical 11/06/2020 12:00:00 AM EDT [place] ([facility]) Kathie Juan [facility]: [address], [place] [address], Ph. Attender: Kathie Juan [facility] Medical 11/06/2020 12:00:00 AM EDT [place] ([facility]) Kathie Juan, [facility]: [address], [place] [address], Ph. Attender: Kathie Juan [facility] Medical 11/06/2020 12:00:00 AM EDT [place] ([facility]) Kathie Juan, [facility]: [address], [place] [address], Ph. Attender: Kathie Juan [facility] Medical 11/06/2020 12:00:00 AM EDT [place] ([facility]) Kathie Juan, [employer]AD[employer]: [address], [place] [address], Ph. Attender: Kathie Juan [facility] Medical 11/06/2020 12:00:00 AM EDT [place] ([facility]) Outpatient Attender: KEHINDE Garcia Primary 11/05/2020 03:25:00 PM EDT [place] ([facility], [facility]) Kathie Juan, [employer]ADER: [address], [place] [address], Ph. Attender: Kathie Juan [facility] Medical 10/29/2020 12:00:00 AM EDT [place] ([facility]) Kathie Juan, [employer]AD[employer]: [address], [place] [address], Ph. Attender: Kathie Juan [facility] Medical 10/29/2020 12:00:00 AM EDT [place] ([facility]) Kathie JuanLORRIESW: [address], [place] [address], Ph. Attender: Kathie Juan [facility] Medical 10/29/2020 12:00:00 AM EDT [place] ([facility]) Kathie Juan, [employer]AD[employer]: [address], [place] [address], Ph. Attender: Kathie Juan [facility] Medical 10/29/2020 12:00:00 AM EDT [place] ([facility]) Kathie Juan [employer]: [address], [place] [address], Ph. Attender: Kathie Juna [facility] Medical 10/29/2020 12:00:00 AM EDT [place] ([facility]) Kathie Juan, [employer]AD[employer]: [address], [place] [address], Ph. Attender: Kathie Juan [facility] Medical 10/29/2020 12:00:00 AM EDT [place] ([facility]) Kathie Juan [employer]: [address], [place] [address], Ph. Attender: Kathie Juan [facility] Medical 10/29/2020 12:00:00 AM EDT [place] ([facility]) Kathie Juan, [employer]AD[employer]: [address], [place] [address], Ph. Attender: Kathie Juan [facility] Medical 10/29/2020 12:00:00 AM EDT [place] ([facility]) Kathie Juan, [employer]AD[employer]: [address], [place] [address], Ph. Attender: Kathie Juan [facility] Medical 10/29/2020 12:00:00 AM EDT [place] ([facility]) Outpatient Attender: Aleta haley 10/14/2020 01:10:00 PM EDT [facility]ER[place] ([facility], [facility]) Kathie Juan, [employer]ADER: [address], [place] [address], Ph. Attender: Kathie Juan [facility] Medical 10/14/2020 12:00:00 AM EDT [place] ([facility]) Kathie Juan, [employer]AD[employer]: [address], [place] [address], Ph. Attender: Kathie Juan [facility] Medical 10/14/2020 12:00:00 AM EDT [place] ([facility]) Kathie Juan, [employer]AD[employer]: [address], [place] [address], Ph. Attender: Kathie Juan [facility] Medical 10/14/2020 12:00:00 AM EDT [place] ([facility]) Kathie Juan, [employer]ADER: [address], [place] [address], Ph. Attender: Kathie Juan [facility] Medical 10/14/2020 12:00:00 AM EDT [place] ([facility]) Kathie Juan, [employer]AD[employer]: [address], [place] [address], Ph. Attender: Kathie Juan [facility] Medical 10/14/2020 12:00:00 AM EDT [place] ([facility]) Kathie Juan, [employer]AD[employer]: [address], [place] [address], Ph. Attender: Kathie Juan [facility] Medical 10/14/2020 12:00:00 AM EDT [place] ([facility]) Kathie Juan, [employer]ADER: [address], [place] [address], Ph. Attender: Kathie Juan [facility] Medical 10/14/2020 12:00:00 AM EDT [place] ([facility]) Kathie Juan [facility]: [address], [place] [address], Ph. Attender: Kathie Juan [facility] Medical 10/14/2020 12:00:00 AM EDT [place] ([facility]) Kathie Juan [facility]: [address], [place] [address], Ph. Attender: Kathie Juan [facility] Medical 10/14/2020 12:00:00 AM EDT [place] ([facility]) Kathie Juan [facility]: [address], [place] [address], Ph. Attender: Kathie Juan [facility] Medical 10/14/2020 12:00:00 AM EDT [place] ([facility]) Outpatient Attender: XAVIER robles 10/07/2020 03:05:00 PM EDT MEDENT ([facility], [facility]) (WC 15ESGYN) WCenter 15 min est wire roller [address] [place] [address] 10/02/2020 12:00:00 AM EDT eCW1 ([facility]) Katihe Juan, [facility]: [address], [place] [address], Ph. Attender: Kathie Juan [facility] Medical 09/30/2020 12:00:00 AM EDT [place] ([facility]) Kathie Juan, [facility]: [address], [place] [address], Ph. Attender: Kathie Juan [facility] Medical 09/30/2020 12:00:00 AM EDT [place] ([facility]) Kathie Juan [facility]: [address], [place] [address], Ph. Attender: Kathie Juan [facility] Medical 09/30/2020 12:00:00 AM EDT [place] ([facility]) Kathie Juan, [facility]: [address], [place] [address], Ph. Attender: Kathie Juan [facility] Medical 09/30/2020 12:00:00 AM EDT [place] ([facility]) Kathie Juan [facility]: [address], [place] [address], Ph. Attender: Kathie Juan [facility] Medical 09/30/2020 12:00:00 AM EDT [place] ([facility]) Kathie Juan [facility]: [address], [place] [address], Ph. Attender: Kathie Juan [facility] Medical 09/30/2020 12:00:00 AM EDT [place] ([facility]) Kathie Juan, [facility]: [address], [place] [address], Ph. Attender: Kathie Juan [facility] Medical 09/30/2020 12:00:00 AM EDT [place] ([facility]) Kathie Juan, [facility]: [address], [place] [address], Ph. Attender: Kathie Juan [facility] Medical 09/30/2020 12:00:00 AM EDT [place] ([facility]) Kathie Juan LMSW: [address], [place] [address], Ph. Attender: Kathie Juan [facility] Medical 09/30/2020 12:00:00 AM EDT [place] ([facility]) Kathie Juan [facility]: [address], [place] [address], Ph. Attender: Kathie Juan [facility] Medical 09/30/2020 12:00:00 AM EDT [place] ([facility]) Kathie Juan [facility]: [address], [place] [address], Ph. Attender: Kathie Juan [facility] Medical 09/30/2020 12:00:00 AM EDT [place] ([facility]) Outpatient Attender: SHAN wayne 09/20/2020 03:15:00 PM EDT JOE ([facility], [facility]) Kathie Juan [facility]: [address], [place] [address], Ph. Attender: Kathie Juan [facility] Medical 09/16/2020 12:00:00 AM EDT [place] ([facility]) Kathie Juan [facility]: [address], [place] [address], Ph. Attender: Kathie Juan [facility] Medical 09/16/2020 12:00:00 AM EDT [place] ([facility]) Kathie Juan, [facility]: [address], [place] [address], Ph. Attender: Kathie Juan [facility] Medical 09/16/2020 12:00:00 AM EDT [place] ([facility]) Kathie Juan, [facility]: [address], [place] [address], Ph. Attender: Kathie Juan [facility] Medical 09/16/2020 12:00:00 AM EDT [place] ([facility]) Kathie Juan [facility]: [address], [place] [address], Ph. Attender: Kathie Juan [facility] Medical 09/16/2020 12:00:00 AM EDT [place] ([facility]) Kathie Juan, [facility]: [address], [place] [address], Ph. Attender: Kathie Juan [facility] Medical 09/16/2020 12:00:00 AM EDT [place] ([facility]) Kathie Juan [facility]: [address], [place] [address], Ph. Attender: Kathie Juan [facility] Medical 09/16/2020 12:00:00 AM EDT [place] ([facility]) Kathie Juan [facility]: [address], [place] [address], Ph. Attender: Kathie Juan [facility] Medical 09/16/2020 12:00:00 AM EDT [place] ([facility]) Kathie Juan, [facility] [address], [place] [address], Ph. Attender: Kathie Juan [facility] Medical 09/16/2020 12:00:00 AM EDT [place] ([facility]) Kathie Juan, [facility] [address], [place] [address], Ph. Attender: Kathie Juan [facility] Medical 09/16/2020 12:00:00 AM EDT [place] ([facility]) Kathie Juan [facility] [address], [place] [address], Ph. Attender: Kathie Juan [facility] Medical 09/16/2020 12:00:00 AM EDT [place] ([facility]) Kathie Juan [facility] [address], [place] [address], Ph. Attender: Kathie Juan [facility] Medical 09/16/2020 12:00:00 AM EDT [place] ([facility]) Kathie Juan [facility] [address], [place] [address], Ph. Attender: Kathie Juan [facility] Medical 09/02/2020 12:00:00 AM EDT [place] ([facility]) Kathie Juan [facility] [address], [place], [place] [address], Ph. Attender: Kathie Juan [facility] Medical 09/02/2020 12:00:00 AM EDT [place] ([facility]) Kathie Jaun [employer]: [address], [place] [address], Ph. Attender: Kathie Juan [facility] Medical 09/02/2020 12:00:00 AM EDT [place] ([facility]) Kathie Juan, [employer]: [address], [place] [address], Ph. Attender: Kathie Juan [facility] Medical 09/02/2020 12:00:00 AM EDT [place] ([facility]) Kathie Juan, [facility]: [address], [place] [address], Ph. Attender: Kathie Juan [facility] Medical 09/02/2020 12:00:00 AM EDT [place] ([facility]) Kathie Juan, [facility]: [address], [place] [address], Ph. Attender: Kathie Juan [facility] Medical 09/02/2020 12:00:00 AM EDT [place] ([facility]) Kathie Juan, [facility]: [address], [place] [address], Ph. Attender: Kathie Juan [facility] Medical 09/02/2020 12:00:00 AM EDT [place] ([facility]) Kathie Juan, [employer]: [address], [place] [address], Ph. Attender: Kathie Juan [facility] Medical 09/02/2020 12:00:00 AM EDT [place] ([facility]) Kathie Juan, [facility]: [address], [place] [address], Ph. Attender: Kathie Juan [facility] Medical 09/02/2020 12:00:00 AM EDT [place] ([facility]) Kathie Juan, [employer]: [address], [place] [address], Ph. Attender: Kathie Juan [facility] Medical 09/02/2020 12:00:00 AM EDT [place] ([facility]) Kathie Juan, [employer]: [address], [place] [address], Ph. Attender: Kathie Juan [facility] Medical 09/02/2020 12:00:00 AM EDT [place] ([facility]) Kathie Juan, [facility]: [address], [place] [address], Ph. Attender: Kathie Juan [facility] Medical 09/02/2020 12:00:00 AM EDT [place] ([facility]) Kathie Juan, [employer]: [address], [place] [address], Ph. Attender: Kathie Juan [facility] Medical 09/02/2020 12:00:00 AM EDT [place] ([facility]) Kathie Juan, [employer]: [address], [place] [address], Ph. Attender: Kathie Juan [facility] Medical 08/26/2020 12:00:00 AM EDT [place] ([facility]) Kathie Juan, [employer]: [address], [place] [address], Ph. Attender: Kathie Juan [facility] Medical 08/26/2020 12:00:00 AM EDT [place] ([facility]) Kathie Juan, [employer]: [address], [place] [address], Ph. Attender: Kathie Juan [facility] Medical 08/26/2020 12:00:00 AM EDT [place] ([facility]) Kathie Juan [employer]: [address], [place] [address], Ph. Attender: Kathie Juan [facility] Medical 08/26/2020 12:00:00 AM EDT [place] ([facility]) Kathie Juan, [employer]: [address], [place] [address], Ph. Attender: Kathie Juan [facility] Medical 08/26/2020 12:00:00 AM EDT [place] ([facility]) Kathie Juan, [employer]: [address], [place] [address], Ph. Attender: Kathie Juan [facility] Medical 08/26/2020 12:00:00 AM EDT [place] ([facility]) Kahtie Juan, [employer]: [address], [place] [address], Ph. Attender: Kathie Juan [facility] Medical 08/26/2020 12:00:00 AM EDT [place] ([facility]) Kathie Juan, [employer]: [address], [place] [address], Ph. Attender: Kathie Juan [facility] Medical 08/26/2020 12:00:00 AM EDT [place] ([facility]) Kathie Juan, [employer]: [address], [place] [address], Ph. Attender: Kathie Juan [facility] Medical 08/26/2020 12:00:00 AM EDT [place] ([facility]) Kathie Juan, [employer]: [address], [place] [address], Ph. Attender: Kathie Juan [facility] Medical 08/26/2020 12:00:00 AM EDT [place] ([facility]) Kathie Juan, [employer]: [address], [place] [address], Ph. Attender: Kathie Juan [facility] Medical 08/26/2020 12:00:00 AM EDT [place] ([facility]) Kathie Juan, [employer]: [address], [place] [address], Ph. Attender: Kathie Juan [facility] Medical 08/26/2020 12:00:00 AM EDT [place] ([facility]) Kathie Juan, [employer]: [address], [place] [address], Ph. Attender: Kathie Juan [facility] Medical 08/26/2020 12:00:00 AM EDT [place] ([facility]) Kathie Juan, [employer]: [address], [place] [address], Ph. Attender: Kathie Newmangraham [facility] Medical 08/26/2020 12:00:00 AM EDT [place] ([facility]) Outpatient Attender: Belen Hudson MD 0 08/12/2020 06:42:33 PM EDT - 08/12/2020 07:26:10 PM EDT [facility] ([facility]) Fer Dill MD: [address] [place] [address], Ph. Attender: Fer Dill MD [facility] Medical 08/12/2020 12:00:00 AM EDT [place] ([facility]) Fer Dill MD: [address] [place] [address], Ph. Attender: Fer Dill MD [facility] Medical 08/12/2020 12:00:00 AM EDT [place] ([facility]) Fer Dill MD: [address] [place] [address], Ph. Attender: Fer Dill MD [facility] Medical 08/12/2020 12:00:00 AM EDT [place] ([facility]) Fer Dill MD: [address] [place] [address], Ph. Attender: Fer Dill MD [facility] Medical 08/12/2020 12:00:00 AM EDT [place] ([facility]) Fer Dill MD: [address] [place] [address], Ph. Attender: Fer Dill MD [facility] Medical 08/12/2020 12:00:00 AM EDT [place] ([facility]) Fer Dill MD: [address] [place] [address], Ph. Attender: Fer Dill MD [facility] Medical 08/12/2020 12:00:00 AM EDT [place] ([facility]) Fer Dill MD: [address] [place] [address], Ph. Attender: Fer Dill MD [facility] Medical 08/12/2020 12:00:00 AM EDT [place] ([facility]) Fer Dill MD: [address] [place] [address], Ph. Attender: Fer Dill MD [facility] Medical 08/12/2020 12:00:00 AM EDT [place] ([facility]) Fer Dill MD: [address] [place] [address], Ph. Attender: Fer Dill MD [facility] Medical 08/12/2020 12:00:00 AM EDT [place] ([facility]) Fer Dill MD: [address] [place] [address], Ph. Attender: Fer Dill MD [facility] Medical 08/12/2020 12:00:00 AM EDT [place] ([facility]) Fer Dill MD: [address] [place] [address], Ph. Attender: Fer Dill MD [facility] Medical 08/12/2020 12:00:00 AM EDT [place] ([facility]) Fer Dill MD: [address] [place] [address], Ph. Attender: Fer Dill MD [facility] Medical 08/12/2020 12:00:00 AM EDT [place] ([facility]) Fer Dill MD: [address] [place] [address], Ph. Attender: Fer Dill MD [facility] Medical 08/12/2020 12:00:00 AM EDT [place] ([facility]) Fer Dill MD: [address] [place] [address], Ph. Attender: Fer Dill MD [facility] Medical 08/12/2020 12:00:00 AM EDT [place] ([facility]) Fer Dill MD: [address] [place] [address], Ph. Attender: Fer Dill MD [facility] Medical 08/12/2020 12:00:00 AM EDT [place] ([facility]) Luann Baig MD: [address], [place] [address], Ph. Attender: Luann Baig [facility] Medical 07/09/2020 12:00:00 AM EDT [place] ([facility]) Luann Baig MD: [address], [place] [address], Ph. Attender: Luann Baig [facility] Medical 07/09/2020 12:00:00 AM EDT [place] ([facility]) Luann Baig MD: [address], [place] [address], Ph. Attender: Luann Baig [facility] Medical 07/09/2020 12:00:00 AM EDT [place] ([facility]) Luann Baig MD: [address], [place] [address], Ph. Attender: Luann Baig [facility] Medical 07/09/2020 12:00:00 AM EDT [place] ([facility]) Luann Baig MD: [address], [place] [address], Ph. Attender: Luann Baig [facility] Medical 07/09/2020 12:00:00 AM EDT [place] ([facility]) Luann Baig MD: [address], [place] [address], Ph. Attender: Luann Baig [facility] Medical 07/09/2020 12:00:00 AM EDT [place] ([facility]) Luann Baig MD: [address], [place] [address], Ph. Attender: Luann Baig [facility] Medical 07/09/2020 12:00:00 AM EDT [place] ([facility]) Luann Baig MD: [address], [place] [address], Ph. Attender: Luann Baig [facility] Medical 07/09/2020 12:00:00 AM EDT [place] ([facility]) Luann Baig MD: [address], [place] [address], Ph. Attender: Luann Baig [facility] Medical 07/09/2020 12:00:00 AM EDT [place] ([facility]) Luann Baig MD: [address], [place] [address], Ph. Attender: Luann Baig [facility] Medical 07/09/2020 12:00:00 AM EDT [place] ([facility]) Luann Baig MD: [address], [place] [address], Ph. Attender: Luann Baig [facility] Medical 07/09/2020 12:00:00 AM EDT [place] ([facility]) Luann Baig MD: [address], [place] [address], Ph. Attender: Luann Baig [facility] Medical 07/09/2020 12:00:00 AM EDT [place] ([facility]) Luann Baig MD: [address], [place] [address], Ph. Attender: Luann Baig [facility] Medical 07/09/2020 12:00:00 AM EDT [place] ([facility]) Luann Baig MD: [address], [place] [address], Ph. Attender: Luann Baig [facility] Medical 07/09/2020 12:00:00 AM EDT [place] ([facility]) Luann Baig MD: [address], [place] [address], Ph. Attender: Luann Baig [facility] Medical 07/09/2020 12:00:00 AM EDT [place] ([facility]) Luann Baig MD: [address], [place] [address], Ph. Attender: Luann Baig [facility] Medical 07/09/2020 12:00:00 AM EDT [place] ([facility]) Luann Baig MD: [address], [place] [address], Ph. Attender: Luann Baig [facility] Medical 06/23/2020 12:00:00 AM EST [place] ([facility]) Luann Baig MD: [address], [place] [address], Ph. Attender: Luann Baig [facility] Medical 06/23/2020 12:00:00 AM EST [place] ([facility]) Luann Baig MD: [address], [place] [address], Ph. Attender: Luann Baig [facility] 06/23/2020 12:00:00 AM EST [place] ([facility]) Luann Baig MD: [address], [place] [address], Ph. Attender: Luann Baig [facility] Medical 06/23/2020 12:00:00 AM EST [place] ([facility]) Luann Baig MD: [address], [place] [address], Ph. Attender: Luann Baig [facility] Medical 06/23/2020 12:00:00 AM EST [place] ([facility]) Luann Baig MD: [address], [place] [address], Ph. Attender: Luann Baig [facility] Medical 06/23/2020 12:00:00 AM EST [place] ([facility]) Luann Baig MD: [address], [place] [address], Ph. Attender: Luann Baig [facility] Medical 06/23/2020 12:00:00 AM EST [place] ([facility]) Luann Baig MD: [address], [place] [address], Ph. Attender: Luann Baig [facility] Medical 06/23/2020 12:00:00 AM EST [place] ([facility]) Luann Baig MD: [address], [place] [address], Ph. Attender: Luann Baig [facility] Medical 06/23/2020 12:00:00 AM EST [place] ([facility]) Luann Baig MD: [address], [place] [address], Ph. Attender: Luann Baig [facility] Medical 06/23/2020 12:00:00 AM EST [place] ([facility]) Luann Baig MD: [address], [place] [address], Ph. Attender: Luann Baig [facility] Medical 06/23/2020 12:00:00 AM EST [place] ([facility]) Luann Baig MD: [address], [place] [address], Ph. Attender: Luann Baig [facility] Medical 06/23/2020 12:00:00 AM EST [place] ([facility]) Luann Baig MD: [address], [place] [address], Ph. Attender: Luann Baig [facility] Medical 06/23/2020 12:00:00 AM EST [place] ([facility]) Luann Baig MD: [address], [place] [address], Ph. Attender: Luann Baig [facility] Medical 06/23/2020 12:00:00 AM EST [place] ([facility]) Luann Baig MD: [address], [place] [address], Ph. Attender: Luann Baig [facility] Medical 06/23/2020 12:00:00 AM EST [place] ([facility]) Luann Baig MD: [address], [place] [address], Ph. Attender: Luann Baig [facility] Medical 06/23/2020 12:00:00 AM EST [place] ([facility]) Luann Baig MD: [address], [place] [address], Ph. Attender: Luann Baig [facility] Medical 06/23/2020 12:00:00 AM EST [place] ([facility]) Office Visit Attender: Ron Putnam MD Physical Therapy 2020 02:30:00 PM EST [facility] ([facility]) Kathie Juan [facility]: [address], [place] [address], Ph. Attender: Kathie Juan [facility] Medical 05/27/2020 12:00:00 AM EST [place] ([facility]) Kathie Juan [facility]: [address], [place] [address], Ph. Attender: Kathie Juan [facility] Medical 05/27/2020 12:00:00 AM EST [place] ([facility]) Kathie Juan [employer]: [address], [place] [address], Ph. Attender: Kathie Juan [facility] Medical 05/27/2020 12:00:00 AM EST [place] ([facility]) Kathie Juan, [employer]: [address], [place] [address], Ph. Attender: Kathie Juan [facility] Medical 05/27/2020 12:00:00 AM EST [place] ([facility]) Kathie Juan [employer]: [address], [place] [address], Ph. Attender: Kathie Juan [facility] Medical 05/27/2020 12:00:00 AM EST [place] ([facility]) Kathie Juan, [employer]: [address], [place] [address], Ph. Attender: Kathie Juan [facility] Medical 05/27/2020 12:00:00 AM EST [place] ([facility]) Kathie Juan, [employer]: [address], [place] [address], Ph. Attender: Kathie Juan [facility] Medical 05/27/2020 12:00:00 AM EST [place] ([facility]) Kathie Juan, [employer]: [address], [place] [address], Ph. Attender: Kathie Juan [facility] Medical 05/27/2020 12:00:00 AM EST [place] ([facility]) Kathie Juan, [employer]: [address], [place] [address], Ph. Attender: Kathie Juan [facility] Medical 05/27/2020 12:00:00 AM EST [place] ([facility]) Kathie Juan, [employer]: [address], [place] [address], Ph. Attender: Kathie Juan [facility] Medical 05/27/2020 12:00:00 AM EST [place] ([facility]) Kathie Juan [employer]: [address], [place] [address], Ph. Attender: Kathie Juan [facility] Medical 05/27/2020 12:00:00 AM EST [place] ([facility]) Kathie Juan, [employer]: [address], [place] [address], Ph. Attender: Kathie Juan [facility] Medical 05/27/2020 12:00:00 AM EST [place] ([facility]) Kathie Juan, [employer]: [address], [place] [address], Ph. Attender: Kathie Juan [facility] Medical 05/27/2020 12:00:00 AM EST [place] ([facility]) Kathie Juan, [employer]: [address], [place] [address], Ph. Attender: Kathie Juan [facility] Medical 05/27/2020 12:00:00 AM EST [place] ([facility]) Kathie Juan [facility]: [address], [place] [address], Ph. Attender: Kathie Juan [facility] Medical 05/27/2020 12:00:00 AM EST [place] ([facility]) Kathie Juan [employer]: [address], [place] [address], Ph. Attender: Kathie Juan [facility] Medical 05/27/2020 12:00:00 AM EST [place] ([facility]) Kathie Juan [facility]: [address], [place] [address], Ph. Attender: Kathie Juan [facility] Medical 05/27/2020 12:00:00 AM EST [place] ([facility]) Kathie Juan, [facility]: [address], [place] [address], Ph. Attender: Kathie Juan [facility] Medical 05/27/2020 12:00:00 AM EST [place] ([facility]) Kathie Juan [facility]: [address], [place] [address], Ph. Attender: Kathie Juan [facility] Medical 05/13/2020 12:00:00 AM EST [place] ([facility]) Kathie Juan, [facility]: [address], [place] [address], Ph. Attender: Kathie Juan [facility] Medical 05/13/2020 12:00:00 AM EST [place] ([facility]) Kathie Juan, [employer]: [address], [place] [address], Ph. Attender: Kathie Juan [facility] Medical 05/13/2020 12:00:00 AM EST [place] ([facility]) Kathie Juan, [employer]: [address], [place] [address], Ph. Attender: Kathie Juan [facility] Medical 05/13/2020 12:00:00 AM EST [place] ([facility]) Kathie Juan [employer]: [address], [place] [address], Ph. Attender: Kathie Juan [facility] 05/13/2020 12:00:00 AM EST [place] ([facility]) Kathie Juan, [employer]ADER: [address], [place] [address], Ph. Attender: Kathie Juan [facility] 05/13/2020 12:00:00 AM EST [place] ([facility]) Kathie Juan [facility]: [address], [place] [address], Ph. Attender: Kathie Juan [facility] 05/13/2020 12:00:00 AM EST [place] ([facility]) Kathie Juan, [employer]: [address], [place] [address], Ph. Attender: Kathie Juan [facility] 05/13/2020 12:00:00 AM EST [place] ([facility]) Kathie Juan, [facility]: [address], [place] [address], Ph. Attender: Kathie Juan [facility] 05/13/2020 12:00:00 AM EST [place] ([facility]) Kathie Juan, [employer]: [address], [place] [address], Ph. Attender: Kathie Juan [facility] 05/13/2020 12:00:00 AM EST [place] ([facility]) Kathie Juan [facility]: [address], [place] [address], Ph. Attender: Kathie Juan [facility] [facility] Medical 05/13/2020 12:00:00 AM EST [place] ([facility]) Kathie Juan, [facility]: [address], [place] [address], Ph. Attender: Kathie Juan [facility] Medical 05/13/2020 12:00:00 AM EST [place] ([facility]) Kathie Juan [facility]: [address], [place] [address], Ph. Attender: Kathie Juan [facility] Medical 05/13/2020 12:00:00 AM EST [place] ([facility]) Kathie Juan, [employer]: [address], [place] [address], Ph. Attender: Kathie Juan [facility] Medical 05/13/2020 12:00:00 AM EST [place] ([facility]) Kathie Juan, [employer]: [address], [place] [address], Ph. Attender: Kathie Juan [facility] Medical 05/13/2020 12:00:00 AM EST [place] ([facility]) Kathie Juan, [employer]: [address], [place] [address], Ph. Attender: Kathie Juan [facility] Medical 05/13/2020 12:00:00 AM EST [place] ([facility]) Kathie Juan, [employer]: [address], [place] [address], Ph. Attender: Kathie Juan [facility] Medical 05/13/2020 12:00:00 AM EST [place] ([facility]) Kathie Juan, [employer]: [address], [place] [address], Ph. Attender: Kathie Juan [facility] Medical 05/13/2020 12:00:00 AM EST [place] ([facility]) Kathie Juan, [employer]: [address], [place] [address], Ph. Attender: Kathie Juan [facility] Medical 05/13/2020 12:00:00 AM EST [place] ([facility]) Kathie Juan, [employer]: [address], [place] [address], Ph. Attender: Kathie Juan [facility] Medical 04/29/2020 12:00:00 AM EST [place] ([facility]) Kathie Juan, [employer]: [address], [place] [address], Ph. Attender: Kathie Juan [facility] Medical 04/29/2020 12:00:00 AM EST [place] ([facility]) Kathie Juan, [employer]: [address], [place] [address], Ph. Attender: Kathie Juan [facility] Medical 04/29/2020 12:00:00 AM EST [place] ([facility]) Kathie Juan, [employer]: [address], [place] [address], Ph. Attender: aKthie Juan [facility] Medical 04/29/2020 12:00:00 AM EST [place] ([facility]) Kathie Juan, [employer]: [address], [place] [address], Ph. Attender: Kathie Juan [facility] Medical 04/29/2020 12:00:00 AM EST [place] ([facility]) Kathie Juan, [employer]: [address], [place] [address], Ph. Attender: Kathie Juan [facility] Medical 04/29/2020 12:00:00 AM EST [place] ([facility]) Kathie Juan, [employer]: [address], [place] [address], Ph. Attender: Kathie Juan [facility] Medical 04/29/2020 12:00:00 AM EST [place] ([facility]) Kathie Juan, [employer]: [address], [place] [address], Ph. Attender: Kathie Juan [facility] Medical 04/29/2020 12:00:00 AM EST [place] ([facility]) Kathie Juan, [employer]: [address], [place] [address], Ph. Attender: Kathie Juan [facility] Medical 04/29/2020 12:00:00 AM EST [place] ([facility]) Kathie Juan, [employer]: [address], [place] [address], Ph. Attender: Kathie Juan [facility] Medical 04/29/2020 12:00:00 AM EST [place] ([facility]) Kathie Juan, [employer]: [address], [place] [address], Ph. Attender: Kathie Juan [facility] Medical 04/29/2020 12:00:00 AM EST [place] ([facility]) Kathie Juan, [employer]: [address], [place] [address], Ph. Attender: Kathie Juan [facility] Medical 04/29/2020 12:00:00 AM EST [place] ([facility]) Kathie Juan, [employer]: [address], [place] [address], Ph. Attender: Kathie Juan [facility] Medical 04/29/2020 12:00:00 AM EST [place] ([facility]) Kathie Juan, [employer]: [address], [place] [address], Ph. Attender: Kathie Juan [facility] Medical 04/29/2020 12:00:00 AM EST [place] ([facility]) Kathie Juan, [employer]: [address], [place] [address], Ph. Attender: Kathie Juan [facility] Medical 04/29/2020 12:00:00 AM EST [place] ([facility]) Kathie Juan, [employer]: [address], [place] [address], Ph. Attender: Kathie Juan [facility] Medical 04/29/2020 12:00:00 AM EST [place] ([facility]) Kathie Juan, [employer]: [address], [place] [address], Ph. Attender: Kathie Juan [facility] Medical 04/29/2020 12:00:00 AM EST [place] ([facility]) Kathie Juan, [employer]: [address], [place] [address], Ph. Attender: Kathie Juan [facility] Medical 04/29/2020 12:00:00 AM EST [place] ([facility]) Kathie Juan, [employer]: [address], [place] [address], Ph. Attender: Kathie Juan [facility] Medical 04/29/2020 12:00:00 AM EST [place] ([facility]) Kathie Juan, [employer]: [address], [place] [address], Ph. Attender: Kathie Juan [facility] Medical 04/29/2020 12:00:00 AM EST [place] ([facility]) Kathie Juan, [employer]: [address], [place] [address], Ph. Attender: Kathie Juan [facility] Medical 04/22/2020 12:00:00 AM EST [place] ([facility]) Kathie Juan, [employer]: [address], [place] [address], Ph. Attender: Kathie Juan [facility] Medical 04/22/2020 12:00:00 AM EST [place] ([facility]) Kathie Juan, [facility]: [address], [place] [address], Ph. Attender: Kathie Juan [facility] Medical 04/22/2020 12:00:00 AM EST [place] ([facility]) Kathie Juan, [employer]: [address], [place] [address], Ph. Attender: Kathie Juan [facility] Medical 04/22/2020 12:00:00 AM EST [place] ([facility]) Kathie Juan, [employer]: [address], [place] [address], Ph. Attender: Kathie Juan [facility] Medical 04/22/2020 12:00:00 AM EST [place] ([facility]) Kathie Juan, [employer]: [address], [place] [address], Ph. Attender: Kathie Juan [facility] Medical 04/22/2020 12:00:00 AM EST [place] ([facility]) Kathie Juan [employer]: [address], [place] [address], Ph. Attender: Kathie Juan [facility] Medical 04/22/2020 12:00:00 AM EST [place] ([facility]) Kathie Jaun, [employer]: [address], [place] [address], Ph. Attender: Kathie uJan [facility] Medical 04/22/2020 12:00:00 AM EST [place] ([facility]) Kathie Juan, [facility]: [address], [place] [address], Ph. Attender: Kathie Juan [facility] Medical 04/22/2020 12:00:00 AM EST [place] ([facility]) Kathie Juan, [employer]: [address], [place] [address], Ph. Attender: Kathie Juan [facility] Medical 04/22/2020 12:00:00 AM EST [place] ([facility]) Kathie Juan, [employer]: [address], [place] [address], Ph. Attender: Kathie Juan [facility] Medical 04/22/2020 12:00:00 AM EST [place] ([facility]) Kathie Juan, [employer]: [address], [place] [address], Ph. Attender: Kathie Juan [facility] Medical 04/22/2020 12:00:00 AM EST [place] ([facility]) Kathie Juan, [employer]: [address], [place] [address], Ph. Attender: Kathie Juan [facility] 04/22/2020 12:00:00 AM EST [place] ([facility]) Kathie Juan, [employer]: [address], [place] [address], Ph. Attender: Kathie Juan [facility] 04/22/2020 12:00:00 AM EST [place] ([facility]) Kathie Juan, [employer]: [address], [place] [address], Ph. Attender: Kathie Juan [facility] 04/22/2020 12:00:00 AM EST [place] ([facility]) Kathie Juan, [employer]: [address], [place] [address], Ph. Attender: Kathie Juan [facility] 04/22/2020 12:00:00 AM EST [place] ([facility]) Kathie Juan, [employer]: [address], [place] [address], Ph. Attender: Kathie Juan [facility] 04/22/2020 12:00:00 AM EST [place] ([facility]) Kathie Juan, [employer]: [address], [place] [address], Ph. Attender: Kathie Juan [facility] Medical 04/22/2020 12:00:00 AM EST [place] ([facility]) Kathie Juan [facility]: [address], [place] [address], Ph. Attender: Kathie Juan [facility] Medical 04/22/2020 12:00:00 AM EST [place] ([facility]) Kathie Juan [employer]: [address], [place] [address], Ph. Attender: Kathie Juan [facility] Medical 04/22/2020 12:00:00 AM EST [place] ([facility]) Kathie Juan, [employer]: [address], [place] [address], Ph. Attender: Kathie Juan [facility] Medical 04/22/2020 12:00:00 AM EST [place] ([facility]) Kathie Juan, [facility]: [address], [place] [address], Ph. Attender: Kathie Juan [facility] Medical 04/08/2020 12:00:00 AM EST [place] ([facility]) Kathie Juan [facility]: [address], [place] [address], Ph. Attender: Kathie Juan [facility] Medical 04/08/2020 12:00:00 AM EST [place] ([facility]) Kathie Juan, [facility]: [address], [place] [address], Ph. Attender: Kathie Juan [facility] Medical 04/08/2020 12:00:00 AM EST [place] ([facility]) Kathie Juan, [employer]: [address], [place] [address], Ph. Attender: Kathie Juan [facility] Medical 04/08/2020 12:00:00 AM EST [place] ([facility]) Kathie Juan, [employer]: [address], [place] [address], Ph. Attender: Kathie Juan [facility] Medical 04/08/2020 12:00:00 AM EST [place] ([facility]) Kathie Juan, [employer]: [address], [place] [address], Ph. Attender: Kathie Juan [facility] Medical 04/08/2020 12:00:00 AM EST [place] ([facility]) Kathie Juan, [employer]: [address], [place] [address], Ph. Attender: Kathie Juan [facility] Medical 04/08/2020 12:00:00 AM EST [place] ([facility]) Kathie Juan, [employer]: [address], [place] [address], Ph. Attender: Kathie Juan [facility] Medical 04/08/2020 12:00:00 AM EST [place] ([facility]) Kathie Juan, [employer]: [address], [place] [address], Ph. Attender: Kathie Juan [facility] Medical 04/08/2020 12:00:00 AM EST [place] ([facility]) Kathie Juan, [employer]: [address], [place] [address], Ph. Attender: Kathie Juan [facility] 04/08/2020 12:00:00 AM EST [place] ([facility]) Kathie Juan, [employer]: [address], [place] [address], Ph. Attender: Kathie Juan [facility] Medical 04/08/2020 12:00:00 AM EST [place] ([facility]) Kathie Juan [employer]: [address], [place] [address], Ph. Attender: Kathie Juan [facility] Medical 04/08/2020 12:00:00 AM EST [place] ([facility]) Kathie Juan, [employer]: [address], [place] [address], Ph. Attender: Kathie Juan [facility] Medical 04/08/2020 12:00:00 AM EST [place] ([facility]) Kathie Juan, [employer]: [address], [place] [address], Ph. Attender: Kathie Juan [facility] Medical 04/08/2020 12:00:00 AM EST [place] ([facility]) Kathie Juan, [employer]: [address], [place] [address], Ph. Attender: Kathie Juan [facility] Medical 04/08/2020 12:00:00 AM EST [place] ([facility]) Kathie Juan, [employer]: [address], [place] [address], Ph. Attender: Kathie Juan [facility] Medical 04/08/2020 12:00:00 AM EST [place] ([facility]) Kathie Juan, [employer]: [address], [place] [address], Ph. Attender: Kathie Juan [facility] Medical 04/08/2020 12:00:00 AM EST [place] ([facility]) Kathie Juan, [employer]: [address], [place] [address], Ph. Attender: Kathie Juan [facility] Medical 04/08/2020 12:00:00 AM EST [place] ([facility]) Kathie Juan, [employer]: [address], [place] [address], Ph. Attender: Kathie Juan [facility] Medical 04/08/2020 12:00:00 AM EST [place] ([facility]) Kathie Juan, [employer]: [address], [place] [address], Ph. Attender: Kathie Juan [facility] Medical 04/08/2020 12:00:00 AM EST [place] ([facility]) Kathie Juan, [employer]: [address], [place] [address], Ph. Attender: Kathie Juan [facility] Medical 04/08/2020 12:00:00 AM EST [place] ([facility]) Kathie Juan, [employer]: [address], [place] [address], Ph. Attender: Kathie Juan [facility] Medical 04/08/2020 12:00:00 AM EST [place] ([facility]) Kathie Juan, [employer]: [address], [place] [address], Ph. Attender: Kathie Juan [facility] Medical 04/01/2020 12:00:00 AM EST [place] ([facility]) Leonardo Poe RPA-C: [address], [place] [address], Ph. Attender: LEONARDO POE RPA-C [facility] Medical 04/01/2020 12:00:00 AM EST [place] ([facility]) Kathie Juan, [facility]: [address], [place] [address], Ph. Attender: Kathie Juan [facility] Medical 04/01/2020 12:00:00 AM EST [place] ([facility]) Leonardo Poe RPA-C: [address], [place] [address], Ph. Attender: LEONARDO POE RPA-C [facility] Medical 04/01/2020 12:00:00 AM EST [place] ([facility]) Kathie Juan, [employer]: [address], [place] [address], Ph. Attender: Kathie Juan [facility] Medical 04/01/2020 12:00:00 AM EST [place] ([facility]) Leonardo Poe RPA-C: [address], [place] [address], Ph. Attender: LEONARDO POE RPA-C [facility] Medical 04/01/2020 12:00:00 AM EST [place] ([facility]) Kathie Juan, [employer]: [address], [place] [address], Ph. Attender: Kathie Juan [facility] Medical 04/01/2020 12:00:00 AM EST [place] ([facility]) Leonardo Poe RPA-C: [address], [place] [address], Ph. Attender: LEONARDO POE RPA-C [facility] Medical 04/01/2020 12:00:00 AM EST [place] ([facility]) Kathie Juan [facility]: [address], [place] [address], Ph. Attender: Kathie uJan [facility] Medical 04/01/2020 12:00:00 AM EST [place] ([facility]) Leonardo Poe RPA-C: [address], [place] [address], Ph. Attender: LEONARDO POE RPA-C [facility] Medical 04/01/2020 12:00:00 AM EST [place] ([facility]) Kathie Juan, [employer]: [address], [place] [address], Ph. Attender: Kathie Juan [facility] Medical 04/01/2020 12:00:00 AM EST [place] ([facility]) Leonardo Poe RPA-C: [address], [place] [address], Ph. Attender: LEONARDO POE RPA-C [facility] Medical 04/01/2020 12:00:00 AM EST [place] ([facility]) Kathie Juan, [employer]: [address], [place] [address], Ph. Attender: Kathie Juan [facility] 04/01/2020 12:00:00 AM EST [place] ([facility]) Leonardo Poe RPA-C: [address], [place] [address], Ph. Attender: LEONARDO POE RPA-C [facility] Medical 04/01/2020 12:00:00 AM EST [place] ([facility]) Kathie Juan, [facility]: [address], [place] [address], Ph. Attender: Kathie Juan [facility] 04/01/2020 12:00:00 AM EST [place] ([facility]) Leonardo Poe RPA-C: [address], [address], [place] [address], Ph. Attender: LEONARDO POE RPA-C [facility] Medical 04/01/2020 12:00:00 AM EST [place] ([facility]) Kathie Juan, [employer]: [address], [place] [address], Ph. Attender: Kathie Juan [facility] 04/01/2020 12:00:00 AM EST [place] ([facility]) Leonardo Poe RPA-C: [address], [place] [address], Ph. Attender: LEONARDO POE RPA-C [facility] Medical 04/01/2020 12:00:00 AM EST [place] ([facility]) Kathie Juan, [employer]: [address], [place] [address], Ph. Attender: Kathie Juan [facility] 04/01/2020 12:00:00 AM EST [place] ([facility]) Leonardo Poe RPA-C: [address], [place] [address], Ph. Attender: LEONARDO POE RPA-C [facility] Medical 04/01/2020 12:00:00 AM EST [place] ([facility]) Kathie Juan [facility]: [address], [place] [address], Ph. Attender: Kathie Juan [facility] 04/01/2020 12:00:00 AM EST [place] ([facility]) Leonardo Poe RPA-C: [address], [place] [address], Ph. Attender: LEONARDO POE RPA-C [facility] Medical 04/01/2020 12:00:00 AM EST [place] ([facility]) Kathie Juan, [employer]: [address], [place] [address], Ph. Attender: Kathie Juan [facility] 04/01/2020 12:00:00 AM EST [place] [facility] [facility]) Leonardo Poe RPA-C: [address], [place] [address], Ph. Attender: LEONARDO POE RPA-C [facility] Medical 04/01/2020 12:00:00 AM EST [place] ([facility]) Kathie Juan, [employer]: [address], [place] [address], Ph. Attender: Kathie Juan [facility] Medical 04/01/2020 12:00:00 AM EST [place] ([facility]) Leonardo Poe RPA-C: [address], [place] [address], Ph. Attender: LEONARDO POE RPA-C [facility] Medical 04/01/2020 12:00:00 AM EST [place] ([facility]) Kathie Juan, [employer]AD[employer]: [address], [place] [address], Ph. Attender: Kathie Juan [facility] Medical 04/01/2020 12:00:00 AM EST [place] ([facility]) Leonardo Poe RPA-C: [address], [place] [address], Ph. Attender: LEONARDO POE RPA-C [facility] Medical 04/01/2020 12:00:00 AM EST [place] ([facility]) Kathie Juan, [employer]ADER: [address], [place] [address], Ph. Attender: Kathie Juan [facility] Medical 04/01/2020 12:00:00 AM EST [place] ([facility]) Leonardo Poe RPA-C: [address], [place] [address], Ph. Attender: LEONARDO POE RPA-C [facility] Medical 04/01/2020 12:00:00 AM EST [place] ([facility]) Kathie Juan, [employer]ADER: [address], [place] [address], Ph. Attender: Kathie Juan [facility] Medical 04/01/2020 12:00:00 AM EST [place] ([facility]) Leonardo Poe RPA-C: [address], [place] [address], Ph. Attender: LEONARDO POE RPA-C [facility] Medical 04/01/2020 12:00:00 AM EST [place] ([facility]) Kathie Juan, [employer]ADER: [address], [place] [address], Ph. Attender: Kathie Juan [facility] Medical 04/01/2020 12:00:00 AM EST [place] ([facility]) Leonardo Poe RPA-C: [address], [place] [address], Ph. Attender: LEONARDO POE RPA-C [facility] Medical 04/01/2020 12:00:00 AM EST [place] ([facility]) Kathie Juan, [employer]ADER: [address], [place] [address], Ph. Attender: Kathie Juan [facility] Medical 04/01/2020 12:00:00 AM EST [place] ([facility]) Leonardo Poe RPA-C: [address], [place] [address], Ph. Attender: LEONARDO POE RPA-C [facility] Medical 04/01/2020 12:00:00 AM EST [place] ([facility]) Kathie Juan, [employer]ADER: [address], [place] [address], Ph. Attender: Kathie Juan [facility] Medical 04/01/2020 12:00:00 AM EST [place] ([facility]) Leonardo Poe RPA-C: [address], [place] [address], Ph. Attender: LEONARDO KELLYC [facility] Medical 04/01/2020 12:00:00 AM EST [place] ([facility]) Kathie Juan, [employer]ADER: [address], [place] [address], Ph. Attender: Kathie Juan [facility] Medical 04/01/2020 12:00:00 AM EST [place] ([facility]) Leonardo Poe RPA-C: [address], [place] [address], Ph. Attender: LEONARDO POE RPA-C [facility] Medical 04/01/2020 12:00:00 AM EST [place] ([facility]) Kathie Juan, [employer]ADER: [address], [place] [address], Ph. Attender: Kathie Juan [facility] Medical 04/01/2020 12:00:00 AM EST [place] ([facility]) Leonardo Poe RPA-C: [address], [place] [address], Ph. Attender: LEONARDO POE RPA-C [facility] Medical 04/01/2020 12:00:00 AM EST [place] ([facility]) Kathie Newmangraham, [employer]INTER [employer] GRADER: [address], [place] [address], Ph. Attender: Kathie Newmangraham [facility] Medical 04/01/2020 12:00:00 AM EST [place] ([facility]) Leonardo Poe RPA-C: [address], [place] [address], Ph. Attender: LEONARDO SALMON [facility] Medical 04/01/2020 12:00:00 AM EST [place] ([facility]) Leonardo Poe RPA-C: [address], [place] [address], Ph. Attender: LEONARDO KELLYC [facility] Medical 04/01/2020 12:00:00 AM EST [place] ([facility]) Kathie Newmangraham, [employer]INTER [employer] GRADER: [address], [place] [address], Ph. Attender: Kathie Newmangraham [facility] Medical 04/01/2020 12:00:00 AM EST [place] ([facility]) Leonardo Poe RPA-C: [address], [place] [address], Ph. Attender: LEONARDO POE RPA-C [facility] Medical 04/01/2020 12:00:00 AM EST [place] ([facility]) Kathie Juan, [employer]ADER: [address], [place] [address], Ph. Attender: Kathie Juan [facility] Medical 04/01/2020 12:00:00 AM EST [place] ([facility]) Leonardo Poe, RPA-C: [address], [place] [address], Ph. Attender: LEONARDO POE RPA-C [facility] Medical 04/01/2020 12:00:00 AM EST [place] ([facility]) Kathie Juan, [facility]: [address], [place] [address], Ph. Attender: Kathie Juan [facility] Medical 04/01/2020 12:00:00 AM EST [place] ([facility]) Kathie Juan, [facility]: [address], [place] [address], Ph. Attender: Kathie Juan [facility] Medical 03/25/2020 12:00:00 AM EST [place] ([facility]) Kathie Juan, [facility]: [address], [place] [address], Ph. Attender: Kathie Juan [facility] 03/25/2020 12:00:00 AM EST [place] ([facility]) Kathie Juan, [facility]: [address], [place] [address], Ph. Attender: Kathie Juan [facility] Medical 03/25/2020 12:00:00 AM EST [place] ([facility]) Kathie Juan, [facility]: [address], [place] [address], Ph. Attender: Kathie Juan [facility] Medical 03/25/2020 12:00:00 AM EST [place] ([facility]) Kathie Juan, [employer]ADER: [address], [place] [address], Ph. Attender: Kathie Juan [facility] Medical 03/25/2020 12:00:00 AM EST [place] ([facility]) Kathie Juan, [employer]ADER: [address], [place] [address], Ph. Attender: Kathie Juan [facility] Medical 03/25/2020 12:00:00 AM EST [place] ([facility]) Kathie Juan, [employer]ADER: [address], [place] [address], Ph. Attender: Kathie Juan [facility] Medical 03/25/2020 12:00:00 AM EST [place] ([facility]) Kathie Juan, [employer]ADER: [address], [place] [address], Ph. Attender: Kathie Juan [facility] Medical 03/25/2020 12:00:00 AM EST [place] ([facility]) Kathie Juan, [employer]ADER: [address], [place] [address], Ph. Attender: Kathie Juan [facility] Medical 03/25/2020 12:00:00 AM EST [place] ([facility]) Kathie Juan, [employer]AD[employer]: [address], [place] [address], Ph. Attender: Kathie Juan [facility] Medical 03/25/2020 12:00:00 AM EST [place] ([facility]) Kathie Juan, [employer]ADER: [address], [place] [address], Ph. Attender: Kathie Juan [facility] Medical 03/25/2020 12:00:00 AM EST [place] ([facility]) Kathie Juan, [employer]ADER: [address], [place] [address], Ph. Attender: Kathie Juan [facility] Medical 03/25/2020 12:00:00 AM EST [place] ([facility]) Kathie Juan [facility]: [address], [place] [address], Ph. Attender: Kathie Juan [facility] Medical 03/25/2020 12:00:00 AM EST [place] ([facility]) Kathie Juan, [employer]ADER: [address], [place] [address], Ph. Attender: Kathie Juan [facility] Medical 03/25/2020 12:00:00 AM EST [place] ([facility]) Kathie Juan, [employer]ADER: [address], [place] [address], Ph. Attender: Kathie Juan [facility] Medical 03/25/2020 12:00:00 AM EST [place] ([facility]) Kathie Juan, [employer]AD[employer]: [address], [place] [address], Ph. Attender: Kathie Juan [facility] Medical 03/25/2020 12:00:00 AM EST [place] ([facility]) Kathie Juan, [facility]: [address], [place] [address], Ph. Attender: Kathie Juan [facility] Medical 03/25/2020 12:00:00 AM EST [place] ([facility]) Kathie Juan, [facility]: [address], [place] [address], Ph. Attender: Kathie Juan [facility] Medical 03/25/2020 12:00:00 AM EST [place] ([facility]) Kathie Juan, [facility]: [address], [place] [address], Ph. Attender: Kathie Juan [facility] Medical 03/25/2020 12:00:00 AM EST [place] ([facility]) Kathie Juan, [facility]: [address], [place] [address], Ph. Attender: Kathie Juan [facility] Medical 03/25/2020 12:00:00 AM EST [place] ([facility]) Kathie Juan, [facility]: [address], [place] [address], Ph. Attender: Kathie Juan [facility] Medical 03/25/2020 12:00:00 AM EST [place] ([facility]) Kathie Juan, [facility]: [address], [place] [address], Ph. Attender: Kathie Juan [place] [facility] Medical 03/25/2020 12:00:00 AM EST [place] ([facility]) Kathie Juan, [employer]: [address], [place] [address], Ph. Attender: Kathie Juan [facility] Medical 03/25/2020 12:00:00 AM EST [place] ([facility]) Kathie Juan, [employer]AD[employer]: [address], [place] [address], Ph. Attender: Kathie Juan [facility] Medical 03/25/2020 12:00:00 AM EST [place] ([facility]) Kathie Juan, [employer]AD[employer]: [address], [place] [address], Ph. Attender: Kathie Juan [facility] Medical 03/25/2020 12:00:00 AM EST [place] ([facility]) Kathie Juan, [employer]AD[employer]: [address], [place] [address], Ph. Attender: Kathie Juan [facility] Medical 03/25/2020 12:00:00 AM EST [place] ([facility]) Leonardo Poe RPA-C: [address], [place] [address], Ph. Attender: LEONARDO POE RPA-C [facility] Medical 03/20/2020 12:00:00 AM EST [place] ([facility]) Leonardo Poe RPA-C: [address], [place] [address], Ph. Attender: LEONARDO POE RPA-C [facility] Medical 03/20/2020 12:00:00 AM EST [place] ([facility]) Leonardo Poe RPA-C: [address], [place] [address], Ph. Attender: LEONARDO POE RPA-C [facility] Medical 03/20/2020 12:00:00 AM EST [place] ([facility]) Leonardo Poe RPA-C: [address], [place] [address], Ph. Attender: LEONARDO POE RPA-C [facility] Medical 03/20/2020 12:00:00 AM EST [place] ([facility]) Leonardo Poe RPA-C: [address], [place] [address], Ph. Attender: LEONARDO POE RPA-C [facility] Medical 03/20/2020 12:00:00 AM EST [place] ([facility]) Leonardo Poe RPA-C: [address], [place] [address], Ph. Attender: LEONARDO POE RPA-C [facility] Medical 03/20/2020 12:00:00 AM EST [place] ([facility]) Leonardo Poe RPA-C: [address], [place] [address], Ph. Attender: LEONARDO POE RPA-C [facility] Medical 03/20/2020 12:00:00 AM EST [place] ([facility]) Leonardo Poe, RPA-C: [address], [place] [address], Ph. Attender: LEONARDO POE RPA-C [facility] Medical 03/20/2020 12:00:00 AM EST [place] ([facility]) Leonardo Poe, RPA-C: [address], [place] [address], Ph. Attender: LEONARDO POE RPA-C [facility] Medical 03/20/2020 12:00:00 AM EST [place] ([facility]) Leonardo Poe, RPA-C: [address], [place] [address], Ph. Attender: LEONARDO POE RPA-C [facility] Medical 03/20/2020 12:00:00 AM EST [place] ([facility]) Leonardo Poe, RPA-C: [address], [place] [address], Ph. Attender: LEONARDO POE RPA-C [facility] Medical 03/20/2020 12:00:00 AM EST [place] ([facility]) Leonardo Poe, RPA-C: [address], [place] [address], Ph. Attender: LEONARDO POE RPA-C [facility] Medical 03/20/2020 12:00:00 AM EST [place] ([facility]) Leonardo Poe, RPA-C: [address], [place] [address], Ph. Attender: LEONARDO POE RPA-C [facility] Medical 03/20/2020 12:00:00 AM EST [place] ([facility]) Leonardo Poe, RPA-C: [address], [place] [address], Ph. Attender: LEONARDO POE RPA-C [facility] Medical 03/20/2020 12:00:00 AM EST [place] ([facility]) Leonardo Poe RPA-C: [address], [place] [address], Ph. Attender: LEONARDO POE RPA-C [facility] Medical 03/20/2020 12:00:00 AM EST [place] ([facility]) Leonardo Poe RPA-C: [address], [place] [address], Ph. Attender: LEONARDO POE RPA-C [facility] Medical 03/20/2020 12:00:00 AM EST [place] ([facility]) Leonardo Poe RPA-C: [address], [place] [address], Ph. Attender: LEONARDO POE RPA-C [facility] Medical 03/20/2020 12:00:00 AM EST [place] ([facility]) Leonardo Poe RPA-C: [address], [place] [address], Ph. Attender: LEONARDO POE RPA-C [facility] Medical 03/20/2020 12:00:00 AM EST [place] ([facility]) Leonardo Poe RPA-C: [address], [place] [address], Ph. Attender: LEONARDO POE RPA-C [facility] Medical 03/20/2020 12:00:00 AM EST [place] ([facility]) Leonardo Poe RPA-C: [address], [place] [address], Ph. Attender: LEONARDO POE RPA-C [facility] Medical 03/20/2020 12:00:00 AM EST [place] ([facility]) Leonardo Poe RPA-C: [address], [place] [address], Ph. Attender: LEONARDO POE RPA-C [facility] Medical 03/20/2020 12:00:00 AM EST [place] ([facility]) Leonardo Poe, RPA-C: [address], [place] [address], Ph. Attender: LEONARDO POE RPA-C [facility] Medical 03/20/2020 12:00:00 AM EST [place] ([facility]) Leonardo Poe, RPA-C: [address], [place] [address], Ph. Attender: LEONARDO POE RPA-C [facility] Medical 03/20/2020 12:00:00 AM EST [place] ([facility]) Leonardo Poe, RPA-C: [address], [place] [address], Ph. Attender: LEONARDO POE RPA-C [facility] Medical 03/20/2020 12:00:00 AM EST [place] ([facility]) Leonardo Poe, RPA-C: [address], [place] [address], Ph. Attender: LEONARDO POE RPA-C [facility] Medical 03/20/2020 12:00:00 AM EST [place] ([facility]) Leonardo Poe, DENISE-C: [address], [place] [address], Ph. Attender: LEONARDO POE RPA-C [facility] Medical 03/20/2020 12:00:00 AM EST [place] ([facility]) Kathie Juan, [employer]: [address], [place] [address], Ph. Attender: Kathie Juan [facility] Medical 03/18/2020 12:00:00 AM EST [place] ([facility]) Kathie Juan, [employer]: [address], [place] [address], Ph. Attender: Kathie Juan [facility] Medical 03/18/2020 12:00:00 AM EST [place] ([facility]) Kathie Juan, [employer]: [address], [place] [address], Ph. Attender: Kathie Juan [facility] Medical 03/18/2020 12:00:00 AM EST [place] ([facility]) Kathie Juan, [employer]: [address], [place] [address], Ph. Attender: Kathie Juan [facility] Medical 03/18/2020 12:00:00 AM EST [place] ([facility]) Kathie Juan, [employer]: [address], [place] [address], Ph. Attender: Kathie Juan [facility] Medical 03/18/2020 12:00:00 AM EST [place] ([facility]) Kathie Juan, [facility]: [address], [place] [address], Ph. Attender: Kathie Juan [facility] Medical 03/18/2020 12:00:00 AM EST [place] ([facility]) Kathie Juan, [employer]: [address], [place] [address], Ph. Attender: Kathie Juan [facility] Medical 03/18/2020 12:00:00 AM EST [place] ([facility]) Kathie Juan, [employer]: [address], [place] [address], Ph. Attender: Kathie Juan [facility] Medical 03/18/2020 12:00:00 AM EST [place] ([facility]) Kathie Juan, [employer]: [address], [place] [address], Ph. Attender: Kathie Juan [facility] Medical 03/18/2020 12:00:00 AM EST [place] ([facility]) Kathie Juan [facility]: [address], [place] [address], Ph. Attender: Kathie Juan [facility] Medical 03/18/2020 12:00:00 AM EST [place] ([facility]) Kathie Juan, [employer]: [address], [place] [address], Ph. Attender: Kathie Juan [facility] Medical 03/18/2020 12:00:00 AM EST [place] ([facility]) Kathie Juan, [facility]: [address], [place] [address], Ph. Attender: Kathie Juan [facility] Medical 03/18/2020 12:00:00 AM EST [place] ([facility]) Kathie Juan, [employer]: [address], [place] [address], Ph. Attender: Kathie Juan [facility] Medical 03/18/2020 12:00:00 AM EST [place] ([facility]) Kathie Juan, [employer]: [address], [place] [address], Ph. Attender: Kathie Juan [facility] Medical 03/18/2020 12:00:00 AM EST [place] ([facility]) Kathie Juan, [employer]: [address], [place] [address], Ph. Attender: Kathie Juan [facility] 03/18/2020 12:00:00 AM EST [place] ([facility]) Kathie Juan, [employer]: [address], [place] [address], Ph. Attender: Kathie Juan [facility] Medical 03/18/2020 12:00:00 AM EST [place] ([facility]) Katihe Juan, [employer]: [address], [place] [address], Ph. Attender: Kathie Juan [facility] Medical 03/18/2020 12:00:00 AM EST [place] ([facility]) Kathie Juan, [employer]: [address], [place] [address], Ph. Attender: Kathie Juan [facility] 03/18/2020 12:00:00 AM EST [place] ([facility]) Kathie Juan, [employer]: [address], [place] [address], Ph. Attender: Kathie Juan [facility] Medical 03/18/2020 12:00:00 AM EST [place] ([facility]) Kathie Juan, [employer]: [address], [place] [address], Ph. Attender: Kathie Juan [facility] Medical 03/18/2020 12:00:00 AM EST [place] ([facility]) Kathie Juan, [employer]: [address], [place] [address], Ph. Attender: Kathie Juan [facility] 03/18/2020 12:00:00 AM EST [place] ([facility]) Kathie Juan, [employer]ADER: [address], [place] [address], Ph. Attender: Kathie Juan [facility] Medical 03/18/2020 12:00:00 AM EST [place] ([facility]) Kathie Juan, [employer]ADER: [address], [place] [address], Ph. Attender: Kathie Juan [facility] 03/18/2020 12:00:00 AM EST [place] ([facility]) Kathie Juan, [employer]ADER: [address], [place] [address], Ph. Attender: Kathie Juan [facility] 03/18/2020 12:00:00 AM EST [place] ([facility]) Kathie Juan, [employer]ADER: [address], [address], [place] [address], Ph. Attender: Kathie Juan [facility] 03/18/2020 12:00:00 AM EST [place] ([facility]) Kathie Juan, [employer]ADER: [address], [place] [address], Ph. Attender: Kathie Juan [facility] 03/18/2020 12:00:00 AM EST [place] ([facility]) Kathie Juan [employer]ADER: [address], [address], [place] [address], Ph. Attender: Kathie Juan [facility] 03/18/2020 12:00:00 AM EST [place] ([facility]) Kathie Juan, [employer]ADER: [address], [place] [address], Ph. Attender: Kathie Juan [facility] 03/05/2020 12:00:00 AM EST [place] ([facility]) Kathie Juan, [employer]ADER: [address], [place] [address], Ph. Attender: Kathie Juan [facility] 03/05/2020 12:00:00 AM EST [place] ([facility]) Kathie Juan, [employer]ADER: [address], [place] [address], Ph. Attender: Kathie Juan [facility] 03/05/2020 12:00:00 AM EST [place] ([facility]) Kathie Juan, [facility]: [address], [place] [address], Ph. Attender: Kathie Juan [facility] 03/05/2020 12:00:00 AM EST [place] ([facility]) Kathie Juan, [facility]: [address], [place] [address], Ph. Attender: Kathie Juan [facility] 03/05/2020 12:00:00 AM EST [place] ([facility]) Kathie Juan, [facility]: [address], [place] [address], Ph. Attender: Kathie Juan [facility] 03/05/2020 12:00:00 AM EST [place] ([facility]) Kathie Juan, [facility]: [address], [place] [address], Ph. Attender: Kathie Juan [facility] 03/05/2020 12:00:00 AM EST [place] ([facility]) Kathie Juan, [facility]: [address], [place] [address], Ph. Attender: Kathie Juan [facility] 03/05/2020 12:00:00 AM EST [place] ([facility]) Kathie Juan, [facility]: [address], [place] [address], Ph. Attender: Kathie Juan [facility] 03/05/2020 12:00:00 AM EST [place] ([facility]) Kathie Juan, [employer]ADER: [address], [place] [address], Ph. Attender: Kathie Juan [facility] 03/05/2020 12:00:00 AM EST [place] ([facility]) Kathie Juan, [employer]ADER: [address], [place] [address], Ph. Attender: Kathie Juan [facility] 03/05/2020 12:00:00 AM EST [place] ([facility]) Kathie Juan, [employer]ADER: [address], [place] [address], Ph. Attender: Kathie Juan [facility] Medical 03/05/2020 12:00:00 AM EST [place] ([facility]) Kathie Juan, [employer]ADER: [address], [place] [address], Ph. Attender: Kathie Juan [facility] Medical 03/05/2020 12:00:00 AM EST [place] ([facility]) Kathie Juan, [employer]ADER: [address], [place] [address], Ph. Attender: Kathie Juan [facility] 03/05/2020 12:00:00 AM EST [place] ([facility]) Kathie Juan, [employer]ADER: [address], [place] [address], Ph. Attender: Kathie Juan [facility] Medical 03/05/2020 12:00:00 AM EST [place] ([facility]) Kathie Juan, [facility]: [address], [place] [address], Ph. Attender: Kathie Juan [facility] 03/05/2020 12:00:00 AM EST [place] ([facility]) Kathie Juan, [employer]AD[employer]: [address], [place] [address], Ph. Attender: Kathie Juan [facility] 03/05/2020 12:00:00 AM EST [place] ([facility]) Kathie Juan, [employer]AD[employer]: [address], [place] [address], Ph. Attender: Kathie Juan [facility] Medical 03/05/2020 12:00:00 AM EST [place] ([facility]) Kathie Juan, [facility]: [address], [address], [place] [address], Ph. Attender: Kathie Juan [facility] 03/05/2020 12:00:00 AM EST [place] ([facility]) Kathie Juan, [facility]: [address], [place] [address], Ph. Attender: Kathie Juan [facility] 03/05/2020 12:00:00 AM EST [place] ([facility]) Kathie Juan, [facility]: [address], [place] [address], Ph. Attender: Kathie Juan [facility] 03/05/2020 12:00:00 AM EST [place] ([facility]) Kathie Juan, [facility]: [address], [place] [address], Ph. Attender: Kathie Juan [facility] 03/05/2020 12:00:00 AM EST [place] ([facility]) Kathie Juan, [facility]: [address], [place] [address], Ph. Attender: Kathie Juan [facility] Medical 03/05/2020 12:00:00 AM EST [place] ([facility]) Kathie Juan, [facility]: [address], [place] [address], Ph. Attender: Kathie Juan [facility] Medical 03/05/2020 12:00:00 AM EST [place] ([facility]) Kathie Juan, [facility]: [address], [place] [address], Ph. Attender: Kathie Juan [facility] Medical 03/05/2020 12:00:00 AM EST [place] ([facility]) Kathie Juan, [facility]: [address], [place] [address], Ph. Attender: Kathie Juan [facility] 03/05/2020 12:00:00 AM EST [place] ([facility]) Kathie Juan, [facility]: [address], [place] [address], Ph. Attender: Kathie Juan [facility] 03/05/2020 12:00:00 AM EST [place] ([facility]) Kathie Juan, [facility]: [address], [place] [address], Ph. Attender: Kathie Juan [facility] Medical 03/05/2020 12:00:00 AM EST [place] ([facility]) Outpatient Attender: Ron Putnam MD Physical Therapy 03/04/2020 0 9:30:00 AM EST [place] ([facility]) Kathie Juan, [employer]ADER: [address], [place] [address], Ph. Attender: Kathie Juan [facility] Medical 02/26/2020 12:00:00 AM EST [place] ([facility]) Kathie Juan, [employer]ADER: [address], [place] [address], Ph. Attender: Kathie Juan [facility] Medical 02/26/2020 12:00:00 AM EST [place] ([facility]) Kathie Juan, [facility]: [address], [place] [address], Ph. Attender: Kathie Juan [facility] Medical 02/26/2020 12:00:00 AM EST [place] ([facility]) Kathie Juan [facility]: [address], [place] [address], Ph. Attender: Kathie Juan [facility] 02/26/2020 12:00:00 AM EST [place] ([facility]) Kathie Juan [facility]: [address], [place] [address], Ph. Attender: Kathie Juan [facility] Medical 02/26/2020 12:00:00 AM EST [place] ([facility]) Kathie Juan, [facility]: [address], [place] [address], Ph. Attender: Kathie Juan [facility] 02/26/2020 12:00:00 AM EST [place] ([facility]) Kathie Juan, [employer]AD[employer]: [address], [place] [address], Ph. Attender: Kathie Juan [facility] 02/26/2020 12:00:00 AM EST [place] ([facility]) Kathie Juan, [employer]AD[employer]: [address], [place] [address], Ph. Attender: Kathie Juan [facility] 02/26/2020 12:00:00 AM EST [place] ([facility]) Kathie Juan, [employer]AD[employer]: [address], [place] [address], Ph. Attender: Kathie Juan [facility] 02/26/2020 12:00:00 AM EST [place] ([facility]) Kathie Juan, [employer]AD[employer]: [address], [place] [address], Ph. Attender: Kathie Juan [facility] Medical 02/26/2020 12:00:00 AM EST [place] ([facility]) Kathie Juan, [employer]AD[employer]: [address], [place] [address], Ph. Attender: Kathie Juan [facility] Medical 02/26/2020 12:00:00 AM EST [place] ([facility]) Kathie Juan, [employer]: [address], [place] [address], Ph. Attender: Kathie Juan [facility] Medical 02/26/2020 12:00:00 AM EST [place] ([facility]) Kathie Juan, [employer]: [address], [place] [address], Ph. Attender: Kathie Juan [facility] Medical 02/26/2020 12:00:00 AM EST [place] ([facility]) Kathie Juan, [employer]: [address], [place] [address], Ph. Attender: Kathie Juan [facility] Medical 02/26/2020 12:00:00 AM EST [place] ([facility]) Kathie Juan, [employer]: [address], [place] [address], Ph. Attender: Kathie Juan [facility] 02/26/2020 12:00:00 AM EST [place] ([facility]) Kathie Juan, [employer]: [address], [place] [address], Ph. Attender: Kathie Juan [facility] 02/26/2020 12:00:00 AM EST [place] ([facility]) Kathie Juan, [employer]: [address], [place] [address], Ph. Attender: Kathie Juan [facility] 02/26/2020 12:00:00 AM EST Noncompliance with Treatment [place] [place] ([facility]) Noncompliance with Treatment Kathie Juan [employer]AD[employer]: [address], [place] [address], Ph. Attender: Kathie Juan [facility] 02/26/2020 12:00:00 AM EST [place] ([facility]) Kathie Juan, [employer]AD[employer]: [address], [place] [address], Ph. Attender: Kathie Juan [facility] 02/26/2020 12:00:00 AM EST [place] ([facility]) Kathie Juan, [employer]: [address], [place] [address], Ph. Attender: Kathie Juan [facility] 02/26/2020 12:00:00 AM EST [place] ([facility]) Kathie Juan, [employer]AD[employer]: [address], [place] [address], Ph. Attender: Kathie Juan [facility] 02/26/2020 12:00:00 AM EST [place] ([facility]) Kathie Juan, [employer]AD[employer]: [address], [place] [address], Ph. Attender: Kathie Juan [facility] 02/26/2020 12:00:00 AM EST [place] ([facility]) Kathie Juan, [employer]: [address], [place] [address], Ph. Attender: Kathie Juan [facility] 02/26/2020 12:00:00 AM EST [place] ([facility]) Kathie Juan, [employer]: [address], [place] [address], Ph. Attender: Kathie Juan [facility] 02/26/2020 12:00:00 AM EST [place] ([facility]) Kathie Juan, [employer]: [address], [place] [address], Ph. Attender: Kathie Juan [facility] 02/26/2020 12:00:00 AM EST [place] ([facility]) Kathie Juan [employer]: [address], [place] [address], Ph. Attender: Kathie Juan [facility] 02/26/2020 12:00:00 AM EST [place] ([facility]) Kathie Juan [employer]AD[employer]: [address], [place] [address], Ph. Attender: Kathie Juan [facility] 02/26/2020 12:00:00 AM EST [place] ([facility]) Kathie Juan, [employer]AD[employer]: [address], [place] [address], Ph. Attender: Kathie Juan [facility] 02/26/2020 12:00:00 AM EST [place] ([facility]) Kathie Juan [employer]: [address], [place] [address], Ph. Attender: Kathie Juan [facility] 02/26/2020 12:00:00 AM EST [place] ([facility]) Immunizations Vaccine Date Status Description Data Source(s) COVID-19, mRNA, LNP-S, PF, 100 mcg/0.5 mL dose 09/20/2020 12 :00:00 AM EDT completed 09/20/2020 [place] ([facility]) COVID-19, mRNA, LNP-S, PF, 100 mcg/0.5 mL dose 09/20/2020 12 :00:00 AM EDT completed 09/20/2020 [place] ([facility]) COVID-19, mRNA, LNP-S, PF, 100 mcg/0.5 mL dose 09/20/2020 12 :00:00 AM EDT completed 09/20/2020 [place] ([facility]) COVID-19, mRNA, LNP-S, PF, 100 mcg/0.5 mL dose 09/20/2020 12 :00:00 AM EDT completed 09/20/2020 [place] ([facility]) COVID-19 VACCINE Moderna 09/20/2020 12:00:00 AM EDT completed [facility] Vaccine Series Complete: YESThis Data wa s Submitted to [facility] Via [employer]. COVID-19, mRNA, LNP-S, PF, 100 mcg/0.5 mL dose 08/23/2020 12 :00:00 AM EDT completed 08/23/2020 [place] ([facility]) COVID-19, mRNA, LNP-S, PF, 100 mcg/0.5 mL dose 08/23/2020 12 :00:00 AM EDT completed 08/23/2020 [place] ([facility]) COVID-19, mRNA, LNP-S, PF, 100 mcg/0.5 mL dose 08/23/2020 12 :00:00 AM EDT completed 08/23/2020 [place] ([facility]) COVID-19, mRNA, LNP-S, PF, 100 mcg/0.5 mL dose 08/23/2020 12 :00:00 AM EDT completed 08/23/2020 [place] ([facility]) COVID-19 VACCINE Moderna 08/23/2020 12:00:00 AM EDT completed [facility] Vaccine Series Complete: NOThis Data was Submitted to [facility] [employer]. HPV9 06/23/2020 01:25:00 PM EST completed 06/23/2020 0.5 mL [place] ([facility]) HPV9 06/23/2020 01:25:00 PM EST completed 06/23/2020 0.5 mL [place] ([facility]) HPV9 06/23/2020 01:25:00 PM EST completed 06/23/2020 0.5 mL [place] ([facility]) HPV9 06/23/2020 01:25:00 PM EST completed 06/23/2020 0.5 mL [place] ([facility]) HPV9 06/23/2020 01:25:00 PM EST completed 06/23/2020 0.5 mL [place] ([facility]) HPV9 06/23/2020 01:25:00 PM EST completed 06/23/2020 0.5 mL [place] ([facility]) HPV9 06/23/2020 01:25:00 PM EST completed 06/23/2020 0.5 mL [place] ([facility]) HPV9 06/23/2020 01:25:00 PM EST completed 06/23/2020 0.5 mL [place] ([facility]) HPV9 06/23/2020 01:25:00 PM EST completed 06/23/2020 0.5 mL [place] ([facility]) HPV9 06/23/2020 01:25:00 PM EST completed 06/23/2020 0.5 mL [place] ([facility]) HPV9 06/23/2020 01:25:00 PM EST completed 06/23/2020 0.5 mL [place] ([facility]) HPV9 06/23/2020 01:25:00 PM EST completed 06/23/2020 0.5 mL [place] ([facility]) HPV9 06/23/2020 01:25:00 PM EST completed 06/23/2020 0.5 mL [place] ([facility]) HPV9 06/23/2020 01:25:00 PM EST completed 06/23/2020 0.5 mL [place] ([facility]) HPV9 06/23/2020 01:25:00 PM EST completed 06/23/2020 0.5 mL [place] ([facility]) HPV9 06/23/2020 01:25:00 PM EST completed 06/23/2020 0.5 mL [place] ([facility]) Tdap 06/23/2020 01:24:00 PM EST completed 06/23/2020 0.5 mL [place] ([facility]) Tdap 06/23/2020 01:24:00 PM EST completed 06/23/2020 0.5 mL [place] ([facility]) Tdap 06/23/2020 01:24:00 PM EST completed 06/23/2020 0.5 mL [place] ([facility]) Tdap 06/23/2020 01:24:00 PM EST completed 06/23/2020 0.5 mL [place] ([facility]) Tdap 06/23/2020 01:24:00 PM EST completed 06/23/2020 0.5 mL [place] ([facility]) Tdap 06/23/2020 01:24:00 PM EST completed 06/23/2020 0.5 mL [place] ([facility]) Tdap 06/23/2020 01:24:00 PM EST completed 06/23/2020 0.5 mL [place] ([facility]) Tdap 06/23/2020 01:24:00 PM EST completed 06/23/2020 0.5 mL [place] ([facility]) Tdap 06/23/2020 01:24:00 PM EST completed 06/23/2020 0.5 mL [place] ([facility]) Tdap 06/23/2020 01:24:00 PM EST completed 06/23/2020 0.5 mL [place] ([facility]) Tdap 06/23/2020 01:24:00 PM EST completed 06/23/2020 0.5 mL [place] ([facility]) Tdap 06/23/2020 01:24:00 PM EST completed 06/23/2020 0.5 mL [place] ([facility]) Tdap 06/23/2020 01:24:00 PM EST completed 06/23/2020 0.5 mL [place] ([facility]) Tdap 06/23/2020 01:24:00 PM EST completed 06/23/2020 0.5 mL [place] ([facility]) Tdap 06/23/2020 01:24:00 PM EST completed 06/23/2020 0.5 mL [place] ([facility]) Tdap 06/23/2020 01:24:00 PM EST completed 06/23/2020 0.5 mL [place] ([facility]) New in 2011. IIV4 03/20/2020 12:17:21 PM EST completed 0.5 mL [place] ([facility]) New in 2011. IIV4 03/20/2020 12:17:21 PM EST completed 0.5 mL [facility] ([facility]) New in 2011. IIV4 03/20/2020 12:17:21 PM EST completed .5 mL [facility] ([facility]) New in 2011. IIV4 03/20/2020 12:17:21 PM EST completed .5 mL [facility] ([facility]) New in 2011. IIV4 03/20/2020 12:17:21 PM EST completed .5 mL [facility] ([facility]) New in 2011. IIV4 03/20/2020 12:17:21 PM EST completed .5 mL [facility] ([facility]) New in 2011. IIV4 03/20/2020 12:17:21 PM EST completed .5 mL [facility] ([facility]) New in 2011. IIV4 03/20/2020 12:17:21 PM EST completed .5 mL [facility] ([facility]) New in 2011. IIV4 03/20/2020 12:17:21 PM EST completed .5 mL [facility] ([facility]) New in 2011. IIV4 03/20/2020 12:17:21 PM EST completed 0.5 mL [facility] ([facility]) New in 2011. IIV4 03/20/2020 12:17:21 PM EST completed .5 mL [facility] ([facility]) New in 2011. IIV4 03/20/2020 12:17:21 PM EST completed .5 mL [facility] ([facility]) New in 2011. IIV4 03/20/2020 12:17:21 PM EST completed 0.5 mL [facility] ([facility]) New in 2011. IIV4 03/20/2020 12:17:21 PM EST completed 0.5 mL [facility] ([facility]) New in 2011. IIV4 03/20/2020 12:17:21 PM EST completed .5 mL [facility] ([facility]) New in 2011. IIV4 03/20/2020 12:17:21 PM EST completed .5 mL [facility] ([facility]) New in 2011. IIV4 03/20/2020 12:17:21 PM EST completed 0.5 mL [facility] ([facility]) New in 2011. IIV4 03/20/2020 12:17:21 PM EST completed .5 mL [facility] ([facility]) New in 2011. IIV4 03/20/2020 12:17:21 PM EST completed .5 mL [facility] ([facility]) New in 2011. IIV4 03/20/2020 12:17:21 PM EST completed .5 mL [facility] ([facility]) New in 2011. IIV4 03/20/2020 12:17:21 PM EST completed .5 mL [facility] ([facility]) New in 2011. IIV4 03/20/2020 12:17:21 PM EST completed 0.5 mL HAI[facility] ([facility]) New in 2011. IIV4 03/20/2020 12:17:21 PM EST completed .5 mL [facility] ([facility]) New in 2011. IIV4 03/20/2020 12:17:21 PM EST completed .5 mL [facility] ([facility]) New in 2011. IIV4 03/20/2020 12:17:21 PM EST completed .5 mL [facility] ([facility]) New in 2011. IIV4 03/20/2020 12:17:21 PM EST completed .5 mL [facility] ([facility]) Medications Medication Brand Name Start Date Product Form Dose Route Admi nistrative Instructions Pharmacy Instructions Status Indications Reaction Description Data Source(s) Ondansetron 4 MG Disintegrating Oral Tablet Ondansetron 10/07/2020 12:00:00 AM EDT active MEDENT ([facility]) Acetaminophen 325 MG / Hydrocodone Bitartrate 5 MG Ora l Tablet Hydrocodone-Acetaminophen 05/15/2020 12:00:00 AM EST ORAL active MEDENT ([facility]) benzonatate 100 MG Oral Capsule benzonat ate 100 mg capsule TAKE 1 CAPSULE BY MOUTH THREE TIMES DAILY NEEDED FOR 10 DAYS benzonatate 100 mg capsule TAKE 1 CAPSULE BY MOUTH THREE TIMES DAILY NEEDED FOR 10 DAYS completed benzonatate 100 MG Oral Capsule [facility] ( [facility]) Citalopram 40 MG Oral Tablet citalopram 40 mg tablet TAKE 1 TABLET BY MOUTH ONCE DAILY citalopram 40 mg tablet TAKE 1 TABLET BY MOUTH ONCE DAILY completed citalopram 40 MG Oral Tablet ATH GREGORIO ([facility]) Citalopram 40 MG Oral Tablet citalopram 40 mg tablet TAKE 1 TABLET BY MOUTH ONCE DAILY citalopram 40 mg tablet TAKE 1 TABLET BY MOUTH ONCE DAILY completed citalopram 40 MG Oral Tablet ATH GREG[facility] ([facility]) Amoxicillin 875 MG / Clavulanate 125 MG Oral Tablet amoxicillin 875 mg-potassium clavulanate 125 mg tablet amoxicillin 875 mg-potassium clavulanate 125 mg tablet completed amoxicillin 875 MG / clavulanate 125 MG Oral Tablet [place] ([facility]) Amoxicillin 875 MG / Clavulanate 125 MG Oral Tablet amoxicillin 875 mg-potassium clavulanate 125 mg tablet amoxicillin 875 mg-potassium clavulanate 125 mg tablet completed amoxicillin 875 MG / clavulanate 125 MG Oral Tablet [place] ([facility]) Amoxicillin 875 MG / Clavulanate 125 MG Oral Tablet amoxicillin 875 mg-potassium clavulanate 125 mg tablet amoxicillin 875 mg-potassium clavulanate 125 mg tablet completed amoxicillin 875 MG / clavulanate 125 MG Oral Tablet [place] ([facility]) Amoxicillin 875 MG / Clavulanate 125 MG Oral Tablet amoxicillin 875 mg-potassium clavulanate 125 mg tablet amoxicillin 875 mg-potassium clavulanate 125 mg tablet completed amoxicillin 875 MG / clavulanate 125 MG Oral Tablet [place] ([facility]) Acetaminophen 325 MG / Hydrocodone Melani trate 5 MG Oral Tablet hydrocodone 5 mg- acetaminophen 325 mg tablet hydrocodone 5 mg-acetaminophen 325 mg tablet completed acetaminophen 325 MG / hydrocodone bitartrate 5 MG Oral Tablet [facility] ([facility]) Citalopram 40 MG Oral Tablet citalopram 40 mg tablet TAKE 1 TABLET BY MOUTH ONCE DAILY citalopram 40 mg tablet TAKE 1 TABLET BY MOUTH ONCE DAILY completed citalopram 40 MG Oral Tablet ATH [facility]REG[facility] ([facility]) Acetaminophen 325 MG / Hydrocodone Melani trate 5 MG Oral Tablet hydrocodone 5 mg- acetaminophen 325 mg tablet hydrocodone 5 mg-acetaminophen 325 mg tablet completed acetaminophen 325 MG / hydrocodone bitartrate 5 MG Oral Tablet [facility] ([facility]) Acetaminophen 325 MG / Hydrocodone Melani trate 5 MG Oral Tablet hydrocodone 5 mg- acetaminophen 325 mg tablet hydrocodone 5 mg-acetaminophen 325 mg tablet completed acetaminophen 325 MG / hydrocodone bitartrate 5 MG Oral Tablet [facility] ([facility]) benzonatate 100 MG Oral Capsule benzonat ate 100 mg capsule TAKE 1 CAPSULE BY MOUTH THREE TIMES DAILY NEEDED FOR 10 DAYS benzonatate 100 mg capsule TAKE 1 CAPSULE BY MOUTH THREE TIMES DAILY NEEDED FOR 10 DAYS completed benzonatate 100 MG Oral Capsule [place] ( [facility]) Trazodone Hydrochloride 50 MG Oral Tablet trazodone 50 mg tablet trazodone 50 mg tablet completed trazodone hydro chloride 50 MG Oral Tablet [place] ([facility]) Citalopram 40 MG Oral Tablet citalopram 40 mg tablet TAKE 1 TABLET BY MOUTH ONCE DAILY citalopram 40 mg tablet TAKE 1 TABLET BY MOUTH ONCE DAILY completed citalopram 40 MG Oral Tablet ATH [facility]REG[facility] ([facility]) Citalopram 40 MG Oral Tablet citalopram 40 mg tablet TAKE 1 TABLET BY MOUTH ONCE DAILY citalopram 40 mg tablet TAKE 1 TABLET BY MOUTH ONCE DAILY completed citalopram 40 MG Oral Tablet ATH [place] ([facility]) Trazodone Hydrochloride 50 MG Oral Tablet trazodone 50 mg tablet trazodone 50 mg tablet completed trazodone hydro chloride 50 MG Oral Tablet [place] ([facility]) benzonatate 100 MG Oral Capsule benzonat ate 100 mg capsule TAKE 1 CAPSULE BY MOUTH THREE TIMES DAILY NEEDED FOR 10 DAYS benzonatate 100 mg capsule TAKE 1 CAPSULE BY MOUTH THREE TIMES DAILY NEEDED FOR 10 DAYS completed benzonatate 100 MG Oral Capsule [place] ( [facility]) benzonatate 100 MG Oral Capsule benzonat ate 100 mg capsule TAKE 1 CAPSULE BY MOUTH THREE TIMES DAILY NEEDED FOR 10 DAYS benzonatate 100 mg capsule TAKE 1 CAPSULE BY MOUTH THREE TIMES DAILY NEEDED FOR 10 DAYS completed benzonatate 100 MG Oral Capsule [place] ( [facility]) Pseudoephedrine Hydrochloride 30 MG Oral Tablet [Sudogest] Sudogest 30 mg tablet TAKE 1 TABLET BY MOUTH 4 TIMES DAILY NEEDED FOR 10 DAYS Sudogest 30 mg tablet TAKE 1 TABLET BY MOUTH 4 TIMES DAILY NEEDED FOR 10 DAYS completed pseudoephedrine hydrochloride 30 MG Oral Tablet [Sudogest] HAILEY ([facility]) benzonatate 100 MG Oral Capsule benzonat ate 100 mg capsule TAKE 1 CAPSULE BY MOUTH THREE TIMES DAILY NEEDED FOR 10 DAYS benzonatate 100 mg capsule TAKE 1 CAPSULE BY MOUTH THREE TIMES DAILY NEEDED FOR 10 DAYS completed benzonatate 100 MG Oral Capsule [place] ( [facility]) Citalopram 40 MG Oral Tablet citalopram 40 mg tablet TAKE 1 TABLET BY MOUTH ONCE DAILY citalopram 40 mg tablet TAKE 1 TABLET BY MOUTH ONCE DAILY completed citalopram 40 MG Oral Tablet ATH [place] ([facility]) benzonatate 100 MG Oral Capsule benzonat ate 100 mg capsule TAKE 1 CAPSULE BY MOUTH THREE TIMES DAILY NEEDED FOR 10 DAYS benzonatate 100 mg capsule TAKE 1 CAPSULE BY MOUTH THREE TIMES DAILY NEEDED FOR 10 DAYS completed benzonatate 100 MG Oral Capsule [place] ( [facility]) benzonatate 100 MG Oral Capsule benzonat ate 100 mg capsule TAKE 1 CAPSULE BY MOUTH THREE TIMES DAILY NEEDED FOR 10 DAYS benzonatate 100 mg capsule TAKE 1 CAPSULE BY MOUTH THREE TIMES DAILY NEEDED FOR 10 DAYS completed benzonatate 100 MG Oral Capsule [place] ( [facility]) Amoxicillin 875 MG / Clavulanate 125 MG Oral Tablet amoxicillin 875 mg-potassium clavulanate 125 mg tablet amoxicillin 875 mg-potassium clavulanate 125 mg tablet completed amoxici llin 875 MG / clavulanate 125 MG Oral Tablet [facility] ([facility]) Citalopram 40 MG Oral Tablet citalopram 40 mg tablet TAKE 1 TABLET BY MOUTH ONCE DAILY citalopram 40 mg tablet TAKE 1 TABLET BY MOUTH ONCE DAILY completed citalopram 40 MG Oral Tablet ATH [place] ([facility]) Amoxicillin 875 MG / Clavulanate 125 MG Oral Tablet amoxicillin 875 mg-potassium clavulanate 125 mg tablet amoxicillin 875 mg-potassium clavulanate 125 mg tablet completed amoxici llin 875 MG / clavulanate 125 MG Oral Tablet [facility] ([facility]) Amoxicillin 875 MG / Clavulanate 125 MG Oral Tablet amoxicillin 875 mg-potassium clavulanate 125 mg tablet amoxicillin 875 mg-potassium clavulanate 125 mg tablet completed amoxici llin 875 MG / clavulanate 125 MG Oral Tablet [facility] ([facility]) Amoxicillin 875 MG / Clavulanate 125 MG Oral Tablet amoxicillin 875 mg-potassium clavulanate 125 mg tablet amoxicillin 875 mg-potassium clavulanate 125 mg tablet completed amoxici llin 875 MG / clavulanate 125 MG Oral Tablet [place] ([facility]) Citalopram 40 MG Oral Tablet citalopram 40 mg tablet TAKE 1 TABLET BY MOUTH ONCE DAILY citalopram 40 mg tablet TAKE 1 TABLET BY MOUTH ONCE DAILY completed citalopram 40 MG Oral Tablet ATH [facility]REG[facility] ([facility]) Citalopram 40 MG Oral Tablet citalopram 40 mg tablet TAKE 1 TABLET BY MOUTH ONCE DAILY citalopram 40 mg tablet TAKE 1 TABLET BY MOUTH ONCE DAILY completed citalopram 40 MG Oral Tablet ATH [facility] ([facility]) Amoxicillin 875 MG / Clavulanate 125 MG Oral Tablet amoxicillin 875 mg-potassium clavulanate 125 mg tablet amoxicillin 875 mg-potassium clavulanate 125 mg tablet completed amoxici llin 875 MG / clavulanate 125 MG Oral Tablet [facility] ([facility]) Amoxicillin 875 MG / Clavulanate 125 MG Oral Tablet amoxicillin 875 mg-potassium clavulanate 125 mg tablet amoxicillin 875 mg-potassium clavulanate 125 mg tablet completed amoxici llin 875 MG / clavulanate 125 MG Oral Tablet [facility] ([facility]) Citalopram 40 MG Oral Tablet citalopram 40 mg tablet TAKE 1 TABLET BY MOUTH ONCE DAILY citalopram 40 mg tablet TAKE 1 TABLET BY MOUTH ONCE DAILY completed citalopram 40 MG Oral Tablet ATH [facility] ([facility]) Amoxicillin 875 MG / Clavulanate 125 MG Oral Tablet amoxicillin 875 mg-potassium clavulanate 125 mg tablet amoxicillin 875 mg-potassium clavulanate 125 mg tablet completed amoxici llin 875 MG / clavulanate 125 MG Oral Tablet HAI[facility] ([facility]) Acetaminophen 325 MG / Hydrocodone Melani trate 5 MG Oral Tablet hydrocodone 5 mg- acetaminophen 325 mg tablet hydrocodone 5 mg-acetaminophen 325 mg tablet completed acetaminophen 325 MG / hydrocodone bitartrate 5 MG Oral Tablet [facility] ([facility]) Amoxicillin 875 MG / Clavulanate 125 MG Oral Tablet amoxicillin 875 mg-potassium clavulanate 125 mg tablet amoxicillin 875 mg-potassium clavulanate 125 mg tablet completed amoxici llin 875 MG / clavulanate 125 MG Oral Tablet HAI[facility] ([facility]) Acetaminophen 325 MG / Hydrocodone Melani trate 5 MG Oral Tablet hydrocodone 5 mg- acetaminophen 325 mg tablet hydrocodone 5 mg-acetaminophen 325 mg tablet completed acetaminophen 325 MG / hydrocodone bitartrate 5 MG Oral Tablet [facility] ([facility]) Trazodone Hydrochloride 50 MG Oral Tablet trazodone 50 mg tablet trazodone 50 mg tablet completed trazodone hydr ochloride 50 MG Oral Tablet [place] ([facility]) Pseudoephedrine Hydrochloride 30 MG Oral Tablet [Sudogest] Sudogest 30 mg tablet TAKE 1 TABLET BY MOUTH 4 TIMES DAILY NEEDED FOR 10 DAYS Sudogest 30 mg tablet TAKE 1 TABLET BY MOUTH 4 TIMES DAILY NEEDED FOR 10 DAYS completed pseudoephedrine hydrochloride 30 MG Oral Tablet [Sudogest] HAILEY ([facility]) benzonatate 100 MG Oral Capsule benzonat ate 100 mg capsule TAKE 1 CAPSULE BY MOUTH THREE TIMES DAILY NEEDED FOR 10 DAYS benzonatate 100 mg capsule TAKE 1 CAPSULE BY MOUTH THREE TIMES DAILY NEEDED FOR 10 DAYS completed benzonatate 100 MG Oral Capsule [facility]ILEY ( [facility]) Citalopram 40 MG Oral Tablet citalopram 40 mg tablet TAKE 1 TABLET BY MOUTH ONCE DAILY citalopram 40 mg tablet TAKE 1 TABLET BY MOUTH ONCE DAILY completed citalopram 40 MG Oral Tablet ATH GREG[facility]IO ([facility]) Amoxicillin 875 MG / Clavulanate 125 MG Oral Tablet amoxicillin 875 mg-potassium clavulanate 125 mg tablet amoxicillin 875 mg-potassium clavulanate 125 mg tablet completed amoxici llin 875 MG / clavulanate 125 MG Oral Tablet [facility] ([facility]) Trazodone Hydrochloride 50 MG Oral Tablet trazodone 50 mg tablet trazodone 50 mg tablet completed trazodone hydr ochloride 50 MG Oral Tablet [facility] ([facility]) benzonatate 100 MG Oral Capsule benzonat ate 100 mg capsule TAKE 1 CAPSULE BY MOUTH THREE TIMES DAILY NEEDED FOR 10 DAYS benzonatate 100 mg capsule TAKE 1 CAPSULE BY MOUTH THREE TIMES DAILY NEEDED FOR 10 DAYS completed benzonatate 100 MG Oral Capsule [facility]ILEY ( [facility]) Amoxicillin 875 MG / Clavulanate 125 MG Oral Tablet amoxicillin 875 mg-potassium clavulanate 125 mg tablet amoxicillin 875 mg-potassium clavulanate 125 mg tablet completed amoxici llin 875 MG / clavulanate 125 MG Oral Tablet [facility] ([facility]) Citalopram 40 MG Oral Tablet citalopram 40 mg tablet TAKE 1 TABLET BY MOUTH ONCE DAILY citalopram 40 mg tablet TAKE 1 TABLET BY MOUTH ONCE DAILY completed citalopram 40 MG Oral Tablet ATH [facility] ([facility]) benzonatate 100 MG Oral Capsule benzonat ate 100 mg capsule TAKE 1 CAPSULE BY MOUTH THREE TIMES DAILY NEEDED FOR 10 DAYS benzonatate 100 mg capsule TAKE 1 CAPSULE BY MOUTH THREE TIMES DAILY NEEDED FOR 10 DAYS completed benzonatate 100 MG Oral Capsule [facility] ( [facility]) Amoxicillin 875 MG / Clavulanate 125 MG Oral Tablet amoxicillin 875 mg-potassium clavulanate 125 mg tablet amoxicillin 875 mg-potassium clavulanate 125 mg tablet completed amoxici llin 875 MG / clavulanate 125 MG Oral Tablet [facility] ([facility]) Amoxicillin 875 MG / Clavulanate 125 MG Oral Tablet amoxicillin 875 mg-potassium clavulanate 125 mg tablet amoxicillin 875 mg-potassium clavulanate 125 mg tablet completed amoxici llin 875 MG / clavulanate 125 MG Oral Tablet [facility] ([facility]) Amoxicillin 875 MG / Clavulanate 125 MG Oral Tablet amoxicillin 875 mg-potassium clavulanate 125 mg tablet amoxicillin 875 mg-potassium clavulanate 125 mg tablet completed amoxici llin 875 MG / clavulanate 125 MG Oral Tablet [facility] ([facility]) Acetaminophen 325 MG / Hydrocodone Melani trate 5 MG Oral Tablet hydrocodone 5 mg- acetaminophen 325 mg tablet hydrocodone 5 mg-acetaminophen 325 mg tablet completed acetaminophen 325 MG / hydrocodone bitartrate 5 MG Oral Tablet [facility] ([facility]) Trazodone Hydrochloride 50 MG Oral Tablet trazodone 50 mg tablet trazodone 50 mg tablet completed trazodone hydr ochloride 50 MG Oral Tablet [place] ([facility]) Trazodone Hydrochloride 50 MG Oral Tablet trazodone 50 mg tablet trazodone 50 mg tablet completed trazodone hydr ochloride 50 MG Oral Tablet [place] ([facility]) Citalopram 40 MG Oral Tablet citalopram 40 mg tablet TAKE 1 TABLET BY MOUTH ONCE DAILY citalopram 40 mg tablet TAKE 1 TABLET BY MOUTH ONCE DAILY completed citalopram 40 MG Oral Tablet ATH [facility] ([facility]) Amoxicillin 875 MG / Clavulanate 125 MG Oral Tablet amoxicillin 875 mg-potassium clavulanate 125 mg tablet amoxicillin 875 mg-potassium clavulanate 125 mg tablet completed amoxici llin 875 MG / clavulanate 125 MG Oral Tablet [place] ([facility]) Citalopram 40 MG Oral Tablet citalopram 40 mg tablet TAKE 1 TABLET BY MOUTH ONCE DAILY citalopram 40 mg tablet TAKE 1 TABLET BY MOUTH ONCE DAILY completed citalopram 40 MG Oral Tablet ATH [facility] ([facility]) benzonatate 100 MG Oral Capsule benzonat ate 100 mg capsule TAKE 1 CAPSULE BY MOUTH THREE TIMES DAILY NEEDED FOR 10 DAYS benzonatate 100 mg capsule TAKE 1 CAPSULE BY MOUTH THREE TIMES DAILY NEEDED FOR 10 DAYS completed benzonatate 100 MG Oral Capsule [place] ( [facility]) Acetaminophen 325 MG / Hydrocodone Melani trate 5 MG Oral Tablet hydrocodone 5 mg- acetaminophen 325 mg tablet hydrocodone 5 mg-acetaminophen 325 mg tablet completed acetaminophen 325 MG / hydrocodone bitartrate 5 MG Oral Tablet [place] ([facility]) Pseudoephedrine Hydrochloride 30 MG Oral Tablet [Sudogest] Sudogest 30 mg tablet TAKE 1 TABLET BY MOUTH 4 TIMES DAILY NEEDED FOR 10 DAYS Sudogest 30 mg tablet TAKE 1 TABLET BY MOUTH 4 TIMES DAILY NEEDED FOR 10 DAYS completed pseudoephedrine hydrochloride 30 MG Oral Tablet [Sudogest] [place] ([facility]) benzonatate 100 MG Oral Capsule benzonat ate 100 mg capsule TAKE 1 CAPSULE BY MOUTH THREE TIMES DAILY NEEDED FOR 10 DAYS benzonatate 100 mg capsule TAKE 1 CAPSULE BY MOUTH THREE TIMES DAILY NEEDED FOR 10 DAYS completed benzonatate 100 MG Oral Capsule [place] ( [facility]) benzonatate 100 MG Oral Capsule benzonat ate 100 mg capsule TAKE 1 CAPSULE BY MOUTH THREE TIMES DAILY NEEDED FOR 10 DAYS benzonatate 100 mg capsule TAKE 1 CAPSULE BY MOUTH THREE TIMES DAILY NEEDED FOR 10 DAYS completed benzonatate 100 MG Oral Capsule [place] ( [facility]) Acetaminophen 325 MG / Hydrocodone Melani trate 5 MG Oral Tablet hydrocodone 5 mg- acetaminophen 325 mg tablet hydrocodone 5 mg-acetaminophen 325 mg tablet completed acetaminophen 325 MG / hydrocodone bitartrate 5 MG Oral Tablet [place] ([facility]) benzonatate 100 MG Oral Capsule benzonat ate 100 mg capsule TAKE 1 CAPSULE BY MOUTH THREE TIMES DAILY NEEDED FOR 10 DAYS benzonatate 100 mg capsule TAKE 1 CAPSULE BY MOUTH THREE TIMES DAILY NEEDED FOR 10 DAYS completed benzonatate 100 MG Oral Capsule [place] ( [facility]) Amoxicillin 875 MG / Clavulanate 125 MG Oral Tablet amoxicillin 875 mg-potassium clavulanate 125 mg tablet amoxicillin 875 mg-potassium clavulanate 125 mg tablet completed amoxici llin 875 MG / clavulanate 125 MG Oral Tablet [place] ([facility]) Acetaminophen 325 MG / Hydrocodone Melani trate 5 MG Oral Tablet hydrocodone 5 mg- acetaminophen 325 mg tablet hydrocodone 5 mg-acetaminophen 325 mg tablet completed acetaminophen 325 MG / hydrocodone bitartrate 5 MG Oral Tablet [place] ([facility]) Citalopram 40 MG Oral Tablet citalopram 40 mg tablet TAKE 1 TABLET BY MOUTH ONCE DAILY citalopram 40 mg tablet TAKE 1 TABLET BY MOUTH ONCE DAILY completed citalopram 40 MG Oral Tablet ATH [facility] ([facility]) Citalopram 40 MG Oral Tablet citalopram 40 mg tablet TAKE 1 TABLET BY MOUTH ONCE DAILY citalopram 40 mg tablet TAKE 1 TABLET BY MOUTH ONCE DAILY completed citalopram 40 MG Oral Tablet ATH [place] ([facility]) Acetaminophen 325 MG / Hydrocodone Melani trate 5 MG Oral Tablet hydrocodone 5 mg- acetaminophen 325 mg tablet hydrocodone 5 mg-acetaminophen 325 mg tablet completed acetaminophen 325 MG / hydrocodone bitartrate 5 MG Oral Tablet [place] ([facility]) Citalopram 40 MG Oral Tablet citalopram 40 mg tablet TAKE 1 TABLET BY MOUTH ONCE DAILY citalopram 40 mg tablet TAKE 1 TABLET BY MOUTH ONCE DAILY completed citalopram 40 MG Oral Tablet ATH [place] ([facility]) Citalopram 40 MG Oral Tablet citalopram 40 mg tablet TAKE 1 TABLET BY MOUTH ONCE DAILY citalopram 40 mg tablet TAKE 1 TABLET BY MOUTH ONCE DAILY completed citalopram 40 MG Oral Tablet ATH [place] ([facility]) benzonatate 100 MG Oral Capsule benzonat ate 100 mg capsule TAKE 1 CAPSULE BY MOUTH THREE TIMES DAILY NEEDED FOR 10 DAYS benzonatate 100 mg capsule TAKE 1 CAPSULE BY MOUTH THREE TIMES DAILY NEEDED FOR 10 DAYS completed benzonatate 100 MG Oral Capsule [place] ( [facility]) benzonatate 100 MG Oral Capsule benzonat ate 100 mg capsule TAKE 1 CAPSULE BY MOUTH THREE TIMES DAILY NEEDED FOR 10 DAYS benzonatate 100 mg capsule TAKE 1 CAPSULE BY MOUTH THREE TIMES DAILY NEEDED FOR 10 DAYS completed benzonatate 100 MG Oral Capsule [place] ( [facility]) benzonatate 100 MG Oral Capsule benzonat ate 100 mg capsule TAKE 1 CAPSULE BY MOUTH THREE TIMES DAILY NEEDED FOR 10 DAYS benzonatate 100 mg capsule TAKE 1 CAPSULE BY MOUTH THREE TIMES DAILY NEEDED FOR 10 DAYS completed benzonatate 100 MG Oral Capsule [place] ( [facility]) Citalopram 40 MG Oral Tablet citalopram 40 mg tablet TAKE 1 TABLET BY MOUTH ONCE DAILY citalopram 40 mg tablet TAKE 1 TABLET BY MOUTH ONCE DAILY completed citalopram 40 MG Oral Tablet ATH [place] ([facility]) Amoxicillin 875 MG / Clavulanate 125 MG Oral Tablet amoxicillin 875 mg-potassium clavulanate 125 mg tablet amoxicillin 875 mg-potassium clavulanate 125 mg tablet completed amox[place] llin 875 MG / clavulanate 125 MG Oral Tablet [place] ([facility]) benzonatate 100 MG Oral Capsule benzonat ate 100 mg capsule TAKE 1 CAPSULE BY MOUTH THREE TIMES DAILY NEEDED FOR 10 DAYS benzonatate 100 mg capsule TAKE 1 CAPSULE BY MOUTH THREE TIMES DAILY NEEDED FOR 10 DAYS completed benzonatate 100 MG Oral Capsule [place] ( [facility]) Trazodone Hydrochloride 50 MG Oral Tablet trazodone 50 mg tablet trazodone 50 mg tablet completed trazodone hydr ochloride 50 MG Oral Tablet [place] ([facility]) Trazodone Hydrochloride 50 MG Oral Tablet trazodone 50 mg tablet trazodone 50 mg tablet completed trazodone hydr ochloride 50 MG Oral Tablet [place] ([facility]) Amoxicillin 875 MG / Clavulanate 125 MG Oral Tablet amoxicillin 875 mg-potassium clavulanate 125 mg tablet amoxicillin 875 mg-potassium clavulanate 125 mg tablet completed amox[place] llin 875 MG / clavulanate 125 MG Oral Tablet [place] ([facility]) Trazodone Hydrochloride 50 MG Oral Tablet trazodone 50 mg tablet trazodone 50 mg tablet completed trazodone hydr ochloride 50 MG Oral Tablet [place] ([facility]) Acetaminophen 325 MG / Hydrocodone Melani trate 5 MG Oral Tablet hydrocodone 5 mg- acetaminophen 325 mg tablet hydrocodone 5 mg-acetaminophen 325 mg tablet completed acetaminophen 325 MG / hydrocodone bitartrate 5 MG Oral Tablet [place] ([facility]) Citalopram 40 MG Oral Tablet citalopram 40 mg tablet TAKE 1 TABLET BY MOUTH ONCE DAILY citalopram 40 mg tablet TAKE 1 TABLET BY MOUTH ONCE DAILY completed citalopram 40 MG Oral Tablet ATH [place] ([facility]) Amoxicillin 875 MG / Clavulanate 125 MG Oral Tablet amoxicillin 875 mg-potassium clavulanate 125 mg tablet amoxicillin 875 mg-potassium clavulanate 125 mg tablet completed amox[place] llin 875 MG / clavulanate 125 MG Oral Tablet [place] ([facility]) Trazodone Hydrochloride 50 MG Oral Tablet trazodone 50 mg tablet trazodone 50 mg tablet completed trazodone hydr ochloride 50 MG Oral Tablet [place] ([facility]) Acetaminophen 325 MG / Hydrocodone Melani trate 5 MG Oral Tablet hydrocodone 5 mg- acetaminophen 325 mg tablet hydrocodone 5 mg-acetaminophen 325 mg tablet completed acetaminophen 325 MG / hydrocodone bitartrate 5 MG Oral Tablet [place] ([facility]) Citalopram 40 MG Oral Tablet citalopram 40 mg tablet TAKE 1 TABLET BY MOUTH ONCE DAILY citalopram 40 mg tablet TAKE 1 TABLET BY MOUTH ONCE DAILY completed citalopram 40 MG Oral Tablet [facility] [place] ([facility]) Trazodone Hydrochloride 50 MG Oral Tablet trazodone 50 mg tablet trazodone 50 mg tablet completed trazodone hydr ochloride 50 MG Oral Tablet [place] ([facility]) Acetaminophen 325 MG / Hydrocodone Melani trate 5 MG Oral Tablet hydrocodone 5 mg- acetaminophen 325 mg tablet hydrocodone 5 mg-acetaminophen 325 mg tablet completed acetaminophen 325 MG / hydrocodone bitartrate 5 MG Oral Tablet [place] ([facility]) Citalopram 40 MG Oral Tablet citalopram 40 mg tablet TAKE 1 TABLET BY MOUTH ONCE DAILY citalopram 40 mg tablet TAKE 1 TABLET BY MOUTH ONCE DAILY completed citalopram 40 MG Oral Tablet ATH GREGOR[facility] ([facility]) Citalopram 40 MG Oral Tablet citalopram 40 mg tablet TAKE 1 TABLET BY MOUTH ONCE DAILY citalopram 40 mg tablet TAKE 1 TABLET BY MOUTH ONCE DAILY completed citalopram 40 MG Oral Tablet ATH GREGORIO ([facility]) benzonatate 100 MG Oral Capsule benzonat ate 100 mg capsule TAKE 1 CAPSULE BY MOUTH THREE TIMES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 ([facility]) [id number] Traumatic injury by site Traumatic Injury by Site Prob kev 05/04/2018 12:00:00 AM EST - 06/23/2020 12:00:00 AM EST [place] ([facility]) [id number] Traumatic injury by site Traumatic Injury by Site Prob kev 05/04/2018 12:00:00 AM EST - 06/23/2020 12:00:00 AM EST [place] ([facility]) [id number] Traumatic injury by site Traumatic Injury by Site Prob kev 05/04/2018 12:00:00 AM EST - 06/23/2020 12:00:00 AM EST [place] ([facility]) [id number] Traumatic injury by site Traumatic Injury by Site Prob kev 05/04/2018 12:00:00 AM EST - 06/23/2020 12:00:00 AM EST [place] ([facility]) [id number] Traumatic injury by site Traumatic Injury by Site Prob kev 05/04/2018 12:00:00 AM EST - 06/23/2020 12:00:00 AM EST [place] ([facility]) [id number] Traumatic injury by site Traumatic Injury by Site Prob kev 05/04/2018 12:00:00 AM EST - 06/23/2020 12:00:00 AM EST [place] ([facility]) [id number] Verruca vulgaris Verruca Vulgaris Problem 017 12:00:00 AM EST - 06/23/2020 12:00:00 AM EST [place] ([facility]) [id number] Verruca vulgaris Verruca Vulgaris Problem 017 12:00:00 AM EST - 06/23/2020 12:00:00 AM EST [place] ([facility]) [id number] Verruca vulgaris Verruca Vulgaris Problem 017 12:00:00 AM EST - 06/23/2020 12:00:00 AM EST [place] ([facility]) [id number] Verruca vulgaris Verruca Vulgaris Problem 017 12:00:00 AM EST - 06/23/2020 12:00:00 AM EST [place] ([facility]) [id number] Verruca vulgaris Verruca Vulgaris Problem 017 12:00:00 AM EST - 06/23/2020 12:00:00 AM EST [place] ([facility]) [id number] Verruca vulgaris Verruca Vulgaris Problem 017 12:00:00 AM EST - 06/23/2020 12:00:00 AM EST [place] ([facility]) [id number] Verruca vulgaris Verruca Vulgaris Problem 017 12:00:00 AM EST - 06/23/2020 12:00:00 AM EST [place] ([facility]) [id number] Verruca vulgaris Verruca Vulgaris Problem 017 12:00:00 AM EST - 06/23/2020 12:00:00 AM EST [place] ([facility]) [id number] Verruca vulgaris Verruca Vulgaris Problem 017 12:00:00 AM EST - 06/23/2020 12:00:00 AM EST [place] ([facility]) [id number] Verruca vulgaris Verruca Vulgaris Problem 017 12:00:00 AM EST - 06/23/2020 12:00:00 AM EST [place] ([facility]) [id number] Verruca vulgaris Verruca Vulgaris Problem 017 12:00:00 AM EST - 06/23/2020 12:00:00 AM EST [place] ([facility]) [id number] Verruca vulgaris Verruca Vulgaris Problem 017 12:00:00 AM EST - 06/23/2020 12:00:00 AM EST [place] ([facility]) [id number] Verruca vulgaris Verruca Vulgaris Problem 017 12:00:00 AM EST - 06/23/2020 12:00:00 AM EST [place] ([facility]) [id number] Verruca vulgaris Verruca Vulgaris Problem 017 12:00:00 AM EST - 06/23/2020 12:00:00 AM EST [place] ([facility]) [id number] Verruca vulgaris Verruca Vulgaris Problem 017 12:00:00 AM EST - 06/23/2020 12:00:00 AM EST [place] ([facility]) [id number] Verruca vulgaris Verruca Vulgaris Problem 017 12:00:00 AM EST - 06/23/2020 12:00:00 AM EST [place] ([facility]) [id number] Verruca vulgaris Verruca Vulgaris Problem 017 12:00:00 AM EST - 06/23/2020 12:00:00 AM EST [place] ([facility]) [id number] Emotional state finding Emotional State Finding Proble m 05/13/2016 12:00:00 AM EST - 06/23/2020 12:00:00 AM EST [place] ([facility]) [id number] Mixed anxiety and depressive disorder Mi xed Anxiety and Depressive Disorder Problem 05/13/2016 12:00:00 AM EST - 03/26/2020 12:00:00 AM EST [place] ([facility]) [id number] Emotional state finding Emotional State Finding Proble m 05/13/2016 12:00:00 AM EST - 06/23/2020 12:00:00 AM EST [place] ([facility]) [id number] Mixed anxiety and depressive disorder Mi xed Anxiety and Depressive Disorder Problem 05/13/2016 12:00:00 AM EST - 03/26/2020 12:00:00 AM EST [place] ([facility]) [id number] Emotional state finding Emotional State Finding Proble m 05/13/2016 12:00:00 AM EST - 06/23/2020 12:00:00 AM EST [place] ([facility]) [id number] Mixed anxiety and depressive disorder Mi xed Anxiety and Depressive Disorder Problem 05/13/2016 12:00:00 AM EST - 03/26/2020 12:00:00 AM EST [place] ([facility]) [id number] Emotional state finding Emotional State Finding Proble 05/13/2016 12:00:00 AM EST - 06/23/2020 12:00:00 AM EST [place] ([facility]) [id number] Mixed anxiety and depressive disorder Mi xed Anxiety and Depressive Disorder Problem 05/13/2016 12:00:00 AM EST - 03/26/2020 12:00:00 AM EST [place] ([facility]) [id number] Emotional state finding Emotional State Finding Proble m 05/13/2016 12:00:00 AM EST - 06/23/2020 12:00:00 AM EST [place] ([facility]) [id number] Mixed anxiety and depressive disorder Mi xed Anxiety and Depressive Disorder Problem 05/13/2016 12:00:00 AM EST - 03/26/2020 12:00:00 AM EST [place] ([facility]) [id number] Emotional state finding Emotional State Finding Proble m 05/13/2016 12:00:00 AM EST - 06/23/2020 12:00:00 AM EST [place] ([facility]) [id number] Mixed anxiety and depressive disorder Mi xed Anxiety and Depressive Disorder Problem 05/13/2016 12:00:00 AM EST - 03/26/2020 12:00:00 AM EST [place] ([facility]) [id number] Mixed anxiety and depressive disorder Mi xed Anxiety and Depressive Disorder Problem 05/13/2016 12:00:00 AM EST - 03/26/2020 12:00:00 AM EST [place] ([facility]) [id number] Emotional state finding Emotional State Finding Proble m 05/13/2016 12:00:00 AM EST - 06/23/2020 12:00:00 AM EST [place] ([facility]) [id number] Mixed anxiety and depressive disorder Mi xed Anxiety and Depressive Disorder Problem 05/13/2016 12:00:00 AM EST - 03/26/2020 12:00:00 AM EST [place] ([facility]) [id number] Emotional state finding Emotional State Finding Proble m 05/13/2016 12:00:00 AM EST - 06/23/2020 12:00:00 AM EST [place] ([facility]) [id number] Mixed anxiety and depressive disorder Mi xed Anxiety and Depressive Disorder Problem 05/13/2016 12:00:00 AM EST - 03/26/2020 12:00:00 AM EST [place] ([facility]) [id number] Emotional state finding Emotional State Finding Proble m 05/13/2016 12:00:00 AM EST - 06/23/2020 12:00:00 AM EST [place] ([facility]) [id number] Emotional state finding Emotional State Finding Proble m 05/13/2016 12:00:00 AM EST - 06/23/2020 12:00:00 AM EST [place] ([facility]) [id number] Mixed anxiety and depressive disorder Mi xed Anxiety and Depressive Disorder Problem 05/13/2016 12:00:00 AM EST - 03/26/2020 12:00:00 AM EST [place] ([facility]) [id number] Emotional state finding Emotional State Finding Proble m 05/13/2016 12:00:00 AM EST - 06/23/2020 12:00:00 AM EST [place] ([facility]) [id number] Mixed anxiety and depressive disorder Mi xed Anxiety and Depressive Disorder Problem 05/13/2016 12:00:00 AM EST - 03/26/2020 12:00:00 AM EST [place] ([facility]) [id number] Emotional state finding Emotional State Finding Proble m 05/13/2016 12:00:00 AM EST - 06/23/2020 12:00:00 AM EST [place] ([facility]) [id number] Mixed anxiety and depressive disorder Mi xed Anxiety and Depressive Disorder Problem 05/13/2016 12:00:00 AM EST - 03/26/2020 12:00:00 AM EST [place] ([facility]) [id number] Emotional state finding Emotional State Finding Proble m 05/13/2016 12:00:00 AM EST - 06/23/2020 12:00:00 AM EST [place] ([facility]) [id number] Mixed anxiety and depressive disorder Mi xed Anxiety and Depressive Disorder Problem 05/13/2016 12:00:00 AM EST - 03/26/2020 12:00:00 AM EST [place] ([facility]) [id number] Emotional state finding Emotional State Finding Proble 05/13/2016 12:00:00 AM EST - 06/23/2020 12:00:00 AM EST [place] ([facility]) [id number] Mixed anxiety and depressive disorder Mi xed Anxiety and Depressive Disorder Problem 05/13/2016 12:00:00 AM EST - 03/26/2020 12:00:00 AM EST [place] ([facility]) [id number] Emotional state finding Emotional State Finding Proble 05/13/2016 12:00:00 AM EST - 06/23/2020 12:00:00 AM EST [place] ([facility]) [id number] Mixed anxiety and depressive disorder Mi xed Anxiety and Depressive Disorder Problem 05/13/2016 12:00:00 AM EST - 03/26/2020 12:00:00 AM EST [place] ([facility]) [id number] Emotional state finding Emotional State Finding Proble m 05/13/2016 12:00:00 AM EST - 06/23/2020 12:00:00 AM EST [place] ([facility]) [id number] Mixed anxiety and depressive disorder Mi xed Anxiety and Depressive Disorder Problem 05/13/2016 12:00:00 AM EST - 03/26/2020 12:00:00 AM EST [place] ([facility]) [id number] Emotional state finding Emotional State Finding Proble m 05/13/2016 12:00:00 AM EST - 06/23/2020 12:00:00 AM EST [place] ([facility]) [id number] Mixed anxiety and depressive disorder Mi xed Anxiety and Depressive Disorder Problem 05/13/2016 12:00:00 AM EST - 03/26/2020 12:00:00 AM EST [place] ([facility]) [id number] Mixed anxiety and depressive disorder Mi xed Anxiety and Depressive Disorder Problem 05/13/2016 12:00:00 AM EST - 03/26/2020 12:00:00 AM EST [place] ([facility]) [id number] Mixed anxiety and depressive disorder Mi xed Anxiety and Depressive Disorder Problem 05/13/2016 12:00:00 AM EST - 03/26/2020 12:00:00 AM EST [place] ([facility]) [id number] Mixed anxiety and depressive disorder Mi xed Anxiety and Depressive Disorder Problem 05/13/2016 12:00:00 AM EST - 03/26/2020 12:00:00 AM EST [place] ([facility]) [id number] Mixed anxiety and depressive disorder Mi xed Anxiety and Depressive Disorder Problem 05/13/2016 12:00:00 AM EST - 03/26/2020 12:00:00 AM EST [place] ([facility]) [id number] Mixed anxiety and depressive disorder Mi xed Anxiety and Depressive Disorder Problem 05/13/2016 12:00:00 AM EST - 03/26/2020 12:00:00 AM EST [place] ([facility]) [id number] Mixed anxiety and depressive disorder Mi xed Anxiety and Depressive Disorder Problem 05/13/2016 12:00:00 AM EST - 03/26/2020 12:00:00 AM EST [place] ([facility]) [id number] Mixed anxiety and depressive disorder Mi xed Anxiety and Depressive Disorder Problem 05/13/2016 12:00:00 AM EST - 03/26/2020 12:00:00 AM EST [place] ([facility]) [id number] Mixed anxiety and depressive disorder Mi xed Anxiety and Depressive Disorder Problem 05/13/2016 12:00:00 AM EST - 03/26/2020 12:00:00 AM EST [place] ([facility]) [id number] Mixed anxiety and depressive disorder Mi xed Anxiety and Depressive Disorder Problem 05/13/2016 12:00:00 AM EST - 03/26/2020 12:00:00 AM EST [place] ([facility]) [id number] Mental disorder Mental Disorder Problem 6 12:00:00 AM EST - 06/23/2020 12:00:00 AM EST [place] ([facility]) [id number] Mental disorder Mental Disorder Problem 6 12:00:00 AM EST - 06/23/2020 12:00:00 AM EST [place] ([facility]) [id number] Mental disorder Mental Disorder Problem 6 12:00:00 AM EST - 06/23/2020 12:00:00 AM EST [place] ([facility]) [id number] Mental disorder Mental Disorder Problem 6 12:00:00 AM EST - 06/23/2020 12:00:00 AM EST [place] ([facility]) [id number] Mental disorder Mental Disorder Problem 6 12:00:00 AM EST - 06/23/2020 12:00:00 AM EST [place] ([facility]) [id number] Mental disorder Mental Disorder Problem 6 12:00:00 AM EST - 06/23/2020 12:00:00 AM EST [place] ([facility]) [id number] Mental disorder Mental Disorder Problem 6 12:00:00 AM EST - 06/23/2020 12:00:00 AM EST [place] ([facility]) [id number] Mental disorder Mental Disorder Problem 6 12:00:00 AM EST - 06/23/2020 12:00:00 AM EST [place] ([facility]) [id number] Mental disorder Mental Disorder Problem 6 12:00:00 AM EST - 06/23/2020 12:00:00 AM EST [place] ([facility]) [id number] Mental disorder Mental Disorder Problem 6 12:00:00 AM EST - 06/23/2020 12:00:00 AM EST [place] ([facility]) [id number] Mental disorder Mental Disorder Problem 6 12:00:00 AM EST - 06/23/2020 12:00:00 AM EST [place] ([facility]) [id number] Mental disorder Mental Disorder Problem 6 12:00:00 AM EST - 06/23/2020 12:00:00 AM EST [place] ([facility]) [id number] Mental disorder Mental Disorder Problem 6 12:00:00 AM EST - 06/23/2020 12:00:00 AM EST [place] ([facility]) [id number] Mental disorder Mental Disorder Problem 6 12:00:00 AM EST - 06/23/2020 12:00:00 AM EST [place] ([facility]) [id number] Mental disorder Mental Disorder Problem 6 12:00:00 AM EST - 06/23/2020 12:00:00 AM EST [place] ([facility]) [id number] Mental disorder Mental Disorder Problem 6 12:00:00 AM EST - 06/23/2020 12:00:00 AM EST [place] ([facility]) [id number] Mental disorder Mental Disorder Problem 6 12:00:00 AM EST - 06/23/2020 12:00:00 AM EST [place] ([facility]) [id number] Clinical finding Clinical Finding Problem 016 12:00:00 AM EDT - 06/23/2020 12:00:00 AM EST [place] ([facility]) [id number] Clinical finding Clinical Finding Problem 016 12:00:00 AM EDT - 06/23/2020 12:00:00 AM EST [place] ([facility]) [id number] Clinical finding Clinical Finding Problem 016 12:00:00 AM EDT - 06/23/2020 12:00:00 AM EST [place] ([facility]) [id number] Clinical finding Clinical Finding Problem 016 12:00:00 AM EDT - 06/23/2020 12:00:00 AM EST [place] ([facility]) [id number] Clinical finding Clinical Finding Problem 016 12:00:00 AM EDT - 06/23/2020 12:00:00 AM EST [place] ([facility]) [id number] Clinical finding Clinical Finding Problem 016 12:00:00 AM EDT - 06/23/2020 12:00:00 AM EST [place] ([facility]) [id number] Clinical finding Clinical Finding Problem 016 12:00:00 AM EDT - 06/23/2020 12:00:00 AM EST [place] ([facility]) [id number] Clinical finding Clinical Finding Problem 016 12:00:00 AM EDT - 06/23/2020 12:00:00 AM EST [place] ([facility]) [id number] Clinical finding Clinical Finding Problem 016 12:00:00 AM EDT - 06/23/2020 12:00:00 AM EST [place] ([facility]) [id number] Clinical finding Clinical Finding Problem 016 12:00:00 AM EDT - 06/23/2020 12:00:00 AM EST [place] ([facility]) [id number] Clinical finding Clinical Finding Problem 016 12:00:00 AM EDT - 06/23/2020 12:00:00 AM EST [place] ([facility]) [id number] Clinical finding Clinical Finding Problem 016 12:00:00 AM EDT - 06/23/2020 12:00:00 AM EST [place] ([facility]) [id number] Clinical finding Clinical Finding Problem 016 12:00:00 AM EDT - 06/23/2020 12:00:00 AM EST [place] ([facility]) [id number] Clinical finding Clinical Finding Problem 016 12:00:00 AM EDT - 06/23/2020 12:00:00 AM EST [place] ([facility]) [id number] Clinical finding Clinical Finding Problem 016 12:00:00 AM EDT - 06/23/2020 12:00:00 AM EST [place] ([facility]) [id number] Clinical finding Clinical Finding Problem 016 12:00:00 AM EDT - 06/23/2020 12:00:00 AM EST [place] ([facility]) [id number] Clinical finding Clinical Finding Problem 016 12:00:00 AM EDT - 06/23/2020 12:00:00 AM EST [place] ([facility]) [id number] Influenza vaccine needed Influenza Vaccine Needed [facility] 01/27/2015 12:00:00 AM EDT - 06/23/2020 12:00:00 AM EST [place] ([facility]) [id number] Influenza vaccine needed Influenza Vaccine Needed Pro blem 01/27/2015 12:00:00 AM EDT - 06/23/2020 12:00:00 AM EST [place] ([facility]) [id number] Influenza vaccine needed Influenza Vaccine Needed Pro blem 01/27/2015 12:00:00 AM EDT - 06/23/2020 12:00:00 AM EST [place] ([facility]) [id number] Influenza vaccine needed Influenza Vaccine Needed Pro blem 01/27/2015 12:00:00 AM EDT - 06/23/2020 12:00:00 AM EST [place] ([facility]) [id number] Influenza vaccine needed Influenza Vaccine Needed Pro blem 01/27/2015 12:00:00 AM EDT - 06/23/2020 12:00:00 AM EST [place] ([facility]) [id number] Influenza vaccine needed Influenza Vaccine Needed Pro blem 01/27/2015 12:00:00 AM EDT - 06/23/2020 12:00:00 AM EST [place] ([facility]) [id number] Influenza vaccine needed Influenza Vaccine Needed Pro blem 01/27/2015 12:00:00 AM EDT - 06/23/2020 12:00:00 AM EST [place] ([facility]) [id number] Influenza vaccine needed Influenza Vaccine Needed Pro blem 01/27/2015 12:00:00 AM EDT - 06/23/2020 12:00:00 AM EST [place] ([facility]) [id number] Influenza vaccine needed Influenza Vaccine Needed Pro blem 01/27/2015 12:00:00 AM EDT - 06/23/2020 12:00:00 AM EST [place] ([facility]) [id number] Influenza vaccine needed Influenza Vaccine Needed Pro blem 01/27/2015 12:00:00 AM EDT - 06/23/2020 12:00:00 AM EST [place] ([facility]) [id number] Influenza vaccine needed Influenza Vaccine Needed Pro blem 01/27/2015 12:00:00 AM EDT - 06/23/2020 12:00:00 AM EST [place] ([facility]) [id number] Influenza vaccine needed Influenza Vaccine Needed Pro blem 01/27/2015 12:00:00 AM EDT - 06/23/2020 12:00:00 AM EST [place] ([facility]) [id number] Influenza vaccine needed Influenza Vaccine Needed Pro blem 01/27/2015 12:00:00 AM EDT - 06/23/2020 12:00:00 AM EST [place] ([facility]) [id number] Influenza vaccine needed Influenza Vaccine Needed Pro blem 01/27/2015 12:00:00 AM EDT - 06/23/2020 12:00:00 AM EST [place] ([facility]) [id number] Influenza vaccine needed Influenza Vaccine Needed Pro blem 01/27/2015 12:00:00 AM EDT - 06/23/2020 12:00:00 AM EST [place] ([facility]) [id number] Influenza vaccine needed Influenza Vaccine Needed Pro blem 01/27/2015 12:00:00 AM EDT - 06/23/2020 12:00:00 AM EST [place] ([facility]) [id number] Influenza vaccine needed Influenza Vaccine Needed Pro blem 01/27/2015 12:00:00 AM EDT - 06/23/2020 12:00:00 AM EST [place] ([facility]) Surgeries/Procedures Procedure Description Date Indications Data Source(s) OFFICE OUTPATIENT VISIT 15 MINUTES 01/07/2021 12:00:00 AM EDT [facility] ([facility]) OFFICE OUTPATIENT VISIT 25 MINUTES 11/05/2020 12:00:00 AM EDT [facility] ([facility]) OFFICE OUTPATIENT VISIT 15 MINUTES 10/14/2020 12:00:00 AM EDT [facility] ([facility]) OFFICE OUTPATIENT VISIT 15 MINUTES 10/07/2020 12:00:00 AM EDT [facility] ([facility]) Etonogestrel (contraceptive) implant system, including impla nt and supplies 10/02/2020 12:00:00 AM EDT eCW1 ([facility]) Medication: 2% Lidocaine intradermal 10/02/2020 12:00: 00 AM EDT eCW1 ([facility]) OFFICE OUTPATIENT NEW 30 MINUTES 09/20/2020 12:00:00 A M EDT [facility] ([facility]) Endoscopy Wrist W/Release Transverse Carpal Ligament 05/15/2020 12:00:00 AM EST [facility] ([facility]) Endoscopy Wrist W/Release Transverse Carpal Ligament 04/22/2020 12:00:00 AM EST [facility] ([facility]) RADEX WRIST 2 VIEWS 03/04/2020 12:00:00 AM EST [facility] ([facility]) Results ID Date Data Source [id number] 01/07/2021 12:26:00 PM EDT [facility] ([facility]) Name Value Range Interpretation Code Description Data Munira rce(s) Supporting Document(s) Bacteria identified in Throat by Culture Laboratory test result [facility] ([facility]) FULL REPORT IN LAB NOTES (eCW and [facility] ). NORMAL FARAZ PRESENT ID Date Data Source [id number] 01/07/2021 12:00:00 AM EDT [facility] Name Value Range Interpretation Code Description Data Munira rce(s) Supporting Document(s) SARS-CoV2 Rapid Antigen Negative [facility] This lab was reported by [facility]. ID Date Data Source [id number] 11/05/2020 06:57:00 PM EDT [facility] ([facility]) Name Value Range Interpretation Code Description Data Munira rce(s) Supporting Document(s) Bacteria identified in Urine by Culture Laboratory test result [facility] ([facility]) No Rx ID Date Data Source [id number] 09/20/2020 03:59:00 PM EDT [facility] ([facility]) Name Value Range Interpretation Code Description Data Munira rce(s) Supporting Document(s) Group A Strep Culture Laboratory test result [facility] ([facility]) FULL REPORT IN LAB NOTES (eCW and [facility] ). NEGATIVE FOR STREP PYOGENES (GROUP A) ID Date Data Source [id number] 09/20/2020 12:00:00 AM EDT [facility] Name Value Range Interpretation Code Description Data Munira rce(s) Supporting Document(s) SARS-CoV2 Rapid Antigen Negative [facility] This lab was ordered by [facility] and reported by [facility]. ID Date Data Source [id number] 08/14/2020 10:55:00 AM EDT [facility] Name Value Range Interpretation Code Description Data Munira rce(s) Supporting Document(s) COVID-19 RT-PCR NASAL SWAB Not Detected Not Detected [facility] A not detected (negative) test [...] developed and its performance characteristics determined by [employer] and verified at [employer]. It has not been cleared or approved by the U.S. Food and Drug Administration for diagnostic use. This test has been authorized by FDA under an EUA for use by authorized laboratories. Results should be used in conjunction with clinical findings, and should not form the sole basis for a diagnosis or treatment decision. Methods: SARS-CoV-2 Multiplex RT-PCR Assay ID Date Data Source [id number] 08/12/2020 07:00:00 PM EDT [facility] Name Value Range Interpretation Code Description Data Munira rce(s) Supporting Document(s) SARS-CoV-2 (COVID-19) N gene [Presence] in Respiratory specimen by GREGORY with probe detection NEGATIVE [facility] This lab was ordered by [facility] Mor[facility] and reported by [employer]. ID Date Data Source [id number] 08/12/2020 02:45:00 PM EDT [facility]) Name Value Range Interpretation Code Description Data Munira rce(s) Supporting Document(s) sars-cov-2 negative negative Sars-cov-2 [facility]) ID Date Data Source [id number] 08/12/2020 02:45:00 PM EDT [facility]) Name Value Range Interpretation Code Description Data Munira rce(s) Supporting Document(s) sars-cov-2 negative negative Sars-cov-2 [facility]) ID Date Data Source [id number] 08/12/2020 02:45:00 PM EDT [facility]) Name Value Range Interpretation Code Description Data Munira rce(s) Supporting Document(s) sars-cov-2 negative negative Sars-cov-2 [facility]) ID Date Data Source [id number] 08/12/2020 02:45:00 PM EDT [facility]) Name Value Range Interpretation Code Description Data Munira rce(s) Supporting Document(s) sars-cov-2 negative negative Sars-cov-2 [facility]) ID Date Data Source [id number] 08/12/2020 02:45:00 PM EDT [facility]) Name Value Range Interpretation Code Description Data Munira rce(s) Supporting Document(s) sars-cov-2 negative negative Sars-cov-2 [facility]) ID Date Data Source [id number] 08/12/2020 02:45:00 PM EDT [facility]) Name Value Range Interpretation Code Description Data Munira rce(s) Supporting Document(s) sars-cov-2 negative negative Sars-cov-2 [place] ([facility]) ID Date Data Source [id number] 08/12/2020 02:45:00 PM EDT [facility]) Name Value Range Interpretation Code Description Data Munira rce(s) Supporting Document(s) sars-cov-2 negative negative Sars-cov-2 [facility]) ID Date Data Source [id number] 08/12/2020 02:45:00 PM EDT [facility]) Name Value Range Interpretation Code Description Data Munria rce(s) Supporting Document(s) sars-cov-2 negative negative Sars-cov-2 [facility]) ID Date Data Source [id number] 08/12/2020 02:45:00 PM EDT [facility]) Name Value Range Interpretation Code Description Data Munira rce(s) Supporting Document(s) sars-cov-2 negative negative Sars-cov-2 [place] ([facility]) ID Date Data Source [id number] 08/12/2020 02:45:00 PM EDT [facility]) Name Value Range Interpretation Code Description Data Munira rce(s) Supporting Document(s) sars-cov-2 negative negative Sars-cov-2 [place] ([facility]) ID Date Data Source [id number] 08/12/2020 02:45:00 PM EDT [facility]) Name Value Range Interpretation Code Description Data Munira rce(s) Supporting Document(s) sars-cov-2 negative negative Sars-cov-2 [facility]) ID Date Data Source [id number] 08/12/2020 02:45:00 PM EDT [facility]) Name Value Range Interpretation Code Description Data Munira rce(s) Supporting Document(s) sars-cov-2 negative negative Sars-cov-2 [place] ([facility]) ID Date Data Source [id number] 08/12/2020 02:45:00 PM EDT [facility]) Name Value Range Interpretation Code Description Data Munira rce(s) Supporting Document(s) sars-cov-2 negative negative Sars-cov-2 [facility]) ID Date Data Source [id number] 08/12/2020 02:45:00 PM EDT [facility]) Name Value Range Interpretation Code Description Data Munira rce(s) Supporting Document(s) sars-cov-2 negative negative Sars-cov-2 [facility]) ID Date Data Source [id number] 08/12/2020 02:45:00 PM EDT [place] ([facility]) Name Value Range Interpretation Code Description Data Munira rce(s) Supporting Document(s) sars-cov-2 negative negative Sars-cov-2 [place] ([facility]) ID Date Data Source [id number] 08/12/2020 02:40:00 PM EDT [facility] Name Value Range Interpretation Code Description Data Munira rce(s) Supporting Document(s) SARS coronavirus 2 RdRp gene [Presence] in Respiratory specimen by GREGORY with probe detection Not detected [facility] This lab was ordered by [facility] and reported by [facility]. ID Date Data Source [id number] 06/23/2020 12:00:00 PM EST [place] ([facility]) Name Value Range Interpretation Code Description Data Munira rce(s) Supporting Document(s) ID Date Data Source [id number] 06/23/2020 12:00:00 PM EST [place] ([facility]) Name Value Range Interpretation Code Description Data Munira rce(s) Supporting Document(s) ID Date Data Source [id number] 06/23/2020 12:00:00 PM EST [place] ([facility]) Name Value Range Interpretation Code Description Data Munira rce(s) Supporting Document(s) estimated average glucose 151 mg/dL 60-110 Above high norm al Estimated Average Glucose [place] ([facility]) Hemoglobin A1c/Hemoglobin.total in Blood 6.9 % Hemoglobin a1C [place] ([facility]) ID Date Data Source [id number] 06/23/2020 12:00:00 PM EST [place] ([facility]) Name Value Range Interpretation Code Description Data Munira rce(s) Supporting Document(s) ferritin 45 NG/mL 8-252 Ferritin [place] ([facility]) ID Date Data Source [id number] 06/23/2020 12:00:00 PM EST [place] ([facility]) Name Value Range Interpretation Code Description Data Munira rce(s) Supporting Document(s) total 25(oh) vitamin D 10.9 NG/mL 30.0-100.0 Below low normal T otal 25(Oh) Vitamin D [place] ([facility]) ID Date Data Source [id number] 06/23/2020 12:00:00 PM EST [place] ([facility]) Name Value Range Interpretation Code Description Data Munira rce(s) Supporting Document(s) thyroid stimulating hormone 1.610 uIU/mL 0.358-3.740 Thyroid Stimulating Hormone [place] ([facility]) ID Date Data Source [id number] 06/23/2020 12:00:00 PM EST [place] ([facility]) Name Value Range Interpretation Code Description Data Munira rce(s) Supporting Document(s) percent saturation 36.5 % 13.2-45.0 Percent Saturatio n [place] ([facility]) total iron binding capacity 282 ug/dL 250-450 Total Ir on Binding Capacity [place] ([facility]) iron (fe) 103 ug/dL 50-170 Iron (Fe) [place] ([facility]) ID Date Data Source [id number] 06/23/2020 12:00:00 PM EST [place] ([facility]) Name Value Range Interpretation Code Description Data Munira rce(s) Supporting Document(s) cholesterol level 201 mg/dL <200 Above high normal Cholesterol Level [place] ([facility]) triglycerides level 516 mg/dL <150 Above high normal Triglycer ides Level [place] ([facility]) cholesterol risk ratio <5 Above high normal Choles terol Risk Ratio [place] ([facility]) HDL cholesterol 35 mg/dL >40 Below low normal HDL Cholestero l [place] ([facility]) non-HDL-C 166 mg/dL Non-hdl-c [place] ([facility]) ID Date Data Source [id number] 06/23/2020 12:00:00 PM EST [place] ([facility]) Name Value Range Interpretation Code Description Data Munira rce(s) Supporting Document(s) glucose, fasting 155 mg/dL 70-100 Above high normal Glucose, Fas ting [place] ([facility]) sodium level 136 mEq/L 136-145 Sodium Level [place] ([facility]) creatinine for GFR 1.22 mg/dL 0.55-1.30 Creatinine for GF R [place] ([facility]) blood urea nitrogen 17 mg/dL 7-18 Blood Urea Nitro gen [place] ([facility]) glomerular filtration rate >60 Below low normal Lesly merular Filtration Rate [place] ([facility]) carbon dioxide level 24 mEq/L 21-32 Carbon Dioxide Level [place] ([facility]) chloride level 106 mEq/L 98-107 Chloride Level [place] ([facility]) potassium serum 4.4 mEq/L 3.5-5.1 Potassium Serum ATHE NA ([facility]) anion gap 6 mEq/L 8-16 Below low normal Anion Gap [place] ( [facility]) ALT/SGPT 30 U/L 12-78 ALT/SGPT [place] ([facility]) alkaline phosphatase 130 U/L 45-117 Above high normal Alkaline Phosphatase [place] ([facility]) AST/SGOT 11 U/L 7-37 AST/SGOT [place] ([facility]) calcium level 9.4 mg/dL 8.5-10.1 Calcium Level [place] ( [facility]) total protein 7.1 gm/dL 6.4-8.2 Total Protein [place] ( [facility]) albumin 3.7 gm/dL 3.2-5.2 Albumin [place] ([facility]) bilirubin,total 0.4 mg/dL 0.2-1.0 Bilirubin,total [place] ([facility]) albumin/globulin ratio 1.2-2.2 Below low normal Albumin /globulin Ratio [place] ([facility]) ID Date Data Source [id number] 06/23/2020 12:00:00 PM EST [place] ([facility]) Name Value Range Interpretation Code Description Data Munira rce(s) Supporting Document(s) red blood count 5.35 10 4.00-5.40 Red Blood Count ATHE NA ([facility]) white blood count 8.1 10 4.0-10.0 White Blood Count [place] ([facility]) hemoglobin 14.6 g/dL 12.0-15.5 Hemoglobin [place] ([facility]) hematocrit 46.3 % 36.0-47.0 Hematocrit [place] ([facility]) mean corpuscular volume 86.5 fL 80.0-96.0 Mean Corpusc ular Volume [place] ([facility]) mean corpuscular hemoglobin 27.3 pg 27.0-33.0 Mean Cor puscular Hemoglobin [place] ([facility]) platelet count, automated 275 10 150-450 Platelet C ount, Automated [place] ([facility]) red cell distribution width 13.6 % 11.5-14.5 Red Cell Distribution Width [place] ([facility]) mean corpuscular HGB conc 31.5 g/dL 32.0-36.5 Below low sidney l Mean Corpuscular HGB Conc [place] ([facility]) mono % 7.5 % 2.0-8.0 [place] % [place] ([facility]) lymph % 26.9 % 24.0-44.0 Lymph % [place] ([facility]) neutrophils % 59.5 % 36.0-66.0 Neutrophils % [place] ( [facility]) eos % 4.6 % 0.0-3.0 Above high normal Eos % [place] ([facility]) baso % 1.0 % 0.0-1.0 Baso % [place] ([facility]) immature granulocyte % 0.5 % 0-3.0 Immature Gran ulocyte % [place] ([facility]) neutrophils # 4.8 10 1.5-8.5 Neutrophils # [place] ( [facility]) mono # 0.6 10 0.0-0.8 [place] # [place] ([facility]) nucleated red blood cell % 0.0 % 0-0 Nucleated Red Blood Cell % [place] ([facility]) lymph # 2.2 10 1.5-5.0 Lymph # [place] ([facility]) eos # 0.4 10 0.0-0.5 Eos # [place] ([facility]) baso # 0.1 10 0.0-0.2 Baso # [place] ([facility]) ID Date Data Source [id number] 06/23/2020 12:00:00 PM EST [place] ([facility]) Name Value Range Interpretation Code Description Data Munira rce(s) Supporting Document(s) ID Date Data Source [id number] 06/23/2020 12:00:00 PM EST [place] ([facility]) Name Value Range Interpretation Code Description Data Munira rce(s) Supporting Document(s) ID Date Data Source [id number] 06/23/2020 12:00:00 PM EST [place] ([facility]) Name Value Range Interpretation Code Description Data Munira rce(s) Supporting Document(s) Hemoglobin A1c/Hemoglobin.total in Blood 6.9 % Hemoglobin a1C [place] ([facility]) estimated average glucose 151 mg/dL 60-110 Above high norm al Estimated Average Glucose [place] ([facility]) ID Date Data Source [id number] 06/23/2020 12:00:00 PM EST [place] ([facility]) Name Value Range Interpretation Code Description Data Munira rce(s) Supporting Document(s) ferritin 45 NG/mL 8-252 Ferritin [place] ([facility]) ID Date Data Source [id number] 06/23/2020 12:00:00 PM EST [place] ([facility]) Name Value Range Interpretation Code Description Data Munira rce(s) Supporting Document(s) total 25(oh) vitamin D 10.9 NG/mL 30.0-100.0 Below low normal T otal 25(Oh) Vitamin D [place] ([facility]) ID Date Data Source [id number] 06/23/2020 12:00:00 PM EST [place] ([facility]) Name Value Range Interpretation Code Description Data Munira rce(s) Supporting Document(s) thyroid stimulating hormone 1.610 uIU/mL 0.358-3.740 Thyroid Stimulating Hormone [place] ([facility]) ID Date Data Source [id number] 06/23/2020 12:00:00 PM EST [place] ([facility]) Name Value Range Interpretation Code Description Data Munira rce(s) Supporting Document(s) iron (fe) 103 ug/dL 50-170 Iron (Fe) [place] ([facility]) total iron binding capacity 282 ug/dL 250-450 Total Ir on Binding Capacity [place] ([facility]) percent saturation 36.5 % 13.2-45.0 Percent Saturatio n [place] ([facility]) ID Date Data Source [id number] 06/23/2020 12:00:00 PM EST [place] ([facility]) Name Value Range Interpretation Code Description Data Munira rce(s) Supporting Document(s) cholesterol level 201 mg/dL <200 Above high normal Cholesterol Level [place] ([facility]) HDL cholesterol 35 mg/dL >40 Below low normal HDL Cholestero l [place] ([facility]) triglycerides level 516 mg/dL <150 Above high normal Triglycer ides Level [place] ([facility]) non-HDL-C 166 mg/dL Non-hdl-c [place] ([facility]) cholesterol risk ratio <5 Above high normal Choles terol Risk Ratio [place] ([facility]) ID Date Data Source [id number] 06/23/2020 12:00:00 PM EST [place] ([facility]) Name Value Range Interpretation Code Description Data Munira rce(s) Supporting Document(s) creatinine for GFR 1.22 mg/dL 0.55-1.30 Creatinine for GF R [place] ([facility]) glucose, fasting 155 mg/dL 70-100 Above high normal Glucose, Fas ting [place] ([facility]) blood urea nitrogen 17 mg/dL 7-18 Blood Urea Nitro gen [place] ([facility]) chloride level 106 mEq/L 98-107 Chloride Level [place] ([facility]) sodium level 136 mEq/L 136-145 Sodium Level [place] ([facility]) potassium serum 4.4 mEq/L 3.5-5.1 Potassium Serum AT[facility] ([facility]) glomerular filtration rate >60 Below low normal Lesly merular Filtration Rate [place] ([facility]) anion gap 6 mEq/L 8-16 Below low normal Anion Gap [place] ( [facility]) calcium level 9.4 mg/dL 8.5-10.1 Calcium Level [place] ( [facility]) carbon dioxide level 24 mEq/L 21-32 Carbon Dioxide Level [place] ([facility]) AST/SGOT 11 U/L 7-37 AST/SGOT [place] ([facility]) alkaline phosphatase 130 U/L 45-117 Above high normal Alkaline Phosphatase [place] ([facility]) ALT/SGPT 30 U/L 12-78 ALT/SGPT [place] ([facility]) bilirubin,total 0.4 mg/dL 0.2-1.0 Bilirubin,total [place] ([facility]) albumin/globulin ratio 1.2-2.2 Below low normal Albumin /globulin Ratio [place] ([facility]) total protein 7.1 gm/dL 6.4-8.2 Total Protein [place] ( [facility]) albumin 3.7 gm/dL 3.2-5.2 Albumin [place] ([facility]) ID Date Data Source [id number] 06/23/2020 12:00:00 PM EST [place] ([facility]) Name Value Range Interpretation Code Description Data Munira rce(s) Supporting Document(s) white blood count 8.1 10 4.0-10.0 White Blood Count [place] ([facility]) red blood count 5.35 10 4.00-5.40 Red Blood Count ATHE NA ([facility]) hemoglobin 14.6 g/dL 12.0-15.5 Hemoglobin [place] ([facility]) hematocrit 46.3 % 36.0-47.0 Hematocrit [place] ([facility]) mean corpuscular hemoglobin 27.3 pg 27.0-33.0 Mean Cor puscular Hemoglobin [place] ([facility]) mean corpuscular HGB conc 31.5 g/dL 32.0-36.5 Below low sidney l Mean Corpuscular HGB Conc [place] ([facility]) mean corpuscular volume 86.5 fL 80.0-96.0 Mean Corpusc ular Volume [place] ([facility]) neutrophils % 59.5 % 36.0-66.0 Neutrophils % [place] ( [facility]) red cell distribution width 13.6 % 11.5-14.5 Red Cell Distribution Width [place] ([facility]) platelet count, automated 275 10 150-450 Platelet C ount, Automated [place] ([facility]) lymph % 26.9 % 24.0-44.0 Lymph % [place] ([facility]) mono % 7.5 % 2.0-8.0 [place] % [place] ([facility]) immature granulocyte % 0.5 % 0-3.0 Immature Gran ulocyte % [place] ([facility]) eos % 4.6 % 0.0-3.0 Above high normal Eos % [place] ([facility]) baso % 1.0 % 0.0-1.0 Baso % [place] ([facility]) mono # 0.6 10 0.0-0.8 [place] # [place] ([facility]) nucleated red blood cell % 0.0 % 0-0 Nucleated Red Blood Cell % [place] ([facility]) lymph # 2.2 10 1.5-5.0 Lymph # [place] ([facility]) neutrophils # 4.8 10 1.5-8.5 Neutrophils # [place] ( [facility]) eos # 0.4 10 0.0-0.5 Eos # [place] ([facility]) baso # 0.1 10 0.0-0.2 Baso # [place] ([facility]) ID Date Data Source [id number] 06/23/2020 12:00:00 PM EST [place] ([facility]) Name Value Range Interpretation Code Description Data Munira rce(s) Supporting Document(s) ID Date Data Source [id number] 06/23/2020 12:00:00 PM EST [place] ([facility]) Name Value Range Interpretation Code Description Data Munira rce(s) Supporting Document(s) ID Date Data Source [id number] 06/23/2020 12:00:00 PM EST [place] ([facility]) Name Value Range Interpretation Code Description Data Munira rce(s) Supporting Document(s) estimated average glucose 151 mg/dL 60-110 Above high norm al Estimated Average Glucose [place] ([facility]) Hemoglobin A1c/Hemoglobin.total in Blood 6.9 % Hemoglobin a1C [place] ([facility]) ID Date Data Source [id number] 06/23/2020 12:00:00 PM EST [place] ([facility]) Name Value Range Interpretation Code Description Data Munira rce(s) Supporting Document(s) ferritin 45 NG/mL 8-252 Ferritin [place] ([facility]) ID Date Data Source [id number] 06/23/2020 12:00:00 PM EST [place] ([facility]) Name Value Range Interpretation Code Description Data Munira rce(s) Supporting Document(s) total 25(oh) vitamin D 10.9 NG/mL 30.0-100.0 Below low normal T otal 25(Oh) Vitamin D [place] ([facility]) ID Date Data Source [id number] 06/23/2020 12:00:00 PM EST [place] ([facility]) Name Value Range Interpretation Code Description Data Munira rce(s) Supporting Document(s) thyroid stimulating hormone 1.610 uIU/mL 0.358-3.740 Thyroid Stimulating Hormone [place] ([facility]) ID Date Data Source [id number] 06/23/2020 12:00:00 PM EST [place] ([facility]) Name Value Range Interpretation Code Description Data Munira rce(s) Supporting Document(s) total iron binding capacity 282 ug/dL 250-450 Total Ir on Binding Capacity [place] ([facility]) iron (fe) 103 ug/dL 50-170 Iron (Fe) [place] ([facility]) percent saturation 36.5 % 13.2-45.0 Percent Saturatio n [place] ([facility]) ID Date Data Source [id number] 06/23/2020 12:00:00 PM EST [place] ([facility]) Name Value Range Interpretation Code Description Data Munira rce(s) Supporting Document(s) cholesterol level 201 mg/dL <200 Above high normal Cholesterol Level [place] ([facility]) triglycerides level 516 mg/dL <150 Above high normal Triglycer ides Level [place] ([facility]) HDL cholesterol 35 mg/dL >40 Below low normal HDL Cholestero l [place] ([facility]) non-HDL-C 166 mg/dL Non-hdl-c [place] ([facility]) cholesterol risk ratio <5 Above high normal Choles terol Risk Ratio [place] ([facility]) ID Date Data Source [id number] 06/23/2020 12:00:00 PM EST [place] ([facility]) Name Value Range Interpretation Code Description Data Munira rce(s) Supporting Document(s) glomerular filtration rate >60 Below low normal Lesly merular Filtration Rate [place] ([facility]) glucose, fasting 155 mg/dL 70-100 Above high normal Glucose, Fas ting [place] ([facility]) creatinine for GFR 1.22 mg/dL 0.55-1.30 Creatinine for GF R [place] ([facility]) blood urea nitrogen 17 mg/dL 7-18 Blood Urea Nitro gen [place] ([facility]) chloride level 106 mEq/L 98-107 Chloride Level [place] ([facility]) sodium level 136 mEq/L 136-145 Sodium Level [place] ([facility]) carbon dioxide level 24 mEq/L 21-32 Carbon Dioxide Level [place] ([facility]) potassium serum 4.4 mEq/L 3.5-5.1 Potassium Serum [place] ([facility]) AST/SGOT 11 U/L 7-37 AST/SGOT [place] ([facility]) calcium level 9.4 mg/dL 8.5-10.1 Calcium Level [place] ( [facility]) anion gap 6 mEq/L 8-16 Below low normal Anion Gap [place] ( [facility]) ALT/SGPT 30 U/L 12-78 ALT/SGPT [place] ([facility]) albumin/globulin ratio 1.2-2.2 Below low normal Albumin /globulin Ratio [place] ([facility]) albumin 3.7 gm/dL 3.2-5.2 Albumin [place] ([facility]) bilirubin,total 0.4 mg/dL 0.2-1.0 Bilirubin,total ATHE NA ([facility]) total protein 7.1 gm/dL 6.4-8.2 Total Protein [place] ( [facility]) alkaline phosphatase 130 U/L 45-117 Above high normal Alkaline Phosphatase [place] ([facility]) ID Date Data Source [id number] 06/23/2020 12:00:00 PM EST [place] ([facility]) Name Value Range Interpretation Code Description Data Munira rce(s) Supporting Document(s) red blood count 5.35 10 4.00-5.40 Red Blood Count AT[place] NA ([facility]) white blood count 8.1 10 4.0-10.0 White Blood Count [place] ([facility]) hematocrit 46.3 % 36.0-47.0 Hematocrit [place] ([facility]) hemoglobin 14.6 g/dL 12.0-15.5 Hemoglobin [place] ([facility]) mean corpuscular volume 86.5 fL 80.0-96.0 Mean Corpusc ular Volume [place] ([facility]) mean corpuscular hemoglobin 27.3 pg 27.0-33.0 Mean Cor puscular Hemoglobin [place] ([facility]) red cell distribution width 13.6 % 11.5-14.5 Red Cell Distribution Width [place] ([facility]) platelet count, automated 275 10 150-450 Platelet C ount, Automated [place] ([facility]) mean corpuscular HGB conc 31.5 g/dL 32.0-36.5 Below low sidney l Mean Corpuscular HGB Conc [place] ([facility]) eos % 4.6 % 0.0-3.0 Above high normal Eos % [place] ([facility]) lymph % 26.9 % 24.0-44.0 Lymph % [place] ([facility]) neutrophils % 59.5 % 36.0-66.0 Neutrophils % [place] ( [facility]) mono % 7.5 % 2.0-8.0 [place] % [place] ([facility]) immature granulocyte % 0.5 % 0-3.0 Immature Gran ulocyte % [place] ([facility]) nucleated red blood cell % 0.0 % 0-0 Nucleated Red Blood Cell % [place] ([facility]) baso % 1.0 % 0.0-1.0 Baso % [place] ([facility]) lymph # 2.2 10 1.5-5.0 Lymph # [place] ([facility]) neutrophils # 4.8 10 1.5-8.5 Neutrophils # [place] ( [facility]) baso # 0.1 10 0.0-0.2 Baso # [place] ([facility]) mono # 0.6 10 0.0-0.8 [place] # [place] ([facility]) eos # 0.4 10 0.0-0.5 Eos # [place] ([facility]) ID Date Data Source [id number] 06/23/2020 12:00:00 PM EST [place] ([facility]) Name Value Range Interpretation Code Description Data Munira rce(s) Supporting Document(s) ID Date Data Source [id number] 06/23/2020 12:00:00 PM EST [place] ([facility]) Name Value Range Interpretation Code Description Data Munira rce(s) Supporting Document(s) ID Date Data Source [id number] 06/23/2020 12:00:00 PM EST [place] ([facility]) Name Value Range Interpretation Code Description Data Munira rce(s) Supporting Document(s) Hemoglobin A1c/Hemoglobin.total in Blood 6.9 % Hemoglobin a1C [place] ([facility]) estimated average glucose 151 mg/dL 60-110 Above high norm al Estimated Average Glucose [place] ([facility]) ID Date Data Source [id number] 06/23/2020 12:00:00 PM EST [place] ([facility]) Name Value Range Interpretation Code Description Data Munira rce(s) Supporting Document(s) ferritin 45 NG/mL 8-252 Ferritin [place] ([facility]) ID Date Data Source [id number] 06/23/2020 12:00:00 PM EST [place] ([facility]) Name Value Range Interpretation Code Description Data Munira rce(s) Supporting Document(s) total 25(oh) vitamin D 10.9 NG/mL 30.0-100.0 Below low normal T otal 25(Oh) Vitamin D [place] ([facility]) ID Date Data Source [id number] 06/23/2020 12:00:00 PM EST [place] ([facility]) Name Value Range Interpretation Code Description Data Munira rce(s) Supporting Document(s) thyroid stimulating hormone 1.610 uIU/mL 0.358-3.740 Thyroid Stimulating Hormone [place] ([facility]) ID Date Data Source [id number] 06/23/2020 12:00:00 PM EST [place] ([facility]) Name Value Range Interpretation Code Description Data Munira rce(s) Supporting Document(s) iron (fe) 103 ug/dL 50-170 Iron (Fe) [place] ([facility]) percent saturation 36.5 % 13.2-45.0 Percent Saturatio n [place] ([facility]) total iron binding capacity 282 ug/dL 250-450 Total Ir on Binding Capacity [place] ([facility]) ID Date Data Source [id number] 06/23/2020 12:00:00 PM EST [place] ([facility]) Name Value Range Interpretation Code Description Data Munira rce(s) Supporting Document(s) cholesterol level 201 mg/dL <200 Above high normal Cholesterol Level [place] ([facility]) triglycerides level 516 mg/dL <150 Above high normal Triglycer ides Level [place] ([facility]) non-HDL-C 166 mg/dL Non-hdl-c [place] ([facility]) HDL cholesterol 35 mg/dL >40 Below low normal HDL Cholestero l [place] ([facility]) cholesterol risk ratio <5 Above high normal Choles terol Risk Ratio [place] ([facility]) ID Date Data Source [id number] 06/23/2020 12:00:00 PM EST [place] ([facility]) Name Value Range Interpretation Code Description Data Munira rce(s) Supporting Document(s) glucose, fasting 155 mg/dL 70-100 Above high normal Glucose, Fas ting [place] ([facility]) glomerular filtration rate >60 Below low normal Lesly merular Filtration Rate [place] ([facility]) blood urea nitrogen 17 mg/dL 7-18 Blood Urea Nitro gen [place] ([facility]) sodium level 136 mEq/L 136-145 Sodium Level [place] ([facility]) creatinine for GFR 1.22 mg/dL 0.55-1.30 Creatinine for GF R [place] ([facility]) potassium serum 4.4 mEq/L 3.5-5.1 Potassium Serum [place] ([facility]) carbon dioxide level 24 mEq/L 21-32 Carbon Dioxide Level [place] ([facility]) anion gap 6 mEq/L 8-16 Below low normal Anion Gap [place] ( [facility]) chloride level 106 mEq/L 98-107 Chloride Level [place] ([facility]) calcium level 9.4 mg/dL 8.5-10.1 Calcium Level [place] ( [facility]) alkaline phosphatase 130 U/L 45-117 Above high normal Alkaline Phosphatase [place] ([facility]) AST/SGOT 11 U/L 7-37 AST/SGOT [place] ([facility]) bilirubin,total 0.4 mg/dL 0.2-1.0 Bilirubin,total [place] ([facility]) total protein 7.1 gm/dL 6.4-8.2 Total Protein [place] ( [facility]) ALT/SGPT 30 U/L 12-78 ALT/SGPT [place] ([facility]) albumin 3.7 gm/dL 3.2-5.2 Albumin [place] ([facility]) albumin/globulin ratio 1.2-2.2 Below low normal Albumin /globulin Ratio [place] ([facility]) ID Date Data Source [id number] 06/23/2020 12:00:00 PM EST [place] ([facility]) Name Value Range Interpretation Code Description Data Munira rce(s) Supporting Document(s) white blood count 8.1 10 4.0-10.0 White Blood Count [place] ([facility]) red blood count 5.35 10 4.00-5.40 Red Blood Count [place] NA ([facility]) mean corpuscular volume 86.5 fL 80.0-96.0 Mean Corpusc ular Volume [place] ([facility]) hemoglobin 14.6 g/dL 12.0-15.5 Hemoglobin [place] ([facility]) hematocrit 46.3 % 36.0-47.0 Hematocrit [place] ([facility]) mean corpuscular hemoglobin 27.3 pg 27.0-33.0 Mean Cor puscular Hemoglobin [place] ([facility]) neutrophils % 59.5 % 36.0-66.0 Neutrophils % [place] ( [facility]) mean corpuscular HGB conc 31.5 g/dL 32.0-36.5 Below low sid[place] l Mean Corpuscular HGB Conc [place] ([facility]) platelet count, automated 275 10 150-450 Platelet C ount, Automated [place] ([facility]) red cell distribution width 13.6 % 11.5-14.5 Red Cell Distribution Width [place] ([facility]) mono % 7.5 % 2.0-8.0 [place] % [place] ([facility]) eos % 4.6 % 0.0-3.0 Above high normal Eos % [place] ([facility]) lymph % 26.9 % 24.0-44.0 Lymph % [place] ([facility]) baso % 1.0 % 0.0-1.0 Baso % [place] ([facility]) nucleated red blood cell % 0.0 % 0-0 Nucleated Red Blood Cell % [place] ([facility]) immature granulocyte % 0.5 % 0-3.0 Immature Gran ulocyte % [place] ([facility]) lymph # 2.2 10 1.5-5.0 Lymph # [place] ([facility]) neutrophils # 4.8 10 1.5-8.5 Neutrophils # [place] ( [facility]) baso # 0.1 10 0.0-0.2 Baso # [place] ([facility]) mono # 0.6 10 0.0-0.8 [place] # [place] ([facility]) eos # 0.4 10 0.0-0.5 Eos # [place] ([facility]) ID Date Data Source [id number] 06/23/2020 12:00:00 PM EST [place] ([facility]) Name Value Range Interpretation Code Description Data Munira rce(s) Supporting Document(s) ID Date Data Source [id number] 06/23/2020 12:00:00 PM EST [place] ([facility]) Name Value Range Interpretation Code Description Data Munira rce(s) Supporting Document(s) ID Date Data Source [id number] 06/23/2020 12:00:00 PM EST [place] ([facility]) Name Value Range Interpretation Code Description Data Munira rce(s) Supporting Document(s) Hemoglobin A1c/Hemoglobin.total in Blood 6.9 % Hemoglobin a1C [place] ([facility]) estimated average glucose 151 mg/dL 60-110 Above high norm al Estimated Average Glucose [place] ([facility]) ID Date Data Source [id number] 06/23/2020 12:00:00 PM EST [place] ([facility]) Name Value Range Interpretation Code Description Data Munira rce(s) Supporting Document(s) ferritin 45 NG/mL 8-252 Ferritin [place] ([facility]) ID Date Data Source [id number] 06/23/2020 12:00:00 PM EST [place] ([facility]) Name Value Range Interpretation Code Description Data Munira rce(s) Supporting Document(s) total 25(oh) vitamin D 10.9 NG/mL 30.0-100.0 Below low normal T otal 25(Oh) Vitamin D [place] ([facility]) ID Date Data Source [id number] 06/23/2020 12:00:00 PM EST [place] ([facility]) Name Value Range Interpretation Code Description Data Munira rce(s) Supporting Document(s) thyroid stimulating hormone 1.610 uIU/mL 0.358-3.740 Thyroid Stimulating Hormone [place] ([facility]) ID Date Data Source [id number] 06/23/2020 12:00:00 PM EST [place] ([facility]) Name Value Range Interpretation Code Description Data Munira rce(s) Supporting Document(s) iron (fe) 103 ug/dL 50-170 Iron (Fe) [place] ([facility]) total iron binding capacity 282 ug/dL 250-450 Total Ir on Binding Capacity [place] ([facility]) percent saturation 36.5 % 13.2-45.0 Percent Saturatio n [place] ([facility]) ID Date Data Source [id number] 06/23/2020 12:00:00 PM EST [place] ([facility]) Name Value Range Interpretation Code Description Data Munira rce(s) Supporting Document(s) triglycerides level 516 mg/dL <150 Above high normal Triglycer ides Level [place] ([facility]) cholesterol level 201 mg/dL <200 Above high normal Cholesterol Level [place] ([facility]) non-HDL-C 166 mg/dL Non-hdl-c [place] ([facility]) HDL cholesterol 35 mg/dL >40 Below low normal HDL Cholestero l [place] ([facility]) cholesterol risk ratio <5 Above high normal Choles terol Risk Ratio [place] ([facility]) ID Date Data Source [id number] 06/23/2020 12:00:00 PM EST [place] ([facility]) Name Value Range Interpretation Code Description Data Munira rce(s) Supporting Document(s) glucose, fasting 155 mg/dL 70-100 Above high normal Glucose, Fas ting [place] ([facility]) creatinine for GFR 1.22 mg/dL 0.55-1.30 Creatinine for GF R [place] ([facility]) blood urea nitrogen 17 mg/dL 7-18 Blood Urea Nitro gen [place] ([facility]) glomerular filtration rate >60 Below low normal Lesly merular Filtration Rate [place] ([facility]) potassium serum 4.4 mEq/L 3.5-5.1 Potassium Serum [place] NA ([facility]) sodium level 136 mEq/L 136-145 Sodium Level [place] ([facility]) carbon dioxide level 24 mEq/L 21-32 Carbon Dioxide Level [place] ([facility]) chloride level 106 mEq/L 98-107 Chloride Level [place] ([facility]) calcium level 9.4 mg/dL 8.5-10.1 Calcium Level [place] ( [facility]) anion gap 6 mEq/L 8-16 Below low normal Anion Gap [place] ( [facility]) bilirubin,total 0.4 mg/dL 0.2-1.0 Bilirubin,total [place] ([facility]) AST/SGOT 11 U/L 7-37 AST/SGOT [place] ([facility]) ALT/SGPT 30 U/L 12-78 ALT/SGPT [place] ([facility]) alkaline phosphatase 130 U/L 45-117 Above high normal Alkaline Phosphatase [place] ([facility]) albumin 3.7 gm/dL 3.2-5.2 Albumin [place] ([facility]) albumin/globulin ratio 1.2-2.2 Below low normal Albumin /globulin Ratio [place] ([facility]) total protein 7.1 gm/dL 6.4-8.2 Total Protein [place] ( [facility]) ID Date Data Source [id number] 06/23/2020 12:00:00 PM EST [place] ([facility]) Name Value Range Interpretation Code Description Data Munira rce(s) Supporting Document(s) white blood count 8.1 10 4.0-10.0 White Blood Count [place] ([facility]) red blood count 5.35 10 4.00-5.40 Red Blood Count [place] NA ([facility]) hemoglobin 14.6 g/dL 12.0-15.5 Hemoglobin [place] ([facility]) hematocrit 46.3 % 36.0-47.0 Hematocrit [place] ([facility]) mean corpuscular volume 86.5 fL 80.0-96.0 Mean Corpusc ular Volume [place] ([facility]) red cell distribution width 13.6 % 11.5-14.5 Red Cell Distribution Width [place] ([facility]) mean corpuscular HGB conc 31.5 g/dL 32.0-36.5 Below low sidney l Mean Corpuscular HGB Conc [place] ([facility]) mean corpuscular hemoglobin 27.3 pg 27.0-33.0 Mean Cor puscular Hemoglobin [place] ([facility]) platelet count, automated 275 10 150-450 Platelet C ount, Automated [place] ([facility]) lymph % 26.9 % 24.0-44.0 Lymph % [place] ([facility]) neutrophils % 59.5 % 36.0-66.0 Neutrophils % [place] ( [facility]) mono % 7.5 % 2.0-8.0 [place] % [place] ([facility]) eos % 4.6 % 0.0-3.0 Above high normal Eos % [place] ([facility]) baso % 1.0 % 0.0-1.0 Baso % [place] ([facility]) immature granulocyte % 0.5 % 0-3.0 Immature Gran ulocyte % [place] ([facility]) nucleated red blood cell % 0.0 % 0-0 Nucleated Red Blood Cell % [place] ([facility]) neutrophils # 4.8 10 1.5-8.5 Neutrophils # [place] ( [facility]) mono # 0.6 10 0.0-0.8 [place] # [place] ([facility]) lymph # 2.2 10 1.5-5.0 Lymph # [place] ([facility]) eos # 0.4 10 0.0-0.5 Eos # [place] ([facility]) baso # 0.1 10 0.0-0.2 Baso # [place] ([facility]) ID Date Data Source [id number] 06/23/2020 12:00:00 PM EST [place] ([facility]) Name Value Range Interpretation Code Description Data Munira rce(s) Supporting Document(s) ID Date Data Source [id number] 06/23/2020 12:00:00 PM EST [place] ([facility]) Name Value Range Interpretation Code Description Data Munira rce(s) Supporting Document(s) ID Date Data Source [id number] 06/23/2020 12:00:00 PM EST [place] ([facility]) Name Value Range Interpretation Code Description Data Munira rce(s) Supporting Document(s) estimated average glucose 151 mg/dL 60-110 Above high norm al Estimated Average Glucose [place] ([facility]) Hemoglobin A1c/Hemoglobin.total in Blood 6.9 % Hemoglobin a1C [place] ([facility]) ID Date Data Source [id number] 06/23/2020 12:00:00 PM EST [place] ([facility]) Name Value Range Interpretation Code Description Data Munira rce(s) Supporting Document(s) ferritin 45 NG/mL 8-252 Ferritin [place] ([facility]) ID Date Data Source [id number] 06/23/2020 12:00:00 PM EST [place] ([facility]) Name Value Range Interpretation Code Description Data Munira rce(s) Supporting Document(s) total 25(oh) vitamin D 10.9 NG/mL 30.0-100.0 Below low normal T otal 25(Oh) Vitamin D [facility]) ID Date Data Source [id number] 06/23/2020 12:00:00 PM EST [place] ([facility]) Name Value Range Interpretation Code Description Data Munira rce(s) Supporting Document(s) thyroid stimulating hormone 1.610 uIU/mL 0.358-3.740 Thyroid Stimulating Hormone [place] ([facility]) ID Date Data Source [id number] 06/23/2020 12:00:00 PM EST [place] ([facility]) Name Value Range Interpretation Code Description Data Munira rce(s) Supporting Document(s) percent saturation 36.5 % 13.2-45.0 Percent Saturatio n [place] ([facility]) total iron binding capacity 282 ug/dL 250-450 Total Ir on Binding Capacity [place] ([facility]) iron (fe) 103 ug/dL 50-170 Iron (Fe) [place] ([facility]) ID Date Data Source [id number] 06/23/2020 12:00:00 PM EST [place] ([facility]) Name Value Range Interpretation Code Description Data Munira rce(s) Supporting Document(s) triglycerides level 516 mg/dL <150 Above high normal Triglycer ides Level [place] ([facility]) cholesterol risk ratio <5 Above high normal Choles terol Risk Ratio [place] ([facility]) HDL cholesterol 35 mg/dL >40 Below low normal HDL Cholestero l [place] ([facility]) cholesterol level 201 mg/dL <200 Above high normal Cholesterol Level [place] ([facility]) non-HDL-C 166 mg/dL Non-hdl-c [place] ([facility]) ID Date Data Source [id number] 06/23/2020 12:00:00 PM EST [place] ([facility]) Name Value Range Interpretation Code Description Data Munira rce(s) Supporting Document(s) glucose, fasting 155 mg/dL 70-100 Above high normal Glucose, Fas ting [place] ([facility]) blood urea nitrogen 17 mg/dL 7-18 Blood Urea Nitro gen [place] ([facility]) creatinine for GFR 1.22 mg/dL 0.55-1.30 Creatinine for GF R [place] ([facility]) sodium level 136 mEq/L 136-145 Sodium Level [place] ([facility]) potassium serum 4.4 mEq/L 3.5-5.1 Potassium Serum [place] ([facility]) glomerular filtration rate >60 Below low normal Lesly merular Filtration Rate [place] ([facility]) anion gap 6 mEq/L 8-16 Below low normal Anion Gap [place] ( [facility]) carbon dioxide level 24 mEq/L 21-32 Carbon Dioxide Level [place] ([facility]) chloride level 106 mEq/L 98-107 Chloride Level [place] ([facility]) AST/SGOT 11 U/L 7-37 AST/SGOT [place] ([facility]) calcium level 9.4 mg/dL 8.5-10.1 Calcium Level [place] ( [facility]) ALT/SGPT 30 U/L 12-78 ALT/SGPT [place] ([facility]) alkaline phosphatase 130 U/L 45-117 Above high normal Alkaline Phosphatase [place] ([facility]) bilirubin,total 0.4 mg/dL 0.2-1.0 Bilirubin,total [place] ([facility]) albumin 3.7 gm/dL 3.2-5.2 Albumin [place] ([facility]) total protein 7.1 gm/dL 6.4-8.2 Total Protein [place] ( [facility]) albumin/globulin ratio 1.2-2.2 Below low normal Albumin /globulin Ratio [place] ([facility]) ID Date Data Source [id number] 06/23/2020 12:00:00 PM EST [place] ([facility]) Name Value Range Interpretation Code Description Data Munira rce(s) Supporting Document(s) white blood count 8.1 10 4.0-10.0 White Blood Count [place] ([facility]) red blood count 5.35 10 4.00-5.40 Red Blood Count [place] ([facility]) hemoglobin 14.6 g/dL 12.0-15.5 Hemoglobin [place] ([facility]) hematocrit 46.3 % 36.0-47.0 Hematocrit [place] ([facility]) mean corpuscular hemoglobin 27.3 pg 27.0-33.0 Mean Cor puscular Hemoglobin [place] ([facility]) mean corpuscular volume 86.5 fL 80.0-96.0 Mean Corpusc ular Volume [place] ([facility]) mean corpuscular HGB conc 31.5 g/dL 32.0-36.5 Below low sidney l Mean Corpuscular HGB Conc [place] ([facility]) neutrophils % 59.5 % 36.0-66.0 Neutrophils % [place] ( [facility]) red cell distribution width 13.6 % 11.5-14.5 Red Cell Distribution Width [place] ([facility]) platelet count, automated 275 10 150-450 Platelet C ount, Automated [place] ([facility]) lymph % 26.9 % 24.0-44.0 Lymph % [place] ([facility]) eos % 4.6 % 0.0-3.0 Above high normal Eos % [place] ([facility]) mono % 7.5 % 2.0-8.0 [place] % [place] ([facility]) nucleated red blood cell % 0.0 % 0-0 Nucleated Red Blood Cell % [place] ([facility]) baso % 1.0 % 0.0-1.0 Baso % [place] ([facility]) immature granulocyte % 0.5 % 0-3.0 Immature Gran ulocyte % [place] ([facility]) lymph # 2.2 10 1.5-5.0 Lymph # [place] ([facility]) neutrophils # 4.8 10 1.5-8.5 Neutrophils # [place] ( [facility]) mono # 0.6 10 0.0-0.8 [place] # [place] ([facility]) baso # 0.1 10 0.0-0.2 Baso # [place] ([facility]) eos # 0.4 10 0.0-0.5 Eos # [place] ([facility]) ID Date Data Source [id number] 06/23/2020 12:00:00 PM EST [place] ([facility]) Name Value Range Interpretation Code Description Data Munira rce(s) Supporting Document(s) ID Date Data Source [id number] 06/23/2020 12:00:00 PM EST [place] ([facility]) Name Value Range Interpretation Code Description Data Munira rce(s) Supporting Document(s) ID Date Data Source [id number] 06/23/2020 12:00:00 PM EST [place] ([facility]) Name Value Range Interpretation Code Description Data Munira rce(s) Supporting Document(s) Hemoglobin A1c/Hemoglobin.total in Blood 6.9 % Hemoglobin a1C [place] ([facility]) estimated average glucose 151 mg/dL 60-110 Above high norm al Estimated Average Glucose [place] ([facility]) ID Date Data Source [id number] 06/23/2020 12:00:00 PM EST [place] ([facility]) Name Value Range Interpretation Code Description Data Munira rce(s) Supporting Document(s) ferritin 45 NG/mL 8-252 Ferritin [place] ([facility]) ID Date Data Source [id number] 06/23/2020 12:00:00 PM EST [place] ([facility]) Name Value Range Interpretation Code Description Data Munira rce(s) Supporting Document(s) total 25(oh) vitamin D 10.9 NG/mL 30.0-100.0 Below low normal T otal 25(Oh) Vitamin D [place] ([facility]) ID Date Data Source [id number] 06/23/2020 12:00:00 PM EST [place] ([facility]) Name Value Range Interpretation Code Description Data Munira rce(s) Supporting Document(s) thyroid stimulating hormone 1.610 uIU/mL 0.358-3.740 Thyroid Stimulating Hormone [place] ([facility]) ID Date Data Source [id number] 06/23/2020 12:00:00 PM EST [place] ([facility]) Name Value Range Interpretation Code Description Data Munira rce(s) Supporting Document(s) iron (fe) 103 ug/dL 50-170 Iron (Fe) [place] ([facility]) percent saturation 36.5 % 13.2-45.0 Percent Saturatio n [place] ([facility]) total iron binding capacity 282 ug/dL 250-450 Total Ir on Binding Capacity [place] ([facility]) ID Date Data Source [id number] 06/23/2020 12:00:00 PM EST [place] ([facility]) Name Value Range Interpretation Code Description Data Munira rce(s) Supporting Document(s) cholesterol risk ratio <5 Above high normal Choles terol Risk Ratio [place] ([facility]) non-HDL-C 166 mg/dL Non-hdl-c [place] ([facility]) HDL cholesterol 35 mg/dL >40 Below low normal HDL Cholestero l [place] ([facility]) cholesterol level 201 mg/dL <200 Above high normal Cholesterol Level [place] ([facility]) triglycerides level 516 mg/dL <150 Above high normal Triglycer ides Level [place] ([facility]) ID Date Data Source [id number] 06/23/2020 12:00:00 PM EST [place] ([facility]) Name Value Range Interpretation Code Description Data Munira rce(s) Supporting Document(s) blood urea nitrogen 17 mg/dL 7-18 Blood Urea Nitro gen [place] ([facility]) glucose, fasting 155 mg/dL 70-100 Above high normal Glucose, Fas ting [place] ([facility]) glomerular filtration rate >60 Below low normal Lesly merular Filtration Rate [place] ([facility]) creatinine for GFR 1.22 mg/dL 0.55-1.30 Creatinine for GF R [place] ([facility]) chloride level 106 mEq/L 98-107 Chloride Level [place] ([facility]) potassium serum 4.4 mEq/L 3.5-5.1 Potassium Serum [place] ([facility]) sodium level 136 mEq/L 136-145 Sodium Level [place] ([facility]) carbon dioxide level 24 mEq/L 21-32 Carbon Dioxide Level [place] ([facility]) calcium level 9.4 mg/dL 8.5-10.1 Calcium Level [place] ( [facility]) anion gap 6 mEq/L 8-16 Below low normal Anion Gap [place] ( [facility]) AST/SGOT 11 U/L 7-37 AST/SGOT [place] ([facility]) ALT/SGPT 30 U/L 12-78 ALT/SGPT [place] ([facility]) alkaline phosphatase 130 U/L 45-117 Above high normal Alkaline Phosphatase [place] ([facility]) bilirubin,total 0.4 mg/dL 0.2-1.0 Bilirubin,total [place] ([facility]) total protein 7.1 gm/dL 6.4-8.2 Total Protein [place] ( [facility]) albumin 3.7 gm/dL 3.2-5.2 Albumin [place] ([facility]) albumin/globulin ratio 1.2-2.2 Below low normal Albumin /globulin Ratio [place] ([facility]) ID Date Data Source [id number] 06/23/2020 12:00:00 PM EST [place] ([facility]) Name Value Range Interpretation Code Description Data Munira rce(s) Supporting Document(s) white blood count 8.1 10 4.0-10.0 White Blood Count [place] ([facility]) red blood count 5.35 10 4.00-5.40 Red Blood Count [place] ([facility]) hemoglobin 14.6 g/dL 12.0-15.5 Hemoglobin [place] ([facility]) hematocrit 46.3 % 36.0-47.0 Hematocrit [place] ([facility]) mean corpuscular volume 86.5 fL 80.0-96.0 Mean Corpusc ular Volume [place] ([facility]) red cell distribution width 13.6 % 11.5-14.5 Red Cell Distribution Width [place] ([facility]) mean corpuscular HGB conc 31.5 g/dL 32.0-36.5 Below low sidney l Mean Corpuscular HGB Conc [place] ([facility]) mean corpuscular hemoglobin 27.3 pg 27.0-33.0 Mean Cor puscular Hemoglobin [place] ([facility]) neutrophils % 59.5 % 36.0-66.0 Neutrophils % [place] ( [facility]) platelet count, automated 275 10 150-450 Platelet C ount, Automated [place] ([facility]) lymph % 26.9 % 24.0-44.0 Lymph % [place] ([facility]) eos % 4.6 % 0.0-3.0 Above high normal Eos % [place] ([facility]) baso % 1.0 % 0.0-1.0 Baso % [place] ([facility]) mono % 7.5 % 2.0-8.0 [place] % [place] ([facility]) immature granulocyte % 0.5 % 0-3.0 Immature Gran ulocyte % [place] ([facility]) mono # 0.6 10 0.0-0.8 [place] # [place] ([facility]) lymph # 2.2 10 1.5-5.0 Lymph # [place] ([facility]) nucleated red blood cell % 0.0 % 0-0 Nucleated Red Blood Cell % [place] ([facility]) neutrophils # 4.8 10 1.5-8.5 Neutrophils # [place] ( [facility]) baso # 0.1 10 0.0-0.2 Baso # [place] ([facility]) eos # 0.4 10 0.0-0.5 Eos # [place] ([facility]) ID Date Data Source [id number] 06/23/2020 12:00:00 PM EST [place] ([facility]) Name Value Range Interpretation Code Description Data Munira rce(s) Supporting Document(s) ID Date Data Source [id number] 06/23/2020 12:00:00 PM EST [place] ([facility]) Name Value Range Interpretation Code Description Data Munira rce(s) Supporting Document(s) ID Date Data Source [id number] 06/23/2020 12:00:00 PM EST [place] ([facility]) Name Value Range Interpretation Code Description Data Munira rce(s) Supporting Document(s) estimated average glucose 151 mg/dL 60-110 Above high norm al Estimated Average Glucose [place] ([facility]) Hemoglobin A1c/Hemoglobin.total in Blood 6.9 % Hemoglobin a1C [place] ([facility]) ID Date Data Source [id number] 06/23/2020 12:00:00 PM EST [place] ([facility]) Name Value Range Interpretation Code Description Data Munira rce(s) Supporting Document(s) ferritin 45 NG/mL 8-252 Ferritin [place] ([facility]) ID Date Data Source [id number] 06/23/2020 12:00:00 PM EST [place] ([facility]) Name Value Range Interpretation Code Description Data Munira rce(s) Supporting Document(s) total 25(oh) vitamin D 10.9 NG/mL 30.0-100.0 Below low normal T otal 25(Oh) Vitamin D [place] ([facility]) ID Date Data Source [id number] 06/23/2020 12:00:00 PM EST [place] ([facility]) Name Value Range Interpretation Code Description Data Munira rce(s) Supporting Document(s) thyroid stimulating hormone 1.610 uIU/mL 0.358-3.740 Thyroid Stimulating Hormone [place] ([facility]) ID Date Data Source [id number] 06/23/2020 12:00:00 PM EST [place] ([facility]) Name Value Range Interpretation Code Description Data Munira rce(s) Supporting Document(s) iron (fe) 103 ug/dL 50-170 Iron (Fe) [place] ([facility]) percent saturation 36.5 % 13.2-45.0 Percent Saturatio n [place] ([facility]) total iron binding capacity 282 ug/dL 250-450 Total Ir on Binding Capacity [place] ([facility]) ID Date Data Source [id number] 06/23/2020 12:00:00 PM EST [place] ([facility]) Name Value Range Interpretation Code Description Data Munira rce(s) Supporting Document(s) triglycerides level 516 mg/dL <150 Above high normal Triglycer ides Level [place] ([facility]) cholesterol risk ratio <5 Above high normal Choles terol Risk Ratio [place] ([facility]) cholesterol level 201 mg/dL <200 Above high normal Cholesterol Level [place] ([facility]) non-HDL-C 166 mg/dL Non-hdl-c [place] ([facility]) HDL cholesterol 35 mg/dL >40 Below low normal HDL Cholestero l [place] ([facility]) ID Date Data Source [id number] 06/23/2020 12:00:00 PM EST [place] ([facility]) Name Value Range Interpretation Code Description Data Munira rce(s) Supporting Document(s) blood urea nitrogen 17 mg/dL 7-18 Blood Urea Nitro gen [place] ([facility]) creatinine for GFR 1.22 mg/dL 0.55-1.30 Creatinine for GF R [place] ([facility]) glucose, fasting 155 mg/dL 70-100 Above high normal Glucose, Fas ting [place] ([facility]) sodium level 136 mEq/L 136-145 Sodium Level [place] ([facility]) glomerular filtration rate >60 Below low normal Lesly merular Filtration Rate [place] ([facility]) chloride level 106 mEq/L 98-107 Chloride Level [place] ([facility]) potassium serum 4.4 mEq/L 3.5-5.1 Potassium Serum [place] NA ([facility]) carbon dioxide level 24 mEq/L 21-32 Carbon Dioxide Level [place] ([facility]) anion gap 6 mEq/L 8-16 Below low normal Anion Gap [place] ( [facility]) AST/SGOT 11 U/L 7-37 AST/SGOT [place] ([facility]) calcium level 9.4 mg/dL 8.5-10.1 Calcium Level [place] ( [facility]) ALT/SGPT 30 U/L 12-78 ALT/SGPT [place] ([facility]) bilirubin,total 0.4 mg/dL 0.2-1.0 Bilirubin,total [place] ([facility]) alkaline phosphatase 130 U/L 45-117 Above high normal Alkaline Phosphatase [place] ([facility]) albumin 3.7 gm/dL 3.2-5.2 Albumin [place] ([facility]) albumin/globulin ratio 1.2-2.2 Below low normal Albumin /globulin Ratio [place] ([facility]) total protein 7.1 gm/dL 6.4-8.2 Total Protein [place] ( [facility]) ID Date Data Source [id number] 06/23/2020 12:00:00 PM EST [place] ([facility]) Name Value Range Interpretation Code Description Data Munira rce(s) Supporting Document(s) white blood count 8.1 10 4.0-10.0 White Blood Count [place] ([facility]) red blood count 5.35 10 4.00-5.40 Red Blood Count [place] ([facility]) hemoglobin 14.6 g/dL 12.0-15.5 Hemoglobin [place] ([facility]) hematocrit 46.3 % 36.0-47.0 Hematocrit [place] ([facility]) mean corpuscular volume 86.5 fL 80.0-96.0 Mean Corpusc ular Volume [place] ([facility]) mean corpuscular hemoglobin 27.3 pg 27.0-33.0 Mean Cor puscular Hemoglobin [place] ([facility]) mean corpuscular HGB conc 31.5 g/dL 32.0-36.5 Below low sidney l Mean Corpuscular HGB Conc [place] ([facility]) platelet count, automated 275 10 150-450 Platelet C ount, Automated [place] ([facility]) neutrophils % 59.5 % 36.0-66.0 Neutrophils % [place] ( [facility]) red cell distribution width 13.6 % 11.5-14.5 Red Cell Distribution Width [place] ([facility]) mono % 7.5 % 2.0-8.0 [place] % [place] ([facility]) lymph % 26.9 % 24.0-44.0 Lymph % [place] ([facility]) eos % 4.6 % 0.0-3.0 Above high normal Eos % [place] ([facility]) immature granulocyte % 0.5 % 0-3.0 Immature Gran ulocyte % [place] ([facility]) baso % 1.0 % 0.0-1.0 Baso % [place] ([facility]) nucleated red blood cell % 0.0 % 0-0 Nucleated Red Blood Cell % [place] ([facility]) mono # 0.6 10 0.0-0.8 [place] # [place] ([facility]) lymph # 2.2 10 1.5-5.0 Lymph # [place] ([facility]) neutrophils # 4.8 10 1.5-8.5 Neutrophils # [place] ( [facility]) eos # 0.4 10 0.0-0.5 Eos # [place] ([facility]) baso # 0.1 10 0.0-0.2 Baso # [place] ([facility]) ID Date Data Source [id number] 06/23/2020 12:00:00 PM EST [place] ([facility]) Name Value Range Interpretation Code Description Data Munira rce(s) Supporting Document(s) iron (fe) 103 ug/dL 50-170 Iron (Fe) [place] ([facility]) total iron binding capacity 282 ug/dL 250-450 Total Ir on Binding Capacity [place] ([facility]) percent saturation 36.5 % 13.2-45.0 Percent Saturatio n [place] ([facility]) ID Date Data Source [id number] 06/23/2020 12:00:00 PM EST [place] ([facility]) Name Value Range Interpretation Code Description Data Munira rce(s) Supporting Document(s) triglycerides level 516 mg/dL <150 Above high normal Triglycer ides Level [place] ([facility]) cholesterol level 201 mg/dL <200 Above high normal Cholesterol Level [place] ([facility]) non-HDL-C 166 mg/dL Non-hdl-c [place] ([facility]) cholesterol risk ratio <5 Above high normal Choles terol Risk Ratio [place] ([facility]) HDL cholesterol 35 mg/dL >40 Below low normal HDL Cholestero l [place] ([facility]) ID Date Data Source [id number] 06/23/2020 12:00:00 PM EST [place] ([facility]) Name Value Range Interpretation Code Description Data Munira rce(s) Supporting Document(s) creatinine for GFR 1.22 mg/dL 0.55-1.30 Creatinine for GF R [place] ([facility]) blood urea nitrogen 17 mg/dL 7-18 Blood Urea Nitro gen [place] ([facility]) glucose, fasting 155 mg/dL 70-100 Above high normal Glucose, Fas ting [place] ([facility]) glomerular filtration rate >60 Below low normal Lesly merular Filtration Rate [place] [facility] [place]) potassium serum 4.4 mEq/L 3.5-5.1 Potassium Serum ATHE NA ([facility] [place]) sodium level 136 mEq/L 136-145 Sodium Level [place] ([facility]) anion gap 6 mEq/L 8-16 Below low normal Anion Gap [place] ( [facility] [place]) chloride level 106 mEq/L 98-107 Chloride Level [place] ([facility] [place]) calcium level 9.4 mg/dL 8.5-10.1 Calcium Level [place] ( [facility] [place]) carbon dioxide level 24 mEq/L 21-32 Carbon Dioxide Level [place] ([facility] [place]) AST/SGOT 11 U/L 7-37 AST/SGOT [place] ([facility]) ALT/SGPT 30 U/L 12-78 ALT/SGPT [place] ([facility]) alkaline phosphatase 130 U/L 45-117 Above high normal Alkaline Phosphatase [place] ([facility] [place]) total protein 7.1 gm/dL 6.4-8.2 Total Protein [place] ( [facility] [place]) bilirubin,total 0.4 mg/dL 0.2-1.0 Bilirubin,total ATHE ([facility] [place]) albumin 3.7 gm/dL 3.2-5.2 Albumin [place] ([facility]) albumin/globulin ratio 1.2-2.2 Below low normal Albumin /globulin Ratio [place] ([facility] [place]) ID Date Data Source [id number] 06/23/2020 12:00:00 PM EST [place] ([facility] [place]) Name Value Range Interpretation Code Description Data Munira rce(s) Supporting Document(s) white blood count 8.1 10 4.0-10.0 White Blood Count [place] ([facility] [place]) red blood count 5.35 10 4.00-5.40 Red Blood Count ATHE ([facility] [place]) hemoglobin 14.6 g/dL 12.0-15.5 Hemoglobin [place] ([facility] [place]) hematocrit 46.3 % 36.0-47.0 Hematocrit [place] ([facility] [place]) mean corpuscular hemoglobin 27.3 pg 27.0-33.0 Mean Cor puscular Hemoglobin [place] ([facility] [place]) mean corpuscular volume 86.5 fL 80.0-96.0 Mean Corpusc ular Volume [place] ([facility] [place]) mean corpuscular HGB conc 31.5 g/dL 32.0-36.5 Below low sidney l Mean Corpuscular HGB Conc [place] ([facility] [place]) red cell distribution width 13.6 % 11.5-14.5 Red Cell Distribution Width [place] ([facility] [place]) platelet count, automated 275 10 150-450 Platelet C ount, Automated [place] ([facility] [place]) neutrophils % 59.5 % 36.0-66.0 Neutrophils % [place] ( [facility] [place]) lymph % 26.9 % 24.0-44.0 Lymph % [place] ([facility]) mono % 7.5 % 2.0-8.0 [place] % [place] ([facility]) eos % 4.6 % 0.0-3.0 Above high normal Eos % [place] ([facility] [place]) immature granulocyte % 0.5 % 0-3.0 Immature Gran ulocyte % [place] ([facility] [place]) baso % 1.0 % 0.0-1.0 Baso % [place] ([facility]) neutrophils # 4.8 10 1.5-8.5 Neutrophils # [place] ( [facility] [place]) lymph # 2.2 10 1.5-5.0 Lymph # [place] ([facility]) nucleated red blood cell % 0.0 % 0-0 Nucleated Red Blood Cell % [place] ([facility] [place]) mono # 0.6 10 0.0-0.8 [place] # [place] ([facility]) eos # 0.4 10 0.0-0.5 Eos # [place] ([facility]) baso # 0.1 10 0.0-0.2 Baso # [place] ([facility]) ID Date Data Source [id number] 06/23/2020 12:00:00 PM EST [place] ([facility] [place]) Name Value Range Interpretation Code Description Data Munira rce(s) Supporting Document(s) ID Date Data Source [id number] 06/23/2020 12:00:00 PM EST [place] ([facility] [place]) Name Value Range Interpretation Code Description Data Munira rce(s) Supporting Document(s) ID Date Data Source [id number] 06/23/2020 12:00:00 PM EST [place] ([facility] [place]) Name Value Range Interpretation Code Description Data Munira rce(s) Supporting Document(s) Hemoglobin A1c/Hemoglobin.total in Blood 6.9 % Hemoglobin a1C [place] ([facility] [place]) estimated average glucose 151 mg/dL 60-110 Above high norm al Estimated Average Glucose [place] ([facility] [place]) ID Date Data Source [id number] 06/23/2020 12:00:00 PM EST [place] ([facility] [place]) Name Value Range Interpretation Code Description Data Munira rce(s) Supporting Document(s) ferritin 45 NG/mL 8-252 Ferritin [place] ([facility]) ID Date Data Source [id number] 06/23/2020 12:00:00 PM EST [place] ([facility] [place]) Name Value Range Interpretation Code Description Data Munira rce(s) Supporting Document(s) total 25(oh) vitamin D 10.9 NG/mL 30.0-100.0 Below low normal T otal 25(Oh) Vitamin D [place] ([facility] [place]) ID Date Data Source [id number] 06/23/2020 12:00:00 PM EST [place] ([facility] [place]) Name Value Range Interpretation Code Description Data Munira rce(s) Supporting Document(s) thyroid stimulating hormone 1.610 uIU/mL 0.358-3.740 Thyroid Stimulating Hormone [place] ([facility] [place]) ID Date Data Source [id number] 06/23/2020 12:00:00 PM EST [place] ([facility] [place]) Name Value Range Interpretation Code Description Data Munira rce(s) Supporting Document(s) percent saturation 36.5 % 13.2-45.0 Percent Saturatio n [place] ([facility] [place]) total iron binding capacity 282 ug/dL 250-450 Total Ir on Binding Capacity [place] ([facility] [place]) iron (fe) 103 ug/dL 50-170 Iron (Fe) [place] ([facility] [place]) ID Date Data Source [id number] 06/23/2020 12:00:00 PM EST [place] ([facility] [place]) Name Value Range Interpretation Code Description Data Munira rce(s) Supporting Document(s) triglycerides level 516 mg/dL <150 Above high normal Triglycer ides Level [place] ([facility] [place]) cholesterol level 201 mg/dL <200 Above high normal Cholesterol Level [place] ([facility] [place]) non-HDL-C 166 mg/dL Non-hdl-c [place] ([facility]) HDL cholesterol 35 mg/dL >40 Below low normal HDL Cholestero l [place] ([facility] [place]) cholesterol risk ratio <5 Above high normal Choles terol Risk Ratio [place] ([facility] [place]) ID Date Data Source [id number] 06/23/2020 12:00:00 PM EST [place] ([facility] [place]) Name Value Range Interpretation Code Description Data Munira rce(s) Supporting Document(s) glucose, fasting 155 mg/dL 70-100 Above high normal Glucose, Fas ting [place] ([facility] [place]) blood urea nitrogen 17 mg/dL 7-18 Blood Urea Nitro gen [place] ([facility] [place]) sodium level 136 mEq/L 136-145 Sodium Level [place] ([facility]) glomerular filtration rate >60 Below low normal Lesly merular Filtration Rate [place] ([facility] [place]) creatinine for GFR 1.22 mg/dL 0.55-1.30 Creatinine for GF R [place] ([facility] [place]) potassium serum 4.4 mEq/L 3.5-5.1 Potassium Serum ATHE ([facility] [place]) carbon dioxide level 24 mEq/L 21-32 Carbon Dioxide Level [place] ([facility] [place]) chloride level 106 mEq/L 98-107 Chloride Level [place] ([facility] [place]) AST/SGOT 11 U/L 7-37 AST/SGOT [place] ([facility]) anion gap 6 mEq/L 8-16 Below low normal Anion Gap [place] ( [facility] [place]) calcium level 9.4 mg/dL 8.5-10.1 Calcium Level [place] ( [facility] [place]) ALT/SGPT 30 U/L 12-78 ALT/SGPT [place] ([facility]) alkaline phosphatase 130 U/L 45-117 Above high normal Alkaline Phosphatase [place] ([facility] [place]) bilirubin,total 0.4 mg/dL 0.2-1.0 Bilirubin,total ATHE ([facility] [place]) albumin 3.7 gm/dL 3.2-5.2 Albumin [place] ([facility]) total protein 7.1 gm/dL 6.4-8.2 Total Protein [place] ( [facility] [place]) albumin/globulin ratio 1.2-2.2 Below low normal Albumin /globulin Ratio [place] ([facility] [place]) ID Date Data Source [id number] 06/23/2020 12:00:00 PM EST [place] ([facility] [place]) Name Value Range Interpretation Code Description Data Munira rce(s) Supporting Document(s) white blood count 8.1 10 4.0-10.0 White Blood Count [place] ([facility] [place]) hemoglobin 14.6 g/dL 12.0-15.5 Hemoglobin [place] ([facility] [place]) red blood count 5.35 10 4.00-5.40 Red Blood Count ATHE ([facility] [place]) hematocrit 46.3 % 36.0-47.0 Hematocrit [place] ([facility] [place]) mean corpuscular volume 86.5 fL 80.0-96.0 Mean Corpusc ular Volume [place] ([facility] [place]) mean corpuscular hemoglobin 27.3 pg 27.0-33.0 Mean Cor puscular Hemoglobin [place] ([facility] [place]) mean corpuscular HGB conc 31.5 g/dL 32.0-36.5 Below low [place] l Mean Corpuscular HGB Conc [place] ([facility] [place]) red cell distribution width 13.6 % 11.5-14.5 Red Cell Distribution Width [place] ([facility] [place]) platelet count, automated 275 10 150-450 Platelet C ount, Automated [place] ([facility] [place]) neutrophils % 59.5 % 36.0-66.0 Neutrophils % [place] ( [facility] [place]) lymph % 26.9 % 24.0-44.0 Lymph % [place] ([facility]) mono % 7.5 % 2.0-8.0 [place] % [place] ([facility]) baso % 1.0 % 0.0-1.0 Baso % [place] ([facility]) eos % 4.6 % 0.0-3.0 Above high normal Eos % [place] ([facility] [place]) immature granulocyte % 0.5 % 0-3.0 Immature Gran ulocyte % [place] ([facility] [place]) nucleated red blood cell % 0.0 % 0-0 Nucleated Red Blood Cell % [place] ([facility] [place]) lymph # 2.2 10 1.5-5.0 Lymph # [place] ([facility]) neutrophils # 4.8 10 1.5-8.5 Neutrophils # [place] ( [facility] [place]) mono # 0.6 10 0.0-0.8 [place] # [place] ([facility]) eos # 0.4 10 0.0-0.5 Eos # [place] ([facility]) baso # 0.1 10 0.0-0.2 Baso # [place] ([facility]) ID Date Data Source [id number] 06/23/2020 12:00:00 PM EST [place] ([facility] [place]) Name Value Range Interpretation Code Description Data Munira rce(s) Supporting Document(s) ID Date Data Source [id number] 06/23/2020 12:00:00 PM EST [place] ([facility] [place]) Name Value Range Interpretation Code Description Data Munira rce(s) Supporting Document(s) ID Date Data Source [id number] 06/23/2020 12:00:00 PM EST [place] ([facility] [place]) Name Value Range Interpretation Code Description Data Munira rce(s) Supporting Document(s) Hemoglobin A1c/Hemoglobin.total in Blood 6.9 % Hemoglobin a1C [place] ([facility] [place]) estimated average glucose 151 mg/dL 60-110 Above high norm al Estimated Average Glucose [place] ([facility] [place]) ID Date Data Source [id number] 06/23/2020 12:00:00 PM EST [place] ([facility] [place]) Name Value Range Interpretation Code Description Data Munira rce(s) Supporting Document(s) ferritin 45 NG/mL 8-252 Ferritin [place] ([facility]) ID Date Data Source [id number] 06/23/2020 12:00:00 PM EST [place] ([facility] [place]) Name Value Range Interpretation Code Description Data Munira rce(s) Supporting Document(s) total 25(oh) vitamin D 10.9 NG/mL 30.0-100.0 Below low normal T otal 25(Oh) Vitamin D [place] ([facility] [place]) ID Date Data Source [id number] 06/23/2020 12:00:00 PM EST [place] ([facility] [place]) Name Value Range Interpretation Code Description Data Munira rce(s) Supporting Document(s) thyroid stimulating hormone 1.610 uIU/mL 0.358-3.740 Thyroid Stimulating Hormone [place] ([facility] [place]) ID Date Data Source [id number] 06/23/2020 12:00:00 PM EST [place] ([facility] [place]) Name Value Range Interpretation Code Description Data Munira rce(s) Supporting Document(s) total iron binding capacity 282 ug/dL 250-450 Total Ir on Binding Capacity [place] ([facility] [place]) iron (fe) 103 ug/dL 50-170 Iron (Fe) [place] ([facility] [place]) percent saturation 36.5 % 13.2-45.0 Percent Saturatio n [place] ([facility] [place]) ID Date Data Source [id number] 06/23/2020 12:00:00 PM EST [place] ([facility] [place]) Name Value Range Interpretation Code Description Data Munira rce(s) Supporting Document(s) cholesterol level 201 mg/dL <200 Above high normal Cholesterol Level [place] ([facility] [place]) triglycerides level 516 mg/dL <150 Above high normal Triglycer ides Level [place] ([facility] [place]) HDL cholesterol 35 mg/dL >40 Below low normal HDL Cholestero l [place] ([facility] [place]) non-HDL-C 166 mg/dL Non-hdl-c [place] ([facility]) cholesterol risk ratio <5 Above high normal Choles terol Risk Ratio [place] ([facility] [place]) ID Date Data Source [id number] 06/23/2020 12:00:00 PM EST [place] ([facility] [place]) Name Value Range Interpretation Code Description Data Munira rce(s) Supporting Document(s) glucose, fasting 155 mg/dL 70-100 Above high normal Glucose, Fas ting [place] ([facility] [place]) blood urea nitrogen 17 mg/dL 7-18 Blood Urea Nitro gen [place] ([facility] [place]) creatinine for GFR 1.22 mg/dL 0.55-1.30 Creatinine for GF R [place] ([facility] [place]) sodium level 136 mEq/L 136-145 Sodium Level [place] ([facility]) potassium serum 4.4 mEq/L 3.5-5.1 Potassium Serum ATHE NA ([facility] [place]) glomerular filtration rate >60 Below low normal [place]ly merular Filtration Rate [place] ([facility] [place]) carbon dioxide level 24 mEq/L 21-32 Carbon Dioxide Level [place] ([facility] [place]) chloride level 106 mEq/L 98-107 Chloride Level [place] ([facility] [place]) anion gap 6 mEq/L 8-16 Below low normal Anion Gap [place] ( [facility] [place]) calcium level 9.4 mg/dL 8.5-10.1 Calcium Level [place] ( [facility] [place]) ALT/SGPT 30 U/L 12-78 ALT/SGPT [place] ([facility]) AST/SGOT 11 U/L 7-37 AST/SGOT [place] ([facility]) bilirubin,total 0.4 mg/dL 0.2-1.0 Bilirubin,total [place] ([facility] [place]) alkaline phosphatase 130 U/L 45-117 Above high normal Alkaline Phosphatase [place] ([facility] [place]) albumin 3.7 gm/dL 3.2-5.2 Albumin [place] ([facility]) albumin/globulin ratio 1.2-2.2 Below low normal Albumin /globulin Ratio [place] ([facility] [place]) total protein 7.1 gm/dL 6.4-8.2 Total Protein [place] ( [facility] [place]) ID Date Data Source [id number] 06/23/2020 12:00:00 PM EST [place] ([facility] [place]) Name Value Range Interpretation Code Description Data Munira rce(s) Supporting Document(s) red blood count 5.35 10 4.00-5.40 Red Blood Count [place] ([facility] [place]) white blood count 8.1 10 4.0-10.0 White Blood Count [place] ([facility] [place]) hemoglobin 14.6 g/dL 12.0-15.5 Hemoglobin [place] ([facility] [place]) hematocrit 46.3 % 36.0-47.0 Hematocrit [place] ([facility] [place]) mean corpuscular HGB conc 31.5 g/dL 32.0-36.5 Below low [place] Mean Corpuscular HGB Conc [place] ([facility] [place]) mean corpuscular volume 86.5 fL 80.0-96.0 Mean Corpusc ular Volume [place] ([facility] [place]) mean corpuscular hemoglobin 27.3 pg 27.0-33.0 Mean Cor puscular Hemoglobin [place] ([facility] [place]) neutrophils % 59.5 % 36.0-66.0 Neutrophils % [place] ( [facility] [place]) platelet count, automated 275 10 150-450 Platelet C ount, Automated [place] ([facility] [place]) red cell distribution width 13.6 % 11.5-14.5 Red Cell Distribution Width [place] ([facility] [place]) mono % 7.5 % 2.0-8.0 [place] % [place] ([facility]) eos % 4.6 % 0.0-3.0 Above high normal Eos % [place] ([facility] [place]) lymph % 26.9 % 24.0-44.0 Lymph % [place] ([facility]) baso % 1.0 % 0.0-1.0 Baso % [place] ([facility]) nucleated red blood cell % 0.0 % 0-0 Nucleated Red Blood Cell % [place] ([facility] [place]) immature granulocyte % 0.5 % 0-3.0 Immature Gran ulocyte % [place] ([facility] [place]) lymph # 2.2 10 1.5-5.0 Lymph # [place] ([facility]) mono # 0.6 10 0.0-0.8 [place] # [place] ([facility]) neutrophils # 4.8 10 1.5-8.5 Neutrophils # [place] ( [facility] [place]) eos # 0.4 10 0.0-0.5 Eos # [place] ([facility]) baso # 0.1 10 0.0-0.2 Baso # [place] ([facility]) ID Date Data Source [id number] 06/23/2020 12:00:00 PM EST [place] ([facility] [place]) Name Value Range Interpretation Code Description Data Munira rce(s) Supporting Document(s) ID Date Data Source [id number] 06/23/2020 12:00:00 PM EST [place] ([facility] [place]) Name Value Range Interpretation Code Description Data Munira rce(s) Supporting Document(s) ID Date Data Source [id number] 06/23/2020 12:00:00 PM EST [place] ([facility] [place]) Name Value Range Interpretation Code Description Data Munira rce(s) Supporting Document(s) Hemoglobin A1c/Hemoglobin.total in Blood 6.9 % Hemoglobin a1C [place] ([facility] [place]) estimated average glucose 151 mg/dL 60-110 Above high norm al Estimated Average Glucose [place] ([facility] [place]) ID Date Data Source [id number] 06/23/2020 12:00:00 PM EST [place] ([facility] [place]) Name Value Range Interpretation Code Description Data Munira rce(s) Supporting Document(s) ferritin 45 NG/mL 8-252 Ferritin [place] ([facility]) ID Date Data Source [id number] 06/23/2020 12:00:00 PM EST [place] ([facility] [place]) Name Value Range Interpretation Code Description Data Munira rce(s) Supporting Document(s) total 25(oh) vitamin D 10.9 NG/mL 30.0-100.0 Below low normal T otal 25(Oh) Vitamin D [facility]) ID Date Data Source [id number] 06/23/2020 12:00:00 PM EST [place] ([facility] [place]) Name Value Range Interpretation Code Description Data Munira rce(s) Supporting Document(s) thyroid stimulating hormone 1.610 uIU/mL 0.358-3.740 Thyroid Stimulating Hormone [place] ([facility] [place]) ID Date Data Source [id number] 06/23/2020 12:00:00 PM EST [place] ([facility] [place]) Name Value Range Interpretation Code Description Data Munira rce(s) Supporting Document(s) iron (fe) 103 ug/dL 50-170 Iron (Fe) [place] ([facility] [place]) total iron binding capacity 282 ug/dL 250-450 Total Ir on Binding Capacity [place] ([facility] [place]) percent saturation 36.5 % 13.2-45.0 Percent Saturatio n [place] ([facility] [place]) ID Date Data Source [id number] 06/23/2020 12:00:00 PM EST [place] ([facility] [place]) Name Value Range Interpretation Code Description Data Munira rce(s) Supporting Document(s) triglycerides level 516 mg/dL <150 Above high normal Triglycer ides Level [place] ([facility] [place]) cholesterol level 201 mg/dL <200 Above high normal Cholesterol Level [place] ([facility] [place]) HDL cholesterol 35 mg/dL >40 Below low normal HDL Cholestero l [place] ([facility] [place]) non-HDL-C 166 mg/dL Non-hdl-c [place] ([facility]) cholesterol risk ratio <5 Above high normal Choles terol Risk Ratio [place] ([facility] [place]) ID Date Data Source [id number] 06/23/2020 12:00:00 PM EST [place] ([facility] [place]) Name Value Range Interpretation Code Description Data Munira rce(s) Supporting Document(s) creatinine for GFR 1.22 mg/dL 0.55-1.30 Creatinine for GF R [place] ([facility] [place]) blood urea nitrogen 17 mg/dL 7-18 Blood Urea Nitro gen [place] ([facility] [place]) glucose, fasting 155 mg/dL 70-100 Above high normal Glucose, Fas ting [place] ([facility] [place]) potassium serum 4.4 mEq/L 3.5-5.1 Potassium Serum [place] NA ([facility] [place]) glomerular filtration rate >60 Below low normal Lesly merular Filtration Rate [place] ([facility] [place]) sodium level 136 mEq/L 136-145 Sodium Level [place] ([facility]) anion gap 6 mEq/L 8-16 Below low normal Anion Gap [place] ( [facility] [place]) carbon dioxide level 24 mEq/L 21-32 Carbon Dioxide Level [place] ([facility] [place]) chloride level 106 mEq/L 98-107 Chloride Level [place] ([facility] [place]) AST/SGOT 11 U/L 7-37 AST/SGOT [place] ([facility]) calcium level 9.4 mg/dL 8.5-10.1 Calcium Level [place] ( [facility] [place]) alkaline phosphatase 130 U/L 45-117 Above high normal Alkaline Phosphatase [place] ([facility] [place]) ALT/SGPT 30 U/L 12-78 ALT/SGPT [place] ([facility]) albumin/globulin ratio 1.2-2.2 Below low normal Albumin /globulin Ratio [place] ([facility] [place]) total protein 7.1 gm/dL 6.4-8.2 Total Protein [place] ( [facility]) bilirubin,total 0.4 mg/dL 0.2-1.0 Bilirubin,total ATHE NA ([facility] [place]) albumin 3.7 gm/dL 3.2-5.2 Albumin [place] ([facility]) ID Date Data Source [id number] 06/23/2020 12:00:00 PM EST [place] ([facility] [place]) Name Value Range Interpretation Code Description Data Munira rce(s) Supporting Document(s) white blood count 8.1 10 4.0-10.0 White Blood Count [place] ([facility]) red blood count 5.35 10 4.00-5.40 Red Blood Count AT[place] NA ([facility] [place]) hemoglobin 14.6 g/dL 12.0-15.5 Hemoglobin [place] ([facility] [place]) hematocrit 46.3 % 36.0-47.0 Hematocrit [place] ([facility]) mean corpuscular hemoglobin 27.3 pg 27.0-33.0 Mean Cor puscular Hemoglobin [place] ([facility]) mean corpuscular volume 86.5 fL 80.0-96.0 Mean Corpusc ular Volume [place] ([facility]) platelet count, automated 275 10 150-450 Platelet C ount, Automated [place] ([facility] [place]) mean corpuscular HGB conc 31.5 g/dL 32.0-36.5 Below low sidney l Mean Corpuscular HGB Conc [place] ([facility]) red cell distribution width 13.6 % 11.5-14.5 Red Cell Distribution Width [place] ([facility]) mono % 7.5 % 2.0-8.0 [place] % [place] ([facility]) neutrophils % 59.5 % 36.0-66.0 Neutrophils % [place] ( [facility]) lymph % 26.9 % 24.0-44.0 Lymph % [place] ([facility]) baso % 1.0 % 0.0-1.0 Baso % [place] ([facility]) immature granulocyte % 0.5 % 0-3.0 Immature Gran ulocyte % [place] ([facility]) eos % 4.6 % 0.0-3.0 Above high normal Eos % [place] ([facility]) nucleated red blood cell % 0.0 % 0-0 Nucleated Red Blood Cell % [place] ([facility]) neutrophils # 4.8 10 1.5-8.5 Neutrophils # [place] ( [facility]) lymph # 2.2 10 1.5-5.0 Lymph # [place] ([facility]) mono # 0.6 10 0.0-0.8 [place] # [place] ([facility]) baso # 0.1 10 0.0-0.2 Baso # [place] ([facility]) eos # 0.4 10 0.0-0.5 Eos # [place] ([facility]) ID Date Data Source [id number] 06/23/2020 12:00:00 PM EST [place] ([facility]) Name Value Range Interpretation Code Description Data Munira rce(s) Supporting Document(s) ID Date Data Source [id number] 06/23/2020 12:00:00 PM EST [place] ([facility]) Name Value Range Interpretation Code Description Data Munira rce(s) Supporting Document(s) ID Date Data Source [id number] 06/23/2020 12:00:00 PM EST [place] ([facility]) Name Value Range Interpretation Code Description Data Munira rce(s) Supporting Document(s) estimated average glucose 151 mg/dL 60-110 Above high norm al Estimated Average Glucose [place] ([facility]) Hemoglobin A1c/Hemoglobin.total in Blood 6.9 % Hemoglobin a1C [place] ([facility]) ID Date Data Source [id number] 06/23/2020 12:00:00 PM EST [place] ([facility]) Name Value Range Interpretation Code Description Data Munira rce(s) Supporting Document(s) ferritin 45 NG/mL 8-252 Ferritin [place] ([facility]) ID Date Data Source [id number] 06/23/2020 12:00:00 PM EST [place] ([facility]) Name Value Range Interpretation Code Description Data Munira rce(s) Supporting Document(s) total 25(oh) vitamin D 10.9 NG/mL 30.0-100.0 Below low normal T otal 25(Oh) Vitamin D [place] ([facility]) ID Date Data Source [id number] 06/23/2020 12:00:00 PM EST [place] ([facility]) Name Value Range Interpretation Code Description Data Munira rce(s) Supporting Document(s) thyroid stimulating hormone 1.610 uIU/mL 0.358-3.740 Thyroid Stimulating Hormone [place] ([facility]) ID Date Data Source [id number] 06/23/2020 12:00:00 PM EST [place] ([facility]) Name Value Range Interpretation Code Description Data Munira rce(s) Supporting Document(s) total iron binding capacity 282 ug/dL 250-450 Total Ir on Binding Capacity [place] ([facility]) iron (fe) 103 ug/dL 50-170 Iron (Fe) [place] ([facility]) percent saturation 36.5 % 13.2-45.0 Percent Saturatio n [place] ([facility]) ID Date Data Source [id number] 06/23/2020 12:00:00 PM EST [place] ([facility]) Name Value Range Interpretation Code Description Data Munira rce(s) Supporting Document(s) HDL cholesterol 35 mg/dL >40 Below low normal HDL Cholestero l [place] ([facility]) triglycerides level 516 mg/dL <150 Above high normal Triglycer ides Level [place] ([facility]) cholesterol level 201 mg/dL <200 Above high normal Cholesterol Level [place] ([facility]) non-HDL-C 166 mg/dL Non-hdl-c [place] ([facility]) cholesterol risk ratio <5 Above high normal Choles terol Risk Ratio [place] ([facility]) ID Date Data Source [id number] 06/23/2020 12:00:00 PM EST [place] ([facility]) Name Value Range Interpretation Code Description Data Munira rce(s) Supporting Document(s) glucose, fasting 155 mg/dL 70-100 Above high normal Glucose, Fas ting [place] ([facility]) blood urea nitrogen 17 mg/dL 7-18 Blood Urea Nitro gen [place] ([facility]) glomerular filtration rate >60 Below low normal [place]ly merular Filtration Rate [place] ([facility]) creatinine for GFR 1.22 mg/dL 0.55-1.30 Creatinine for GF R [place] ([facility]) sodium level 136 mEq/L 136-145 Sodium Level [place] ([facility]) potassium serum 4.4 mEq/L 3.5-5.1 Potassium Serum [place] ([facility]) anion gap 6 mEq/L 8-16 Below low normal Anion Gap [place] ( [facility]) carbon dioxide level 24 mEq/L 21-32 Carbon Dioxide Level [place] ([facility]) chloride level 106 mEq/L 98-107 Chloride Level [place] ([facility]) ALT/SGPT 30 U/L 12-78 ALT/SGPT [place] ([facility]) AST/SGOT 11 U/L 7-37 AST/SGOT [place] ([facility]) calcium level 9.4 mg/dL 8.5-10.1 Calcium Level [place] ( [facility]) total protein 7.1 gm/dL 6.4-8.2 Total Protein [place] ( [facility]) bilirubin,total 0.4 mg/dL 0.2-1.0 Bilirubin,total [place] ([facility]) alkaline phosphatase 130 U/L 45-117 Above high normal Alkaline Phosphatase [place] ([facility]) albumin 3.7 gm/dL 3.2-5.2 Albumin [place] ([facility]) albumin/globulin ratio 1.2-2.2 Below low normal Albumin /globulin Ratio [place] ([facility]) ID Date Data Source [id number] 06/23/2020 12:00:00 PM EST [place] ([facility]) Name Value Range Interpretation Code Description Data Munira rce(s) Supporting Document(s) white blood count 8.1 10 4.0-10.0 White Blood Count [place] ([facility]) hematocrit 46.3 % 36.0-47.0 Hematocrit [place] ([facility]) red blood count 5.35 10 4.00-5.40 Red Blood Count [place] NA ([facility]) hemoglobin 14.6 g/dL 12.0-15.5 Hemoglobin [place] ([facility]) mean corpuscular HGB conc 31.5 g/dL 32.0-36.5 Below low sidney l Mean Corpuscular HGB Conc [place] ([facility]) red cell distribution width 13.6 % 11.5-14.5 Red Cell Distribution Width [place] ([facility]) mean corpuscular hemoglobin 27.3 pg 27.0-33.0 Mean Cor puscular Hemoglobin [place] ([facility]) mean corpuscular volume 86.5 fL 80.0-96.0 Mean Corpusc ular Volume [place] ([facility]) platelet count, automated 275 10 150-450 Platelet C ount, Automated [place] ([facility]) lymph % 26.9 % 24.0-44.0 Lymph % [place] ([facility]) neutrophils % 59.5 % 36.0-66.0 Neutrophils % [place] ( [facility]) eos % 4.6 % 0.0-3.0 Above high normal Eos % [place] ([facility]) mono % 7.5 % 2.0-8.0 [place] % [place] ([facility]) baso % 1.0 % 0.0-1.0 Baso % [place] ([facility]) nucleated red blood cell % 0.0 % 0-0 Nucleated Red Blood Cell % [place] ([facility]) immature granulocyte % 0.5 % 0-3.0 Immature Gran ulocyte % [place] ([facility]) neutrophils # 4.8 10 1.5-8.5 Neutrophils # [place] ( [facility]) eos # 0.4 10 0.0-0.5 Eos # [place] ([facility]) lymph # 2.2 10 1.5-5.0 Lymph # [place] ([facility]) mono # 0.6 10 0.0-0.8 [place] # [place] ([facility]) baso # 0.1 10 0.0-0.2 Baso # [place] ([facility]) ID Date Data Source [id number] 06/23/2020 12:00:00 PM EST [place] ([facility]) Name Value Range Interpretation Code Description Data Munira rce(s) Supporting Document(s) ID Date Data Source [id number] 06/23/2020 12:00:00 PM EST [place] ([facility]) Name Value Range Interpretation Code Description Data Munira rce(s) Supporting Document(s) ID Date Data Source [id number] 06/23/2020 12:00:00 PM EST [place] ([facility]) Name Value Range Interpretation Code Description Data Munira rce(s) Supporting Document(s) Hemoglobin A1c/Hemoglobin.total in Blood 6.9 % Hemoglobin a1C [place] ([facility]) estimated average glucose 151 mg/dL 60-110 Above high norm al Estimated Average Glucose [place] ([facility]) ID Date Data Source [id number] 06/23/2020 12:00:00 PM EST [place] ([facility]) Name Value Range Interpretation Code Description Data Munira rce(s) Supporting Document(s) ferritin 45 NG/mL 8-252 Ferritin [place] ([facility]) ID Date Data Source [id number] 06/23/2020 12:00:00 PM EST [place] ([facility]) Name Value Range Interpretation Code Description Data Munira rce(s) Supporting Document(s) total 25(oh) vitamin D 10.9 NG/mL 30.0-100.0 Below low normal T otal 25(Oh) Vitamin D [place] ([facility]) ID Date Data Source [id number] 06/23/2020 12:00:00 PM EST [place] ([facility]) Name Value Range Interpretation Code Description Data Munira rce(s) Supporting Document(s) thyroid stimulating hormone 1.610 uIU/mL 0.358-3.740 Thyroid Stimulating Hormone [place] ([facility]) ID Date Data Source [id number] 06/23/2020 12:00:00 PM EST [place] ([facility]) Name Value Range Interpretation Code Description Data Munira rce(s) Supporting Document(s) percent saturation 36.5 % 13.2-45.0 Percent Saturatio n [place] ([facility]) total iron binding capacity 282 ug/dL 250-450 Total Ir on Binding Capacity [place] ([facility]) iron (fe) 103 ug/dL 50-170 Iron (Fe) [place] ([facility]) ID Date Data Source [id number] 06/23/2020 12:00:00 PM EST [place] ([facility]) Name Value Range Interpretation Code Description Data Munira rce(s) Supporting Document(s) triglycerides level 516 mg/dL <150 Above high normal Triglycer ides Level [place] ([facility]) non-HDL-C 166 mg/dL Non-hdl-c [place] ([facility]) cholesterol level 201 mg/dL <200 Above high normal Cholesterol Level [place] ([facility]) cholesterol risk ratio <5 Above high normal Choles terol Risk Ratio [place] ([facility]) HDL cholesterol 35 mg/dL >40 Below low normal HDL Cholestero l [place] ([facility]) ID Date Data Source [id number] 06/23/2020 12:00:00 PM EST [place] ([facility]) Name Value Range Interpretation Code Description Data Munira rce(s) Supporting Document(s) glucose, fasting 155 mg/dL 70-100 Above high normal Glucose, Fas ting [place] ([facility]) creatinine for GFR 1.22 mg/dL 0.55-1.30 Creatinine for GF R [place] ([facility]) blood urea nitrogen 17 mg/dL 7-18 Blood Urea Nitro gen [place] ([facility]) glomerular filtration rate >60 Below low normal [place] merular Filtration Rate [place] ([facility]) chloride level 106 mEq/L 98-107 Chloride Level [place] ([facility]) sodium level 136 mEq/L 136-145 Sodium Level [place] ([facility]) carbon dioxide level 24 mEq/L 21-32 Carbon Dioxide Level [place] ([facility]) potassium serum 4.4 mEq/L 3.5-5.1 Potassium Serum [place] ([facility]) calcium level 9.4 mg/dL 8.5-10.1 Calcium Level [place] ( [facility]) anion gap 6 mEq/L 8-16 Below low normal Anion Gap [place] ( [facility]) AST/SGOT 11 U/L 7-37 AST/SGOT [place] ([facility]) ALT/SGPT 30 U/L 12-78 ALT/SGPT [place] ([facility]) alkaline phosphatase 130 U/L 45-117 Above high normal Alkaline Phosphatase [place] ([facility]) total protein 7.1 gm/dL 6.4-8.2 Total Protein [place] ( [facility]) bilirubin,total 0.4 mg/dL 0.2-1.0 Bilirubin,total [place] ([facility]) albumin 3.7 gm/dL 3.2-5.2 Albumin [place] ([facility]) albumin/globulin ratio 1.2-2.2 Below low normal Albumin /globulin Ratio [place] ([facility]) ID Date Data Source [id number] 06/23/2020 12:00:00 PM EST [place] ([facility]) Name Value Range Interpretation Code Description Data Munira rce(s) Supporting Document(s) red blood count 5.35 10 4.00-5.40 Red Blood Count [place] ([facility]) hemoglobin 14.6 g/dL 12.0-15.5 Hemoglobin [place] ([facility]) white blood count 8.1 10 4.0-10.0 White Blood Count [place] ([facility]) mean corpuscular hemoglobin 27.3 pg 27.0-33.0 Mean Cor puscular Hemoglobin [place] ([facility]) hematocrit 46.3 % 36.0-47.0 Hematocrit [place] ([facility]) mean corpuscular volume 86.5 fL 80.0-96.0 Mean Corpusc ular Volume [place] ([facility]) mean corpuscular HGB conc 31.5 g/dL 32.0-36.5 Below low [place] l Mean Corpuscular HGB Conc [place] ([facility]) platelet count, automated 275 10 150-450 Platelet C ount, Automated [place] ([facility]) red cell distribution width 13.6 % 11.5-14.5 Red Cell Distribution Width [place] ([facility]) mono % 7.5 % 2.0-8.0 [place] % [place] ([facility]) lymph % 26.9 % 24.0-44.0 Lymph % [place] ([facility]) neutrophils % 59.5 % 36.0-66.0 Neutrophils % [place] ( [facility]) baso % 1.0 % 0.0-1.0 Baso % [place] ([facility]) eos % 4.6 % 0.0-3.0 Above high normal Eos % [place] ([facility]) immature granulocyte % 0.5 % 0-3.0 Immature Gran ulocyte % [place] ([facility]) nucleated red blood cell % 0.0 % 0-0 Nucleated Red Blood Cell % [place] ([facility]) neutrophils # 4.8 10 1.5-8.5 Neutrophils # [place] ( [facility]) mono # 0.6 10 0.0-0.8 [place] # [place] ([facility]) lymph # 2.2 10 1.5-5.0 Lymph # [place] ([facility]) baso # 0.1 10 0.0-0.2 Baso # [place] ([facility]) eos # 0.4 10 0.0-0.5 Eos # [place] ([facility]) ID Date Data Source [id number] 06/23/2020 12:00:00 PM EST [place] ([facility]) Name Value Range Interpretation Code Description Data Munira rce(s) Supporting Document(s) ID Date Data Source [id number] 06/23/2020 12:00:00 PM EST [place] ([facility]) Name Value Range Interpretation Code Description Data Munira rce(s) Supporting Document(s) ID Date Data Source [id number] 06/23/2020 12:00:00 PM EST [place] ([facility]) Name Value Range Interpretation Code Description Data Munira rce(s) Supporting Document(s) Hemoglobin A1c/Hemoglobin.total in Blood 6.9 % Hemoglobin a1C [place] ([facility]) estimated average glucose 151 mg/dL 60-110 Above high norm al Estimated Average Glucose [place] ([facility]) ID Date Data Source [id number] 06/23/2020 12:00:00 PM EST [place] ([facility]) Name Value Range Interpretation Code Description Data Munira rce(s) Supporting Document(s) ferritin 45 NG/mL 8-252 Ferritin [place] ([facility]) ID Date Data Source [id number] 06/23/2020 12:00:00 PM EST [place] ([facility]) Name Value Range Interpretation Code Description Data Munira rce(s) Supporting Document(s) total 25(oh) vitamin D 10.9 NG/mL 30.0-100.0 Below low normal T otal 25(Oh) Vitamin D [place] ([facility]) ID Date Data Source [id number] 06/23/2020 12:00:00 PM EST [place] ([facility]) Name Value Range Interpretation Code Description Data Munira rce(s) Supporting Document(s) thyroid stimulating hormone 1.610 uIU/mL 0.358-3.740 Thyroid Stimulating Hormone [place] ([facility]) ID Date Data Source [id number] 06/23/2020 12:00:00 PM EST [place] ([facility]) Name Value Range Interpretation Code Description Data Munira rce(s) Supporting Document(s) total iron binding capacity 282 ug/dL 250-450 Total Ir on Binding Capacity [place] ([facility]) iron (fe) 103 ug/dL 50-170 Iron (Fe) [place] ([facility]) percent saturation 36.5 % 13.2-45.0 Percent Saturatio n [place] ([facility]) ID Date Data Source [id number] 06/23/2020 12:00:00 PM EST [place] ([facility]) Name Value Range Interpretation Code Description Data Munira rce(s) Supporting Document(s) cholesterol level 201 mg/dL <200 Above high normal Cholesterol Level [place] ([facility]) HDL cholesterol 35 mg/dL >40 Below low normal HDL Cholestero l [place] ([facility]) triglycerides level 516 mg/dL <150 Above high normal Triglycer ides Level [place] ([facility]) non-HDL-C 166 mg/dL Non-hdl-c [place] ([facility]) cholesterol risk ratio <5 Above high normal Choles terol Risk Ratio [place] ([facility]) ID Date Data Source [id number] 06/23/2020 12:00:00 PM EST [place] ([facility]) Name Value Range Interpretation Code Description Data Munira rce(s) Supporting Document(s) creatinine for GFR 1.22 mg/dL 0.55-1.30 Creatinine for GF R [place] ([facility]) blood urea nitrogen 17 mg/dL 7-18 Blood Urea Nitro gen [place] ([facility]) glucose, fasting 155 mg/dL 70-100 Above high normal Glucose, Fas ting [place] ([facility]) chloride level 106 mEq/L 98-107 Chloride Level [place] ([facility]) sodium level 136 mEq/L 136-145 Sodium Level [place] ([facility]) glomerular filtration rate >60 Below low normal Lesly merular Filtration Rate [place] ([facility]) potassium serum 4.4 mEq/L 3.5-5.1 Potassium Serum [place] NA ([facility]) calcium level 9.4 mg/dL 8.5-10.1 Calcium Level [place] ( [facility]) anion gap 6 mEq/L 8-16 Below low normal Anion Gap [place] ( [facility]) carbon dioxide level 24 mEq/L 21-32 Carbon Dioxide Level [place] ([facility]) alkaline phosphatase 130 U/L 45-117 Above high normal Alkaline Phosphatase [place] ([facility]) bilirubin,total 0.4 mg/dL 0.2-1.0 Bilirubin,total [place] NA ([facility]) AST/SGOT 11 U/L 7-37 AST/SGOT [place] ([facility]) ALT/SGPT 30 U/L 12-78 ALT/SGPT [place] ([facility]) total protein 7.1 gm/dL 6.4-8.2 Total Protein [place] ( [facility]) albumin 3.7 gm/dL 3.2-5.2 Albumin [place] ([facility]) albumin/globulin ratio 1.2-2.2 Below low normal Albumin /globulin Ratio [place] ([facility]) ID Date Data Source [id number] 06/23/2020 12:00:00 PM EST [place] ([facility]) Name Value Range Interpretation Code Description Data Munira rce(s) Supporting Document(s) red blood count 5.35 10 4.00-5.40 Red Blood Count [place] ([facility]) white blood count 8.1 10 4.0-10.0 White Blood Count [place] ([facility]) mean corpuscular volume 86.5 fL 80.0-96.0 Mean Corpusc ular Volume [place] ([facility]) hematocrit 46.3 % 36.0-47.0 Hematocrit [place] ([facility]) hemoglobin 14.6 g/dL 12.0-15.5 Hemoglobin [place] ([facility]) mean corpuscular HGB conc 31.5 g/dL 32.0-36.5 Below low sidney l Mean Corpuscular HGB Conc [place] ([facility]) red cell distribution width 13.6 % 11.5-14.5 Red Cell Distribution Width [place] ([facility]) mean corpuscular hemoglobin 27.3 pg 27.0-33.0 Mean Cor puscular Hemoglobin [place] ([facility]) lymph % 26.9 % 24.0-44.0 Lymph % [place] ([facility]) neutrophils % 59.5 % 36.0-66.0 Neutrophils % [place] ( [facility]) mono % 7.5 % 2.0-8.0 [place] % [place] ([facility]) platelet count, automated 275 10 150-450 Platelet C ount, Automated [place] ([facility]) baso % 1.0 % 0.0-1.0 Baso % [place] ([facility]) eos % 4.6 % 0.0-3.0 Above high normal Eos % [place] ([facility]) immature granulocyte % 0.5 % 0-3.0 Immature Gran ulocyte % [place] ([facility]) nucleated red blood cell % 0.0 % 0-0 Nucleated Red Blood Cell % [place] ([facility]) lymph # 2.2 10 1.5-5.0 Lymph # [place] ([facility]) neutrophils # 4.8 10 1.5-8.5 Neutrophils # [place] ( [facility]) mono # 0.6 10 0.0-0.8 [place] # [place] ([facility]) baso # 0.1 10 0.0-0.2 Baso # [place] ([facility]) eos # 0.4 10 0.0-0.5 Eos # [place] ([facility]) ID Date Data Source [id number] 06/23/2020 12:00:00 PM EST [place] ([facility]) Name Value Range Interpretation Code Description Data Munira rce(s) Supporting Document(s) ID Date Data Source [id number] 06/23/2020 12:00:00 PM EST [place] ([facility]) Name Value Range Interpretation Code Description Data Munira rce(s) Supporting Document(s) ID Date Data Source [id number] 06/23/2020 12:00:00 PM EST [place] ([facility]) Name Value Range Interpretation Code Description Data Munira rce(s) Supporting Document(s) Hemoglobin A1c/Hemoglobin.total in Blood 6.9 % Hemoglobin a1C [place] ([facility]) estimated average glucose 151 mg/dL 60-110 Above high norm al Estimated Average Glucose [place] ([facility]) ID Date Data Source [id number] 06/23/2020 12:00:00 PM EST [place] ([facility]) Name Value Range Interpretation Code Description Data Munira rce(s) Supporting Document(s) ferritin 45 NG/mL 8-252 Ferritin [place] ([facility]) ID Date Data Source [id number] 06/23/2020 12:00:00 PM EST [place] ([facility]) Name Value Range Interpretation Code Description Data Munira rce(s) Supporting Document(s) total 25(oh) vitamin D 10.9 NG/mL 30.0-100.0 Below low normal T otal 25(Oh) Vitamin D HAI[place] ([facility]) ID Date Data Source [id number] 06/23/2020 12:00:00 PM EST [place] ([facility]) Name Value Range Interpretation Code Description Data Munira rce(s) Supporting Document(s) thyroid stimulating hormone 1.610 uIU/mL 0.358-3.740 Thyroid Stimulating Hormone [place] ([facility]) ID Date Data Source [id number] 06/23/2020 12:00:00 PM EST HAI[place] ([facility]) Name Value Range Interpretation Code Description Data Munira rce(s) Supporting Document(s) iron (fe) 103 ug/dL 50-170 Iron (Fe) [place] ([facility]) total iron binding capacity 282 ug/dL 250-450 Total Ir on Binding Capacity HAILEY ([facility]) percent saturation 36.5 % 13.2-45.0 Percent Saturatio n [place]LEY ([facility]) ID Date Data Source [id number] 06/23/2020 12:00:00 PM EST HAILEY ([facility]) Name Value Range Interpretation Code Description Data Munira rce(s) Supporting Document(s) triglycerides level 516 mg/dL <150 Above high normal Triglycer ides Level [place] ([facility]) non-HDL-C 166 mg/dL Non-hdl-c HA[place] ([facility]) cholesterol risk ratio <5 Above high normal Choles terol Risk Ratio HA[place] ([facility]) HDL cholesterol 35 mg/dL >40 Below low normal HDL Cholestero l HAILEY ([facility]) cholesterol level 201 mg/dL <200 Above high normal Cholesterol Level [place] ([facility]) ID Date Data Source [id number] 06/23/2020 12:00:00 PM EST HAILEY ([facility]) Name Value Range Interpretation Code Description Data Munira rce(s) Supporting Document(s) glucose, fasting 155 mg/dL 70-100 Above high normal Glucose, Fas ting [place] ([facility]) blood urea nitrogen 17 mg/dL 7-18 Blood Urea Nitro gen HA[place]LEY ([facility]) creatinine for GFR 1.22 mg/dL 0.55-1.30 Creatinine for GF R [place] ([facility]) glomerular filtration rate >60 Below low normal Lesly merular Filtration Rate HAILEY ([facility]) sodium level 136 mEq/L 136-145 Sodium Level HAI[place] ([facility]) chloride level 106 mEq/L 98-107 Chloride Level HA[place] ([facility]) potassium serum 4.4 mEq/L 3.5-5.1 Potassium Serum ATHE NA ([facility]) calcium level 9.4 mg/dL 8.5-10.1 Calcium Level HAI[place] ( [facility]) carbon dioxide level 24 mEq/L 21-32 Carbon Dioxide Level [place] ([facility]) anion gap 6 mEq/L 8-16 Below low normal Anion Gap [place] ( [facility]) bilirubin,total 0.4 mg/dL 0.2-1.0 Bilirubin,total ATHE NA ([facility]) AST/SGOT 11 U/L 7-37 AST/SGOT [place] ([facility]) ALT/SGPT 30 U/L 12-78 ALT/SGPT [place] ([facility]) alkaline phosphatase 130 U/L 45-117 Above high normal Alkaline Phosphatase [place] ([facility]) total protein 7.1 gm/dL 6.4-8.2 Total Protein [place] ( [facility]) albumin 3.7 gm/dL 3.2-5.2 Albumin [place] ([facility]) albumin/globulin ratio 1.2-2.2 Below low normal Albumin /globulin Ratio [place] ([facility]) ID Date Data Source [id number] 06/23/2020 12:00:00 PM EST [place] ([facility]) Name Value Range Interpretation Code Description Data Munira rce(s) Supporting Document(s) white blood count 8.1 10 4.0-10.0 White Blood Count [place] ([facility]) hematocrit 46.3 % 36.0-47.0 Hematocrit [place] ([facility]) red blood count 5.35 10 4.00-5.40 Red Blood Count ATHE NA ([facility]) hemoglobin 14.6 g/dL 12.0-15.5 Hemoglobin [place] ([facility]) mean corpuscular hemoglobin 27.3 pg 27.0-33.0 Mean Cor puscular Hemoglobin [place] ([facility]) mean corpuscular volume 86.5 fL 80.0-96.0 Mean Corpusc ular Volume [place] ([facility]) mean corpuscular HGB conc 31.5 g/dL 32.0-36.5 Below low sidney l Mean Corpuscular HGB Conc [place] ([facility]) platelet count, automated 275 10 150-450 Platelet C ount, Automated [place] ([facility]) red cell distribution width 13.6 % 11.5-14.5 Red Cell Distribution Width [place] ([facility]) neutrophils % 59.5 % 36.0-66.0 Neutrophils % [place] ( [facility]) eos % 4.6 % 0.0-3.0 Above high normal Eos % [place] ([facility]) mono % 7.5 % 2.0-8.0 [place] % [place]ILEY ([facility]) lymph % 26.9 % 24.0-44.0 Lymph % [place] ([facility]) neutrophils # 4.8 10 1.5-8.5 Neutrophils # [place] ( [facility]) immature granulocyte % 0.5 % 0-3.0 Immature Gran ulocyte % [place] ([facility]) nucleated red blood cell % 0.0 % 0-0 Nucleated Red Blood Cell % [place] ([facility]) baso % 1.0 % 0.0-1.0 Baso % [place] ([facility]) lymph # 2.2 10 1.5-5.0 Lymph # [place] ([facility]) mono # 0.6 10 0.0-0.8 [place] # [place]LEY ([facility]) eos # 0.4 10 0.0-0.5 Eos # [place] ([facility]) baso # 0.1 10 0.0-0.2 Baso # [place] ([facility]) ID Date Data Source [id number] 06/23/2020 12:00:00 PM EST [place] ([facility]) Name Value Range Interpretation Code Description Data Munira rce(s) Supporting Document(s) ID Date Data Source [id number] 06/23/2020 12:00:00 PM EST [place] ([facility]) Name Value Range Interpretation Code Description Data Munira rce(s) Supporting Document(s) ID Date Data Source [id number] 06/23/2020 12:00:00 PM EST [place] ([facility]) Name Value Range Interpretation Code Description Data Munira rce(s) Supporting Document(s) estimated average glucose 151 mg/dL 60-110 Above high norm al Estimated Average Glucose [place] ([facility]) Hemoglobin A1c/Hemoglobin.total in Blood 6.9 % Hemoglobin a1C [place] ([facility]) ID Date Data Source [id number] 06/23/2020 12:00:00 PM EST [place] ([facility]) Name Value Range Interpretation Code Description Data Munira rce(s) Supporting Document(s) ferritin 45 NG/mL 8-252 Ferritin [place] ([facility]) ID Date Data Source [id number] 06/23/2020 12:00:00 PM EST [place] ([facility]) Name Value Range Interpretation Code Description Data Munira rce(s) Supporting Document(s) total 25(oh) vitamin D 10.9 NG/mL 30.0-100.0 Below low normal T otal 25(Oh) Vitamin D [place] ([facility]) ID Date Data Source [id number] 06/23/2020 12:00:00 PM EST [place] ([facility]) Name Value Range Interpretation Code Description Data Munira rce(s) Supporting Document(s) thyroid stimulating hormone 1.610 uIU/mL 0.358-3.740 Thyroid Stimulating Hormone [place] ([facility]) ID Date Data Source [id number] 05/06/2020 03:14:00 PM EST MEDENT ([facility]) Name Value Range Interpretation Code Description Data Munira rce(s) Supporting Document(s) Covid Rapid Testing Laboratory test result MEDENT ([facility]) ID Date Data Source [id number] 05/06/2020 12:00:00 AM EST [facility] Name Value Range Interpretation Code Description Data Munira rce(s) Supporting Document(s) Covid Rapid Testing Negative [facility] This lab was ordered by [facility] and re ported by [facility]. ID Date Data Source [id number] 04/17/2020 01:18:00 PM EST MEDENT ([facility]) Name Value Range Interpretation Code Description Data Munira rce(s) Supporting Document(s) [facility] ID Date Data Source [id number] 04/17/2020 12:00:00 AM EST [facility] Name Value Range Interpretation Code Description Data Munira rce(s) Supporting Document(s) Covid Rapid Testing [facility] This lab was ordered by [facility] and re ported by [facility]. Procedure Social History Code Duration Value Status Description Data Source(s ) Smoking 01/13/2021 12:00:00 AM EDT Never Smoker completed Never S wvker [facility] ([facility]) Smoking 01/07/2021 12:00:00 AM EDT Patient is a former smoker completed Patient is a former smoker [facility] ([facility]) Smoking 10/02/2020 12:00:00 AM EDT Never Smoker completed Never S moker [facility] ([facility]) Vital Signs ID Date Data Source [id number] Name Value Range Interpretation Code Description Data Source(s) Body weight 250 [lb_av] 250 [lb_av] W1 ([facility] Body height 62 [in_i] 62 [in_i] [facility] ([facility]) Body mass index (BMI) [Ratio] 45.72 kg/m2 45.72 kg/m2 W1 ([facility]) Systolic blood pressure 124 mm[Hg] 124 mm[Hg] e CW1 ([facility]) Diastolic blood pressure 72 mm[Hg] 72 mm[Hg] eCW1 ([facility]) Systolic blood pressure 132 mm[Hg] 132 mm[Hg] M EDENT ([facility], [facility]) Diastolic blood pressure 98 mm[Hg] 98 mm[Hg] [facility] ([facility]) Heart rate 80 /min 80 /min [facility] ([facility]) Respiratory rate 19 /min 19 /min [facility] ( [facility] Oxygen saturation in Arterial blood by Pulse oximetry 98 % 98 % [facility] ([facility]) Body temperature 96.7 [degF] 96.7 [degF] JOE ([facility], [facility]) Body weight 251.00 [lb_av] 251.00 [lb_av] DARIEN [place] ([facility], [facility]) Body height 62 [in_i] 62 [in_i] JOE ([facility], [facility]) 5'2" Body mass index (BMI) [Ratio] 45.9 kg/m2 45.9 k g/m2 JOE ([facility], [facility]) Diastolic blood pressure 81 mm[Hg] 81 mm[Hg] HAILEY ([facility]) Body height 62 [in_i] 62 [in_i] [place] ([facility]) Body mass index (BMI) [Ratio] 46 kg/m2 46 kg/ m2 [place] ([facility]) Systolic blood pressure 123 mm[Hg] 123 mm[Hg] A [facility] ([facility]) Body weight 4022 [oz_av] 4022 [oz_av] [place] ([facility]) Diastolic blood pressure 81 mm[Hg] 81 mm[Hg] [place] ([facility]) Body height 62 [in_i] 62 [in_i] [place] ([facility]) Body mass index (BMI) [Ratio] 46 kg/m2 46 kg/ m2 [place] ([facility]) Systolic blood pressure 123 mm[Hg] 123 mm[Hg] A [facility] ([facility]) Body weight 4022 [oz_av] 4022 [oz_av] [place] ([facility]) Diastolic blood pressure 81 mm[Hg] 81 mm[Hg] [place] ([facility]) Body height 62 [in_i] 62 [in_i] [place] ([facility]) Body mass index (BMI) [Ratio] 46 kg/m2 46 kg/ m2 [place] ([facility]) Systolic blood pressure 123 mm[Hg] 123 mm[Hg] A [facility] ([facility]) Body weight 4022 [oz_av] 4022 [oz_av] [place] ([facility]) Diastolic blood pressure 81 mm[Hg] 81 mm[Hg] [place] ([facility]) Body height 62 [in_i] 62 [in_i] [place] ([facility]) Body mass index (BMI) [Ratio] 46 kg/m2 46 kg/ m2 [place] ([facility]) Systolic blood pressure 123 mm[Hg] 123 mm[Hg] A THENA ([facility]) Body weight 4022 [oz_av] 4022 [oz_av] [place] ([facility]) Oxygen saturation in Arterial blood by Pulse oximetry 98 % 98 % MEDENT ([facility], [facility]) Respiratory rate 18 /min 18 /min MED[facility] ( [facility], [facility]) Body temperature 97.5 [degF] 97.5 [degF] MED[facility] ([facility], [facility]) Body weight 251.00 [lb_av] 251.00 [lb_av] MEDEN T ([facility], [facility]) Body height 62 [in_i] 62 [in_i] MEDENT ([facility], [facility]) 5'2" Body mass index (BMI) [Ratio] 45.9 kg/m2 45.9 k g/m2 MED[facility] ([facility], [facility]) Heart rate 97 /min 97 /min MEDENT ([facility], [facility]) Systolic blood pressure 120 mm[Hg] 120 mm[Hg] M EDENT ([facility], [facility]) Diastolic blood pressure 92 mm[Hg] 92 mm[Hg] MED[facility] ([facility], [facility]) Respiratory rate 16 /min 16 /min MED[facility] ( [facility], [facility]) Body weight 260.00 [lb_av] 260.00 [lb_av] MEDEN T ([facility], [facility]) Oxygen saturation in Arterial blood by Pulse oximetry 98 % 98 % [facility] ([facility], [facility]) Body temperature 98.8 [degF] 98.8 [degF] MED[facility] ([facility], [facility]) Body height 63 [in_i] 63 [in_i] MEDENT ([facility], [facility]) 5'3" Body mass index (BMI) [Ratio] 46.1 kg/m2 46.1 k g/m2 [facility] ([facility], [facility]) Systolic blood pressure 123 mm[Hg] 123 mm[Hg] M EDENT ([facility], [facility]) Diastolic blood pressure 84 mm[Hg] 84 mm[Hg] MED[facility] ([facility], [facility]) Heart rate 98 /min 98 /min MEDENT ([facility], [facility]) Systolic blood pressure 138 mm[Hg] 138 mm[Hg] M EDENT ([facility], [facility]) Respiratory rate 16 /min 16 /min MEDENT ( [facility], [facility]) Heart rate 80 /min 80 /min MEDENT ([facility], [facility]) Oxygen saturation in Arterial blood by Pulse oximetry 99 % 99 % [facility] ([facility], [facility]) Body temperature 97.5 [degF] 97.5 [degF] MED[facility] ([facility], [facility]) Body weight 260.00 [lb_av] 260.00 [lb_av] MEDEN T ([facility], [facility]) Body height 63 [in_i] 63 [in_i] MEDENT ([facility], [facility]) 5'3" Body mass index (BMI) [Ratio] 46.1 kg/m2 46.1 k g/m2 [facility] ([facility], [facility]) Diastolic blood pressure 88 mm[Hg] 88 mm[Hg] MEDENT ([facility], [facility]) Body weight 256 [lb_av] 256 [lb_av] eCW1 ([facility]) Body height 62 [in_i] 62 [in_i] W1 ([facility]) Body mass index (BMI) [Ratio] 46.82 kg/m2 46.82 kg/m2 eCW1 ([facility]) Systolic blood pressure 122 mm[Hg] 122 mm[Hg] e CW1 ([facility]) Diastolic blood pressure 74 mm[Hg] 74 mm[Hg] eCW1 ([facility]) Systolic blood pressure 129 mm[Hg] 129 mm[Hg] M EDENT ([facility], [facility]) Respiratory rate 18 /min 18 /min MEDENT ( [facility], [facility]) Heart rate 102 /min 102 /min MED[facility] ([facility], [facility]) Diastolic blood pressure 92 mm[Hg] 92 mm[Hg] MEDENT ([facility], [facility]) Body height 63 [in_i] 63 [in_i] MEDENT ([facility], [facility]) 5'3" Oxygen saturation in Arterial blood by Pulse oximetry 97 % 97 % [facility] ([facility], [facility]) Body mass index (BMI) [Ratio] 46.1 kg/m2 46.1 k g/m2 [facility] ([facility], [facility]) Body temperature 98.3 [degF] 98.3 [degF] MEDENT ([facility], [facility]) Body weight 260.00 [lb_av] 260.00 [lb_av] MEDEN T ([facility], [facility]) Body height 62 [in_i] 62 [in_i] HAILEY ([facility]) Body height 62 [in_i] 62 [in_i] [place] ([facility]) Body height 62 [in_i] 62 [in_i] [place] ([facility]) Body height 62 [in_i] 62 [in_i] [place] ([facility]) Body height 62 [in_i] 62 [in_i] [place] ([facility]) Body height 62 [in_i] 62 [in_i] [place] ([facility]) Body height 62 [in_i] 62 [in_i] [place] ([facility]) Body height 62 [in_i] 62 [in_i] [place] ([facility]) Body height 62 [in_i] 62 [in_i] [place] ([facility]) Body height 62 [in_i] 62 [in_i] [place] ([facility]) Body height 62 [in_i] 62 [in_i] [place] ([facility]) Body height 62 [in_i] 62 [in_i] [place] ([facility]) Body height 62 [in_i] 62 [in_i] [place] ([facility]) Body height 62 [in_i] 62 [in_i] [place] ([facility]) Body height 62 [in_i] 62 [in_i] [place] ([facility]) Body height 62 [in_i] 62 [in_i] [place] ([facility]) Diastolic blood pressure 81 mm[Hg] 81 mm[Hg] [place] ([facility]) Body mass index (BMI) [Ratio] 47.2 kg/m2 47.2 k g/m2 [place] ([facility]) Systolic blood pressure 119 mm[Hg] 119 mm[Hg] [facility] Body height 62 [in_i] 62 [in_i] [place] ([facility]) Body weight 4128 [oz_av] 4128 [oz_av] [place] ([facility]) Body height 62 [in_i] 62 [in_i] [place] ([facility]) Systolic blood pressure 119 mm[Hg] 119 mm[Hg] A [facility] ([facility]) Diastolic blood pressure 81 mm[Hg] 81 mm[Hg] [place] ([facility]) Body mass index (BMI) [Ratio] 47.2 kg/m2 47.2 k g/m2 [place] ([facility]) Body weight 4128 [oz_av] 4128 [oz_av] [place] ([facility]) Body mass index (BMI) [Ratio] 47.2 kg/m2 47.2 k g/m2 [place]ILYE ([facility]) Diastolic blood pressure 81 mm[Hg] 81 mm[Hg] [place] ([facility]) Body height 62 [in_i] 62 [in_i] [place] ([facility]) Systolic blood pressure 119 mm[Hg] 119 mm[Hg] A THENA ([facility]) Body weight 4128 [oz_av] 4128 [oz_av] [place] ([facility]) Body mass index (BMI) [Ratio] 47.2 kg/m2 47.2 k g/m2 [place] ([facility]) Systolic blood pressure 119 mm[Hg] 119 mm[Hg] [facility] Body weight 4128 [oz_av] 4128 [oz_av] [place] ([facility]) Diastolic blood pressure 81 mm[Hg] 81 mm[Hg] [place] ([facility]) Body height 62 [in_i] 62 [in_i] [place] ([facility]) Diastolic blood pressure 81 mm[Hg] 81 mm[Hg] [place] ([facility]) Body height 62 [in_i] 62 [in_i] [place] ([facility]) Body mass index (BMI) [Ratio] 47.2 kg/m2 47.2 k g/m2 [place] ([facility]) Systolic blood pressure 119 mm[Hg] 119 mm[Hg] [facility] Body weight 4128 [oz_av] 4128 [oz_av] [place] ([facility]) Diastolic blood pressure 81 mm[Hg] 81 mm[Hg] [place] ([facility]) Body height 62 [in_i] 62 [in_i] [place] ([facility]) Body mass index (BMI) [Ratio] 47.2 kg/m2 47.2 k g/m2 [place] ([facility]) Systolic blood pressure 119 mm[Hg] 119 mm[Hg] A THENA ([facility]) Body weight 4128 [oz_av] 4128 [oz_av] [place] ([facility]) Diastolic blood pressure 81 mm[Hg] 81 mm[Hg] [place] ([facility]) Body height 62 [in_i] 62 [in_i] [facility] ([facility]) Body mass index (BMI) [Ratio] 47.2 kg/m2 47.2 k g/m2 [place] ([facility]) Systolic blood pressure 119 mm[Hg] 119 mm[Hg] A THENA ([facility]) Body weight 4128 [oz_av] 4128 [oz_av] [place] ([facility]) Diastolic blood pressure 81 mm[Hg] 81 mm[Hg] [facility] ([facility]) Body height 62 [in_i] 62 [in_i] [place] ([facility]) Body mass index (BMI) [Ratio] 47.2 kg/m2 47.2 k g/m2 [place] ([facility]) Systolic blood pressure 119 mm[Hg] 119 mm[Hg] [facility] Body weight 4128 [oz_av] 4128 [oz_av] [place] ([facility]) Body weight 4128 [oz_av] 4128 [oz_av] [place] ([facility]) Diastolic blood pressure 81 mm[Hg] 81 mm[Hg] [facility] ([facility]) Body height 62 [in_i] 62 [in_i] [facility] ([facility]) Body mass index (BMI) [Ratio] 47.2 kg/m2 47.2 k g/m2 [facility] ([facility]) Systolic blood pressure 119 mm[Hg] 119 mm[Hg] [facility] Diastolic blood pressure 81 mm[Hg] 81 mm[Hg] [place] ([facility]) Body height 62 [in_i] 62 [in_i] [place] ([facility]) Body mass index (BMI) [Ratio] 47.2 kg/m2 47.2 k g/m2 [facility] ([facility]) Systolic blood pressure 119 mm[Hg] 119 mm[Hg] A THENA ([facility]) Body weight 4128 [oz_av] 4128 [oz_av] [facility] ([facility]) Diastolic blood pressure 81 mm[Hg] 81 mm[Hg] [facility] ([facility]) Body height 62 [in_i] 62 [in_i] [facility] ([facility]) Body mass index (BMI) [Ratio] 47.2 kg/m2 47.2 k g/m2 [place] ([facility]) Systolic blood pressure 119 mm[Hg] 119 mm[Hg] A THENA ([facility]) Body weight 4128 [oz_av] 4128 [oz_av] [place] ([facility]) Diastolic blood pressure 81 mm[Hg] 81 mm[Hg] [facility] ([facility]) Body height 62 [in_i] 62 [in_i] [facility] ([facility]) Body mass index (BMI) [Ratio] 47.2 kg/m2 47.2 k g/m2 [facility] ([facility]) Systolic blood pressure 119 mm[Hg] 119 mm[Hg] A THENA ([facility]) Body weight 4128 [oz_av] 4128 [oz_av] [facility] ([facility]) Diastolic blood pressure 81 mm[Hg] 81 mm[Hg] [facility] ([facility]) Body height 62 [in_i] 62 [in_i] [facility] ([facility]) Body mass index (BMI) [Ratio] 47.2 kg/m2 47.2 k g/m2 [facility] ([facility]) Systolic blood pressure 119 mm[Hg] 119 [facility]Hg[facility] Body weight 4128 [oz_av] 4128 [oz_av] HAI[facility] ([facility]) Diastolic blood pressure 81 mm[Hg] 81 mm[Hg] HA[facility] ([facility]) Body height 62 [in_i] 62 [in_i] [facility] ([facility]) Body mass index (BMI) [Ratio] 47.2 kg/m2 47.2 k g/m2 [facility] ([facility]) Systolic blood pressure 119 mm[Hg] 119 mm[Hg] A THENA ([facility]) Body weight 4128 [oz_av] 4128 [oz_av] [facility] ([facility]) Diastolic blood pressure 81 mm[Hg] 81 mm[Hg] [facility] ([facility]) Body height 62 [in_i] 62 [in_i] [facility] ([facility]) Body mass index (BMI) [Ratio] 47.2 kg/m2 47.2 k g/m2 [facility] ([facility]) Systolic blood pressure 119 mm[Hg] 119 mm[Hg] A THENA ([facility]) Body weight 4128 [oz_av] 4128 [oz_av] [place] ([facility]) Diastolic blood pressure 81 mm[Hg] 81 mm[Hg] [facility] ([facility]) Body height 62 [in_i] 62 [in_i] [facility] ([facility]) Body mass index (BMI) [Ratio] 47.2 kg/m2 47.2 k g/m2 [facility] ([facility]) Systolic blood pressure 119 mm[Hg] 119 mm[Hg] A THENA ([facility]) Body weight 4128 [oz_av] 4128 [oz_av] [place] ([facility]) Diastolic blood pressure 81 mm[Hg] 81 mm[Hg] [facility] ([facility]) Body height 62 [in_i] 62 [in_i] [facility] ([facility]) Body mass index (BMI) [Ratio] 47.2 kg/m2 47.2 k g/m2 [facility] ([facility]) Systolic blood pressure 119 mm[Hg] 119 mm[Hg] A THENA ([facility]) Body weight 4128 [oz_av] 4128 [oz_av] [place] ([facility]) Body mass index (BMI) [Ratio] 45.4 kg/m2 45.4 k g/m2 MEDENT ([facility]) Body height 62 [in_i] 62 [in_i] MEDENT ([facility]) 5'2" Body weight 248.00 [lb_av] 248.00 [lb_av] MEDEN T ([facility]) Body temperature 96.2 [degF] 96.2 [degF] MEDENT ([facility]) Body height 62 [in_i] 62 [in_i] [place] ([facility]) Systolic blood pressure 119 mm[Hg] 119 mm[Hg] A THENA ([facility]) Body weight 3990.4 [oz_av] 3990.4 [oz_av] ATHEN A ([facility]) Diastolic blood pressure 83 mm[Hg] 83 mm[Hg] HAILEY ([facility]) Body mass index (BMI) [Ratio] 45.6 kg/m2 45.6 k g/m2 [facility] ([facility]) Diastolic blood pressure 83 mm[Hg] 83 mm[Hg] [facility] ([facility]) Body mass index (BMI) [Ratio] 45.6 kg/m2 45.6 k g/m2 [facility] ([facility]) Body height 62 [in_i] 62 [in_i] [facility] ([facility]) Systolic blood pressure 119 mm[Hg] 119 mm[Hg] [facility] Body weight 3990.4 [oz_av] 3990.4 [oz_av] ATHEN A ([facility]) Body weight 3990.4 [oz_av] 3990.4 [oz_av] ATHEN A ([facility]) Diastolic blood pressure 83 mm[Hg] 83 mm[Hg] [facility]ILEY ([facility]) Body mass index (BMI) [Ratio] 45.6 kg/m2 45.6 k g/m2 [facility] ([facility]) Systolic blood pressure 119 mm[Hg] 119 mm[Hg] [facility] Body height 62 [in_i] 62 [in_i] [place] ([facility]) Body weight 3990.4 [oz_av] 3990.4 [oz_av] ATHEN A ([facility]) Diastolic blood pressure 83 mm[Hg] 83 mm[Hg] HAILEY ([facility]) Body height 62 [in_i] 62 [in_i] [facility] ([facility]) Body mass index (BMI) [Ratio] 45.6 kg/m2 45.6 k g/m2 [facility] ([facility]) Systolic blood pressure 119 mm[Hg] 119 mm[Hg] [facility] Body weight 3990.4 [oz_av] 3990.4 [oz_av] ATHEN A ([facility]) Systolic blood pressure 119 mm[Hg] 119 mm[Hg] [facility] Diastolic blood pressure 83 mm[Hg] 83 mm[Hg] HAIELY ([facility]) Body height 62 [in_i] 62 [in_i] [facility] ([facility]) Body mass index (BMI) [Ratio] 45.6 kg/m2 45.6 k g/m2 [facility] ([facility]) Systolic blood pressure 119 mm[Hg] 119 mm[Hg] [facility] Diastolic blood pressure 83 mm[Hg] 83 mm[Hg] [facility] ([facility]) Body height 62 [in_i] 62 [in_i] [facility] ([facility]) Body mass index (BMI) [Ratio] 45.6 kg/m2 45.6 k g/m2 [facility] ([facility]) Body weight 3990.4 [oz_av] 3990.4 [oz_av] ATHEN A ([facility]) Diastolic blood pressure 83 mm[Hg] 83 mm[Hg] [facility] ([facility]) Body height 62 [in_i] 62 [in_i] [facility] ([facility]) Body mass index (BMI) [Ratio] 45.6 kg/m2 45.6 k g/m2 [facility] ([facility]) Systolic blood pressure 119 mm[Hg] 119 mm[Hg] A JACQUELINE ([facility]) Body weight 3990.4 [oz_av] 3990.4 [oz_av] ATHEN A ([facility]) Diastolic blood pressure 83 mm[Hg] 83 mm[Hg] [facility] ([facility]) Body height 62 [in_i] 62 [in_i] [facility] ([facility]) Body mass index (BMI) [Ratio] 45.6 kg/m2 45.6 k g/m2 [facility] ([facility]) Systolic blood pressure 119 mm[Hg] 119 mm[Hg] A JACQUELINE ([facility]) Body weight 3990.4 [oz_av] 3990.4 [oz_av] ATHEN A ([facility]) Diastolic blood pressure 83 mm[Hg] 83 mm[Hg] HAILYE ([facility]) Body height 62 [in_i] 62 [in_i] [facility] ([facility]) Body mass index (BMI) [Ratio] 45.6 kg/m2 45.6 k g/m2 [facility] ([facility]) Systolic blood pressure 119 mm[Hg] 119 mm[Hg] A MIRIANA ([facility]) Body weight 3990.4 [oz_av] 3990.4 [oz_av] ATHEN A ([facility]) Diastolic blood pressure 83 mm[Hg] 83 mm[Hg] [facility]ILEY ([facility]) Body height 62 [in_i] 62 [in_i] [facility] ([facility]) Body mass index (BMI) [Ratio] 45.6 kg/m2 45.6 k g/m2 [facility] ([facility]) Systolic blood pressure 119 mm[Hg] 119 mm[Hg] [facility] Body weight 3990.4 [oz_av] 3990.4 [oz_av] ATHEN A ([facility]) Diastolic blood pressure 83 mm[Hg] 83 mm[Hg] HAILEY ([facility]) Body height 62 [in_i] 62 [in_i] [facility] ([facility]) Body mass index (BMI) [Ratio] 45.6 kg/m2 45.6 k g/m2 [facility] ([facility]) Systolic blood pressure 119 mm[Hg] 119 mm[Hg] A [facility] ([facility]) Body weight 3990.4 [oz_av] 3990.4 [oz_av] ATHEN A ([facility]) Diastolic blood pressure 83 mm[Hg] 83 mm[Hg] HAILEY ([facility]) Body height 62 [in_i] 62 [in_i] [facility] ([facility]) Body mass index (BMI) [Ratio] 45.6 kg/m2 45.6 k g/m2 [facility] ([facility]) Systolic blood pressure 119 mm[Hg] 119 mm[Hg] [facility] Body weight 3990.4 [oz_av] 3990.4 [oz_av] ATHEN A ([facility]) Diastolic blood pressure 83 mm[Hg] 83 mm[Hg] HAILEY ([facility]) Body height 62 [in_i] 62 [in_i] [facility] ([facility]) Body mass index (BMI) [Ratio] 45.6 kg/m2 45.6 k g/m2 [facility] ([facility]) Systolic blood pressure 119 mm[Hg] 119 mm[Hg] [facility] Body weight 3990.4 [oz_av] 3990.4 [oz_av] ATHEN A ([facility]) Diastolic blood pressure 83 mm[Hg] 83 mm[Hg] HAILEY ([facility]) Body height 62 [in_i] 62 [in_i] [facility] ([facility]) Body mass index (BMI) [Ratio] 45.6 kg/m2 45.6 k g/m2 [facility] ([facility]) Systolic blood pressure 119 mm[Hg] 119 mm[Hg] [facility] Body weight 3990.4 [oz_av] 3990.4 [oz_av] ATHEN A ([facility]) Diastolic blood pressure 83 mm[Hg] 83 mm[Hg] HAILEY ([facility]) Body height 62 [in_i] 62 [in_i] [facility] ([facility]) Body mass index (BMI) [Ratio] 45.6 kg/m2 45.6 k g/m2 [facility] ([facility]) Systolic blood pressure 119 mm[Hg] 119 mm[Hg] A [facility] ([facility]) Body weight 3990.4 [oz_av] 3990.4 [oz_av] ATHEN A ([facility]) Diastolic blood pressure 83 mm[Hg] 83 mm[Hg] HAILEY ([facility]) Body height 62 [in_i] 62 [in_i] [facility] ([facility]) Body mass index (BMI) [Ratio] 45.6 kg/m2 45.6 k g/m2 [facility] ([facility]) Systolic blood pressure 119 mm[Hg] 119 mm[Hg] A THENA ([facility]) Body weight 3990.4 [oz_av] 3990.4 [oz_av] ATHEN A ([facility]) Body height 62 [in_i] 62 [in_i] HAILEY ([facility]) Diastolic blood pressure 83 mm[Hg] 83 mm[Hg] [facility] ([facility]) Body mass index (BMI) [Ratio] 45.6 kg/m2 45.6 k g/m2 [facility] ([facility]) Systolic blood pressure 119 mm[Hg] 119 mm[Hg] [facility] Body weight 3990.4 [oz_av] 3990.4 [oz_av] ATHEN A ([facility]) Diastolic blood pressure 83 mm[Hg] 83 mm[Hg] HAILEY ([facility]) Body height 62 [in_i] 62 [in_i] [facility] ([facility]) Body mass index (BMI) [Ratio] 45.6 kg/m2 45.6 k g/m2 [facility] ([facility]) Systolic blood pressure 119 mm[Hg] 119 mm[Hg] [facility] Body weight 3990.4 [oz_av] 3990.4 [oz_av] ATHEN A ([facility]) Diastolic blood pressure 83 mm[Hg] 83 mm[Hg] HAILEY ([facility]) Body height 62 [in_i] 62 [in_i] [facility] ([facility]) Body mass index (BMI) [Ratio] 45.6 kg/m2 45.6 k g/m2 [facility] ([facility]) Systolic blood pressure 119 mm[Hg] 119 mm[Hg] [facility] Body weight 3990.4 [oz_av] 3990.4 [oz_av] ATHEN A ([facility]) Diastolic blood pressure 83 mm[Hg] 83 mm[Hg] HAILEY ([facility]) Body height 62 [in_i] 62 [in_i] [facility] ([facility]) Body mass index (BMI) [Ratio] 45.6 kg/m2 45.6 k g/m2 [facility] ([facility]) Systolic blood pressure 119 mm[Hg] 119 mm[Hg] A THENA ([facility]) Body weight 3990.4 [oz_av] 3990.4 [oz_av] ATHEN A ([facility]) Diastolic blood pressure 83 mm[Hg] 83 mm[Hg] HAILEY ([facility]) Body height 62 [in_i] 62 [in_i] [facility] ([facility]) Body mass index (BMI) [Ratio] 45.6 kg/m2 45.6 k g/m2 [facility] ([facility]) Systolic blood pressure 119 mm[Hg] 119 mm[Hg] A [facility] ([facility]) Body weight 3990.4 [oz_av] 3990.4 [oz_av] ATHEN A ([facility]) Diastolic blood pressure 83 mm[Hg] 83 mm[Hg] HAILEY ([facility]) Body height 62 [in_i] 62 [in_i] [facility] ([facility]) Body mass index (BMI) [Ratio] 45.6 kg/m2 45.6 k g/m2 [facility] ([facility]) Systolic blood pressure 119 mm[Hg] 119 mm[Hg] A [facility] ([facility]) Body weight 3990.4 [oz_av] 3990.4 [oz_av] ATHEN A ([facility]) Diastolic blood pressure 83 mm[Hg] 83 mm[Hg] HAILEY ([facility]) Body height 62 [in_i] 62 [in_i] [facility] ([facility]) Body mass index (BMI) [Ratio] 45.6 kg/m2 45.6 k g/m2 [facility] ([facility]) Systolic blood pressure 119 mm[Hg] 119 mm[Hg] A [facility] ([facility]) Body weight 3990.4 [oz_av] 3990.4 [oz_av] ATHEN A ([facility]) Diastolic blood pressure 83 mm[Hg] 83 mm[Hg] HAILEY ([facility]) Body height 62 [in_i] 62 [in_i] HA[facility] ([facility]) Body mass index (BMI) [Ratio] 45.6 kg/m2 45.6 k g/m2 [facility] ([facility]) Systolic blood pressure 119 mm[Hg] 119 mm[Hg] [facility] Body weight 3990.4 [oz_av] 3990.4 [oz_av] ATHEN A ([facility]) Diastolic blood pressure 83 mm[Hg] 83 mm[Hg] HAILEY ([facility]) Body height 62 [in_i] 62 [in_i] HAILEY ([facility]) Body mass index (BMI) [Ratio] 45.6 kg/m2 45.6 k g/m2 HAI[facility] ([facility]) Systolic blood pressure 119 mm[Hg] 119 mm[Hg] A [facility] ([facility]) Body weight 3990.4 [oz_av] 3990.4 [oz_av] ATHEN A ([facility]) Diastolic blood pressure 77 mm[Hg] 77 mm[Hg] HAILEY ([facility]) Body height 62 [in_i] 62 [in_i] HAILEY ([facility]) Body mass index (BMI) [Ratio] 45.9 kg/m2 45.9 k g/m2 [facility] ([facility]) Systolic blood pressure 117 mm[Hg] 117 mm[Hg] A THENA ([facility]) Body weight 4019.2 [oz_av] 4019.2 [oz_av] ATHEN A ([facility]) Body weight 4019.2 [oz_av] 4019.2 [oz_av] ATHEN A ([facility]) Body mass index (BMI) [Ratio] 45.9 kg/m2 45.9 k g/m2 HA[facility] ([facility]) Systolic blood pressure 117 mm[Hg] 117 mm[Hg] A THENA ([facility]) Diastolic blood pressure 77 mm[Hg] 77 mm[Hg] HAILEY ([facility]) Body height 62 [in_i] 62 [in_i] [facility] ([facility]) Diastolic blood pressure 77 mm[Hg] 77 mm[Hg] HAI[facility] ([facility]) Systolic blood pressure 117 mm[Hg] 117 mm[Hg] A THENA ([facility]) Body mass index (BMI) [Ratio] 45.9 kg/m2 45.9 k g/m2 [facility] ([facility]) Body weight 4019.2 [oz_av] 4019.2 [oz_av] ATHEN A ([facility]) Body height 62 [in_i] 62 [in_i] HAILEY ([facility]) Diastolic blood pressure 77 mm[Hg] 77 mm[Hg] HAILEY ([facility]) Body height 62 [in_i] 62 [in_i] HAI[place] ([facility]) Body mass index (BMI) [Ratio] 45.9 kg/m2 45.9 k g/m2 [facility] ([facility]) Systolic blood pressure 117 mm[Hg] 117 mm[Hg] A THENA ([facility]) Body weight 4019.2 [oz_av] 4019.2 [oz_av] ATHEN A ([facility]) Diastolic blood pressure 77 mm[Hg] 77 mm[Hg] HAILEY ([facility]) Body height 62 [in_i] 62 [in_i] HAILEY ([facility]) Body mass index (BMI) [Ratio] 45.9 kg/m2 45.9 k g/m2 [facility] ([facility]) Systolic blood pressure 117 mm[Hg] 117 mm[Hg] A THENA ([facility]) Body weight 4019.2 [oz_av] 4019.2 [oz_av] ATHEN A ([facility]) Diastolic blood pressure 77 mm[Hg] 77 mm[Hg] HAILEY ([facility]) Body height 62 [in_i] 62 [in_i] HAILEY ([facility]) Body mass index (BMI) [Ratio] 45.9 kg/m2 45.9 k g/m2 [facility] ([facility]) Systolic blood pressure 117 mm[Hg] 117 mm[Hg] A THENA ([facility]) Body weight 4019.2 [oz_av] 4019.2 [oz_av] ATHEN A ([facility]) Body mass index (BMI) [Ratio] 45.9 kg/m2 45.9 k g/m2 HAILEY ([facility]) Diastolic blood pressure 77 mm[Hg] 77 mm[Hg] HAILEY ([facility]) Systolic blood pressure 117 mm[Hg] 117 mm[Hg] A THENA ([facility]) Body height 62 [in_i] 62 [in_i] [facility]ILEY ([facility]) Body weight 4019.2 [oz_av] 4019.2 [oz_av] ATHEN A ([facility]) Body height 62 [in_i] 62 [in_i] HAILEY ([facility]) Diastolic blood pressure 77 mm[Hg] 77 mm[Hg] HAILEY ([facility]) Body mass index (BMI) [Ratio] 45.9 kg/m2 45.9 k g/m2 HA[facility] ([facility]) Systolic blood pressure 117 mm[Hg] 117 mm[Hg] [facility] Body weight 4019.2 [oz_av] 4019.2 [oz_av] ATHEN A ([facility]) Diastolic blood pressure 77 mm[Hg] 77 mm[Hg] HAILEY ([facility]) Diastolic blood pressure 77 mm[Hg] 77 mm[Hg] HAILEY ([facility]) Body height 62 [in_i] 62 [in_i] [facility] ([facility]) Body mass index (BMI) [Ratio] 45.9 kg/m2 45.9 k g/m2 [facility] ([facility]) Systolic blood pressure 117 mm[Hg] 117 mm[Hg] A [facility] ([facility]) Body weight 4019.2 [oz_av] 4019.2 [oz_av] ATHEN A ([facility]) Systolic blood pressure 117 mm[Hg] 117 mm[Hg] A [facility] ([facility]) Body height 62 [in_i] 62 [in_i] HAI[facility] ([facility]) Body mass index (BMI) [Ratio] 45.9 kg/m2 45.9 k g/m2 [facility] ([facility]) Body weight 4019.2 [oz_av] 4019.2 [oz_av] ATHEN A ([facility]) Diastolic blood pressure 77 mm[Hg] 77 mm[Hg] HAILEY ([facility]) Body height 62 [in_i] 62 [in_i] HAI[facility] ([facility]) Body mass index (BMI) [Ratio] 45.9 kg/m2 45.9 k g/m2 [facility] ([facility]) Systolic blood pressure 117 mm[Hg] 117 mm[Hg] A [facility] ([facility]) Body weight 4019.2 [oz_av] 4019.2 [oz_av] ATHEN A ([facility]) Diastolic blood pressure 77 mm[Hg] 77 mm[Hg] HAILEY ([facility]) Body height 62 [in_i] 62 [in_i] [facility] ([facility]) Body mass index (BMI) [Ratio] 45.9 kg/m2 45.9 k g/m2 [facility] ([facility]) Systolic blood pressure 117 mm[Hg] 117 mm[Hg] [facility] Body weight 4019.2 [oz_av] 4019.2 [oz_av] ATHEN A ([facility]) Diastolic blood pressure 77 mm[Hg] 77 mm[Hg] HAILEY ([facility]) Body height 62 [in_i] 62 [in_i] [facility] ([facility]) Body mass index (BMI) [Ratio] 45.9 kg/m2 45.9 k g/m2 [facility] ([facility]) Systolic blood pressure 117 mm[Hg] 117 mm[Hg] [facility] Body weight 4019.2 [oz_av] 4019.2 [oz_av] ATHEN A ([facility]) Diastolic blood pressure 77 mm[Hg] 77 mm[Hg] HAILEY ([facility]) Body height 62 [in_i] 62 [in_i] [facility] ([facility]) Body mass index (BMI) [Ratio] 45.9 kg/m2 45.9 k g/m2 [facility] ([facility]) Systolic blood pressure 117 mm[Hg] 117 mm[Hg] [facility] Body weight 4019.2 [oz_av] 4019.2 [oz_av] ATHEN A ([facility]) Body weight 4019.2 [oz_av] 4019.2 [oz_av] ATHEN A ([facility]) Diastolic blood pressure 77 mm[Hg] 77 mm[Hg] HAILEY ([facility]) Body height 62 [in_i] 62 [in_i] [facility] ([facility]) Body mass index (BMI) [Ratio] 45.9 kg/m2 45.9 k g/m2 [facility] ([facility]) Systolic blood pressure 117 mm[Hg] 117 mm[Hg] [facility] Diastolic blood pressure 77 mm[Hg] 77 mm[Hg] [facility] ([facility]) Body height 62 [in_i] 62 [in_i] [facility] ([facility]) Body mass index (BMI) [Ratio] 45.9 kg/m2 45.9 k g/m2 [facility] ([facility]) Systolic blood pressure 117 mm[Hg] 117 mm[Hg] [facility] Body weight 4019.2 [oz_av] 4019.2 [oz_av] ATHEN A ([facility]) Diastolic blood pressure 77 mm[Hg] 77 mm[Hg] HAILEY ([facility]) Body height 62 [in_i] 62 [in_i] [facility] ([facility]) Body mass index (BMI) [Ratio] 45.9 kg/m2 45.9 k g/m2 [facility] ([facility]) Systolic blood pressure 117 mm[Hg] 117 mm[Hg] A [facility] ([facility]) Body weight 4019.2 [oz_av] 4019.2 [oz_av] ATHEN A ([facility]) Diastolic blood pressure 77 mm[Hg] 77 mm[Hg] HAILEY ([facility]) Body height 62 [in_i] 62 [in_i] [facility] ([facility]) Body mass index (BMI) [Ratio] 45.9 kg/m2 45.9 k g/m2 [facility] ([facility]) Systolic blood pressure 117 mm[Hg] 117 mm[Hg] [facility] Body weight 4019.2 [oz_av] 4019.2 [oz_av] ATHEN A ([facility]) Diastolic blood pressure 77 mm[Hg] 77 mm[Hg] HAILEY ([facility]) Body height 62 [in_i] 62 [in_i] HAILEY ([facility]) Body mass index (BMI) [Ratio] 45.9 kg/m2 45.9 k g/m2 HAILEY ([facility]) Systolic blood pressure 117 mm[Hg] 117 mm[Hg] [facility] Body weight 4019.2 [oz_av] 4019.2 [oz_av] ATHEN A ([facility]) Diastolic blood pressure 77 mm[Hg] 77 mm[Hg] HAILEY ([facility]) Body height 62 [in_i] 62 [in_i] HAILEY ([facility]) Body mass index (BMI) [Ratio] 45.9 kg/m2 45.9 k g/m2 HAILEY ([facility]) Systolic blood pressure 117 mm[Hg] 117 mm[Hg] [facility] Body weight 4019.2 [oz_av] 4019.2 [oz_av] ATHEN A ([facility]) Diastolic blood pressure 77 mm[Hg] 77 mm[Hg] HAILEY ([facility]) Body height 62 [in_i] 62 [in_i] HAILEY ([facility]) Body mass index (BMI) [Ratio] 45.9 kg/m2 45.9 k g/m2 HAILEY ([facility]) Systolic blood pressure 117 mm[Hg] 117 mm[Hg] A [facility] ([facility]) Body weight 4019.2 [oz_av] 4019.2 [oz_av] ATHEN A ([facility]) Diastolic blood pressure 77 mm[Hg] 77 mm[Hg] HAILEY ([facility]) Body height 62 [in_i] 62 [in_i] HAILEY ([facility]) Body mass index (BMI) [Ratio] 45.9 kg/m2 45.9 k g/m2 HAILEY ([facility]) Systolic blood pressure 117 mm[Hg] 117 mm[Hg] A THENA ([facility]) Body weight 4019.2 [oz_av] 4019.2 [oz_av] ATHEN A ([facility]) Diastolic blood pressure 77 mm[Hg] 77 mm[Hg] HAILEY ([facility]) Body height 62 [in_i] 62 [in_i] HAILEY ([facility]) Body mass index (BMI) [Ratio] 45.9 kg/m2 45.9 k g/m2 HAILEY ([facility]) Systolic blood pressure 117 mm[Hg] 117 mm[Hg] [facility] Body weight 4019.2 [oz_av] 4019.2 [oz_av] ATHEN A ([facility]) Diastolic blood pressure 77 mm[Hg] 77 mm[Hg] HAILEY ([facility]) Body height 62 [in_i] 62 [in_i] HAILEY ([facility]) Body mass index (BMI) [Ratio] 45.9 kg/m2 45.9 k g/m2 HAILEY ([facility]) Systolic blood pressure 117 mm[Hg] 117 mm[Hg] A THENA ([facility]) Body weight 4019.2 [oz_av] 4019.2 [oz_av] ATHEN A ([facility]) Body weight 4019.2 [oz_av] 4019.2 [oz_av] ATHEN A ([facility]) Diastolic blood pressure 77 mm[Hg] 77 mm[Hg] HAILEY ([facility]) Body height 62 [in_i] 62 [in_i] HAILEY ([facility]) Body mass index (BMI) [Ratio] 45.9 kg/m2 45.9 k g/m2 HAILEY ([facility]) Systolic blood pressure 117 mm[Hg] 117 mm[Hg] A THENA ([facility]) Diastolic blood pressure 77 mm[Hg] 77 mm[Hg] HAILEY ([facility]) Body height 62 [in_i] 62 [in_i] HAILEY ([facility]) Body mass index (BMI) [Ratio] 45.9 kg/m2 45.9 k g/m2 HAILEY ([facility]) Systolic blood pressure 117 mm[Hg] 117 mm[Hg] A THENA ([facility]) Body weight 4019.2 [oz_av] 4019.2 [oz_av] ATHEN A ([facility]) Body temperature 97.1 [degF] 97.1 [degF] MEDENT ([facility]) Body weight 248.00 [lb_av] 248.00 [lb_av] MEDEN T ([facility]) Body height 62 [in_i] 62 [in_i] MEDENT ([facility]) 5'2" Body mass index (BMI) [Ratio] 45.4 kg/m2 45.4 k g/m2 MEDENT ([facility]) Patient Treatment Plan of Care Planned Activity Planned Date Details Description Data Source (s) Trazodone Hydrochloride 50 MG Oral Tablet HAILEY ([facility]) Pseudoephedrine Hydrochloride 30 MG Oral Tablet [Sudogest] HAILEY ([facility]) Acetaminophen 325 MG / Hydrocodone Bitartrate 5 MG Oral Tablet HAILEY ([facility]) Citalopram 40 MG Oral Tablet HAILEY ([facility]) benzonatate 100 MG Oral Capsule HAILEY ([facility]) Amoxicillin 875 MG / Clavulanate 125 MG Oral Tablet HAILEY ([facility]) Trazodone Hydrochloride 50 MG Oral Tablet HAILEY ([facility]) Pseudoephedrine Hydrochloride 30 MG Oral Tablet [Sudogest] HAILEY ([facility]) Acetaminophen 325 MG / Hydrocodone Bitartrate 5 MG Oral Tablet HAILEY ([facility]) Citalopram 40 MG Oral Tablet HAILEY ([facility]) benzonatate 100 MG Oral Capsule HAILEY ([facility]) Amoxicillin 875 MG / Clavulanate 125 MG Oral Tablet HAILEY ([facility]) Trazodone Hydrochloride 50 MG Oral Tablet HAILEY ([facility]) Pseudoephedrine Hydrochloride 30 MG Oral Tablet [Sudogest] HAILEY ([facility]) Acetaminophen 325 MG / Hydrocodone Bitartrate 5 MG Oral Tablet HAILEY ([facility]) Citalopram 40 MG Oral Tablet HAILEY ([facility]) benzonatate 100 MG Oral Capsule HAILEY ([facility]) Amoxicillin 875 MG / Clavulanate 125 MG Oral Tablet HAILEY ([facility]) Trazodone Hydrochloride 50 MG Oral Tablet HAILEY ([facility]) Pseudoephedrine Hydrochloride 30 MG Oral Tablet [Sudogest] HAILEY ([facility]) Acetaminophen 325 MG / Hydrocodone Bitartrate 5 MG Oral Tablet HAILEY ([facility]) Citalopram 40 MG Oral Tablet HAILEY ([facility]) benzonatate 100 MG Oral Capsule HAILEY ([facility]) Amoxicillin 875 MG / Clavulanate 125 MG Oral Tablet HAILEY ([facility]) Trazodone Hydrochloride 50 MG Oral Tablet HAILEY ([facility]) Acetaminophen 325 MG / Hydrocodone Bitartrate 5 MG Oral Tablet HAILEY ([facility]) Citalopram 40 MG Oral Tablet HAILEY ([facility]) benzonatate 100 MG Oral Capsule HAILEY ([facility]) Amoxicillin 875 MG / Clavulanate 125 MG Oral Tablet HAILEY ([facility]) benzonatate 100 MG Oral Capsule HAILEY ([facility]) Amoxicillin 875 MG / Clavulanate 125 MG Oral Tablet HAILEY ([facility]) Acetaminophen 325 MG / Hydrocodone Bitartrate 5 MG Oral Tablet HAILEY ([facility]) Citalopram 40 MG Oral Tablet HAILEY ([facility]) benzonatate 100 MG Oral Capsule HAILEY ([facility]) Amoxicillin 875 MG / Clavulanate 125 MG Oral Tablet HAILEY ([facility]) Trazodone Hydrochloride 50 MG Oral Tablet HAILEY ([facility]) Acetaminophen 325 MG / Hydrocodone Bitartrate 5 MG Oral Tablet HAILEY ([facility]) Citalopram 40 MG Oral Tablet HAILEY ([facility]) benzonatate 100 MG Oral Capsule HAILEY ([facility]) Amoxicillin 875 MG / Clavulanate 125 MG Oral Tablet HAILEY ([facility]) Trazodone Hydrochloride 50 MG Oral Tablet HAILEY ([facility]) Acetaminophen 325 MG / Hydrocodone Bitartrate 5 MG Oral Tablet HAILEY ([facility]) Citalopram 40 MG Oral Tablet HAILEY ([facility]) benzonatate 100 MG Oral Capsule HAILEY ([facility]) Amoxicillin 875 MG / Clavulanate 125 MG Oral Tablet HAILEY ([facility]) Trazodone Hydrochloride 50 MG Oral Tablet HAILEY ([facility]) Acetaminophen 325 MG / Hydrocodone Bitartrate 5 MG Oral Tablet HAILEY ([facility]) Citalopram 40 MG Oral Tablet HAILEY ([facility]) benzonatate 100 MG Oral Capsule HAILEY ([facility]) Amoxicillin 875 MG / Clavulanate 125 MG Oral Tablet HAILEY ([facility]) Trazodone Hydrochloride 50 MG Oral Tablet HAILEY ([facility]) Acetaminophen 325 MG / Hydrocodone Bitartrate 5 MG Oral Tablet HAILEY ([facility]) Citalopram 40 MG Oral Tablet HAILEY ([facility]) benzonatate 100 MG Oral Capsule HAILEY ([facility]) Amoxicillin 875 MG / Clavulanate 125 MG Oral Tablet HAILEY ([facility]) Trazodone Hydrochloride 50 MG Oral Tablet HAILEY ([facility]) Acetaminophen 325 MG / Hydrocodone Bitartrate 5 MG Oral Tablet HAILEY ([facility]) Citalopram 40 MG Oral Tablet HAILEY ([facility]) benzonatate 100 MG Oral Capsule HAILEY ([facility]) Amoxicillin 875 MG / Clavulanate 125 MG Oral Tablet HAILEY ([facility]) Trazodone Hydrochloride 50 MG Oral Tablet HAILEY ([facility]) Acetaminophen 325 MG / Hydrocodone Bitartrate 5 MG Oral Tablet HAILEY ([facility]) Citalopram 40 MG Oral Tablet HAILEY ([facility]) benzonatate 100 MG Oral Capsule HAILEY ([facility]) Amoxicillin 875 MG / Clavulanate 125 MG Oral Tablet HAILEY ([facility]) Citalopram 40 MG Oral Tablet HAILEY ([facility]) benzonatate 100 MG Oral Capsule HAILEY ([facility]) Amoxicillin 875 MG / Clavulanate 125 MG Oral Tablet HAILEY ([facility]) Citalopram 40 MG Oral Tablet HAILEY ([facility]) benzonatate 100 MG Oral Capsule HAILEY ([facility]) Amoxicillin 875 MG / Clavulanate 125 MG Oral Tablet HAILEY ([facility]) Citalopram 40 MG Oral Tablet HAILEY ([facility]) benzonatate 100 MG Oral Capsule HAILEY ([facility]) Amoxicillin 875 MG / Clavulanate 125 MG Oral Tablet HAILEY ([facility]) Citalopram 40 MG Oral Tablet HAILEY ([facility]) benzonatate 100 MG Oral Capsule HAILEY ([facility]) Amoxicillin 875 MG / Clavulanate 125 MG Oral Tablet HAILEY ([facility]) Citalopram 40 MG Oral Tablet HAILEY ([facility]) benzonatate 100 MG Oral Capsule HAILEY ([facility]) Amoxicillin 875 MG / Clavulanate 125 MG Oral Tablet HAILEY ([facility]) Citalopram 40 MG Oral Tablet HAILEY ([facility]) benzonatate 100 MG Oral Capsule HAILEY ([facility]) Amoxicillin 875 MG / Clavulanate 125 MG Oral Tablet HAILEY ([facility]) Citalopram 40 MG Oral Tablet HAILEY ([facility]) benzonatate 100 MG Oral Capsule HAILEY ([facility]) Amoxicillin 875 MG / Clavulanate 125 MG Oral Tablet HAILEY ([facility]) Citalopram 40 MG Oral Tablet HAILEY ([facility]) benzonatate 100 MG Oral Capsule HAILEY ([facility]) Amoxicillin 875 MG / Clavulanate 125 MG Oral Tablet HAILEY ([facility]) Citalopram 40 MG Oral Tablet HAILEY ([facility]) benzonatate 100 MG Oral Capsule HAILEY ([facility]) Amoxicillin 875 MG / Clavulanate 125 MG Oral Tablet HAILEY ([facility]) Citalopram 40 MG Oral Tablet HAILEY ([facility]) benzonatate 100 MG Oral Capsule HAILEY ([facility]) Amoxicillin 875 MG / Clavulanate 125 MG Oral Tablet HAILEY ([facility]) Citalopram 40 MG Oral Tablet HAILEY ([facility]) benzonatate 100 MG Oral Capsule HAILEY ([facility]) Amoxicillin 875 MG / Clavulanate 125 MG Oral Tablet HAILEY ([facility]) Trazodone Hydrochloride 50 MG Oral Tablet HAILEY ([facility]) Acetaminophen 325 MG / Hydrocodone Bitartrate 5 MG Oral Tablet HAILEY ([facility]) Citalopram 40 MG Oral Tablet HAILEY ([facility]) benzonatate 100 MG Oral Capsule HAILEY ([facility]) Amoxicillin 875 MG / Clavulanate 125 MG Oral Tablet HAILEY ([facility]) Trazodone Hydrochloride 50 MG Oral Tablet HAILEY ([facility]) Acetaminophen 325 MG / Hydrocodone Bitartrate 5 MG Oral Tablet HAILEY ([facility]) Citalopram 40 MG Oral Tablet HAILEY ([facility]) benzonatate 100 MG Oral Capsule HAILEY ([facility]) Amoxicillin 875 MG / Clavulanate 125 MG Oral Tablet HAILEY ([facility]) Trazodone Hydrochloride 50 MG Oral Tablet HAILEY ([facility]) Acetaminophen 325 MG / Hydrocodone Bitartrate 5 MG Oral Tablet HAILEY ([facility]) Citalopram 40 MG Oral Tablet HAILEY ([facility]) Trazodone Hydrochloride 50 MG Oral Tablet HAILEY ([facility]) Acetaminophen 325 MG / Hydrocodone Bitartrate 5 MG Oral Tablet HAILEY ([facility]) Citalopram 40 MG Oral Tablet HAILEY ([facility]) benzonatate 100 MG Oral Capsule HAILEY ([facility]) Amoxicillin 875 MG / Clavulanate 125 MG Oral Tablet HAILEY ([facility]) Trazodone Hydrochloride 50 MG Oral Tablet HAILEY ([facility]) Acetaminophen 325 MG / Hydrocodone Bitartrate 5 MG Oral Tablet HAILEY ([facility]) Citalopram 40 MG Oral Tablet HAILEY ([facility]) benzonatate 100 MG Oral Capsule HAILEY ([facility]) Amoxicillin 875 MG / Clavulanate 125 MG Oral Tablet HAILEY ([facility]) Trazodone Hydrochloride 50 MG Oral Tablet HAILEY ([facility])
--- NOTE | 2021-03-22 13:04 | REP ---
INDICATION: Headache worst ever. COMPARISON: None. TECHNIQUE: Contiguous 5 mm thick axial projection images were obtained of the head. 2D coronal reconstructions were performed. FINDINGS: In the right middle cranial fossa there is an extra-axial fluid collection measuring 19 x 19 x 8 mm. There is mild mass effect on the underlying portion of the temporal lobe and there is thinning of the overlying internal table of the right temporal bone. This is most likely a benign arachnoid cyst. There is no evidence of acute intracranial hemorrhage or infarction. There are no abnormal intraparenchymal masses. The skull base is unremarkable. The mastoid air cells and visualized paranasal sinuses are normal. The intraorbital contents are normal. The visualized extracranial soft tissues are unremarkable. IMPRESSION: 1. Extra-axial fluid collection in the right middle cranial fossa, most consistent with an arachnoid cyst. 2. There is no evidence of acute intracranial pathology. <Electronically signed by Carlos Willett > 03/22/21 1300
[2021-03-22 13:34] LABS: BASO # 0.1 10^3/uL (0.0-0.2); BASO % 0.8 % (0.0-1.0); EOS # 0.3 10^3/uL (0.0-0.5); EOS % 4.3 % (0.0-3.0); HEMATOCRIT 49.4 % (36.0-47.0); HEMOGLOBIN 15.9 g/dl (12.0-15.5); LYMPH # 2.4 10^3/uL (1.5-5.0); LYMPH % 31.4 % (24.0-44.0); MEAN CORPUSCULAR HEMOGLOBIN 27.9 pg (27.0-33.0); MEAN CORPUSCULAR HGB CONC 32.2 g/dl (32.0-36.5); MEAN CORPUSCULAR VOLUME 86.7 fl (80.0-96.0); MONO # 0.5 10^3/uL (0.0-0.8); MONO % 6.2 % (2.0-8.0); NEUTROPHILS # 4.3 10^3/uL (1.5-8.5); NEUTROPHILS % 56.9 % (36.0-66.0); PLATELET COUNT, AUTOMATED 257 10^3/uL (150-450); WHITE BLOOD COUNT 7.6 10^3/uL (4.0-10.0)
[2021-03-22 13:55] LABS: ALBUMIN 3.4 GM/DL (3.2-5.2); BILIRUBIN,TOTAL 0.7 MG/DL (0.2-1.0); CALCIUM LEVEL 9.1 MG/DL (8.5-10.1); CREATININE FOR GFR 1.31 MG/DL (0.55-1.30); GLOMERULAR FILTRATION RATE 52.2 (>60); POTASSIUM SERUM 4.9 MEQ/L (3.5-5.1)
[2021-03-22 15:49] VITALS: BP 120/71
== END 2021-03-22 16:07 | disposition home or self-care (01) ==
LOC: M ED 11:38
DX: Z11.52 Encounter for screening for COVID-19 (principal); G93.0 Cerebral cysts; E86.0 Dehydration; Z79.899 Other long term (current) drug therapy; Z79.3 Long term (current) use of hormonal contraceptives
CPT/HCPCS: 36415; 70450; 80053; 85025; 96361; 96374; 99284; J1200

== ENCOUNTER → 2021-05-06 | Outpatient (REF) ==
[~2021-05-06] MED LIST changes: -CITA40TA4; +CITA40TA7; +LEXA1TAB2; +METF500T13; +OMEP-173; +OMEP-173 PO; -OMEP-218; -OMEP-218 PO; +VITA200016
== END ==
LOC: M LABSMTC 10:31
PROVIDERS: ATTEND Pediatrics
DX: Z11.52 Encounter for screening for COVID-19 (principal)

== ENCOUNTER 2021-05-15 18:06 | Emergency (ER) | payer OTHER ==
[~2021-05-15] VITALS: Ht 162.6 cm; Wt 70.0 kg
[2021-05-15 19:34] LABS: HEMATOCRIT 46.7 % (36.0-47.0); HEMOGLOBIN 15.2 g/dl (12.0-15.5); MEAN CORPUSCULAR HEMOGLOBIN 27.7 pg (27.0-33.0); MEAN CORPUSCULAR HGB CONC 32.5 g/dl (32.0-36.5); MEAN CORPUSCULAR VOLUME 85.2 fl (80.0-96.0); PLATELET COUNT, AUTOMATED 239 10^3/uL (150-450); RED BLOOD COUNT 5.48 10^6/uL (4.00-5.40); WHITE BLOOD COUNT 9.3 10^3/uL (4.0-10.0)
[2021-05-15 20:14] LABS: HCG, SERUM QUALITATIVE NEGATIVE (NEGATIVE)
[2021-05-15 20:51] LABS: ACETAMINOPHEN LEVEL < 2.0 UG/ML (10.0-30.0); ALBUMIN 3.6 GM/DL (3.2-5.2); ALT/SGPT 30 U/L (12-78); BILIRUBIN,DIRECT 0.1 MG/DL (0.0-0.2); BILIRUBIN,TOTAL 0.3 MG/DL (0.2-1.0); BLOOD UREA NITROGEN 11 MG/DL (7-18); CALCIUM LEVEL 9.6 MG/DL (8.5-10.1); CARBON DIOXIDE LEVEL 25 MEQ/L (21-32); CHLORIDE LEVEL 108 MEQ/L (98-107); CREATININE FOR GFR 1.24 MG/DL (0.55-1.30); ETHYL ALCOHOL (ETHANOL) 0.005 % (0.000-0.010); GLOMERULAR FILTRATION RATE 55.7 (>60); GLUCOSE, FASTING 114 MG/DL (70-100); POTASSIUM SERUM 4.4 MEQ/L (3.5-5.1); SALICYLATE LEVEL < 1.7 MG/DL (5.0-30.0); SODIUM LEVEL 138 MEQ/L (136-145); TOTAL PROTEIN 7.4 GM/DL (6.4-8.2)
[2021-05-15 22:45] LABS: AMPHETAMINES LEVEL URINE NEGATIVE (NEGATIVE); BARBITURATES URINE NEGATIVE (NEGATIVE); BENZODIAZEPINES URINE NEGATIVE (NEGATIVE); CANNABINOIDS URINE NEGATIVE (NEGATIVE); COCAINE METABOLITE URINE NEGATIVE (NEGATIVE); METHADONE URINE NEGATIVE (NEGATIVE); OPIATES URINE NEGATIVE (NEGATIVE); PHENCYCLIDINE URINE NEGATIVE (NEGATIVE)
[2021-05-16 06:23] VITALS: BP 118/79
== END 2021-05-16 06:25 | disposition home or self-care (01) ==
LOC: M ED 18:06
DX: F43.0 Acute stress reaction (principal); R45.850 Homicidal ideations; K21.9 Gastro-esophageal reflux disease without esophagitis; F32.A Depression, unspecified; F41.9 Anxiety disorder, unspecified; G43.909 Migraine, unspecified, not intractable, without status migrainosus; Z79.899 Other long term (current) drug therapy

== ENCOUNTER → 2021-05-25 | Outpatient (CLI) | payer OTHER ==
[2021-05-25 14:16] LABS: BASO # 0.1 10^3/uL (0.0-0.2); BASO % 0.6 % (0.0-1.0); EOS # 0.3 10^3/uL (0.0-0.5); EOS % 3.5 % (0.0-3.0); HEMATOCRIT 45.3 % (36.0-47.0); HEMOGLOBIN 14.8 g/dl (12.0-15.5); LYMPH # 2.3 10^3/uL (1.5-5.0); LYMPH % 25.6 % (24.0-44.0); MEAN CORPUSCULAR HEMOGLOBIN 28.1 pg (27.0-33.0); MEAN CORPUSCULAR HGB CONC 32.7 g/dl (32.0-36.5); MONO # 0.6 10^3/uL (0.0-0.8); MONO % 7.1 % (2.0-8.0); NEUTROPHILS # 5.6 10^3/uL (1.5-8.5); NEUTROPHILS % 62.8 % (36.0-66.0); PLATELET COUNT, AUTOMATED 287 10^3/uL (150-450); RED BLOOD COUNT 5.27 10^6/uL (4.00-5.40); WHITE BLOOD COUNT 8.9 10^3/uL (4.0-10.0)
[2021-05-25 14:32] LABS: INR 0.92; PROTHROMBIN TIME 12.8 SECONDS (12.7-14.5)
[2021-05-25 14:33] LABS: PARTIAL THROMBOPLASTIN TIME 28.1 SECONDS (25.9-37.0)
[2021-05-25 15:24] LABS: APPEARANCE, CSF CLEAR (CLEAR); COLOR, CSF COLORLESS (COLORLESS); CSF TUBE# CELL CNT TUBE 3
[2021-05-25 15:41] LABS: CSF TUBE# GLU TUBE 1; CSF TUBE# TP TUBE 1; GLUCOSE CSF 90 MG/DL (40-75); TOTAL PROTEIN,CSF 30 MG/DL (15-45)
== END ==
LOC: M LAB 13:25
PROVIDERS: ATTEND Psychiatry & Neurology Neurology
DX: H47.11 Papilledema associated with increased intracranial pressure (principal)

== ENCOUNTER → 2021-05-25 | Outpatient (CLI) | payer OTHER ==
[2021-05-25 16:05] VITALS: BP 124/79
== END ==
LOC: M IRPRO 12:28
PROVIDERS: ATTEND Psychiatry & Neurology Neurology
DX: M54.81 Occipital neuralgia (principal); G44.221 Chronic tension-type headache, intractable; G43.009 Migraine without aura, not intractable, without status migrainosus